=== PATIENT | male | born 1970 | race Caucasian/White ===

== ENCOUNTER 2017-01-09 15:08 | Inpatient (IN) | payer OTHER ==
[~2017-01-09] VITALS: Ht 177.8 cm; Wt 115.0 kg
[2017-01-09] VITALS (37 sets, daily range): BP systolic 117–154; BP diastolic 69–103; PULSE 83–98; TEMP 36.4–36.8; O2SAT 92–99; Ht 177.8 cm; Wt 115.0 kg
[~2017-01-09 15:08] MED LIST: BND25 PO; CEPH500C PO; EPP3/2 IM; LEVO125T4 PO; LORA-741 PO; MULT-506 PO; OXYC1TAB3 PO; PRVHFAIN INH; SULF800T23 PO; TIZA2CAP PO; ZOLP10TA PO
[2017-01-09 15:46] LABS: BASO % 0.3 %; BASO ABS # 0.04 K/uL (0-0.2); COMPLETE YES; EOS % 1.8 %; HEMATOCRIT 33.6 % (42-52); IG% 0.2 %; LYMPH % 21.8 %; LYMPH ABS # 2.79 K/uL (1.2-3.4); MEAN CELL VOLUME 88.2 fL (80-100); MEAN CORPUSCULAR HEMOGLOBIN 30.2 pg (25-34); MEAN CORPUSCULAR HGB CONC 34.2 g/dl (32-36); MEAN PLATELET VOLUME 8.5 fL (7.4-10.4); MONO % 14.7 %; NEUT % 61.2 %; PLATELET COUNT 535 K/uL (130-400); RED BLOOD COUNT 3.81 M/uL (4.7-6.1)
[2017-01-09 15:50] LABS: PARTIAL THROMBOPLASTIN RATIO 1.2; PROTHROMBIN TIME (PATIENT) 11.1 SECONDS (9.0-12.0)
[2017-01-09 15:55] LABS: BUN/CREATININE RATIO 13.7 (10-20); CALCIUM 8.6 mg/dl (8.5-10.1); CREATININE 0.92 mg/dl (0.60-1.40); POTASSIUM 3.6 mmol/L (3.5-5.1)
--- NOTE | 2017-01-09 15:57 | DIAGNOSTIC IMAGING REPORT ---
CHEST ONE VIEW PORTABLE CLINICAL HISTORY: Chest pain. COMPARISON STUDY: Chest radiograph and chest CT no 2015. FINDINGS: There is no pneumothorax or pleural effusion. Linear bilateral opacities favor atelectasis. Note is made of a 3.8 cm nodular retrocardiac opacity projecting over the left lower lung. There is no evidence of pulmonary edema. There is mild enlargement of the cardiac silhouette which appears increased since prior exam. IMPRESSION: 1. 3.8 cm nodular opacity within the left lower lung. While this may be artifactual, a small area of pneumonia could appear similar. Follow-up PA and lateral chest radiographs in one month to ensure resolution are recommended. 2. Linear bilateral opacities suggestive of atelectasis. 3. Mild enlargement of the cardiac silhouette, increased since prior exam, accentuated on this AP exam Electronically signed by: Joaquin Tena M.D. 01/09/2017 3:55 PM Dictated Date/Time: 01/09/2017 3:52 PM
[2017-01-09 15:59] LABS: POINT OF CARE PRO-BNP 1766 pg/ml (0-450)
[2017-01-09 16:00] LABS: CKMB/CK RATIO 1.2 (0-3.0)
[2017-01-09] MEDS ORDERED: LEVO150T9 PO (16:04)
[2017-01-09] MEDS ORDERED: ATV/1 PO (16:04)
[2017-01-09] MEDS ORDERED: CYCL10TA6 PO (16:04)
[2017-01-09] MEDS ORDERED: EPP3/2 IM (16:06)
[2017-01-09] MEDS ORDERED: ASPIRIN 81 MG CHEW PO STA (16:15)
[2017-01-09] MEDS ORDERED: NiCARDipine HCL INJ 2.5 MG/ML 10 ML AMP ONE (16:38)
[2017-01-09] MEDS ORDERED: HEPARIN SOD (PORCINE) 1000 UNIT/ML 10 ML VIAL ONE (16:38)
[2017-01-09] MEDS ORDERED: FENTANYL CITRATE INJ 50 MCG/1 ML 2 ML VIAL ONE (16:39)
[2017-01-09] MEDS ORDERED: NITROGLYCERIN/D5W 100MCG/ML 20ML SYR ONE (16:39)
[2017-01-09] MEDS ORDERED: MIDAZOLAM HCL 1 MG/ML 2ML VIAL ONE (16:39)
[2017-01-09] MEDS ORDERED: TRAM-10 PO (17:06)
[2017-01-09] MEDS ORDERED: OMEP20TA PO (17:06)
[2017-01-09] MEDS ORDERED: FUROSEMIDE 40 MG/4 ML VIAL ONE (17:35)
[2017-01-09] MEDS ORDERED: CLOPIDOGREL BISULFATE 300 MG TAB PO ONE (17:39)
[2017-01-09] MEDS ORDERED: NITROGLYCERIN/D5W 100 MCG/ML BTL ONE (17:39)
[2017-01-09] MEDS ORDERED: ACETAMINOPHEN 325 MG TAB PO PRN (18:00)
[2017-01-09] MEDS ORDERED: ONDANSETRON INJ 2 MG/ML 2 ML VIAL IV PRN (18:00)
--- NOTE | 2017-01-09 18:13 | Procedure Note ---
Post-Mod Sedation Assessment General Date of Moderate Sedation Jan 09, 2017. Vital Signs: Vital Signs Past 12 Hours Date Time Temp Pulse Resp B/P Pulse Ox O2 Delivery O2 Flow Rate FiO2 01/09/17 17:55 96 16 129/86 95 Room Air 01/09/17 17:42 97 16 138/86 95 Room Air 01/09/17 16:47 96 18 124/79 97 01/09/17 16:47 96 18 124/79 97 Nasal Cannula 2.0 01/09/17 16:34 96 116/80 97 Nasal Cannula 2.0 01/09/17 16:27 96 16 127/77 97 Nasal Cannula 2.0 01/09/17 16:22 99 01/09/17 15:19 95 Room Air 01/09/17 15:16 36.9 100 26 134/86 95 Room Air Review - Discharge Criteria Vital Signs Stable: Yes Alert/Oriented/Conversant: Yes Returned to Baseline Mental St: Yes Nausea Absent/Minimal: Yes Pain/Discomfort/Absent/Minimal: Yes Normal/Baseline Respirations: Yes Active Bleeding?: No Pt Received D/C Instructions: N/A Prescriptions Given: None Specific Proced. D/C Criteria Distal Pulses Present (Cardiac: Yes Groin site assessed-Card Cath: N/A Voided Prior To Discharge: N/A Discharged Patients Adult Escort/Transportation: N/A
--- NOTE | 2017-01-09 18:13 | Procedure Note ---
Pre-Mod Sedation Assessment General Date of Moderate Sedation: Jan 09, 2017. Vital Signs: Vital Signs Past 12 Hours Date Time Temp Pulse Resp B/P Pulse Ox O2 Delivery O2 Flow Rate FiO2 01/09/17 17:55 96 16 129/86 95 Room Air 01/09/17 17:42 97 16 138/86 95 Room Air 01/09/17 16:47 96 18 124/79 97 01/09/17 16:47 96 18 124/79 97 Nasal Cannula 2.0 01/09/17 16:34 96 116/80 97 Nasal Cannula 2.0 01/09/17 16:27 96 16 127/77 97 Nasal Cannula 2.0 01/09/17 16:22 99 01/09/17 15:19 95 Room Air 01/09/17 15:16 36.9 100 26 134/86 95 Room Air Review Cardiovascular: regular rate, rhythm, + pertinent finding (trace edema) Abdomen: normal bowel sounds, non tender, soft Lungs: + respiratory distress, + crackles (few crackles at bases) Airway Class: III Pre-Sedation Airway Assessment Oral Cavity: WNL Hx of Sleep Apnea: No Smoking Status: Current Every Day Smoker Mallampati Classification: Class III ASA Classification: Class III Procedure Planning Contraindications-for Mod Sed: None Yes Notes The planned sedation has been discussed with the patient and consent obtained. I have identified the patient, determined the appropriateness of sedation and have assessed the patient immediately prior to the procedure. All medicine(s) and interventions are by my order.
--- NOTE | 2017-01-09 18:38 | Cardiac Catheterization ---
Procedure Note Procedure Date Jan 09, 2017. Pre-Procedure Diagnosis STEMI AUC Score 9 Post-Procedure Diagnosis Severe CAD, Unsuccessful PCI, Elevated Intracardiac Pressures Procedure(s) Performed Coronary Angiography, Left Heart Cath Dovetailer Dr. Orourke Skid Wrapper(s) Jacoby Estimated Blood Loss 15 Medication(s) Clopidogrel, Fentanyl, Heparin, Nicardipine, Nitroglycerin, Versed, Lidocaine 1% Furosemide Summary of Findings Indication: Patient with chest pain starting 1 week ago, last pain 4 days ago. Presented to ED with worsening shortness of breath. Noted to me in acute heart failure. Presenting ECG showed precordial Q-waves with ST elevations. Heart Alert was called. Access: 6Fr Right Radial Artery Catheters: JR4 diagnostic, EBU 3.5 guide Findings: LM - Angiographically normal LAD - 100% occluded proximally Circumflex - Nondominant, large caliber vessel, luminal irregularities RCA - Dominant, large caliber vessel, mild 20-30% proximal disease, otherwise luminal irregularities distally. Faint right to left collaterals from PDA to LAD. LVEDP - 25 LV gram - LVEF ~25%, akinetic mid-distal anterior wall and apex In the setting of heart failure, questionable chest pain proximal LAD occlusion probed with BMW wire/Candy Cooker Helper 50. Lesion consistent with old organized thrombus and as wire could not be successfully passed into distal true lumen, procedure was aborted. Arterial Closure: TR Band Summary: 1. Late presenting Anterior STEMI/organized proximal LAD occlusion 2. Severe LV dysfunction with akinetic mid-distal anterior wall, apex. LVEF ~25 %. 3. Elevated intracardiac filling pressures. Recommendations: Admit to ICU Diuresis -- received lasix 40mg IV x 1 in labeling specialist Started on nitroglycerin drip for acute heart failure, mild respiratory distress Loaded with plavix 300 mg Continue ASA/Plavix for 1 year Heparin infusion overnight Echo in AM to assess LV function, evaluate for LV thrombus Start SUSY/ARB Start Beta-alex tomorrow when decompensated heart failure improved High-dose statin Smoking cessation Cardiac Rehab Hemodynamics Rest Ao: 105/77/90 Final Ao: 114/81/97 LV: 111/24 Recommendations Medical therapy and/or Counseling Specimens None Radiation Exposure (mGy) 2482 Contrast (mls) 95 Visi Fluids (cc crystalloids) 50 Drains None Anesthesia Moderate Procedural Complication(s) None Disposition ICU ACC Data Cardiac Status Clinical evaluation leading to the procedure CAD Presntation: STEMI STEMI or Non-STEMI: Symptom Onset Date/Time: 01/02/2017 Anginal Classification: CCS IV Heart Failure: NYHA Class: CCS III Cardiogenic Shock w/in 24Hrs: No Cardiac Arrest w/in 24Hrs: No Stress studies past 6 months: No Standard Exercise Stress Test: No Stress Echocardiogram: No Stress Testing w/SPECT MPI: No Cardiac CTA: No Coronary Anatomy Dominant: Right Left Main (% Stenosis): Normal LAD (% Stenosis): Proximal (100) Circumflex (% Stenosis): Normal RCA (% Stenosis): Proximal (20-30) Left Ventricular Angiography EF (%): 25 Wall Motion: Apical (Akinetic), Anterior (Akinetic) Diagnostic Physician's Name: Corby Orourke MD Closure Device Percutaneous Entry Location: Radial Closure Device: Radial Band Recommendations: Medical therapy and/or Counseling Intraprocedure Events Significant Dissection: No Perforation: No
[2017-01-09] MEDS ORDERED: MoRPHine SULFATE 2 MG/ML CARP ONE (18:53)
[2017-01-09] MEDS ORDERED: NITROGLYCERIN/D5W 100 MCG/ML 250 ML IV SCH (19:00)
[2017-01-09] MEDS ORDERED: MoRPHine SULFATE 2 MG/ML CARP IV STA (19:07)
[2017-01-09] MEDS ORDERED: MoRPHine SULFATE 2 MG/ML CARP IV PRN (19:15)
[2017-01-09] MEDS: HEPARIN 25,000 UNIT/500ML D5W 500 ML IV PRN (19:59)
[2017-01-09] MEDS: MoRPHine SULFATE 2 MG/ML CARP IV PRN ×3 (20:15→21:32)
[2017-01-09] MEDS ORDERED: NURSING VERBAL MED ORDER ONE (20:30)
--- NOTE | 2017-01-09 21:40 | EMERGENCY ROOM VISIT NOTE ---
History Report prepared by Campos: Veronica Santiago Under the Supervision of: Dr. Wilbur Licona M.D. First contact with patient: 15:24 Chief Complaint: RESPIRATORY PROBLEMS Stated Complaint: SOB Nursing Triage Summary: "I have been sick since last Tuesday, sleeping all the time, stomach pain. I don't have energy. Anything makes me struggle to breathe." per pt. Denies travel hx, no hx of blood clots, admits to being a smoker. 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 The patient states that last week he had pain under his rib cage on the right side along with mid abdominal pain and diaphoresis. The patient states that is when the shortness of breath started. He states that he has been sleeping an increased amount for the last week. The patient states that his chest pain and abdominal pain symptoms resolved but his shortness of breath has persisted throughout the week along with generalized weakness. The patient denies any current chest pain , trama, black or bloody stool, vomiting, diarrhea, swelling or pain in legs or any recent travel. The patient states that he is a daily smoker. He denies getting a flu shot this year. 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 Patient denies: swelling or pain in legs, black or bloody stool. Review of Systems See HPI for pertinent positives & negatives. A total of 10 systems reviewed and were otherwise negative. 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 Nurse's notes were reviewed and I agree with. Denies previous history of cardiac disease diabetes or pulmonary disease or blood clots Family History Patient reports no known family medical history. Social History Smoking Status: Current Every Day Smoker Alcohol Use: occasionally Drug Use: none Marital Status: in relationship Housing Status: lives with significant other Occupation Status: employed Current/Historical Medications Scheduled Levothyroxine Sodium (Levothyroxine Sodium), 150 MCG PO DAILY Multivitamin (Multivitamin), 1 TAB PO DAILY Omeprazole (Omeprazole), 20 MG PO DAILY Scheduled PRN Cyclobenzaprine Hcl (Flexeril), 10 MG PO TID PRN for Muscle Spasm Epinephrine (Epipen), 0.3 MG IM UD PRN for Severe Allergis Reaction Lorazepam (Ativan), 1 MG PO HS PRN for Anxiety Tramadol (Ultram), 50 MG PO Q6H PRN for Pain Allergies Coded Allergies: Amlodipine (Verified Allergy, Intermediate, Hives, 01/09/17) Lisinopril (Verified Allergy, Intermediate, Hives, 01/09/17) Tizanidine (Verified Allergy, Intermediate, Hives, 01/09/17) Physical Exam Vital Signs Date Time Temp Pulse Resp B/P Pulse Ox O2 Delivery O2 Flow Rate FiO2 01/09/17 18:08 36.8 96 20 130/91 94 Nasal Cannula 2.0 01/09/17 17:55 96 16 129/86 95 Room Air 01/09/17 17:42 97 16 138/86 95 Room Air 01/09/17 16:47 96 18 124/79 97 01/09/17 16:47 96 18 124/79 97 Nasal Cannula 2.0 01/09/17 16:34 96 116/80 97 Nasal Cannula 2.0 01/09/17 16:27 96 16 127/77 97 Nasal Cannula 2.0 01/09/17 16:22 99 01/09/17 15:19 95 Room Air 01/09/17 15:16 36.9 100 26 134/86 95 Room Air Physical Exam General: Moderately ill appearing young male, breathing comfortably on room air. Normal speech HEENT: Normal cephalic atraumatic. Pupils are equal round and reactive to light. Extraocular movements are intact. Oropharynx is pink with moist mucous membranes. No swelling of the mouth lips or tongue. Neck: Supple with a midline trachea. No meningeal signs or stiffness, no JVD or bruits. No Stridor. Chest: Mild tachypnea, lungs have some rhonchi in both bases. Heart: regular rate and rhythm. Abdomen: Soft nontender, nondistended without rebound guarding or rigidity. Extremities: No cyanosis clubbing or edema. No calf tenderness or assymetry Spine/Back. Non tender to palpation. No CVA tenderness Skin: Good turgor without rashes. Neurologic exam: Cranial nerves two through 12 are intact. Motor and sensation are intact and symmetrical throughout. Medical Decision & Procedures ER Provider Diagnostic Interpretation: X-ray results as stated below per interpretation by me and the radiologist: CHEST ONE VIEW PORTABLE CLINICAL HISTORY: Chest pain. COMPARISON STUDY: Chest radiograph and chest CT no 2015. FINDINGS: There is no pneumothorax or pleural effusion. Linear bilateral opacities favor atelectasis. Note is made of a 3.8 cm nodular retrocardiac opacity projecting over the left lower lung. There is no evidence of pulmonary edema. There is mild enlargement of the cardiac silhouette which appears increased since prior exam. IMPRESSION: 1. 3.8 cm nodular opacity within the left lower lung. While this may be artifactual, a small area of pneumonia could appear similar. Follow-up PA and lateral chest radiographs in one month to ensure resolution are recommended. 2. Linear bilateral opacities suggestive of atelectasis. 3. Mild enlargement of the cardiac silhouette, increased since prior exam, accentuated on this AP exam Electronically signed by: Joaquin Tena M.D. 01/09/2017 3:55 PM Dictated Date/Time: 01/09/2017 3:52 PM Laboratory Results 01/09/17 15:30 Red Blood Count 3.81, Mean Corpuscular Volume 88.2, Mean Corpuscular Hemoglobin 30.2, Mean Corpuscular Hemoglobin Concent 34.2, Mean Platelet Volume 8.5, Neutrophils (%) (Auto) 61.2, Lymphocytes (%) (Auto) 21.8, Monocytes (%) (Auto) 14.7, Eosinophils (%) (Auto) 1.8, Basophils (%) (Auto) 0.3, Neutrophils # (Auto ) 7.84, Lymphocytes # (Auto) 2.79, Monocytes # (Auto) 1.88, Eosinophils # (Auto ) 0.23, Basophils # (Auto) 0.04 01/09/17 15:30 Test 01/09/17 15:30 01/09/17 15:34 01/09/17 15:36 01/09/17 16:04 White Blood Count 12.80 K/uL (4.8-10.8) Red Blood Count 3.81 M/uL (4.7-6.1) Hemoglobin 11.5 g/dL (14.0-18.0) Hematocrit 33.6 % (42-52) Mean Corpuscular Volume 88.2 fL (80-100) Mean Corpuscular Hemoglobin 30.2 pg (25-34) Mean Corpuscular Hemoglobin Concent 34.2 g/dl (32-36) Platelet Count 535 K/uL (130-400) Mean Platelet Volume 8.5 fL (7.4-10.4) Neutrophils (%) (Auto) 61.2 % Lymphocytes (%) (Auto) 21.8 % Monocytes (%) (Auto) 14.7 % Eosinophils (%) (Auto) 1.8 % Basophils (%) (Auto) 0.3 % Neutrophils # (Auto) 7.84 K/uL (1.4-6.5) Lymphocytes # (Auto) 2.79 K/uL (1.2-3.4) Monocytes # (Auto) 1.88 K/uL (0.11-0.59) Eosinophils # (Auto) 0.23 K/uL (0-0.5) Basophils # (Auto) 0.04 K/uL (0-0.2) RDW Standard Deviation 44.6 fL (36.4-46.3) RDW Coefficient of Variation 13.7 % (11.5-14.5) Immature Granulocyte % (Auto) 0.2 % Immature Granulocyte # (Auto) 0.02 K/uL (0.00-0.02) Prothrombin Time 11.1 SECONDS (9.0-12.0) Prothromb Time International Ratio 1.0 (0.9-1.1) Activated Partial Thromboplast Time 31.4 SECONDS (21.0-31.0) Partial Thromboplastin Ratio 1.2 Anion Gap 6.0 mmol/L (3-11) Est Creatinine Clear Calc Drug Dose 128.5 ml/min Estimated GFR () 116.0 Estimated GFR (Non- 100.1 BUN/Creatinine Ratio 13.7 (10-20) Calcium Level 8.6 mg/dl (8.5-10.1) Total Bilirubin 0.3 mg/dl (0.2-1) Direct Bilirubin 0.1 mg/dl (0-0.2) Aspartate Amino Transf (AST/SGOT) 46 U/L (15-37) Alanine Aminotransferase (ALT/SGPT) 77 U/L (12-78) Alkaline Phosphatase 118 U/L (45-117) Total Creatine Kinase 120 U/L (39-308) Creatine Kinase MB 1.4 ng/ml (0.5-3.6) Total Protein 7.6 gm/dl (6.4-8.2) Albumin 2.5 gm/dl (3.4-5.0) Lipase 315 U/L (73-393) Creatine Kinase MB Ratio (0-3.0) Bedside D-Dimer > 450 ng/mlFEU (0-450) Bedside Troponin I 5.770 ng/ml (0-0.045) UU-Kfx-X-Type Natriuretic Peptide 1766 pg/ml (0-450) Influenza Type A Antigen Neg for Influ A (NEG) Influenza Type B Antigen Neg for Influ B (NEG) Laboratory studies as stated above per my review. Medications Administered Medications (Trade) Dose Ordered Sig/Theresa Route Start Time Stop Time Status Last Admin Dose Admin Aspirin (Aspirin Chew) 324 mg NOW STAT PO 01/09/17 16:15 01/09/17 16:16 DC 01/09/17 16:32 324 MG Heparin Sodium (Porcine) (Heparin Iv Bolus) 10,000 unit STK-MED ONCE .ROUTE 01/09/17 16:38 01/09/17 16:41 DC 01/09/17 16:38 8,000 UNIT Fentanyl Citrate (Fentanyl Inj) 100 mcg STK-MED ONCE .ROUTE 01/09/17 16:39 01/09/17 16:41 DC 01/09/17 16:39 50 MCG Midazolam HCl (Versed Inj) 2 mg STK-MED ONCE .ROUTE 01/09/17 16:39 01/09/17 16:41 DC 01/09/17 16:39 1 MG Furosemide (Lasix Inj) 40 mg STK-MED ONCE .ROUTE 01/09/17 17:35 01/09/17 17:38 DC 01/09/17 17:35 40 MG Clopidogrel Bisulfate (plAVix TAB) 300 mg STK-MED ONCE PO 01/09/17 17:39 01/09/17 17:41 DC 01/09/17 17:47 300 MG Nitroglycerin/ Dextrose (Nitroglycerin/ D5w 100 Mcg/Ml) 25 mg STK-MED ONCE .ROUTE 01/09/17 17:39 01/09/17 17:42 DC 01/09/17 17:46 25 MG ECG Indication: SOB/dyspnea Rate (beats per minute): 94 Rhythm: normal sinus Findings: T-wave inversion (Anterior, lateral), ST elevation (Anterior, lateral ), other Comparison ECG Date: 2015 Change: Changes consistent with Acute OH. ED Course 1526: Past medical records reviewed. The patient was evaluated in room A3, and a complete history and physical examination were performed. 1606: I reviewed the patient's EKG and called heart alert for the patient concerning his EKG. 1608: I reevaluated the patient and he was resting comfortably. 1609: I discussed the case with Dr. Orourke Cardiology. He agreed to evaluate the patient for further management and care. 1615: Ordered Aspirin 324 mg PO. Medical Decision Differentials include, but are not limited to; acute OH, pneumonia, acute coronary syndrome, CHF, electrolyte or metabolic abnormality, PE, myocarditis. This patient comes in as described above. He has had significant shortness of breath which is primarily dyspnea on exertion. He's been been sick for over a week. He's been having pain along his ribs bilaterally and chest. He said the chest pain has been resolved since Tuesday but he had a lot of chest pain earlier in the week and last week and He feels achy and tired. He's had no fever or cough. No lower extremity swelling. No history of any similar events prior. Multiple blood testing was obtained as well as chest x-ray and EKG. The nurses came and got me after do an EKG as his EKG shows findings consistent with acute OH. His have Q waves as well as troponin is markedly elevated as is his BMP and d-dimer. I went back and reassessed the patient, he was given aspirin, and a heart alert was called. Dr. Orourke promptly arrived is going to take him to the Compliance Technician. The patient has no acute electrolyte or metabolic abnormality otherwise. I think he may have some mild congestive heart failure changes as well. Talking to the patient and his significant other, I suspect that he had more of a subacute heart attack probably about a week ago and has been having some congestive heart failure changes and an angina since then. He was sent emergency to the Compliance Technician for further diagnostic evaluation and possible treatment or angioplasty. Consults Time Called: 1608 Consulting Physician: Dr. Orourke Cardiology Returned Call: [phone] I discussed the case with Dr. Orourke Cardiology. He agreed to evaluate the patient for further management and care. Impression Primary Impression: Acute OH Critical Care I have personally spent greater than 30 minutes of critical care time in the direct management of this patient. This includes bedside care, interpretation of diagnostic studies, and testing, discussion with consultants, patient, and family members, and other required patient management activities. This 30 minutes is in excess of all separately billable procedures. Scribe Attestation The scribe's documentation has been prepared under my direction and personally reviewed by me in its entirety. I confirm that the note above accurately reflects all work, treatment, procedures, and medical decision making performed by me. Departure Information Dispostion Being Evaluated By Hospitalist Referrals Feliciano Holguin III, M.D. (PCP) Patient Instructions My [facility]
--- NOTE | 2017-01-09 22:12 | History and Physical ---
History & Physical Date & Time of Service: Jan 09, 2017 at 21:32 Chief Complaint: Ami (Acute Myocardial Infarction) Primary Care Physician: Feliciano Holguin III, M.D. History of Present Illness Source: patient 46 yo M with chest pain for the past several days associated with sweating and generalized malaise. 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 He was foudn to have an STEMI in the anterolateral leads and was taken to the laborer drying department where he was found to have an occluded prox LAD that couldn't be opened and an EF of 25%. A wire could not be successfully passed and PCI was unsuccessful. Lasix 40mg IV was given in laborer drying department, he was started on a nitro drip for acute heart failure in mild respiratory distress, he was loaded with Plavix 300mg. A heparin infusion was ordered overnight. A TTE was ordered in the morning to assess LV function and look for LV thrombus. Recommendations include starting ARB (pt allergic to ACEI), start BB when decompensated heart failure improved, start high dose statin. Smoking cessation and cardiac rehab were also recommended. He was still describing chest pain in the ICU post-cath which is being controlled with PRN Morphine. 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 Pt denies Social History Smoking Status: Current Every Day Smoker (45 pack years) Smokeless Tobacco Use: No Alcohol Use: none Drug Use: none Marital Status: in relationship Housing status: lives with family Occupational Status: employed Immunizations History of Influenza Vaccine: Yes Influenza Vaccine Date: Jun 14, 2016 History of Tetanus Vaccine?: Yes Tetanus Immunization Date: Oct 21, 2016 History of Pneumococcal: No History of Hepatitis B Vaccine: No Multi-Drug Resistant Organisms History of MDRO: No Allergies Coded Allergies: Amlodipine (Verified Allergy, Intermediate, Hives, 01/09/17) Lisinopril (Verified Allergy, Intermediate, Hives, 01/09/17) Tizanidine (Verified Allergy, Intermediate, Hives, 01/09/17) Home Medications Scheduled Levothyroxine Sodium (Levothyroxine Sodium), 150 MCG PO DAILY Multivitamin (Multivitamin), 1 TAB PO DAILY Omeprazole (Omeprazole), 20 MG PO DAILY Scheduled PRN Cyclobenzaprine Hcl (Flexeril), 10 MG PO TID PRN for Muscle Spasm Epinephrine (Epipen), 0.3 MG IM UD PRN for Severe Allergis Reaction Lorazepam (Ativan), 1 MG PO HS PRN for Anxiety Tramadol (Ultram), 50 MG PO Q6H PRN for Pain Review of Systems All systems reviewed and negative except as indicated in HPI. Physical Exam Vital Signs Date Time Temp Pulse Resp B/P Pulse Ox O2 Delivery O2 Flow Rate FiO2 01/09/17 20:04 96 21 136/87 99 Nasal Cannula 2.0 01/09/17 20:00 36.8 97 26 136/87 99 Nasal Cannula 2.0 01/09/17 19:59 36.8 94 28 140/91 99 Nasal Cannula 2.0 01/09/17 19:39 97 26 154/103 99 Nasal Cannula 2.0 01/09/17 19:29 93 18 136/82 96 Nasal Cannula 2.0 01/09/17 19:14 95 19 139/90 96 Nasal Cannula 2.0 01/09/17 18:59 93 18 130/88 92 Nasal Cannula 2.0 01/09/17 18:46 Nasal Cannula 2.0 01/09/17 18:44 91 18 143/87 94 01/09/17 18:44 36.8 91 18 143/87 94 Nasal Cannula 2.0 01/09/17 18:38 96 23 94 01/09/17 18:29 94 25 132/88 94 Nasal Cannula 2.0 01/09/17 18:29 94 25 132/88 94 01/09/17 18:23 96 21 93 01/09/17 18:22 96 27 130/91 94 Nasal Cannula 2.0 01/09/17 18:22 96 27 130/91 94 01/09/17 18:08 36.8 96 20 130/91 94 Nasal Cannula 2.0 01/09/17 17:55 96 16 129/86 95 Room Air 01/09/17 17:42 97 16 138/86 95 Room Air 01/09/17 16:47 96 18 124/79 97 01/09/17 16:47 96 18 124/79 97 Nasal Cannula 2.0 01/09/17 16:34 96 116/80 97 Nasal Cannula 2.0 01/09/17 16:27 96 16 127/77 97 Nasal Cannula 2.0 01/09/17 16:22 99 01/09/17 15:19 95 Room Air 01/09/17 15:16 36.9 100 26 134/86 95 Room Air GEN: WNWD, in mild distress, alert and appropriate HEENT: NC/AT, PERRL, normal sclerae, pharynx non-acute CARDIO: reg rate, S1/2 heard without m/g/r LUNGS: CTA bilaterally, no crackles, rales or wheezes, good diaphragmatic excursion ABD: soft, non-tender, non-distended, no rebound or guarding, +BS EXTREMITY: RP and DP palpable 2+ bilat, <2sec cap refill, wrist strap in place, no LE swelling or edema, extremities are warm and well-perfused NEURO: CN 2-12 grossly intact, sensation intact throughout MUSC: moves all extremities equally, no gross focal deficits. SKIN: warm and dry Diagnostics Laboratory Results Results Past 24 Hours Test 01/09/17 15:30 01/09/17 15:34 01/09/17 15:36 01/09/17 16:04 Range/Units White Blood Count 12.80 4.8-10.8 K/uL Red Blood Count 3.81 4.7-6.1 M/uL Hemoglobin 11.5 14.0-18.0 g/dL Hematocrit 33.6 42-52 % Mean Corpuscular Volume 88.2 80-100 fL Mean Corpuscular Hemoglobin 30.2 25-34 pg Mean Corpuscular Hemoglobin Concent 34.2 32-36 g/dl Platelet Count 535 130-400 K/uL Mean Platelet Volume 8.5 7.4-10.4 fL Neutrophils (%) (Auto) 61.2 % Lymphocytes (%) (Auto) 21.8 % Monocytes (%) (Auto) 14.7 % Eosinophils (%) (Auto) 1.8 % Basophils (%) (Auto) 0.3 % Neutrophils # (Auto) 7.84 1.4-6.5 K/uL Lymphocytes # (Auto) 2.79 1.2-3.4 K/uL Monocytes # (Auto) 1.88 0.11-0.59 K/uL Eosinophils # (Auto) 0.23 0-0.5 K/uL Basophils # (Auto) 0.04 0-0.2 K/uL RDW Standard Deviation 44.6 36.4-46.3 fL RDW Coefficient of Variation 13.7 11.5-14.5 % Immature Granulocyte % (Auto) 0.2 % Immature Granulocyte # (Auto) 0.02 0.00-0.02 K/uL Prothrombin Time 11.1 9.0-12.0 SECONDS Prothromb Time International Ratio 1.0 0.9-1.1 Activated Partial Thromboplast Time 31.4 21.0-31.0 SECONDS Partial Thromboplastin Ratio 1.2 Sodium Level 134 136-145 mmol/L Potassium Level 3.6 3.5-5.1 mmol/L Chloride Level 98 98-107 mmol/L Carbon Dioxide Level 30 21-32 mmol/L Anion Gap 6.0 3-11 mmol/L Blood Urea Nitrogen 13 7-18 mg/dl Creatinine 0.92 0.60-1.40 mg/dl Est Creatinine Clear Calc Drug Dose 128.5 ml/min Estimated GFR () 116.0 Estimated GFR (Non- 100.1 BUN/Creatinine Ratio 13.7 10-20 Random Glucose 83 70-99 mg/dl Calcium Level 8.6 8.5-10.1 mg/dl Total Bilirubin 0.3 0.2-1 mg/dl Direct Bilirubin 0.1 0-0.2 mg/dl Aspartate Amino Transf (AST/SGOT) 46 15-37 U/L Alanine Aminotransferase (ALT/SGPT) 77 12-78 U/L Alkaline Phosphatase 118 45-117 U/L Total Creatine Kinase 120 39-308 U/L Creatine Kinase MB 1.4 0.5-3.6 ng/ml Creatine Kinase MB Ratio 1.2 0-3.0 Total Protein 7.6 6.4-8.2 gm/dl Albumin 2.5 3.4-5.0 gm/dl Lipase 315 73-393 U/L Bedside D-Dimer > 450 0-450 ng/mlFEU Bedside Troponin I 5.770 0-0.045 ng/ml SU-[id number]-Type Natriuretic Peptide 1766 0-450 pg/ml Influenza Type A Antigen Neg for Influ A NEG Influenza Type B Antigen Neg for Influ B NEG Test 01/09/17 21:01 Range/Units Bedside Glucose 174 70-99 mg/dl Diagnostic Radiology CXR port: IMPRESSION: 1. 3.8 cm nodular opacity within the left lower lung. While this may be artifactual, a small area of pneumonia could appear similar. Follow-up PA and lateral chest radiographs in one month to ensure resolution are recommended. 2. Linear bilateral opacities suggestive of atelectasis. 3. Mild enlargement of the cardiac silhouette, increased since prior exam, accentuated on this AP exam EKG ST elev in I,AVL and V2-V6. Impression Assessment and Plan 46 yo M presents in acute CHF with STEMI 1. STEMI-the patient was a late presentation having had symptoms now for several days. Taken to laborer drying department, however, PCI was unsuccessful. Medical therapy and monitoring in ICU. Cardiac meds per Cards team. 2. Acute HF-severe dyspnea on exertion over the past couple of days. LV dysfunction with EF 25% on cath. Medical management per cardiology team. Appreciate recommendations. 3. Smoking-counseled on the importance of smoking cessation. 4. Anxiety-Lorazepam PRN 5. Chronic pain- 2/2 arthritis, takes PRN Tramadol Flexeril and Oxycodone 6. Hypothyroidism-cont Synthroid 150mg daily 7. HTN- (allergic to ACEI), not on antihypertensives at this time, however, this will be added in light of recent events for medical management of CAD. 8. LLL opacity on CXR-order PA and Lat CXR for am to better elucidate nodular opacity in am DVT proph-on heparin drip FULL CODE Enid Key DO Hospitalist Level of Care Critical Care Advanced Directives Existing Living Will: No Existing Power of Catering Convention Services Manager: No Resuscitation Status FULL RESUSCITATION VTE Prophylaxis VTE Risk Assessment Done? Y/N: Yes Risk Level: Moderate Given or contraindicated: Other Anticoagulation
[2017-01-09] MEDS: TRAMADOL HCL 50 MG TAB PO PRN (23:41)
[2017-01-09] MEDS: LORAZEPAM 1 MG TAB PO PRN (23:41)
--- NOTE | 2017-01-09 23:52 | CRITICAL CARE CONSULTATION ---
DATE OF CONSULTATION: 01/09/2017 CHIEF COMPLAINT: Chest discomfort. HISTORY OF PRESENT ILLNESS: Mr. Gonzalez is a 46-year-old gentleman with a history of hypothyroidism and heavy tobacco use, who presented to the Emergency Department complaining of chest discomfort. His girlfriend reports that over a week ago he was out for dinner with some friends, came home and started sweating profusely and experiencing what he called "internal pain around my ribcage, like I had an exposed nerve." It was sharp in nature, but there was also pain on the left side of his chest, around his nipple moving upward toward his neck. Evidently, he slept much of the weekend and went to work on Tuesday but had shortness of breath. He continued to work all week and reports that the pain got a little bit better about 4 days ago but then came back. On night, he had what he describes as chest pain over his left nipple, but he thought it was going to get better. He has had a poor appetite and has felt weak, but has not had any nausea or vomiting. Today when his girlfriend went to see him, she noted that he appeared scott in color and his lips were white. They went out to eat for lunch and after lunch she knew he was not feeling well and he agreed to come to the hospital. This is a man who smokes 2-1/2 packs of cigarettes per day and has done so for years. His father has a history of heart disease and is still living, but he cannot be very specific about that. He denies history of hypercholesterolemia and diabetes, and he sees Dr. Holguin for his primary care. When the patient presented to the Emergency Department, an EKG was performed which showed ST-segment elevations in leads I, V2 through V6. He was immediately taken to the cardiac catheterization lab where proximal LAD occlusion was noted but it was not able to be passed with a wire. His LVgram showed an ejection fraction of 25%. He was given 300 mg of Plavix, 40 mg of Lasix, a heparin bolus with infusion, and a nitroglycerin infusion. He was then transferred to the intensive care unit where he remains. He continues to complain of 3-4/10 chest pain and has been given 2 mg of morphine. Additionally, he denies lower extremity edema. PAST MEDICAL HISTORY: Gastroesophageal reflux disease, hypothyroidism, chronic pain, anxiety. PAST SURGICAL HISTORY: He denies any surgical history. ALLERGIES: TO LISINOPRIL WHICH CAUSES FACE AND THROAT SWELLING. OUTPATIENT MEDICATIONS: Flexeril 10 mg t.i.d. p.r.n., EpiPen p.r.n., levothyroxine 150 mcg daily, Ativan 1 mg at bedtime p.r.n. anxiety, multivitamin daily, omeprazole 20 mg daily, tramadol 50 mg q. 6 hours p.r.n. pain. 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 He drinks alcohol on occasion but not daily. He has a significant other and at least 1 daughter. FAMILY HISTORY: Significant for father with COPD and heart disease and mother with diabetes mellitus. REVIEW OF SYSTEMS: He denies cough, fevers, chills, diarrhea, abdominal pain, bleeding, melena, lower extremity swelling. He has shortness of breath at rest and with exertion. Chest pain is sharp and sometimes burning in nature. Additional review of systems are negative or noncontributory in the 12-point system. PHYSICAL EXAMINATION: GENERAL: This is a middle-aged man sitting in bed in no acute distress. VITAL SIGNS: Temperature 36.8, blood pressure 154/103, pulse 90s, respiratory rate 18-26, pulse ox 96% on 2 liters nasal cannula. HEENT: Pupils are equally round and reactive to light. Oral mucosa is moist. He is edentulous. Posterior pharynx is clear. NECK: No adenopathy, no bruits. LUNGS: With some rales in bilateral bases but very faint. No rhonchi or wheezes. HEART: Regular rate and rhythm, no murmurs noted. ABDOMEN: Obese, soft, nondistended, nontender. Active bowel sounds. No hepatosplenomegaly. EXTREMITIES: Warm with very trace pretibial edema bilaterally. Left radial pulse is 2+. Right wrist has a hemostasis band on it. Capillary refill is adequate in that hand. Dorsalis pedis pulses are 1+. LABORATORY DATA: White blood cell count 12.8, hemoglobin 11.5, hematocrit 33.6, platelets 535. Sodium 134, potassium 3.6, chloride 98, CO2 of 30, BUN 13, creatinine 0.92. AST 46, alkaline phosphatase 118. Total protein 2.5. D-dimer greater than 450. PT 11.1, INR 1.0, PTT 31.4. Portable chest x-ray from this afternoon was reviewed which shows bibasilar atelectasis as well as a 3.8 cm nodular opacity within the left lower lung. Mild enlargement of the cardiac silhouette. EKG was reviewed and shows sinus tachycardia with anterior wall ST-segment elevations. PRESENT MEDICATIONS: Acetaminophen, aspirin, Lipitor, Plavix, heparin infusion, levothyroxine, Ativan, Lopressor, morphine, multivitamin, nitroglycerin, Zofran, Protonix, tramadol. IMPRESSION: 1. Status post acute ST-segment elevation myocardial infarction of the anterior wall. 2. 100% left anterior descending artery occlusion. 3. Tobacco abuse. 4. Ongoing chest pain and late presenting myocardial infarction. 5. History of hypothyroidism. 6. History of anxiety. 7. History of chronic pain. 8. 3.8 cm nodule on chest x-ray. PLAN: 1. Neurologic: I have added morphine p.r.n. for chest pain. Consider adding back his Flexeril p.r.n. as well. 2. Cardiovascular: Continue nitroglycerin infusion as well as aspirin, beta alex, statin, Plavix and heparin infusion. He cannot have SUSY INHIBITOR SECONDARY TO ALLERGY. 3. Pulmonary: I will order incentive spirometer and a followup chest x-ray for tomorrow. He may benefit from a CT scan of the chest to better evaluate the left lower lobe. 4. Renal: No acute active issues. 5. Gastroenterology: He is on AHA diet. He is on a statin. Provide GI prophylaxis with Protonix. 6. Hematology: Follow H\\T\\H and watch for any signs of bleeding. MTDD
[2017-01-10] VITALS (18 sets, daily range): BP systolic 92–140; BP diastolic 48–90; PULSE 84–100; TEMP 36.6–36.8; O2SAT 90–97
[2017-01-10 02:12] LABS: PARTIAL THROMBOPLASTIN RATIO 1.4
[2017-01-10] MEDS ORDERED: HEPARIN IV BOLUS 7,000 UNIT in SYRINGE 0 ML IV STA (03:27)
[2017-01-10] MEDS: HEPARIN 25,000 UNIT/500ML D5W 500 ML IV PRN ×4 (03:37→21:02)
[2017-01-10 05:44] LABS: BASO % 0.4 %; BASO ABS # 0.05 K/uL (0-0.2); COMPLETE YES; EOS % 3.2 %; IG% 0.4 %; LYMPH % 30.6 %; LYMPH ABS # 3.49 K/uL (1.2-3.4); MEAN CELL VOLUME 88.6 fL (80-100); MEAN CORPUSCULAR HEMOGLOBIN 29.6 pg (25-34); MEAN CORPUSCULAR HGB CONC 33.4 g/dl (32-36); MEAN PLATELET VOLUME 8.6 fL (7.4-10.4); NEUT % 52.4 %; PLATELET COUNT 566 K/uL (130-400); RED BLOOD COUNT 3.61 M/uL (4.7-6.1); WHITE BLOOD COUNT 11.42 K/uL (4.8-10.8)
--- NOTE | 2017-01-10 05:47 | CARDIOLOGY CONSULTATION ---
DATE OF CONSULTATION: 01/09/2017 CONSULTATION REQUESTED BY: Dr. Licona. REASON FOR CONSULTATION: Heart alert. HISTORY OF PRESENT ILLNESS: Mr. Gonzalez is a 46-year-old male with a history of hypothyroidism and ongoing tobacco use, who presented with worsening shortness of breath over the last 3 days. The patient had an initial EKG which showed deep Q-waves across the precordium with anterior ST elevations and heart alert was called. The patient states that, approximately one week ago, he developed severe onset crushing chest pain. This was on and off again over the next couple of days; last chest pain was approximately 4 days ago. Over the last 3 days he has noted worsening shortness of breath with exertion, states that he has been okay at rest or with any attempted exertion. He had severe limiting dyspnea. Denied any significant chest pain today, just states that his chest felt uncomfortable. Otherwise, denies any swelling in his legs. Denies any palpitations. Denies any presyncope. The patient has no prior cardiac history. PAST MEDICAL HISTORY: Hypothyroidism, questionable hypertension in the past, GERD. FAMILY HISTORY: Father had an OK, unsure what age. SOCIAL HISTORY: Ongoing smoker, previously smoked 2 packs a day, now down to 1 pack a day. Previously was a heavy drinker. Denies heavy alcohol use currently. Denies illicit drugs. 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 HOME MEDICATIONS: Include: 1. Flexeril. 2. EpiPen. 3. Levothyroxine 150 mcg daily. 4. Lorazepam. 5. Multivitamin. 6. Omeprazole. 7. Tramadol. ALLERGIES: AMLODIPINE, LISINOPRIL AND TIZANIDINE. REVIEW OF SYSTEMS: Unable to be obtained due to emergent situation. PHYSICAL EXAMINATION: VITAL SIGNS: Temperature 36.9, blood pressure was 124/79, heart rate was 96 and was satting 97% on two liters. GENERAL: The patient appeared mildly uncomfortable, tachypneic. HEENT: His sclerae are anicteric. His oropharynx is clear. NECK: Supple. JVD was not able to be assessed. LUNGS: He had a few crackles at his bases bilaterally. HEART: He had a regular rate with no appreciable murmurs, rubs or gallops. ABDOMEN: Soft, nontender, nondistended with positive bowel sounds. EXTREMITIES: Warm. He had trace distal lower extremity edema, had intact distal pulses throughout. SKIN: Showed no rashes or lesions. NEUROLOGIC: Grossly nonfocal. PSYCHIATRIC: He was alert and oriented x3. His mood and affect were appropriate. DATA: WBC 12.8, hemoglobin 11.5, platelets of 535, INR 1.0, PTT of 31.4. His D-dimer was greater than 450. Sodium of 134, potassium 3.6, BUN of 13, creatinine of 0.9, AST slightly elevated at 46, alkaline phosphatase elevated at 118, his [id number] troponin was 5.77. His NT ProBNP was 1766. Albumin was 2.5. Chest x-ray showed a 3.8 cm nodular opacity within the left lung, question of artifact. There were linear bilateral opacities suggestive of atelectasis versus possible pulmonary edema. There was mild enlargement of the cardiac silhouette. EKG showed sinus rhythm with acute lateral infarct with Q-waves in I, aVL and V3 through V5 as well as ST elevations in I, aVL and V2 through V6. Cardiac catheterization; large dominant RCA without significant disease, provided showed faint left to right collaterals to the LAD. LAD was found to be 100% occluded proximally. Circumflex without significant disease. Brief attempt made to pass the wire across the proximal LAD occlusion, but lesion was firm, organized, occlusion consistent with late presentation. IMPRESSION AND PLAN: 1. Late presenting anterolateral ST segment elevation myocardial infarction. 2. Proximal left anterior descending occlusion without significant residual coronary artery disease. 3. Acute heart failure. 4. Severe left ventricular dysfunction. 5. History of hypertension. 6. Hypothyroidism. The patient presented today with progressive shortness of breath and was found to be in heart failure on presentation, noted to have precordial Q-waves and anterolateral ST elevations consistent with his proximal LAD occlusion. Unfortunately, the patient is now 7 days out from initial presentation of symptoms and limited revascularization options at this point as new wall motion abnormalities likely represent infarct. Going forward, we will plan to treat the patient's acute heart failure. The patient received 40 of IV Lasix in the laborer golf course and goal diuresis net 1 to 1.5 liters overnight negative. The patient was loaded on Plavix in the laborer golf course and we will continue dual antiplatelet therapy for one year. I recommend starting him on heparin infusion in the setting of possible LV thrombus. We will plan to obtain a transthoracic echocardiogram tomorrow to better assess LV function and evaluate for possible thrombus. Otherwise, we will plan to start on SUSY inhibitor/ARB. We will plan to start on beta alex tomorrow when decompensated heart failure better resolved. Otherwise, patient to be started on high dose statin and we will continue to discuss smoking cessation. We will continue to follow the patient while in hospital. Thank you for this consultation. Please contact with any questions. DEAN
[2017-01-10] MEDS: LEVOTHYROXINE 150 MCG TAB PO SCH (05:58)
[2017-01-10 06:02] LABS: PARTIAL THROMBOPLASTIN RATIO 2.5
[2017-01-10 06:13] LABS: BUN/CREATININE RATIO 14.1 (10-20); CALCIUM 8.4 mg/dl (8.5-10.1); CREATININE 0.88 mg/dl (0.60-1.40); MAGNESIUM 2.2 mg/dl (1.8-2.4); POTASSIUM 3.6 mmol/L (3.5-5.1)
[2017-01-10 07:04] LABS: ESTIMATED AVERAGE GLUCOSE 114 mg/dl; HA1C FLAG Normal (Normal)
[2017-01-10] MEDS: ASPIRIN 81 MG ECTAB PO SCH (07:39)
[2017-01-10] MEDS: METOPROLOL TARTRATE 25 MG TAB PO SCH ×2 (07:40→20:56)
[2017-01-10] MEDS: ATORVASTATIN 40 MG TAB PO SCH (07:40)
[2017-01-10] MEDS: CLOPIDOGREL BISULFATE 75 MG TAB PO SCH (07:40)
[2017-01-10] MEDS: MULTIVITAMIN TAB PO SCH (07:40)
[2017-01-10] MEDS: MoRPHine SULFATE 2 MG/ML CARP IV PRN ×7 (07:41→20:57)
[2017-01-10] MEDS: PANTOprazole SOD 40 MG TAB PO SCH (07:41)
--- NOTE | 2017-01-10 09:46 | DIAGNOSTIC IMAGING REPORT ---
CHEST ONE VIEW PORTABLE CLINICAL HISTORY: f/u LLL nodule nodule COMPARISON STUDY: 01/09/2017 FINDINGS: Diminished prominence of a left basilar nodular density. Residual atelectasis left infrahilar region and to a lesser extent left base. Lungs otherwise appear clear. IMPRESSION: Mildly improved atelectatic and nodular change left base. Moderate residual. Continued close follow-up is suggested. Electronically signed by: Jt Pacheco M.D. 01/10/2017 9:45 AM Dictated Date/Time: 01/10/2017 9:43 AM
[2017-01-10 10:03] LABS: PARTIAL THROMBOPLASTIN RATIO 1.4
--- NOTE | 2017-01-10 10:49 | Critical Care Progress Note ---
Critical Care Progress Note Date of Service Jan 10, 2017. Attending Subjective Minimal chest pain. No worsening dyspnea. No GI complaints. Rx tolerated. He is already wondering when he can leave. Explained what has happened and his need to stay in the hospital for a few more days. Objective Vitals--afeb/VSS HEENT--No focal neuro changes. Cardio--regular--no murmur--perfusion is acceptable, no JVD Pulmonary--clear with good exchange GI--Functional Musculo---no edema Neuro--non-focal Psychiatric--no new target Assessment & Plan STEMI--LAD occlusion--on medical management-- 1. Cardio--current Rx appropriate and cardiology involved. No additions or changes to Rx for now--track for complications 2. Pulmonary--toilette--heavy smoker 3. GI--OBR 4. F/E/N--will maximize lytes 5. Renal--tracking given the dye load Critical Care Time 45min Consults & Procedures Consultants: Dr. Orourke--cardiology Data Medications: Current Inpatient Medications Medications (Trade) Dose Ordered Sig/Theresa Route Start Time Stop Time Status Last Admin Dose Admin Ondansetron HCl (Zofran Inj) 4 mg Q6H PRN IV 01/09/17 18:00 02/08/17 17:59 Aspirin (Ecotrin Tab) 81 mg QAM PO 01/10/17 09:00 02/09/17 08:59 01/10/17 07:39 81 MG Clopidogrel Bisulfate (plAVix TAB) 75 mg QAM PO 01/10/17 09:00 02/09/17 08:59 01/10/17 07:40 75 MG Atorvastatin Calcium (Lipitor Tab) 80 mg QAM PO 01/10/17 09:00 02/09/17 08:59 01/10/17 07:40 80 MG Metoprolol Tartrate (Lopressor Tab) 25 mg Q12 PO 01/10/17 09:00 02/09/17 08:59 01/10/17 07:40 25 MG Acetaminophen (Tylenol Tab) 650 mg Q4H PRN PO 01/09/17 18:00 02/08/17 17:59 Levothyroxine Sodium (Synthroid Tab) 150 mcg DAILYBB PO 01/10/17 06:00 02/09/17 05:59 01/10/17 05:58 150 MCG Lorazepam (Ativan Tab) 1 mg HS PRN PO 01/09/17 18:00 02/08/17 17:59 01/09/17 23:41 1 MG Multivitamins (Multivitamin Tab) 1 tab DAILY PO 01/10/17 09:00 02/09/17 08:59 01/10/17 07:40 1 TAB Tramadol HCl (Ultram Tab) 50 mg Q6H PRN PO 01/09/17 18:00 02/08/17 17:59 01/09/17 23:41 50 MG Pantoprazole Sodium 40 mg 40 mg QAM PO 01/10/17 09:00 02/09/17 08:59 01/10/17 07:41 40 MG Nitroglycerin/ Dextrose 250 ml @ 0 mls/hr Q0M IV 01/09/17 19:00 02/08/17 18:59 01/09/17 20:02 6 MLS/HR Heparin Sodium/ Dextrose (Heparin 25,000 Unit/500ml D5W) 500 ml @ 46 mls/hr [id number] PRN IV 01/09/17 19:45 02/08/17 19:44 01/10/17 10:33 46 MLS/HR Morphine Sulfate 2 mg 2 mg Q15M PRN IV 01/09/17 20:45 01/23/17 20:44 01/10/17 09:08 2 MG Heparin Sodium (Porcine)/Syringe (Heparin Iv Bolus/Syringe) 7 ml @ 10 mls/min 1100 ONCE IV 01/10/17 11:00 01/10/17 11:01 01/10/17 10:31 10 MLS/MIN I & O: 24-Hour Column 01/10/17 08:00 Intake Total 1894 ml Output Total 2825 ml Balance -931 ml Vital Signs: Date Time Temp Pulse Resp B/P Pulse Ox O2 Delivery O2 Flow Rate FiO2 01/10/17 10:00 84 20 103/70 90 Room Air 01/10/17 08:00 36.6 100 17 120/78 91 2.0 01/10/17 08:00 91 2.0 01/10/17 06:00 94 16 121/88 93 Nasal Cannula 3.0 01/10/17 04:59 95 26 108/64 93 Nasal Cannula 3.0 01/10/17 04:28 96 28 130/79 93 Nasal Cannula 3.0 01/10/17 04:00 Nasal Cannula 2.0 01/10/17 03:59 36.7 98 26 102/48 91 Nasal Cannula 3.0 01/10/17 03:29 98 26 107/76 96 Nasal Cannula 3.0 01/10/17 02:59 97 21 126/76 94 Nasal Cannula 3.0 01/10/17 02:29 95 14 137/90 97 Nasal Cannula 3.0 01/10/17 01:59 96 21 110/81 96 Nasal Cannula 3.0 01/10/17 01:29 95 18 140/86 95 Nasal Cannula 3.0 01/10/17 00:59 96 22 122/82 97 Nasal Cannula 3.0 01/10/17 00:29 94 32 116/80 90 Nasal Cannula 3.0 01/10/17 00:01 Nasal Cannula 2.0 01/09/17 23:59 36.4 93 20 137/77 99 Nasal Cannula 2.0 01/09/17 23:29 95 26 139/90 93 Nasal Cannula 2.0 01/09/17 22:59 93 20 136/90 96 Nasal Cannula 2.0 01/09/17 22:29 83 22 131/82 96 Nasal Cannula 2.0 01/09/17 21:59 94 23 142/88 99 Nasal Cannula 2.0 01/09/17 21:36 95 24 132/79 95 Nasal Cannula 2.0 01/09/17 21:35 96 24 122/69 98 01/09/17 21:29 96 24 129/82 96 01/09/17 21:24 94 29 122/81 94 01/09/17 21:19 94 19 124/76 95 01/09/17 21:14 95 21 129/90 94 Nasal Cannula 2.0 01/09/17 21:09 97 17 144/84 96 Nasal Cannula 2.0 01/09/17 21:04 95 17 126/84 97 Nasal Cannula 2.0 01/09/17 20:59 97 21 122/81 96 Nasal Cannula 2.0 01/09/17 20:54 97 19 131/89 93 Nasal Cannula 2.0 01/09/17 20:49 95 15 119/91 97 Nasal Cannula 2.0 01/09/17 20:44 96 18 118/82 96 Nasal Cannula 2.0 01/09/17 20:39 98 21 145/84 93 Nasal Cannula 2.0 01/09/17 20:34 96 21 130/81 96 Nasal Cannula 2.0 01/09/17 20:29 98 19 117/78 95 Nasal Cannula 2.0 01/09/17 20:24 93 16 120/76 97 Nasal Cannula 2.0 01/09/17 20:19 96 21 121/79 98 Nasal Cannula 2.0 01/09/17 20:14 95 16 133/89 98 Nasal Cannula 2.0 01/09/17 20:09 97 17 141/90 99 Nasal Cannula 2.0 01/09/17 20:04 96 21 136/87 99 Nasal Cannula 2.0 01/09/17 20:04 96 21 136/87 99 01/09/17 20:00 36.8 97 26 136/87 99 Nasal Cannula 2.0 01/09/17 19:59 36.8 94 28 140/91 99 Nasal Cannula 2.0 01/09/17 19:39 97 26 154/103 99 Nasal Cannula 2.0 01/09/17 19:29 93 18 136/82 96 Nasal Cannula 2.0 01/09/17 19:14 95 19 139/90 96 Nasal Cannula 2.0 01/09/17 18:59 93 18 130/88 92 Nasal Cannula 2.0 01/09/17 18:46 Nasal Cannula 2.0 01/09/17 18:44 91 18 143/87 94 01/09/17 18:44 36.8 91 18 143/87 94 Nasal Cannula 2.0 01/09/17 18:38 96 23 94 01/09/17 18:29 94 25 132/88 94 Nasal Cannula 2.0 01/09/17 18:29 94 25 132/88 94 01/09/17 18:23 96 21 93 01/09/17 18:22 96 27 130/91 94 Nasal Cannula 2.0 01/09/17 18:22 96 27 130/91 94 01/09/17 18:08 36.8 96 20 130/91 94 Nasal Cannula 2.0 01/09/17 17:55 96 16 129/86 95 Room Air 01/09/17 17:42 97 16 138/86 95 Room Air 01/09/17 16:47 96 18 124/79 97 01/09/17 16:47 96 18 124/79 97 Nasal Cannula 2.0 01/09/17 16:34 96 116/80 97 Nasal Cannula 2.0 01/09/17 16:27 96 16 127/77 97 Nasal Cannula 2.0 01/09/17 16:22 99 01/09/17 15:19 95 Room Air 01/09/17 15:16 36.9 100 26 134/86 95 Room Air Laboratory Results: Last 24 Hours Test 01/09/17 15:30 01/09/17 15:34 01/09/17 15:36 01/09/17 16:04 White Blood Count 12.80 K/uL Red Blood Count 3.81 M/uL Hemoglobin 11.5 g/dL Hematocrit 33.6 % Mean Corpuscular Volume 88.2 fL Mean Corpuscular Hemoglobin 30.2 pg Mean Corpuscular Hemoglobin Concent 34.2 g/dl Platelet Count 535 K/uL Mean Platelet Volume 8.5 fL Neutrophils (%) (Auto) 61.2 % Lymphocytes (%) (Auto) 21.8 % Monocytes (%) (Auto) 14.7 % Eosinophils (%) (Auto) 1.8 % Basophils (%) (Auto) 0.3 % Neutrophils # (Auto) 7.84 K/uL Lymphocytes # (Auto) 2.79 K/uL Monocytes # (Auto) 1.88 K/uL Eosinophils # (Auto) 0.23 K/uL Basophils # (Auto) 0.04 K/uL RDW Standard Deviation 44.6 fL RDW Coefficient of Variation 13.7 % Immature Granulocyte % (Auto) 0.2 % Immature Granulocyte # (Auto) 0.02 K/uL Prothrombin Time 11.1 SECONDS Prothromb Time International Ratio 1.0 Activated Partial Thromboplast Time 31.4 SECONDS Partial Thromboplastin Ratio 1.2 Sodium Level 134 mmol/L Potassium Level 3.6 mmol/L Chloride Level 98 mmol/L Carbon Dioxide Level 30 mmol/L Anion Gap 6.0 mmol/L Blood Urea Nitrogen 13 mg/dl Creatinine 0.92 mg/dl Est Creatinine Clear Calc Drug Dose 128.5 ml/min Estimated GFR () 116.0 Estimated GFR (Non- 100.1 BUN/Creatinine Ratio 13.7 Random Glucose 83 mg/dl Calcium Level 8.6 mg/dl Total Bilirubin 0.3 mg/dl Direct Bilirubin 0.1 mg/dl Aspartate Amino Transf (AST/SGOT) 46 U/L Alanine Aminotransferase (ALT/SGPT) 77 U/L Alkaline Phosphatase 118 U/L Total Creatine Kinase 120 U/L Creatine Kinase MB 1.4 ng/ml Creatine Kinase MB Ratio 1.2 Total Protein 7.6 gm/dl Albumin 2.5 gm/dl Lipase 315 U/L Bedside D-Dimer > 450 ng/mlFEU Bedside Troponin I 5.770 ng/ml [id number] Natriuretic Peptide 1766 pg/ml Influenza Type A Antigen Neg for Influ A Influenza Type B Antigen Neg for Influ B Test 01/09/17 21:01 01/09/17 22:07 01/10/17 01:50 01/10/17 05:26 Bedside Glucose 174 mg/dl Troponin I 4.820 ng/ml 4.750 ng/ml Activated Partial Thromboplast Time 35.7 SECONDS 64.4 SECONDS Partial Thromboplastin Ratio 1.4 2.5 White Blood Count 11.42 K/uL Red Blood Count 3.61 M/uL Hemoglobin 10.7 g/dL Hematocrit 32.0 % Mean Corpuscular Volume 88.6 fL Mean Corpuscular Hemoglobin 29.6 pg Mean Corpuscular Hemoglobin Concent 33.4 g/dl Platelet Count 566 K/uL Mean Platelet Volume 8.6 fL Neutrophils (%) (Auto) 52.4 % Lymphocytes (%) (Auto) 30.6 % Monocytes (%) (Auto) 13.0 % Eosinophils (%) (Auto) 3.2 % Basophils (%) (Auto) 0.4 % Neutrophils # (Auto) 5.99 K/uL Lymphocytes # (Auto) 3.49 K/uL Monocytes # (Auto) 1.49 K/uL Eosinophils # (Auto) 0.36 K/uL Basophils # (Auto) 0.05 K/uL RDW Standard Deviation 45.6 fL RDW Coefficient of Variation 13.9 % Immature Granulocyte % (Auto) 0.4 % Immature Granulocyte # (Auto) 0.04 K/uL Sodium Level 136 mmol/L Potassium Level 3.6 mmol/L Chloride Level 100 mmol/L Carbon Dioxide Level 28 mmol/L Anion Gap 8.0 mmol/L Blood Urea Nitrogen 12 mg/dl Creatinine 0.88 mg/dl Est Creatinine Clear Calc Drug Dose 133.7 ml/min Estimated GFR () 120.2 Estimated GFR (Non- 103.7 BUN/Creatinine Ratio 14.1 Random Glucose 106 mg/dl Estimated Average Glucose 114 mg/dl Hemoglobin A1c 5.6 % Calcium Level 8.4 mg/dl Magnesium Level 2.2 mg/dl LDL Cholesterol Direct 72 mg/dl Test 01/10/17 06:29 01/10/17 09:38 Bedside Glucose 161 mg/dl Activated Partial Thromboplast Time 36.2 SECONDS Partial Thromboplastin Ratio 1.4
[2017-01-10] MEDS ORDERED: HEPARIN IV BOLUS 7,000 UNIT in SYRINGE 0 ML IV ONE (11:00)
[2017-01-10] MEDS ORDERED: POTASSIUM CHLORIDE 20 MEQ TABCR PO STA (11:04)
--- NOTE | 2017-01-10 14:04 | DIAGNOSTIC IMAGING REPORT ---
CHEST 2 VIEWS ROUTINE CLINICAL HISTORY: Abnormal chest x-ray. Left lower lobe nodule. COMPARISON STUDY: 01/10/2017 FINDINGS: The heart remains mildly enlarged. There are linear left basilar opacities likely atelectatic. There is no lobar consolidation. There is no overt failure. There are no significant pleural effusions.[ IMPRESSION: 1. Stable cardiomegaly 2. Stable linear left basilar opacities, likely atelectatic Electronically signed by: Valente Salinas M.D. 01/10/2017 2:03 PM Dictated Date/Time: 01/10/2017 2:02 PM
[2017-01-10] MEDS ORDERED: LORAZEPAM 1 MG TAB PO PRN (16:15)
[2017-01-10] MEDS: TRAMADOL HCL 50 MG TAB PO PRN (16:19)
[2017-01-10 16:26] LABS: PARTIAL THROMBOPLASTIN RATIO 1.7
[2017-01-10] MEDS ORDERED: HEPARIN IV BOLUS 4,000 UNIT in SYRINGE 0 ML IV ONE (17:15)
--- NOTE | 2017-01-10 18:26 | ECHOCARDIOGRAM REPORT ---
*NOTICE TO RECEIVING [employer] This information is strictly Confidential and protected under [place] law. [place] law prohibits you from making any further disclosure of this information unless further disclosure is expressly permitted by the written consent of the person to whom it pertains or is authorized by law. A general authorization for the release of medical or other information is not sufficient for this purpose. Hospital accepts no responsibility if the information is made available to any other person, INCLUDING THE PATIENT. Interpretation Summary * Name: ANNABEL JACOBS Study Date: 01/10/2017 07:38 AM BP: 121/88 mmHg * Patient Location: [facility] HR: 97 * : 1970 (M/d/yyyy) Gender: Male Height: 70 in * Age: 46 yrs Ethnicity: [place] Weight: 252 lb * Ordering Physician: Corby Orourke * Referring Physician: Self, Referred * Performed By: Janel Horton RCS * * Reason For Study: AMI * BSA: 2.3 m2 * -- Conclusions -- * 1. Mildly dilated LV with normal LV wall thickness. * 2. Severe LV dysfunction. LVEF 20-25%. Akinetic mid to apical anterior, septal and lateral carvajal consistent with large LAD distribution infarct. * 3. Moderate size LV apical thrombus present. * 4. Normal RV size and function. * 5. Grade I diastolic dysfunction. * 6. No significant valvular pathology. * 7. Small pericardial effusion. No signs of tamponade. * 8. Elevated CVP (est 15 mmHg). * 9. No prior studies for comparison. Procedure Details * A complete two-dimensional transthoracic echocardiogram was performed (2D, M-mode, Doppler and color flow Doppler). Left Ventricle * The left ventricle is mildly dilated. * There is a moderate size apical thrombus. * There is normal left ventricular wall thickness. * Ejection Fraction = 20-25%. * Mid to apical anterior, septal, lateral carvajal akinetic. [place] akinetic with apical thrombus. Right Ventricle * The right ventricle is grossly normal size. * The right ventricular systolic function is normal. Atria * The left atrial size is normal. * Right atrial size is normal. * No ASD detected; PFO is not assessed. Mitral Valve * The mitral valve is grossly normal. * There is no mitral valve stenosis. * There is no mitral regurgitation noted. Tricuspid Valve * The tricuspid valve is not well visualized, but is grossly normal. * There is no tricuspid stenosis. * Significant tricuspid regurgitation is absent. Aortic Valve * The aortic valve opens well. * No hemodynamically significant valvular aortic stenosis. * There is no significant aortic regurgitation. Pulmonic Valve * The pulmonary valve is inadequately visualized, but the Doppler data is adequate for interpretation. * There is no pulmonic valvular stenosis. * There is no pulmonic valvular regurgitation. Great Vessels * The aortic root and proximal ascending aorta are normal sized. Pericardium/Pleural * Small pericardial effusion. * There is no pleural effusion. Great Vessels * Dilated inferior vena cava with reduced collapsability with sniff indicates an elevated right atrial pressure of 15 mmHg Left Ventricular Diastolic Function * Grade I diastolic dysfunction, (abnormal relaxation pattern). MMode 2D Measurements and Calculations IVSd 1.5 cm IVSs 1.8 cm LVIDd 5.0 cm LVIDs 3.7 cm LVPWd 1.4 cm LVPWs 1.7 cm IVS/LVPW 1.0 FS 26.3 % EDV(Teich) 118.6 ml ESV(Teich) 57.8 ml EF(Teich) 51.3 % EDV(cubed) 125.5 ml ESV(cubed) 50.3 ml EF(cubed) 59.9 % % IVS thick 24.3 % % LVPW thick 20.7 % LV mass(C)d 304.6 grams LV mass(C)dI 132.3 grams/m\S\2 LV mass(C)s 272.2 grams LV mass(C)sI 118.2 grams/m\S\2 SV(Teich) 60.8 ml SI(Teich) 26.4 ml/m\S\2 SV(cubed) 75.2 ml SI(cubed) 32.7 ml/m\S\2 Ao root diam 4.1 cm Ao root area 13.4 cm\S\2 ACS 2.5 cm LA dimension 3.3 cm LA/Ao 0.79 LVOT diam 2.0 cm LVOT area 3.1 cm\S\2 LVAd ap4 46.0 cm\S\2 LVLd ap4 10.0 cm EDV(MOD-sp4) 172.8 ml EDV(sp4-el) 179.1 ml LVAs ap4 39.2 cm\S\2 LVLs ap4 9.3 cm ESV(MOD-sp4) 135.7 ml ESV(sp4-el) 140.7 ml EF(MOD-sp4) 21.5 % EF(sp4-el) 21.5 % LVAd ap2 51.9 cm\S\2 LVLd ap2 10.0 cm EDV(MOD-sp2) 225.0 ml EDV(sp2-el) 229.0 ml LVAs ap2 43.5 cm\S\2 LVLs ap2 9.7 cm ESV(MOD-sp2) 160.9 ml ESV(sp2-el) 166.0 ml EF(MOD-sp2) 28.5 % EF(sp2-el) 27.5 % LVLd %diff -0.40 % EDV(MOD-bp) 196.5 ml LVLs %diff 4.3 % ESV(MOD-bp) 149.9 ml EF(MOD-bp) 23.7 % SV(MOD-sp4) 37.2 ml SI(MOD-sp4) 16.1 ml/m\S\2 SV(MOD-sp2) 64.1 ml SI(MOD-sp2) 27.8 ml/m\S\2 SV(MOD-bp) 46.7 ml SI(MOD-bp) 20.3 ml/m\S\2 SV(sp4-el) 38.5 ml SI(sp4-el) 16.7 ml/m\S\2 SV(sp2-el) 63.1 ml SI(sp2-el) 27.4 ml/m\S\2 Doppler Measurements and Calculations MV E max eddie 63.9 cm/sec MV A max eddie 79.0 cm/sec MV E/A 0.81 MV P1/2t max eddie 67.4 cm/sec MV P1/2t 51.5 msec MVA(P1/2t) 4.3 cm\S\2 MV dec slope 383.2 cm/sec\S\2 MV dec time 0.25 sec Ao V2 max 110.1 cm/sec Ao max PG 4.9 mmHg Ao max PG (full) 0.97 mmHg ZAIDA(V,A) 2.8 cm\S\2 ZAIDA(V,D) 2.8 cm\S\2 LV V1 max PG 3.9 mmHg LV V1 max 98.6 cm/sec PA V2 max 95.3 cm/sec PA max PG 3.6 mmHg
--- NOTE | 2017-01-10 19:32 | Cardiology Follow-Up ---
Subjective Subjective Date of Service: Jan 10, 2017. Pt evaluation today including: conversation w/ patient, physical exam, chart review, lab review, review of studies, review of inpatient medication list Additional Details: Endorse mild intermittent chest pain. No shortness of breath at rest. Intermittently confused per nursing. No events on telemetry Echo reviewed - severe LV dysfunction, EF 20-25%, LAD distribution akinesis, LV apical thrombus, small pericardial effusion. Problem List Medical Problems: (1) Acute PR Status: Acute (2) Allergic reaction Status: Acute Review of Systems Constitutional: No fever Eyes: No worsening of vision ENT: No hearing loss Respiratory: + dyspnea on exertion, No cough, No shortness of breath Cardiac: + chest pain, No palpitations Abdomen: No nausea, No pain Male : No dysuria Neurologic: + memory loss Heme: No abnormal bleeding/bruising Endo: + fatigue Skin: No rash Objective Vital Signs Last Vital Signs Documentation Date Time Temp Pulse Resp B/P Pulse Ox O2 Delivery O2 Flow Rate FiO2 01/10/17 16:00 92 Room Air 01/10/17 16:00 96 20 115/77 01/10/17 12:00 36.6 2.0 Physical Exam: General Appearance: WD/WN, no apparent distress Neck: supple Respiratory/Chest: normal breath sounds, + decreased breath sounds (mildly decreased at bases bilaterally) Cardiovascular: regular rate, rhythm, no edema, no murmur Abdomen: non tender, soft Extremities: normal inspection, no pedal edema, no calf tenderness Neurologic/Psychiatric: alert, + pertinent finding (difficulty grasping disease process) Skin: normal color, warm/dry Assessment and Plan 1. Late presenting Anterolateral AMI/Proximal LAD occlusion 2. Severe LV dysfunction 3. Acute heart failure 4. LV apical thrombus 5. Small pericardial effusion 6. Tobacco abuse 7. ? Alcohol abuse 8. Anemia Patient hemodynamically and electrically stable throughout day. Troponin trending down. Current chest pain, not likely secondary to ischemia and more likely a result of post procedure pericardial effusion/mild vessel trauma. Unfortunately patient's infarct occurred 5-8 days ago and now with severe LV dysfunction on echo. As anterior wall infarcted no role for further revascularization. Management goals going forward -- treating residual congestion, guideline directed medical therapy for ICM, secondary prevention meds for CAD, and anticoagulation for LV thrombus -- Nitroglycerin discontinued -- Continue heparin drip for now. Will consider switch to NOAC for anticoagulation although no data for use for LV thrombus. -- Continue ASA/Plavix for now. Continue high dose statin -- Continue BBlocker. Will add ARB. Would like to add aldosterone antag at some point but may be limited by compliance/discharge regimen complexity -- Will plan to repeat limited echo tomorrow to assess pericardial effusion. Add Definity to further assess LV thrombus -- Hold on further diuretics today in the setting of effusion/relatively low BP. Possible additional lasix tomorrow. Medications: Current Inpatient Medications Medications (Trade) Dose Ordered Sig/Theresa Route Start Time Stop Time Status Last Admin Dose Admin Ondansetron HCl (Zofran Inj) 4 mg Q6H PRN IV 01/09/17 18:00 02/08/17 17:59 Aspirin (Ecotrin Tab) 81 mg QAM PO 01/10/17 09:00 02/09/17 08:59 01/10/17 07:39 81 MG Clopidogrel Bisulfate (plAVix TAB) 75 mg QAM PO 01/10/17 09:00 02/09/17 08:59 01/10/17 07:40 75 MG Atorvastatin Calcium (Lipitor Tab) 80 mg QAM PO 01/10/17 09:00 02/09/17 08:59 01/10/17 07:40 80 MG Metoprolol Tartrate (Lopressor Tab) 25 mg Q12 PO 01/10/17 09:00 02/09/17 08:59 01/10/17 07:40 25 MG Acetaminophen (Tylenol Tab) 650 mg Q4H PRN PO 01/09/17 18:00 02/08/17 17:59 Levothyroxine Sodium (Synthroid Tab) 150 mcg DAILYBB PO 01/10/17 06:00 02/09/17 05:59 01/10/17 05:58 150 MCG Lorazepam (Ativan Tab) 1 mg HS PRN PO 01/09/17 18:00 02/08/17 17:59 01/09/17 23:41 1 MG Multivitamins (Multivitamin Tab) 1 tab DAILY PO 01/10/17 09:00 02/09/17 08:59 01/10/17 07:40 1 TAB Tramadol HCl (Ultram Tab) 50 mg Q6H PRN PO 01/09/17 18:00 02/08/17 17:59 01/10/17 16:19 50 MG Pantoprazole Sodium 40 mg 40 mg QAM PO 01/10/17 09:00 02/09/17 08:59 01/10/17 07:41 40 MG Nitroglycerin/ Dextrose 250 ml @ 0 mls/hr Q0M IV 01/09/17 19:00 02/08/17 18:59 01/09/17 20:02 6 MLS/HR Heparin Sodium/ Dextrose (Heparin 25,000 Unit/500ml D5W) 500 ml @ 50 mls/hr Q10H PRN IV 01/09/17 19:45 02/08/17 19:44 01/10/17 17:19 50 MLS/HR Morphine Sulfate (MoRPHine SULFATE INJ) 2 mg Q15M PRN IV 01/09/17 20:45 01/23/17 20:44 01/10/17 16:20 2 MG Lorazepam (Ativan Tab) 1 mg Q6 PRN PO 01/10/17 16:15 02/09/17 16:14 01/10/17 16:19 1 MG Lab Results: 01/10/17 05:26 Red Blood Count 3.61, Mean Corpuscular Volume 88.6, Mean Corpuscular Hemoglobin 29.6, Mean Corpuscular Hemoglobin Concent 33.4, Mean Platelet Volume 8.6, Neutrophils (%) (Auto) 52.4, Lymphocytes (%) (Auto) 30.6, Monocytes (%) (Auto) 13.0, Eosinophils (%) (Auto) 3.2, Basophils (%) (Auto) 0.4, Neutrophils # (Auto ) 5.99, Lymphocytes # (Auto) 3.49, Monocytes # (Auto) 1.49, Eosinophils # (Auto ) 0.36, Basophils # (Auto) 0.05 01/10/17 05:26 Test 01/10/17 05:26 01/10/17 06:29 01/10/17 14:28 01/10/17 16:05 White Blood Count 11.42 K/uL (4.8-10.8) Red Blood Count 3.61 M/uL (4.7-6.1) Hemoglobin 10.7 g/dL (14.0-18.0) Hematocrit 32.0 % (42-52) Mean Corpuscular Volume 88.6 fL (80-100) Mean Corpuscular Hemoglobin 29.6 pg (25-34) Mean Corpuscular Hemoglobin Concent 33.4 g/dl (32-36) Platelet Count 566 K/uL (130-400) Mean Platelet Volume 8.6 fL (7.4-10.4) Neutrophils (%) (Auto) 52.4 % Lymphocytes (%) (Auto) 30.6 % Monocytes (%) (Auto) 13.0 % Eosinophils (%) (Auto) 3.2 % Basophils (%) (Auto) 0.4 % Neutrophils # (Auto) 5.99 K/uL (1.4-6.5) Lymphocytes # (Auto) 3.49 K/uL (1.2-3.4) Monocytes # (Auto) 1.49 K/uL (0.11-0.59) Eosinophils # (Auto) 0.36 K/uL (0-0.5) Basophils # (Auto) 0.05 K/uL (0-0.2) RDW Standard Deviation 45.6 fL (36.4-46.3) RDW Coefficient of Variation 13.9 % (11.5-14.5) Immature Granulocyte % (Auto) 0.4 % Immature Granulocyte # (Auto) 0.04 K/uL (0.00-0.02) Anion Gap 8.0 mmol/L (3-11) Est Creatinine Clear Calc Drug Dose 133.7 ml/min Estimated GFR () 120.2 Estimated GFR (Non- 103.7 BUN/Creatinine Ratio 14.1 (10-20) Estimated Average Glucose 114 mg/dl Hemoglobin A1c 5.6 % (4.5-5.6) Calcium Level 8.4 mg/dl (8.5-10.1) Magnesium Level 2.2 mg/dl (1.8-2.4) LDL Cholesterol Direct 72 mg/dl Bedside Glucose 161 mg/dl (70-99) Troponin I 3.750 ng/ml (0-0.045) Activated Partial Thromboplast Time 44.4 SECONDS (21.0-31.0) Partial Thromboplastin Ratio 1.7
--- NOTE | 2017-01-10 21:32 | Progress Note ---
Internal Med Progress Note Date of Service: Jan 10, 2017. Provider Documentation: SUBJECTIVE: minimal chest discomfort no fever or chills OBJECTIVE: Vital Signs-as noted below Exam: General-no sign of distress Eyes-sclera non icteric ENT-NAd Neck-+ JVD Lungs-+ rales at base Heart-regular Abdomen-soft non tender Extremities-no rash or deformity Neuro-no focal deficit Lab data as noted below. ASSESSMENT & PLAN: STEMI : Anterolateral AMI/Proximal LAD occlusion leading to severe cardiomyopathy LV thrombus with anti wall MS /infraction -late presentation no role for further revascularization. appreciate Cardiology eval cont IV Heparin , medical management Continue ASA/Plavix , high dose statin, Beta alex , ARB will be added as Hypotension improves ( intolerant to ACEI ) ACUTE CHF WITH SYSTOLIC DYSFUNCTION /ISCHEMIC CARDIOMYOPATHY due to above ECHO : 1. Mildly dilated LV with normal LV wall thickness. * 2. Severe LV dysfunction. LVEF 20-25%. Akinetic mid to apical anterior, septal and lateral carvajal consistent with large LAD distribution infarct. * 3. Moderate size LV apical thrombus present. Cont IV diuresis , ACEI added LV APICAL THROMBUS : -cont IV heparin will need terminologist anticoagulation TOBACCO USE DISORDER : smoking cessation counselling FULL CODE DVT PROPHYLAXIS iv heparin DISPOSITION will need referral for Cardiac Rehab close follow up with Cardiology as out patient Medicine follow up with Dr Holguin Vital Signs: Date Time Temp Pulse Resp B/P Pulse Ox O2 Delivery O2 Flow Rate FiO2 01/10/17 22:00 100 20 92/63 92 Nasal Cannula 2.0 01/10/17 20:00 Nasal Cannula 2.0 01/10/17 20:00 36.8 100 20 133/90 95 Nasal Cannula 2.0 01/10/17 16:00 92 Room Air 01/10/17 16:00 96 20 115/77 92 Room Air 01/10/17 14:00 100 18 98/70 94 Room Air 01/10/17 12:00 36.6 91 18 112/63 91 2.0 01/10/17 12:00 90 2.0 01/10/17 10:00 84 20 103/70 90 Room Air 01/10/17 08:00 36.6 100 17 120/78 91 2.0 01/10/17 08:00 91 2.0 01/10/17 06:00 94 16 121/88 93 Nasal Cannula 3.0 01/10/17 04:59 95 26 108/64 93 Nasal Cannula 3.0 01/10/17 04:28 96 28 130/79 93 Nasal Cannula 3.0 01/10/17 04:00 Nasal Cannula 2.0 01/10/17 03:59 36.7 98 26 102/48 91 Nasal Cannula 3.0 01/10/17 03:29 98 26 107/76 96 Nasal Cannula 3.0 01/10/17 02:59 97 21 126/76 94 Nasal Cannula 3.0 01/10/17 02:29 95 14 137/90 97 Nasal Cannula 3.0 01/10/17 01:59 96 21 110/81 96 Nasal Cannula 3.0 01/10/17 01:29 95 18 140/86 95 Nasal Cannula 3.0 01/10/17 00:59 96 22 122/82 97 Nasal Cannula 3.0 01/10/17 00:29 94 32 116/80 90 Nasal Cannula 3.0 01/10/17 00:01 Nasal Cannula 2.0 01/09/17 23:59 36.4 93 20 137/77 99 Nasal Cannula 2.0 Lab Results: Results Past 24 Hours Test 01/10/17 01:50 01/10/17 05:26 01/10/17 06:29 01/10/17 09:38 Range/Units Activated Partial Thromboplast Time 35.7 64.4 36.2 21.0-31.0 SECONDS Partial Thromboplastin Ratio 1.4 2.5 1.4 White Blood Count 11.42 4.8-10.8 K/uL Red Blood Count 3.61 4.7-6.1 M/uL Hemoglobin 10.7 14.0-18.0 g/dL Hematocrit 32.0 42-52 % Mean Corpuscular Volume 88.6 80-100 fL Mean Corpuscular Hemoglobin 29.6 25-34 pg Mean Corpuscular Hemoglobin Concent 33.4 32-36 g/dl Platelet Count 566 130-400 K/uL Mean Platelet Volume 8.6 7.4-10.4 fL Neutrophils (%) (Auto) 52.4 % Lymphocytes (%) (Auto) 30.6 % Monocytes (%) (Auto) 13.0 % Eosinophils (%) (Auto) 3.2 % Basophils (%) (Auto) 0.4 % Neutrophils # (Auto) 5.99 1.4-6.5 K/uL Lymphocytes # (Auto) 3.49 1.2-3.4 K/uL Monocytes # (Auto) 1.49 0.11-0.59 K/uL Eosinophils # (Auto) 0.36 0-0.5 K/uL Basophils # (Auto) 0.05 0-0.2 K/uL RDW Standard Deviation 45.6 36.4-46.3 fL RDW Coefficient of Variation 13.9 11.5-14.5 % Immature Granulocyte % (Auto) 0.4 % Immature Granulocyte # (Auto) 0.04 0.00-0.02 K/uL Sodium Level 136 136-145 mmol/L Potassium Level 3.6 3.5-5.1 mmol/L Chloride Level 100 98-107 mmol/L Carbon Dioxide Level 28 21-32 mmol/L Anion Gap 8.0 3-11 mmol/L Blood Urea Nitrogen 12 7-18 mg/dl Creatinine 0.88 0.60-1.40 mg/dl Est Creatinine Clear Calc Drug Dose 133.7 ml/min Estimated GFR () 120.2 Estimated GFR (Non- 103.7 BUN/Creatinine Ratio 14.1 10-20 Random Glucose 106 70-99 mg/dl Estimated Average Glucose 114 mg/dl Hemoglobin A1c 5.6 4.5-5.6 % Calcium Level 8.4 8.5-10.1 mg/dl Magnesium Level 2.2 1.8-2.4 mg/dl Troponin I 4.750 0-0.045 ng/ml LDL Cholesterol Direct 72 mg/dl Bedside Glucose 161 70-99 mg/dl Test 01/10/17 14:28 01/10/17 16:05 01/10/17 22:25 Range/Units Troponin I 3.750 0-0.045 ng/ml Activated Partial Thromboplast Time 44.4 48.5 21.0-31.0 SECONDS Partial Thromboplastin Ratio 1.7 1.9
[2017-01-10 22:54] LABS: PARTIAL THROMBOPLASTIN RATIO 1.9
[2017-01-10] MEDS: LORAZEPAM 1 MG TAB PO PRN (23:26)
[2017-01-11 00:01] VITALS: BP 109/66; PULSE 98; TEMP 36.8; O2SAT 95
[2017-01-11 02:00] VITALS: BP 136/83; PULSE 105; O2SAT 95
[2017-01-11] MEDS ORDERED: NICOTINE 21 MG/24 HR TDSY TD PRN (02:30)
[2017-01-11 03:59] VITALS: BP 109/65; PULSE 103; TEMP 37.3; O2SAT 93
[2017-01-11] MEDS: LEVOTHYROXINE 150 MCG TAB PO SCH (05:41)
[2017-01-11] MEDS: MoRPHine SULFATE 2 MG/ML CARP IV PRN ×2 (05:42→10:20)
[2017-01-11 05:56] LABS: BASO % 0.3 %; BASO ABS # 0.04 K/uL (0-0.2); COMPLETE YES; HEMATOCRIT 30.5 % (42-52); IG% 0.5 %; LYMPH % 29.2 %; LYMPH ABS # 3.77 K/uL (1.2-3.4); MEAN CELL VOLUME 90.5 fL (80-100); MEAN CORPUSCULAR HEMOGLOBIN 29.7 pg (25-34); MEAN CORPUSCULAR HGB CONC 32.8 g/dl (32-36); MEAN PLATELET VOLUME 8.7 fL (7.4-10.4); MONO % 12.2 %; NEUT % 55.8 %; PLATELET COUNT 594 K/uL (130-400); RED BLOOD COUNT 3.37 M/uL (4.7-6.1); WHITE BLOOD COUNT 12.91 K/uL (4.8-10.8)
[2017-01-11 06:00] VITALS: BP 128/77; PULSE 96; O2SAT 93
[2017-01-11 06:08] LABS: PARTIAL THROMBOPLASTIN RATIO 1.5
[2017-01-11 06:23] LABS: BUN/CREATININE RATIO 12.9 (10-20); CALCIUM 8.1 mg/dl (8.5-10.1); CREATININE 0.84 mg/dl (0.60-1.40); POTASSIUM 3.9 mmol/L (3.5-5.1)
[2017-01-11 08:00] VITALS: BP 108/70; PULSE 104; TEMP 36.8; O2SAT 93; O2SAT 94
[2017-01-11] MEDS: LORAZEPAM 1 MG TAB PO PRN (08:15)
[2017-01-11] MEDS: ATORVASTATIN 40 MG TAB PO SCH (08:15)
[2017-01-11] MEDS: ASPIRIN 81 MG ECTAB PO SCH (08:15)
[2017-01-11] MEDS: CLOPIDOGREL BISULFATE 75 MG TAB PO SCH (08:15)
[2017-01-11] MEDS: PANTOprazole SOD 40 MG TAB PO SCH (08:15)
[2017-01-11] MEDS: METOPROLOL TARTRATE 25 MG TAB PO SCH (08:15)
[2017-01-11] MEDS: MULTIVITAMIN TAB PO SCH (08:16)
--- NOTE | 2017-01-11 08:32 | Progress Note ---
Internal Med Progress Note Date of Service: Jan 11, 2017. Provider Documentation: SUBJECTIVE: Patient is seen and examined at bedside. States having 3/10 retrosternal chest pain and couldn't sleep secondary to chest pain. Denies SOB, dizziness, nausea, vomiting, abd pain. Eager to get discharged. "I am ready to get discharged as I have to take care of my family" OBJECTIVE: Vital Signs-as noted below Physical Exam: General Appearance:Moderately built and nourished, no apparent distress Head: normocephalic, Atraumatic Eyes: normal inspection, EOMI, PERRLA Neck: supple, no JVD, Trachea midline Respiratory/Chest: decreased breath sounds, CTA Cardiovascular: S1, S2, Tachycardic, No murmur Abdomen/GI:Soft, Non tender, Bowel sounds present Extremities/Musculoskelatal:normal inspection, no edema Neurologic/Psych:AAOX3, grossly no focal neurological deficits Skin: normal color, warm Lab data as noted below. ASSESSMENT & PLAN: STEMI : Late presenting Anterolateral AMI/Proximal LAD occlusion leading to severe cardiomyopathy; LV thrombus Since late presentation no role for further revascularization. Appreciate Cardiology help continue IV Heparin, Needs switch to NOAC for anticoagulation Continue ASA, Plavix, statin, Beta alex Planned for repeat echo today to assess pericardial effusion, LV thrombus Nitroglycerin discontinued ACUTE CHF WITH SYSTOLIC DYSFUNCTION /ISCHEMIC CARDIOMYOPATHY Secondary to above Diuretics/ACI or ARBs needs to be added when BP better EF: 20-25% LV APICAL THROMBUS : continue IV heparin Will need intermediate anticoagulation Repeat ECHO planned today to reassess HYPOTHYROIDISM: Continue Levothyroxine TOBACCO USE DISORDER : smoking cessation counselling DVT PX: On IV heparin CODE STATUS: FULL CODE DISPOSITION Needs referral for Cardiac Rehab Needs Cardiology follow up as out patient PCP follow up with Dr Holguin ECHO: 1. Mildly dilated LV with normal LV wall thickness. * 2. Severe LV dysfunction. LVEF 20-25%. Akinetic mid to apical anterior, septal and lateral carvajal consistent with large LAD distribution infarct. * 3. Moderate size LV apical thrombus present. * 4. Normal RV size and function. * 5. Grade I diastolic dysfunction. * 6. No significant valvular pathology. * 7. Small pericardial effusion. No signs of tamponade. * 8. Elevated CVP (est 15 mmHg). * 9. No prior studies for comparison. Cardiac Catheterization: Summary: 1. Late presenting Anterior STEMI/organized proximal LAD occlusion 2. Severe LV dysfunction with akinetic mid-distal anterior wall, apex. LVEF ~25 %. 3. Elevated intracardiac filling pressures. 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 Started on nitroglycerin drip for acute heart failure, mild respiratory distress Loaded with plavix 300 mg Continue ASA/Plavix for 1 year Heparin infusion overnight Echo in AM to assess LV function, evaluate for LV thrombus Start SUSY/ARB Start Beta-alex tomorrow when decompensated heart failure improved High-dose statin Smoking cessation Cardiac Rehab Vital Signs: Date Time Temp Pulse Resp B/P Pulse Ox O2 Delivery O2 Flow Rate FiO2 01/11/17 08:00 36.8 104 22 108/70 93 Nasal Cannula 2.0 01/11/17 08:00 94 Nasal Cannula 2.0 01/11/17 06:00 96 20 128/77 93 Room Air 01/11/17 04:00 Room Air 01/11/17 03:59 37.3 103 24 109/65 93 Room Air 01/11/17 02:00 105 24 136/83 95 Room Air 01/11/17 00:01 36.8 98 22 109/66 95 Nasal Cannula 2.0 01/10/17 23:59 Nasal Cannula 2.0 01/10/17 22:00 100 20 92/63 92 Nasal Cannula 2.0 01/10/17 20:00 Nasal Cannula 2.0 01/10/17 20:00 36.8 100 20 133/90 95 Nasal Cannula 2.0 01/10/17 16:00 92 Room Air 01/10/17 16:00 96 20 115/77 92 Room Air 01/10/17 14:00 100 18 98/70 94 Room Air 01/10/17 12:00 36.6 91 18 112/63 91 2.0 01/10/17 12:00 90 2.0 01/10/17 10:00 84 20 103/70 90 Room Air Lab Results: Results Past 24 Hours Test 01/10/17 09:38 01/10/17 14:28 01/10/17 16:05 01/10/17 22:25 Range/Units Activated Partial Thromboplast Time 36.2 44.4 48.5 21.0-31.0 SECONDS Partial Thromboplastin Ratio 1.4 1.7 1.9 Troponin I 3.750 0-0.045 ng/ml Test 01/11/17 05:30 Range/Units White Blood Count 12.91 4.8-10.8 K/uL Red Blood Count 3.37 4.7-6.1 M/uL Hemoglobin 10.0 14.0-18.0 g/dL Hematocrit 30.5 42-52 % Mean Corpuscular Volume 90.5 80-100 fL Mean Corpuscular Hemoglobin 29.7 25-34 pg Mean Corpuscular Hemoglobin Concent 32.8 32-36 g/dl Platelet Count 594 130-400 K/uL Mean Platelet Volume 8.7 7.4-10.4 fL Neutrophils (%) (Auto) 55.8 % Lymphocytes (%) (Auto) 29.2 % Monocytes (%) (Auto) 12.2 % Eosinophils (%) (Auto) 2.0 % Basophils (%) (Auto) 0.3 % Neutrophils # (Auto) 7.21 1.4-6.5 K/uL Lymphocytes # (Auto) 3.77 1.2-3.4 K/uL Monocytes # (Auto) 1.57 0.11-0.59 K/uL Eosinophils # (Auto) 0.26 0-0.5 K/uL Basophils # (Auto) 0.04 0-0.2 K/uL RDW Standard Deviation 46.1 36.4-46.3 fL RDW Coefficient of Variation 13.9 11.5-14.5 % Immature Granulocyte % (Auto) 0.5 % Immature Granulocyte # (Auto) 0.06 0.00-0.02 K/uL Activated Partial Thromboplast Time 39.1 21.0-31.0 SECONDS Partial Thromboplastin Ratio 1.5 Sodium Level 135 136-145 mmol/L Potassium Level 3.9 3.5-5.1 mmol/L Chloride Level 99 98-107 mmol/L Carbon Dioxide Level 26 21-32 mmol/L Anion Gap 10.0 3-11 mmol/L Blood Urea Nitrogen 11 7-18 mg/dl Creatinine 0.84 0.60-1.40 mg/dl Est Creatinine Clear Calc Drug Dose 140.1 ml/min Estimated GFR () 122.6 Estimated GFR (Non- 105.7 BUN/Creatinine Ratio 12.9 10-20 Random Glucose 113 70-99 mg/dl Calcium Level 8.1 8.5-10.1 mg/dl
[2017-01-11 10:00] VITALS: BP 120/75; PULSE 93; O2SAT 93
--- NOTE | 2017-01-11 10:16 | Discharge Summary ---
Discharge Summary Date of Service Jan 11, 2017. Discharge Summary Admission Date: Jan 09, 2017 at 18:11 Discharge Date: Jan 11, 2017 Discharge Disposition: Acute care facility Principal Diagnosis: STEMI, Ischemic Cardiomyopathy, LV Apical thrombus Secondary Diagnoses/Problems: Hypothyroidism, Tobacco use disorder Procedures: Coronary Angiography, Left Heart Cath Consultations: Cardiology, Supervisor Of Officials Medication Reconciliation New Medications: Aspirin (Aspirin EC Low Dose) 81 Mg Ectab 81 MG PO QAM for 30 Days, #30 Atorvastatin (Atorvastatin Calcium) 40 Mg Tab 80 MG PO QAM for 30 Days, #60 TAB Clopidogrel Bisulfate (Clopidogrel) 75 Mg Tab 75 MG PO QAM for 30 Days, #30 TAB Metoprolol Tartrate (Lopressor) 25 Mg Tab 25 MG PO Q12 for 30 Days, #60 TAB Nicotine (Nicotine) 1 Patch Tdsy 1 PATCH TD QAM PRN for Nicotine Craving for 30 Days, #30 Continued Medications: Cyclobenzaprine Hcl (Flexeril) 10 Mg Tab 10 MG PO TID PRN for Muscle Spasm, TAB Epinephrine (Epipen) 0.3 Mg/0.3 Ml Inj 0.3 MG IM UD PRN for Severe Allergis Reaction, BOX Levothyroxine Sodium (Levothyroxine Sodium) 150 Mcg Tab 150 MCG PO DAILY, TAB Lorazepam (Ativan) 1 Mg Tab 1 MG PO HS PRN for Anxiety, TAB Multivitamin (Multivitamin) Tab 1 TAB PO DAILY, TAB Omeprazole (Omeprazole) 20 Mg Tab 20 MG PO DAILY, TAB TAKE THIS MEDICATION ONCE DAILY ONE HOUR BEFORE FIRST MEAL OF THE DAY Tramadol (Ultram) 50 Mg Tab 50 MG PO Q6H PRN for Pain, TAB Admission Information HPI (per Admitting provider): 46 yo M with chest pain for the past several days associated with sweating and generalized malaise. 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 He was foudn to have an STEMI in the anterolateral leads and was taken to the biological lab technician where he was found to have an occluded prox LAD that couldn't be opened and an EF of 25%. A wire could not be successfully passed and PCI was unsuccessful. Lasix 40mg IV was given in biological lab technician, he was started on a nitro drip for acute heart failure in mild respiratory distress, he was loaded with Plavix 300mg. A heparin infusion was ordered overnight. A TTE was ordered in the morning to assess LV function and look for LV thrombus. Recommendations include starting ARB (pt allergic to ACEI), start BB when decompensated heart failure improved, start high dose statin. Smoking cessation and cardiac rehab were also recommended. He was still describing chest pain in the ICU post-cath which is being controlled with PRN Morphine. Physical Exam (per Admitting): GEN: WNWD, in mild distress, alert and appropriate HEENT: NC/AT, PERRL, normal sclerae, pharynx non-acute CARDIO: reg rate, S1/2 heard without m/g/r LUNGS: CTA bilaterally, no crackles, rales or wheezes, good diaphragmatic excursion ABD: soft, non-tender, non-distended, no rebound or guarding, +BS EXTREMITY: RP and DP palpable 2+ bilat, <2sec cap refill, wrist strap in place, no LE swelling or edema, extremities are warm and well-perfused NEURO: CN 2-12 grossly intact, sensation intact throughout MUSC: moves all extremities equally, no gross focal deficits. SKIN: warm and dry Hospital Course STEMI : Late presenting Anterolateral AMI/Proximal LAD occlusion leading to severe cardiomyopathy; LV thrombus Since late presentation no role for further revascularization. Appreciate Cardiology help continue IV Heparin, Needs switch to NOAC for anticoagulation Continue ASA, Plavix, statin, Beta alex Planned for repeat echo today to assess pericardial effusion, LV thrombus Nitroglycerin discontinued Patient high risk for developing cardiogenic shock: Discussed with Supervisor Of Officials. Patient planned to be discharged to [facility] for possible LVAD. ACUTE CHF WITH SYSTOLIC DYSFUNCTION /ISCHEMIC CARDIOMYOPATHY Secondary to above Diuretics/ACI or ARBs needs to be added when BP better EF: 20-25% May need LVAD LV APICAL THROMBUS : continue IV heparin Will need salvage determiner anticoagulation Repeat ECHO planned today to reassess HYPOTHYROIDISM: Continue Levothyroxine TOBACCO USE DISORDER : smoking cessation counselling DVT PX: On IV heparin CODE STATUS: FULL CODE DISPOSITION Needs referral for Cardiac Rehab Needs Cardiology follow up as out patient PCP follow up with Dr Holguin ECHO: 1. Mildly dilated LV with normal LV wall thickness. * 2. Severe LV dysfunction. LVEF 20-25%. Akinetic mid to apical anterior, septal and lateral carvajal consistent with large LAD distribution infarct. * 3. Moderate size LV apical thrombus present. * 4. Normal RV size and function. * 5. Grade I diastolic dysfunction. * 6. No significant valvular pathology. * 7. Small pericardial effusion. No signs of tamponade. * 8. Elevated CVP (est 15 mmHg). * 9. No prior studies for comparison. Cardiac Catheterization: Summary: 1. Late presenting Anterior STEMI/organized proximal LAD occlusion 2. Severe LV dysfunction with akinetic mid-distal anterior wall, apex. LVEF ~25 %. 3. Elevated intracardiac filling pressures. Recommendations: Admit to ICU Diuresis -- received lasix 40mg IV x 1 in biological lab technician Started on nitroglycerin drip for acute heart failure, mild respiratory distress Loaded with plavix 300 mg Continue ASA/Plavix for 1 year Heparin infusion overnight Echo in AM to assess LV function, evaluate for LV thrombus Start SUSY/ARB Start Beta-alex tomorrow when decompensated heart failure improved High-dose statin Smoking cessation Cardiac Rehab Total time spent on discharge = 45 minutes This includes examination of the patient, discharge planning, medication reconciliation, and communication with other providers. Discharge Instructions Discharge Instructions Admission Reason for Admission: Ami (Acute Myocardial Infarction) Discharge Discharge Diagnosis / Problem: STEMI, LV Apical Thrombus, Ischemic Cardiomyopathy Discharge Goals Goal(s): Decrease discomfort, Improve function Activity Recommendations Activity Limitations: per Instructions/Follow-up section . Instructions / Follow-Up Instructions / Follow-Up Follow up with Dr[facility]Hao Chan at [facility] today Current Hospital Diet Patient's current hospital diet: AHA Diet (Heart Healthy) Discharge Diet Recommended Diet: AHA Diet (Heart Healthy) Pending Studies Studies pending at discharge: no Laboratory Results Hemoglobin A1c Test 01/10/17 05:26 Range/Units Estimated Average Glucose 114 mg/dl Hemoglobin A1c 5.6 4.5-5.6 % Medical Emergencies . Who to Call and When: Medical Emergencies: If at any time you feel your situation is an emergency, please call 911 immediately. Call 911 immediately or go to your nearest Emergency Room if you experience any of the following: Warning Signs and Symptoms of a Heart Attack * Chest pain that is not relieved by medication * Shortness of breath . Non-Emergent Contact Non-Emergency issues call your: Primary Care Provider, Welder Boilermaker Call Non-Emergent contact if: you have a fever, your pain is not controlled, your pain is worsening, your pain is unusual for you, your pain is concerning you, you have any medication questions . . "Provider Documentation" section prepared by Harshil Arreguin. AMI Core Measures Reason no ASA as I/P: Treatment provided - N/A Reason no ASA at D/C: Treatment provided - N/A Reason no statin as I/P: Treatment provided - N/A Reason no statin at D/C: Treatment provided - N/A VTE Core Measure Inpt VTE Proph given/why not?: Unfractionated heparin SQ, Other Anticoagulation
[2017-01-11] MEDS ORDERED: LPR25 PO (10:19)
[2017-01-11] MEDS ORDERED: ASPEC81 PO (10:19)
[2017-01-11] MEDS ORDERED: NCDT21 TD (10:19)
[2017-01-11] MEDS ORDERED: PLV75 PO (10:19)
[2017-01-11] MEDS ORDERED: LPT40 PO (10:19)
--- NOTE | 2017-01-11 10:21 | Discharge Instructions ---
Discharge Instructions Admission Reason for Admission: Ami (Acute Myocardial Infarction) Discharge Discharge Diagnosis / Problem: STEMI, LV Apical Thrombus, Ischemic Cardiomyopathy Discharge Goals Goal(s): Decrease discomfort, Improve function Activity Recommendations Activity Limitations: per Instructions/Follow-up section . Instructions / Follow-Up Instructions / Follow-Up Follow up with Dr[facility]Hao Chan at [facility] today Current Hospital Diet Patient's current hospital diet: AHA Diet (Heart Healthy) Discharge Diet Recommended Diet: AHA Diet (Heart Healthy) Pending Studies Studies pending at discharge: no Laboratory Results Hemoglobin A1c Test 01/10/17 05:26 Range/Units Estimated Average Glucose 114 mg/dl Hemoglobin A1c 5.6 4.5-5.6 % Medical Emergencies . Who to Call and When: Medical Emergencies: If at any time you feel your situation is an emergency, please call 911 immediately. Call 911 immediately or go to your nearest Emergency Room if you experience any of the following: Warning Signs and Symptoms of a Heart Attack * Chest pain that is not relieved by medication * Shortness of breath . Non-Emergent Contact Non-Emergency issues call your: Primary Care Provider, Product Owner Call Non-Emergent contact if: you have a fever, your pain is not controlled, your pain is worsening, your pain is unusual for you, your pain is concerning you, you have any medication questions . . "Provider Documentation" section prepared by Harshil Arreguin. AMI Core Measures Reason no ASA as I/P: Treatment provided - N/A Reason no ASA at D/C: Treatment provided - N/A Reason no statin as I/P: Treatment provided - N/A Reason no statin at D/C: Treatment provided - N/A VTE Core Measure Inpt VTE Proph given/why not?: Unfractionated heparin SQ, Other Anticoagulation
--- NOTE | 2017-01-11 10:23 | Critical Care Progress Note ---
Critical Care Progress Note Date of Service Jan 11, 2017. Attending Subjective Still having some pain. Performance is poor. Dyspnea with any activity. Heart rate is higher now in the 100+ range and B/P 100-108. Nitro was reduced secondary to hypotension. I am concerned about worsening CHF/cardiogenic shock. I spoke with team and patient. A higher level of care believe needed for this 46 year old man. I spoke with Dr. Krishna in [place] about the case and she accepted him in transfer. She will be talking with the ECMO team and TCV surgery will be available. Objective Vitals--afeb/as noted Heart rate now in the 100's and B/P 90-100 General--he appears less perfused to me. HEENT--No focal neuro changes. Cardio--tach with gallop. No worsening murmur Pulmonary--I hear more congestion in the base GI--Functional Musculo---no edema, less perfusion Neuro--non-focal Psychiatric--no new target Assessment & Plan Large Anterior IA with worsening CHF. I am concerned about the impending complications and required interventions that might be needed. My evaluation suggests he is worsening and before his situation deteriorate more will get him to tertiary center where all available modalities are available. Critical Care Time 90 minutes Consults & Procedures Consultants: Dr. Orourke--cardiology Data Medications: Current Inpatient Medications Medications (Trade) Dose Ordered Sig/Theresa Route Start Time Stop Time Status Last Admin Dose Admin Ondansetron HCl (Zofran Inj) 4 mg Q6H PRN IV 01/09/17 18:00 02/08/17 17:59 Aspirin (Ecotrin Tab) 81 mg QAM PO 01/10/17 09:00 02/09/17 08:59 01/11/17 08:15 81 MG Clopidogrel Bisulfate (plAVix TAB) 75 mg QAM PO 01/10/17 09:00 02/09/17 08:59 01/11/17 08:15 75 MG Atorvastatin Calcium (Lipitor Tab) 80 mg QAM PO 01/10/17 09:00 02/09/17 08:59 01/11/17 08:15 80 MG Metoprolol Tartrate (Lopressor Tab) 25 mg Q12 PO 01/10/17 09:00 02/09/17 08:59 01/11/17 08:15 25 MG Acetaminophen (Tylenol Tab) 650 mg Q4H PRN PO 01/09/17 18:00 02/08/17 17:59 Levothyroxine Sodium (Synthroid Tab) 150 mcg DAILYBB PO 01/10/17 06:00 02/09/17 05:59 01/11/17 05:41 150 MCG Lorazepam (Ativan Tab) 1 mg HS PRN PO 01/09/17 18:00 02/08/17 17:59 01/11/17 08:15 1 MG Multivitamins (Multivitamin Tab) 1 tab DAILY PO 01/10/17 09:00 02/09/17 08:59 01/11/17 08:16 1 TAB Tramadol HCl (Ultram Tab) 50 mg Q6H PRN PO 01/09/17 18:00 02/08/17 17:59 01/10/17 16:19 50 MG Pantoprazole Sodium 40 mg 40 mg QAM PO 01/10/17 09:00 02/09/17 08:59 01/11/17 08:15 40 MG Nitroglycerin/ Dextrose 250 ml @ 0 mls/hr Q0M IV 01/09/17 19:00 02/08/17 18:59 01/09/17 20:02 6 MLS/HR Heparin Sodium/ Dextrose (Heparin 25,000 Unit/500ml D5W) 500 ml @ 55 mls/hr Q9H6M PRN IV 01/09/17 19:45 02/08/17 19:44 01/10/17 21:02 50 MLS/HR Morphine Sulfate (MoRPHine SULFATE INJ) 2 mg Q15M PRN IV 01/09/17 20:45 01/23/17 20:44 01/11/17 05:42 2 MG Lorazepam (Ativan Tab) 1 mg Q6 PRN PO 01/10/17 16:15 02/09/17 16:14 01/10/17 16:19 1 MG Nicotine (Nicoderm Cq 21MG Patch) 1 patch QAM PRN TD 01/11/17 02:30 02/10/17 02:29 01/11/17 03:12 1 PATCH I & O: 24-Hour Column 01/11/17 07:59 Intake Total 3589 ml Output Total 2050 ml Balance 1539 ml Vital Signs: Date Time Temp Pulse Resp B/P Pulse Ox O2 Delivery O2 Flow Rate FiO2 01/11/17 10:00 93 22 120/75 93 Nasal Cannula 2.0 01/11/17 08:00 36.8 104 22 108/70 93 Nasal Cannula 2.0 01/11/17 08:00 94 Nasal Cannula 2.0 01/11/17 06:00 96 20 128/77 93 Room Air 01/11/17 04:00 Room Air 01/11/17 03:59 37.3 103 24 109/65 93 Room Air 01/11/17 02:00 105 24 136/83 95 Room Air 01/11/17 00:01 36.8 98 22 109/66 95 Nasal Cannula 2.0 01/10/17 23:59 Nasal Cannula 2.0 01/10/17 22:00 100 20 92/63 92 Nasal Cannula 2.0 01/10/17 20:00 Nasal Cannula 2.0 01/10/17 20:00 36.8 100 20 133/90 95 Nasal Cannula 2.0 01/10/17 16:00 92 Room Air 01/10/17 16:00 96 20 115/77 92 Room Air 01/10/17 14:00 100 18 98/70 94 Room Air 01/10/17 12:00 36.6 91 18 112/63 91 2.0 01/10/17 12:00 90 2.0 Laboratory Results: Last 24 Hours Test 01/10/17 14:28 01/10/17 16:05 01/10/17 22:25 01/11/17 05:30 Troponin I 3.750 ng/ml Activated Partial Thromboplast Time 44.4 SECONDS 48.5 SECONDS 39.1 SECONDS Partial Thromboplastin Ratio 1.7 1.9 1.5 White Blood Count 12.91 K/uL Red Blood Count 3.37 M/uL Hemoglobin 10.0 g/dL Hematocrit 30.5 % Mean Corpuscular Volume 90.5 fL Mean Corpuscular Hemoglobin 29.7 pg Mean Corpuscular Hemoglobin Concent 32.8 g/dl Platelet Count 594 K/uL Mean Platelet Volume 8.7 fL Neutrophils (%) (Auto) 55.8 % Lymphocytes (%) (Auto) 29.2 % Monocytes (%) (Auto) 12.2 % Eosinophils (%) (Auto) 2.0 % Basophils (%) (Auto) 0.3 % Neutrophils # (Auto) 7.21 K/uL Lymphocytes # (Auto) 3.77 K/uL Monocytes # (Auto) 1.57 K/uL Eosinophils # (Auto) 0.26 K/uL Basophils # (Auto) 0.04 K/uL RDW Standard Deviation 46.1 fL RDW Coefficient of Variation 13.9 % Immature Granulocyte % (Auto) 0.5 % Immature Granulocyte # (Auto) 0.06 K/uL Sodium Level 135 mmol/L Potassium Level 3.9 mmol/L Chloride Level 99 mmol/L Carbon Dioxide Level 26 mmol/L Anion Gap 10.0 mmol/L Blood Urea Nitrogen 11 mg/dl Creatinine 0.84 mg/dl Est Creatinine Clear Calc Drug Dose 140.1 ml/min Estimated GFR () 122.6 Estimated GFR (Non- 105.7 BUN/Creatinine Ratio 12.9 Random Glucose 113 mg/dl Calcium Level 8.1 mg/dl
--- NOTE | 2017-01-11 13:50 | ECHOCARDIOGRAM REPORT ---
*NOTICE TO RECEIVING LIBERTARIAN AGENCY This information is strictly Confidential and protected under [place] law. [place] law prohibits you from making any further disclosure of this information unless further disclosure is expressly permitted by the written consent of the person to whom it pertains or is authorized by law. A general authorization for the release of medical or other information is not sufficient for this purpose. Hospital accepts no responsibility if the information is made available to any other person, INCLUDING THE PATIENT. Interpretation Summary * Name: ANNABEL JACOBS Study Date: 01/11/2017 10:32 AM BP: 108/70 mmHg * Patient Location: .MSICU\S\E111\S\1 HR: 105 * : 1970 (M/d/yyyy) Gender: Male Height: 70 in * Age: 46 yrs Ethnicity: CA Weight: 253 lb * Ordering Physician: Corby Orourke * Referring Physician: Self, Referred * Performed By: Janel Horton RCS * * Reason For Study: HEART ALERT / MD * BSA: 2.3 m2 * Severe left ventricular systolic dysfunction. * Apical mural thrombus of the left ventricle. * Extensive anterior myocardial infarction. * Pericardial effusion . When compared to studu of 01/10/17, the size of the effusion has increased. * -- Conclusions -- * There is no diastolic compression of the right ventricle to suggest cardiac tamponade. Procedure Details * Limited views were obtained. Left Ventricle * The left ventricle is normal in size. * There is a moderate size apical thrombus. * Spontaneous contrast is noted consistent with low flow state. * There is no ventricular septal defect visualized. * There is mild concentric left ventricular hypertrophy. * Left ventricular systolic function is severely reduced. * Inferior and anterior apical akinesis, anterior akinesis, anterolateral akinesis. Right Ventricle * The right ventricle is normal in size and function. Mitral Valve * The mitral valve is normal. Tricuspid Valve * The tricuspid valve is not well visualized, but is grossly normal. Aortic Valve * The aortic valve is trileaflet. * The aortic valve opens well. Great Vessels * Borderline aortic root dilatation. Pericardium/Pleural * Small pericardial effusion. * There is no diastolic compression of the right ventricle to suggest cardiac tamponade. Great Vessels * The inferior vena cava is moderately dilated. MMode 2D Measurements and Calculations IVSd 1.2 cm IVSs 1.9 cm LVIDd 4.5 cm LVIDs 3.9 cm LVPWd 1.2 cm LVPWs 1.7 cm IVS/LVPW 1.0 FS 12.2 % EDV(Teich) 90.4 ml ESV(Teich) 66.5 ml EF(Teich) 26.4 % EDV(cubed) 88.6 ml ESV(cubed) 60.0 ml EF(cubed) 32.2 % % IVS thick 53.0 % % LVPW thick 44.2 % LV mass(C)d 196.7 grams LV mass(C)dI 85.3 grams/m\S\2 LV mass(C)s 302.0 grams LV mass(C)sI 130.9 grams/m\S\2 SV(Teich) 23.9 ml SI(Teich) 10.4 ml/m\S\2 SV(cubed) 28.6 ml SI(cubed) 12.4 ml/m\S\2 Ao root diam 3.9 cm Ao root area 12.0 cm\S\2 LVOT diam 2.0 cm LVOT area 3.3 cm\S\2
[2017-04-20] MEDS ORDERED: MCRK20 PO (20:10)
[2017-04-20] MEDS ORDERED: WARF2TAB PO (20:10)
[2017-04-20] MEDS ORDERED: ULT50 PO (20:10)
[2017-04-20] MEDS ORDERED: EPLE25TA3 PO (20:10)
[2017-04-20] MEDS ORDERED: FRS/40 PO (20:10)
[2017-04-20] MEDS ORDERED: CARV12.52 PO (20:10)
[2017-04-20] MEDS ORDERED: FLVHFA110 INH (20:10)
== END 2017-01-11 11:15 | disposition short-term general hospital (02) | DRG 280 ==
LOC: C.EDB 15:10 → C.MSICU 18:11
PROVIDERS: ADMIT Family Medicine; ATTEND Internal Medicine
PROC: B2111ZZ Fluoroscopy of Multiple Coronary Arteries using Low Osmolar Contrast (ICD-10-PCS; 2017-01-09)
PROC: 4A023N7 Measurement of Cardiac Sampling and Pressure, Left Heart, Percutaneous Approach (ICD-10-PCS; principal; 2017-01-09 16:59)
DX: I21.09 ST elevation (STEMI) myocardial infarction involving other coronary artery of anterior wall (principal); I50.21 Acute systolic (congestive) heart failure; I23.6 Thrombosis of atrium, auricular appendage, and ventricle as current complications following acute myocardial infarction; I31.3 Pericardial effusion (noninflammatory); I25.5 Ischemic cardiomyopathy; I11.0 Hypertensive heart disease with heart failure; F17.200 Nicotine dependence, unspecified, uncomplicated; F41.9 Anxiety disorder, unspecified; M19.90 Unspecified osteoarthritis, unspecified site; E03.9 Hypothyroidism, unspecified; K21.9 Gastro-esophageal reflux disease without esophagitis; D64.9 Anemia, unspecified; F10.10 Alcohol abuse, uncomplicated; Z82.49 Family history of ischemic heart disease and other diseases of the circulatory system

== ENCOUNTER 2017-04-20 18:28 | Inpatient (IN) | payer OTHER ==
[~2017-04-20] VITALS: Ht 177.8 cm; Wt 98.6 kg
[~2017-04-20 18:28] MED LIST changes: +ASPEC81 PO; -BND25 PO; -CEPH500C PO; +CYCL10TA6 PO; -LEVO125T4 PO; -LORA-741 PO; +LPR25 PO; +LPT40 PO; +NCDT21 TD; +OMEP20TA PO; -OXYC1TAB3 PO; +PLV75 PO; -PRVHFAIN INH; -SULF800T23 PO; -TIZA2CAP PO; +TRAM-10 PO; -ZOLP10TA PO
[2017-04-20] MEDS ORDERED: SODIUM CHLORIDE 0.9% 1000ML 500 ML IV STA (19:31)
[2017-04-20] MEDS ORDERED: SODIUM CHLORIDE 0.9% 1000ML 1,000 ML IV STA (19:31)
[2017-04-20 20:08] LABS: HEMATOCRIT 36.8 % (42-52); MEAN CELL VOLUME 88.7 fL (80-100); MEAN CORPUSCULAR HEMOGLOBIN 28.4 pg (25-34); MEAN CORPUSCULAR HGB CONC 32.1 g/dl (32-36); MEAN PLATELET VOLUME 8.6 fL (7.4-10.4); PLATELET COUNT 412 K/uL (130-400); RED BLOOD COUNT 4.15 M/uL (4.7-6.1); WHITE BLOOD COUNT 10.05 K/uL (4.8-10.8)
[2017-04-20 20:10] LABS: ARTERIAL BLD GAS O2 SATURATION 90.8 % (90-95); ARTERIAL BLOOD GAS BASE EXCESS 1.4 mEq/L (-9-1.8); ARTERIAL BLOOD GAS HCO3 26 mmol/L (19-24); ARTERIAL BLOOD GAS PO2 64 mm/Hg (80-95); ARTERIAL BLOOD GAS pH 7.44 (7.35-7.45)
[2017-04-20] MEDS ORDERED: WARF5TAB90 PO (20:10)
[2017-04-20] MEDS ORDERED: ACET500T26 PO (20:10)
[2017-04-20] MEDS ORDERED: TRAZ50TA35 PO (20:10)
[2017-04-20] MEDS ORDERED: LEVE500T PO (20:10)
[2017-04-20] MEDS ORDERED: ESCI1TAB6 PO (20:10)
[2017-04-20] MEDS ORDERED: ALBU18002 INH (20:10)
[2017-04-20 20:11] LABS: ALLEN TEST POS (POS); O2 ADMINISTRATION RA
[2017-04-20] MEDS ORDERED: NICOTINE 21 MG/24 HR TDSY EXT STA (20:11)
--- NOTE | 2017-04-20 20:19 | DIAGNOSTIC IMAGING REPORT ---
CHEST ONE VIEW PORTABLE CLINICAL HISTORY: Overdose COMPARISON STUDY: Chest radiograph every 2016. FINDINGS: There are median sternotomy wires. Mild cardiomegaly is unchanged. No pneumothorax or pleural effusion is present. Mild interstitial thickening is noted. There are linear opacities suggestive of atelectasis. There is no lobar consolidation. IMPRESSION: 1. Mild nonspecific interstitial thickening. 2. Stable mild cardiomegaly. 3. Linear bilateral opacities suggestive of atelectasis. Electronically signed by: Joaquin Tena M.D. 04/20/2017 8:18 PM Dictated Date/Time: 04/20/2017 8:17 PM
[2017-04-20 20:21] LABS: INR 1.7 (0.9-1.1); PARTIAL THROMBOPLASTIN RATIO 1.4; PROTHROMBIN TIME (PATIENT) 18.9 SECONDS (9.0-12.0)
[2017-04-20 20:29] LABS: ACETAMINOPHEN < 2 ug/ml (10-30); BUN/CREATININE RATIO 22.4 (10-20); CALCIUM 8.9 mg/dl (8.5-10.1); CREATININE 1.7 mg/dl (0.60-1.40); MAGNESIUM 2.6 mg/dl (1.8-2.4); POTASSIUM 3.6 mmol/L (3.5-5.1)
[2017-04-20 20:39] LABS: URINE APPEARANCE CLEAR (CLEAR); URINE BILIRUBIN NEG (NEG); URINE COLOR YELLOW; URINE NITRITE NEG (NEG); URINE SPECIFIC GRAVITY 1.013 (1.000-1.030); UROBILINOGEN NEG (NEG); ZZUR CULT IF INDIC CLEAN CATCH NO
[2017-04-20 20:43] LABS: ALB/GLOB RATIO 0.8 (0.9-2); THYROID STIMULATING HORMONE 1.81 uIu/ml (0.300-4.500)
[2017-04-20 20:45] LABS: MANUAL MICROSCOPIC REQUIRED? NO; REVIEW REQ? NO
--- NOTE | 2017-04-20 20:58 | EMERGENCY ROOM VISIT NOTE ---
History Report prepared by Campos: Yara Rangel Under the Supervision of: Dr. Shiv Mas M.D. First contact with patient: 19:24 Chief Complaint: OVERDOSE (INTENTIONAL) Stated Complaint: CONFUSION,STAGGERING,FALLING,SLURRED SPEACH,?OD History of Present Illness The patient is a 46 year old male who presents to the Emergency Room with complaints of constant confusion beginning last night. Per his girlfriend, the patient has had slurred speech since last night. Today she reports that he was in their yard wearing only his underwear and 1 shoe, and that he fell. She says that he is not making any sense, and that on the way here he stated that he's a [place]. She states that his eyes were rolled back in his head in the car ride prior to arrival. The patient smokes at least 1 pack of cigarettes a day. He had a grand mal seizure in December and open heart surgery in January. He has no history of a stroke or diabetes, and is not on Oxygen at home. History is limited secondary to the mental status change. Source of History: spouse/significant other (girlfriend) Onset: last night Position: other (global ) Quality: other (confusion ) Timing: constant Note: additional symptoms: slurred speech Review of Systems ROS was unobtainable given the mental status change. 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 No pertinent family history stated. Social History Smoking Status: Current Every Day Smoker Alcohol Use: occasionally Drug Use: none Marital Status: in relationship Housing Status: lives with significant other Occupation Status: employed Current/Historical Medications Scheduled Acetaminophen (Pain & Fever Extra Streng), 1 TAB PO Q4H Aspirin (Aspirin EC Low Dose), 81 MG PO QAM Atorvastatin (Atorvastatin Calcium), 80 MG PO QAM Carvedilol (Coreg), 1 TAB PO BID Eplerenone (Eplerenone), 1 TAB PO DAILY Escitalopram Oxalate (Lexapro), 2 TAB PO DAILY Fluticasone Propionate (Flovent Hfa), 2 PUFFS INH BID Furosemide (Lasix), 40 MG PO DAILY Levetiractam (Levetiracetam), 1 TAB PO BID Levothyroxine Sodium (Levothyroxine Sodium), 150 MCG PO DAILY Metoprolol Tartrate (Lopressor), 25 MG PO Q12 Potassium Chloride (Klor-Con M20), 1 TAB PO DAILY Tramadol HCl (Tramadol HCl), 1 TAB PO Q6H Trazodone Hcl (Trazodone), 50 MG PO HS Warfarin Sodium (Coumadin), 2 TAB PO DAILY Warfarin Sodium (Coumadin), 5 MG PO DAILY Scheduled PRN Albuterol Sulfate (Proair Respiclick), 2 PUFF INH Q4H PRN for Wheezing Epinephrine (Epipen), 0.3 MG IM UD PRN for Severe Allergis Reaction Lorazepam (Ativan), 1 MG PO HS PRN for Anxiety Allergies Coded Allergies: Amlodipine (Verified Allergy, Intermediate, Hives, 04/20/17) Lisinopril (Verified Allergy, Intermediate, Hives, 04/20/17) Tizanidine (Verified Allergy, Intermediate, Hives, 04/20/17) Physical Exam Vital Signs Date Time Temp Pulse Resp B/P (MAP) Pulse Ox O2 Delivery O2 Flow Rate FiO2 04/20/17 20:23 77 17 115/73 95 Room Air 04/20/17 19:39 94 Room Air 04/20/17 19:03 74 04/20/17 18:35 36.7 77 20 102/73 92 Room Air Physical Exam GENERAL: Patient is in no acute distress. HEENT: No acute trauma, normocephalic atraumatic, mucous membranes moist, no nasal congestion, no scleral icterus. Pupils slightly large but equal and reactive. NECK: No stridor, no adenopathy, no meningismus, trachea is midline. LUNGS: Clear to auscultation bilaterally, no wheeze, no rhonchi, breath sounds equal. HEART: Without murmurs gallops or rubs, regular rate and rhythm. ABDOMEN: Soft, nontender, bowel sounds positive, no hernias, no peritonitis. EXTREMITIES: No cyanosis or edema, full range of motion of all the joints without pain or difficulty, no signs for acute trauma. NEUROLOGIC: Quite somnolent, slurred speech, no focal or motor deficit. Awakes to voice or tactile stimulation. SKIN: No rash, no jaundice, no diaphoresis. Medical Decision & Procedures ER Provider Diagnostic Interpretation: CT results as stated below per my review and radiologist interpretation: CT OF THE HEAD WITHOUT CONTRAST CLINICAL HISTORY: OVERDOSE COMPARISON STUDY: Head CT November 24, 2013 and MRI of the brain December 14, 2013. CT DOSE: 810.83 mGy.cm TECHNIQUE: Helical axial images of the head were obtained without IV contrast. Automated exposure control was utilized for the study. FINDINGS: No acute intracranial hemorrhage, midline shift or mass effect is present. Ventricular system is stable. Basilar cisterns are patent. There are no extra axial collections. There are no findings to suggest acute dural sinus thrombosis or acute territorial infarct. No calvarial fracture is present. Visualized portions of the mastoid air cells and sinuses are clear. A few locules of venous gas are incidentally noted. IMPRESSION: No acute intracranial findings. Electronically signed by: Joaquin Tena M.D. 04/20/2017 8:54 PM Dictated Date/Time: 04/20/2017 8:52 PM X-ray results as stated below per interpretation by me and the radiologist: CHEST ONE VIEW PORTABLE CLINICAL HISTORY: Overdose COMPARISON STUDY: Chest radiograph every 2016. FINDINGS: There are median sternotomy wires. Mild cardiomegaly is unchanged. No pneumothorax or pleural effusion is present. Mild interstitial thickening is noted. There are linear opacities suggestive of atelectasis. There is no lobar consolidation. IMPRESSION: 1. Mild nonspecific interstitial thickening. 2. Stable mild cardiomegaly. 3. Linear bilateral opacities suggestive of atelectasis. Electronically signed by: Joaquin Tena M.D. 04/20/2017 8:18 PM Dictated Date/Time: 04/20/2017 8:17 PM Laboratory Results 04/20/17 19:47 04/20/17 19:47 Test 04/20/17 19:47 04/20/17 20:00 04/20/17 20:20 04/20/17 20:40 Red Blood Count 4.15 M/uL (4.7-6.1) Mean Corpuscular Volume 88.7 fL (80-100) Mean Corpuscular Hemoglobin 28.4 pg (25-34) Mean Corpuscular Hemoglobin Concent 32.1 g/dl (32-36) RDW Standard Deviation 50.1 fL (36.4-46.3) RDW Coefficient of Variation 15.4 % (11.5-14.5) Mean Platelet Volume 8.6 fL (7.4-10.4) Prothrombin Time 18.9 SECONDS (9.0-12.0) Prothromb Time International Ratio 1.7 (0.9-1.1) Activated Partial Thromboplast Time 36.1 SECONDS (21.0-31.0) Partial Thromboplastin Ratio 1.4 Anion Gap 9.0 mmol/L (3-11) Est Creatinine Clear Calc Drug Dose 65.0 ml/min Estimated GFR () 55.2 Estimated GFR (Non- 47.6 BUN/Creatinine Ratio 22.4 (10-20) Calcium Level 8.9 mg/dl (8.5-10.1) Magnesium Level 2.6 mg/dl (1.8-2.4) Total Bilirubin 0.3 mg/dl (0.2-1) Aspartate Amino Transf (AST/SGOT) 78 U/L (15-37) Alanine Aminotransferase (ALT/SGPT) 29 U/L (12-78) Alkaline Phosphatase 138 U/L (45-117) Total Creatine Kinase 2521 U/L (39-308) Troponin I 0.030 ng/ml (0-0.045) Total Protein 8.2 gm/dl (6.4-8.2) Albumin 3.7 gm/dl (3.4-5.0) Globulin 4.5 gm/dl (2.5-4.0) Albumin/Globulin Ratio 0.8 (0.9-2) Thyroid Stimulating Hormone (TSH) 1.810 uIu/ml (0.300-4.500) Free Thyroxine 1.54 ng/dl (0.80-1.60) Salicylates Level 7.1 mg/dl (2.8-20) Acetaminophen Level < 2 ug/ml (10-30) Ethyl Alcohol mg/dL < 3.0 mg/dl (0-3) Arterial Blood pH 7.44 (7.35-7.45) Arterial Blood Partial Pressure CO2 38 mmHg (35-46) Arterial Blood Partial Pressure O2 64 mm/Hg (80-95) Arterial Blood HCO3 26 mmol/L (19-24) Arterial Blood Oxygen Saturation 90.8 % (90-95) Arterial Blood Base Excess 1.4 mEq/L (-9-1.8) Arterial Blood Gas Delivery RA Thomas Test POS (POS) Urine Color YELLOW Urine Appearance CLEAR (CLEAR) Urine pH 5.0 (4.5-7.5) Urine Specific [place] 1.013 (1.000-1.030) Urine Protein NEG (NEG) Urine Glucose (UA) NEG (NEG) Urine Ketones NEG (NEG) Urine Occult Blood NEG (NEG) Urine Nitrite NEG (NEG) Urine Bilirubin NEG (NEG) Urine Urobilinogen NEG (NEG) Urine Leukocyte Esterase NEG (NEG) Urine Opiates Screen NEG (NEG) Urine Methadone, Qualitative NEG (NEG) Urine Barbiturates NEG (NEG) Urine Phencyclidine (PCP) Level NEG (NEG) Ur Amphetamine/Methamphetamine NEG (NEG) MDMA (Ecstasy) Screen NEG (NEG) Urine Benzodiazepines Screen NEG (NEG) Urine Cocaine Metabolite NEG (NEG) Urine Marijuana (THC) NEG (NEG) Ammonia 21.0 umol/L (11-32) Laboratory results reviewed by me. Medications Administered Medications (Trade) Dose Ordered Sig/Theresa Route Start Time Stop Time Status Last Admin Dose Admin Sodium Chloride 500 ml @ 999 mls/hr Q31M STAT IV 04/20/17 19:31 04/20/17 20:01 DC 04/20/17 19:31 999 MLS/HR Sodium Chloride 1,000 ml @ 125 mls/hr Q8H STAT IV 04/20/17 19:31 04/20/17 22:47 DC 04/20/17 19:31 125 MLS/HR Nicotine (Nicoderm Cq 21MG Patch) 1 patch NOW STAT EXT 04/20/17 20:11 04/20/17 20:12 DC 04/20/17 20:20 1 PATCH ECG Indication: other (confusion ) Rate (beats per minute): 75 Rhythm: normal sinus Findings: no acute ischemic change, no ectopy, other (possible old septal infarct) ED Course 1926: The patient was evaluated in room A9. A complete history and physical exam was performed. 1930: Ordered Sodium Chloride 1,000 ml @ 125 mls/hr IV, Sodium Chloride 500 ml @ 999 mls/hr IV. 2010: Ordered Nicotine 1 patch EXT. 2118: I updated the patient and his girlfriend on his treatment plan. 0: Upon reexamination the patient is resting comfortably. I discussed results and treatment plan with the patient. He verbalizes agreement and understanding. The patient will be evaluated for further management. Medical Decision The patient is a 46 year old male who presents to the ED with complaints of confusion. Differential diagnoses considered include medication overdose, alcohol abuse, liver or renal failure, intracranial bleeding, CVA, dehydration, infection, and suicidal ideation. There is no leukocytosis or concerning anemia. Renal panel testing shows some acute renal failure/dehydration. There were a few mild liver enzyme elevations. Ammonia level was not elevated. The patient appeared to be in a euthyroid state. Urinalysis did not show infection. Brain CT shows no acute bleed or mass effect. Chest film showed no obvious pneumonia or CHF. EKG showed a normal sinus rhythm, no acute ischemic change. Cardiac enzyme testing 1 is not consistent with acute cardiac injury. ABG does not show acidosis or significant CO2 retention. INR is elevated consistent with his Coumadin use. Total CK is elevated indicating some mild rhabdomyolysis. Alcohol and Tylenol levels are undetectable. Aspirin level slightly elevated but therapeutic. Urine tox is negative. The patient received IV saline, he was given a Nicotine patch. The patient presents with a change in mental status. The mental status change is very likely secondary to medications. Apparently, as per his girlfriend, he is a known addict. Given the mental status issues, admission/observation is warranted. Nothing worrisome found by workup. The girlfriend was reassured. I did speak to the patient and case management. The on-call hospitalist was consulted. Medication Reconciliation: I attest that I have personally reviewed the patient' s current medication list. Blood Pressure Screening: Patient was found to have normal blood pressure on screening and does not require follow-up. Consults Time Called: [phone] Consulting Physician: Dr. Byrd- [facility] Returned Call: [phone] Discussed the patient's case. The patient will be evaluated for further management. Impression Primary Impression: Change in mental status Additional Impressions: Rhabdomyolysis Acute renal failure Dehydration Scribe Attestation The scribe's documentation has been prepared under my direction and personally reviewed by me in its entirety. I confirm that the note above accurately reflects all work, treatment, procedures, and medical decision making performed by me. Departure Information Dispostion Being Evaluated By Hospitalist Referrals Feliciano Holguin III, M.D. (PCP) Patient Instructions My [facility] Problem Qualifiers
[2017-04-20 21:02] LABS: BENZODIAZEPINE, URINE NEG (NEG); COCAINE,URINE NEG (NEG); PHENCYCLIDINE, URINE NEG (NEG)
[2017-04-20] MEDS ORDERED: ALBUTEROL HFA 8 GM INHALER INH PRN (21:45)
[2017-04-20] MEDS ORDERED: MAGNESIUM HYDROXIDE SUSP 30 ML UDC PO PRN (21:45)
[2017-04-20] MEDS ORDERED: ONDANSETRON INJ 2 MG/ML 2 ML VIAL IV PRN (21:45)
[2017-04-20] MEDS ORDERED: POLYETHYLENE (MIRALAX) 17 GM PACK PO PRN (21:45)
[2017-04-20] MEDS ORDERED: ZOLPIDEM TARTRATE 5 MG TAB PO PRN (21:45)
[2017-04-20] MEDS ORDERED: ACETAMINOPHEN 325 MG TAB PO PRN (21:45)
[2017-04-20] MEDS ORDERED: ALUMINUM/MAGNESIUM/SIMETH (MAALOX MAX) 30 ML UDC PO PRN (21:45)
[2017-04-20 22:20] VITALS: O2SAT 93
[2017-04-20 22:40] VITALS: Ht 177.8 cm; Wt 98.6 kg
[2017-04-20 22:44] VITALS: BP 103/69; PULSE 76; TEMP 36.7; O2SAT 91
[2017-04-20] MEDS ORDERED: SODIUM CHLORIDE 0.9% 1000ML 1,000 ML IV SCH (22:45)
[2017-04-20] MEDS ORDERED: WARFARIN SOD 4 MG TAB PO SCH (23:00)
[2017-04-20 23:20] VITALS: BP 91/56; PULSE 78; TEMP 36.4; O2SAT 93
[2017-04-20] MEDS: EPLERENONE~ORDER AWAITING ACTION SCH (23:48)
[2017-04-21] MEDS: HEPARIN SOD 5000 UNIT/0.5 ML CARP SQ SCH ×2 (01:07→06:30)
[2017-04-21 03:15] VITALS: BP 92/58; PULSE 85; TEMP 36.8; O2SAT 98
--- NOTE | 2017-04-21 05:00 | History and Physical ---
History & Physical Date & Time of Service: Apr 21, 2017 at 04:41 Chief Complaint: Change In Mental Status, Overdose Primary Care Physician: Feliciano Holguin III, M.D. History of Present Illness Source: patient, partner, clinic records This is a 47 year old male with a PMH of CAD, hx. of [place], LV wall rupture s/p repair, atrial fibrillation, tobacco use disorder, multiple drug overdoses presents with altered mental status secondary to an overdose of trazodone and tramadol. He is accompanied by his girlfriend who states that he was not in his usual mental state the past few days, he had been sending incomprehensible text messages and has been confused, lethargic. When she went to go see him prior to arrival, she noted bottles of trazodone and tramadol empty - he states he took 5 -6 pills of each of these medications. He is more alert during my exam, but still somnolent and confused. He is in no distress; denies chest pain/shortness of breath, difficult to obtain a complete ROS due to his mental state. 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 Social History Smoking Status: Current Every Day Smoker Drug Use: none Marital Status: in relationship Housing status: lives with family Occupational Status: employed Immunizations History of Influenza Vaccine: Yes Influenza Vaccine Date: Jun 14, 2016 History of Tetanus Vaccine?: Yes Tetanus Immunization Date: Oct 21, 2016 History of Pneumococcal: No History of Hepatitis B Vaccine: No Multi-Drug Resistant Organisms History of MDRO: No Allergies Coded Allergies: Amlodipine (Verified Allergy, Intermediate, Hives, 04/20/17) Lisinopril (Verified Allergy, Intermediate, Hives, 04/20/17) Tizanidine (Verified Allergy, Intermediate, Hives, 04/20/17) Home Medications Scheduled Acetaminophen (Pain & Fever Extra Streng), 1 TAB PO Q4H Aspirin (Aspirin EC Low Dose), 81 MG PO QAM Atorvastatin (Atorvastatin Calcium), 80 MG PO QAM Carvedilol (Coreg), 1 TAB PO BID Eplerenone (Eplerenone), 1 TAB PO DAILY Escitalopram Oxalate (Lexapro), 2 TAB PO DAILY Fluticasone Propionate (Flovent Hfa), 2 PUFFS INH BID Furosemide (Lasix), 40 MG PO DAILY Levetiractam (Levetiracetam), 1 TAB PO BID Levothyroxine Sodium (Levothyroxine Sodium), 150 MCG PO DAILY Metoprolol Tartrate (Lopressor), 25 MG PO Q12 Potassium Chloride (Klor-Con M20), 1 TAB PO DAILY Tramadol HCl (Tramadol HCl), 1 TAB PO Q6H Trazodone Hcl (Trazodone), 50 MG PO HS Warfarin Sodium (Coumadin), 2 TAB PO DAILY Warfarin Sodium (Coumadin), 5 MG PO DAILY Scheduled PRN Albuterol Sulfate (Proair Respiclick), 2 PUFF INH Q4H PRN for Wheezing Epinephrine (Epipen), 0.3 MG IM UD PRN for Severe Allergis Reaction Lorazepam (Ativan), 1 MG PO HS PRN for Anxiety Review of Systems Difficult to obtain complete ROS due to mental status Respiratory: No shortness of breath Cardiovascular: No chest pain, No edema, No palpitations Abdomen: No nausea, No vomiting, No diarrhea Physical Exam Vital Signs Date Time Temp Pulse Resp B/P (MAP) Pulse Ox O2 Delivery O2 Flow Rate FiO2 04/21/17 04:00 Room Air 04/21/17 03:15 36.8 85 20 92/58 (69) 98 Room Air 04/20/17 23:59 Room Air 04/20/17 23:20 36.4 78 18 91/56 (68) 93 Room Air 04/20/17 22:44 36.7 76 16 103/69 (80) 91 Room Air 04/20/17 22:40 Room Air 04/20/17 22:20 76 16 100/67 93 Room Air 04/20/17 20:23 77 17 115/73 95 Room Air 04/20/17 19:39 94 Room Air 04/20/17 19:03 74 04/20/17 18:35 36.7 77 20 102/73 92 Room Air General Appearance: no apparent distress, + pertinent finding (+lethargic, somnolent, arousable; confused) Head: normocephalic, atraumatic Eyes: normal inspection ENT: hearing grossly normal Respiratory/Chest: lungs clear, normal breath sounds, no respiratory distress, no accessory muscle use Cardiovascular: regular rate, rhythm, no edema, no murmur, + pertinent finding (midline chest scar noted) Abdomen/GI: normal bowel sounds, non tender, soft Extremities/Musculoskelatal: normal inspection, no calf tenderness, normal capillary refill, no pedal edema, normal range of motion Neurologic/Psych: + disoriented (confused, lethargic), + pertinent finding Skin: normal color Lymphatic: no adenopathy Diagnostics Laboratory Results Results Past 24 Hours Test 04/20/17 19:47 04/20/17 20:00 04/20/17 20:20 04/20/17 20:40 Range/Units White Blood Count 10.05 4.8-10.8 K/uL Red Blood Count 4.15 4.7-6.1 M/uL Hemoglobin 11.8 14.0-18.0 g/dL Hematocrit 36.8 42-52 % Mean Corpuscular Volume 88.7 80-100 fL Mean Corpuscular Hemoglobin 28.4 25-34 pg Mean Corpuscular Hemoglobin Concent 32.1 32-36 g/dl RDW Standard Deviation 50.1 36.4-46.3 fL RDW Coefficient of Variation 15.4 11.5-14.5 % Platelet Count 412 130-400 K/uL Mean Platelet Volume 8.6 7.4-10.4 fL Prothrombin Time 18.9 9.0-12.0 SECONDS Prothromb Time International Ratio 1.7 0.9-1.1 Activated Partial Thromboplast Time 36.1 21.0-31.0 SECONDS Partial Thromboplastin Ratio 1.4 Sodium Level 138 136-145 mmol/L Potassium Level 3.6 3.5-5.1 mmol/L Chloride Level 101 98-107 mmol/L Carbon Dioxide Level 28 21-32 mmol/L Anion Gap 9.0 3-11 mmol/L Blood Urea Nitrogen 38 7-18 mg/dl Creatinine 1.70 0.60-1.40 mg/dl Est Creatinine Clear Calc Drug Dose 65.0 ml/min Estimated GFR () 55.2 Estimated GFR (Non- 47.6 BUN/Creatinine Ratio 22.4 10-20 Random Glucose 91 70-99 mg/dl Calcium Level 8.9 8.5-10.1 mg/dl Magnesium Level 2.6 1.8-2.4 mg/dl Total Bilirubin 0.3 0.2-1 mg/dl Aspartate Amino Transf (AST/SGOT) 78 15-37 U/L Alanine Aminotransferase (ALT/SGPT) 29 12-78 U/L Alkaline Phosphatase 138 45-117 U/L Total Creatine Kinase 2521 39-308 U/L Troponin I 0.030 0-0.045 ng/ml Total Protein 8.2 6.4-8.2 gm/dl Albumin 3.7 3.4-5.0 gm/dl Globulin 4.5 2.5-4.0 gm/dl Albumin/Globulin Ratio 0.8 0.9-2 Thyroid Stimulating Hormone (TSH) 1.810 0.300-4.500 uIu/ml Free Thyroxine 1.54 0.80-1.60 ng/dl Salicylates Level 7.1 2.8-20 mg/dl Acetaminophen Level < 2 10-30 ug/ml Ethyl Alcohol mg/dL < 3.0 0-3 mg/dl Arterial Blood pH 7.44 7.35-7.45 Arterial Blood Partial Pressure CO2 38 35-46 mmHg Arterial Blood Partial Pressure O2 64 80-95 mm/Hg Arterial Blood HCO3 26 19-24 mmol/L Arterial Blood Oxygen Saturation 90.8 90-95 % Arterial Blood Base Excess 1.4 -9-1.8 mEq/L Arterial Blood Gas Delivery RA Thomas Test POS POS Urine Color YELLOW Urine Appearance CLEAR CLEAR Urine pH 5.0 4.5-7.5 Urine Specific Rickreall 1.013 1.000-1.030 Urine Protein NEG NEG Urine Glucose (UA) NEG NEG Urine Ketones NEG NEG Urine Occult Blood NEG NEG Urine Nitrite NEG NEG Urine Bilirubin NEG NEG Urine Urobilinogen NEG NEG Urine Leukocyte Esterase NEG NEG Urine Opiates Screen NEG NEG Urine Methadone, Qualitative NEG NEG Urine Barbiturates NEG NEG Urine Phencyclidine (PCP) Level NEG NEG Ur Amphetamine/Methamphetamine NEG NEG MDMA (Ecstasy) Screen NEG NEG Urine Benzodiazepines Screen NEG NEG Urine Cocaine Metabolite NEG NEG Urine Marijuana (THC) NEG NEG Ammonia 21.0 11-32 umol/L Diagnostic Radiology CT OF THE HEAD WITHOUT CONTRAST CLINICAL HISTORY: OVERDOSE COMPARISON STUDY: Head CT November 24, 2013 and MRI of the brain December 14, 2013. CT DOSE: 810.83 mGy.cm TECHNIQUE: Helical axial images of the head were obtained without IV contrast. Automated exposure control was utilized for the study. FINDINGS: No acute intracranial hemorrhage, midline shift or mass effect is present. Ventricular system is stable. Basilar cisterns are patent. There are no extra axial collections. There are no findings to suggest acute dural sinus thrombosis or acute territorial infarct. No calvarial fracture is present. Visualized portions of the mastoid air cells and sinuses are clear. A few locules of venous gas are incidentally noted. IMPRESSION: No acute intracranial findings. CHEST ONE VIEW PORTABLE CLINICAL HISTORY: Overdose COMPARISON STUDY: Chest radiograph every 2016. FINDINGS: There are median sternotomy wires. Mild cardiomegaly is unchanged. No pneumothorax or pleural effusion is present. Mild interstitial thickening is noted. There are linear opacities suggestive of atelectasis. There is no lobar consolidation. IMPRESSION: 1. Mild nonspecific interstitial thickening. 2. Stable mild cardiomegaly. 3. Linear bilateral opacities suggestive of atelectasis. EKG Normal sinus rhythm Rightward axis Impression Assessment and Plan This is a 47 year old male with a PMH of CAD, hx. of [place], LV wall rupture s/p repair, atrial fibrillation, tobacco use disorder, multiple drug overdoses presents with altered mental status secondary to an overdose of trazodone and tramadol. Drug Overdose patient states he was not suicidal, but took trazodone and tramadol because he was "tired" as per significant other, he has done this multiple times in the past, but refuses help +lethargic, somnolent on admission will monitor in tele with significant cardiac history and now overdose check EKG in AM discharge planning eval for possible rehab discharge Rhabdomyolysis CPK elevated on admission, > 2000 likely due to somnolence after overdose give IVFs, recheck CPK Acute Kidney Injury secondary to dehydration and rhabdo give IVFs recheck PRP in AM avoid nephrotoxic agents when able Hx. of [place], hx. of LV wall rupture continue cardiac medications aspirin, statin, b-alex Atrial Fibrillation paroxysmally, patient with NSR currently continue b-alex continue Coumadin, recheck INR in AM Tobacco use Disorder nicotine patch DVT ppx subq heparin Coumadin FULL CODE Advanced Directives Existing Living Will: No Existing Power of Cap [employer] Cutter: No VTE Prophylaxis VTE Risk Assessment Done? Y/N: Yes Risk Level: High
[2017-04-21 06:00] LABS: HEMATOCRIT 36.1 % (42-52); MEAN CELL VOLUME 87.8 fL (80-100); MEAN CORPUSCULAR HEMOGLOBIN 28.7 pg (25-34); MEAN CORPUSCULAR HGB CONC 32.7 g/dl (32-36); MEAN PLATELET VOLUME 8.6 fL (7.4-10.4); PLATELET COUNT 365 K/uL (130-400); RED BLOOD COUNT 4.11 M/uL (4.7-6.1); WHITE BLOOD COUNT 8.43 K/uL (4.8-10.8)
[2017-04-21] MEDS ORDERED: LEVOTHYROXINE 150 MCG TAB PO SCH (06:00)
[2017-04-21 06:13] LABS: INR 1.5 (0.9-1.1); PROTHROMBIN TIME (PATIENT) 16.3 SECONDS (9.0-12.0)
[2017-04-21 06:43] LABS: CALCIUM 8.5 mg/dl (8.5-10.1); CREATININE 1.4 mg/dl (0.60-1.40); POTASSIUM 3.5 mmol/L (3.5-5.1)
[2017-04-21] MEDS: EPLERENONE~ORDER AWAITING ACTION SCH ×2 (07:11)
[2017-04-21 07:20] VITALS: BP 122/81; PULSE 78; TEMP 36.6; O2SAT 94
[2017-04-21] MEDS ORDERED: CARVEDILOL 12.5 MG TAB PO SCH (09:00)
[2017-04-21] MEDS ORDERED: ATORVASTATIN 40 MG TAB PO SCH (09:00)
[2017-04-21] MEDS ORDERED: FLUTICASONE HFA 110MCG INHALER INH SCH (09:00)
[2017-04-21] MEDS ORDERED: ASPIRIN 81 MG ECTAB PO SCH (09:00)
[2017-04-21] MEDS ORDERED: POTASSIUM CHLORIDE 20 MEQ TABCR PO SCH (09:00)
[2017-04-21] MEDS ORDERED: ESCITALOPRAM OXALATE 10 MG TAB PO SCH (09:00)
[2017-04-21] MEDS ORDERED: NICOTINE 21 MG/24 HR TDSY TD SCH (09:00)
[2017-04-21] MEDS ORDERED: LEVETIRACETAM 500 MG TAB PO SCH (09:00)
--- NOTE | 2017-04-21 11:03 | Progress Note ---
Medicine Progress Note Date & Time of Visit: Apr 21, 2017 at 10:50. Subjective Pt was seen and examined Lying in bed with no acute distress with 1 to 1 sitter Pt denies any suicidal thought or any thought to harm himself or others Pt denies any chest pain, palpitation, dizziness and SOB Objective Last 8 Hrs Date Time Temp Pulse Resp B/P (MAP) Pulse Ox O2 Delivery O2 Flow Rate FiO2 04/21/17 08:00 Room Air 04/21/17 07:20 36.6 78 22 122/81 (95) 94 Room Air 78 04/21/17 04:00 Room Air 04/21/17 03:15 36.8 85 20 92/58 (69) 98 Room Air Physical Exam: General- No acute distress Head- atraumatic Eyes- PERRL, EOMI ENT- oropharynx clear Neck- supple, no JVD Lungs- clear to auscultation Heart- regular rhythm; no murmur Abdomen- normal bowel sounds, soft Extremities- no calf tenderness Neuro- alert, awake, oriented x 3; PERRL, EOMI Skin- warm & dry Laboratory Results: Last 24 Hours Test 04/20/17 19:47 04/20/17 20:00 04/20/17 20:20 04/20/17 20:40 White Blood Count 10.05 K/uL Red Blood Count 4.15 M/uL Hemoglobin 11.8 g/dL Hematocrit 36.8 % Mean Corpuscular Volume 88.7 fL Mean Corpuscular Hemoglobin 28.4 pg Mean Corpuscular Hemoglobin Concent 32.1 g/dl RDW Standard Deviation 50.1 fL RDW Coefficient of Variation 15.4 % Platelet Count 412 K/uL Mean Platelet Volume 8.6 fL Prothrombin Time 18.9 SECONDS Prothromb Time International Ratio 1.7 Activated Partial Thromboplast Time 36.1 SECONDS Partial Thromboplastin Ratio 1.4 Sodium Level 138 mmol/L Potassium Level 3.6 mmol/L Chloride Level 101 mmol/L Carbon Dioxide Level 28 mmol/L Anion Gap 9.0 mmol/L Blood Urea Nitrogen 38 mg/dl Creatinine 1.70 mg/dl Est Creatinine Clear Calc Drug Dose 65.0 ml/min Estimated GFR () 55.2 Estimated GFR (Non- 47.6 BUN/Creatinine Ratio 22.4 Random Glucose 91 mg/dl Calcium Level 8.9 mg/dl Magnesium Level 2.6 mg/dl Total Bilirubin 0.3 mg/dl Aspartate Amino Transf (AST/SGOT) 78 U/L Alanine Aminotransferase (ALT/SGPT) 29 U/L Alkaline Phosphatase 138 U/L Total Creatine Kinase 2521 U/L Troponin I 0.030 ng/ml Total Protein 8.2 gm/dl Albumin 3.7 gm/dl Globulin 4.5 gm/dl Albumin/Globulin Ratio 0.8 Thyroid Stimulating Hormone (TSH) 1.810 uIu/ml Free Thyroxine 1.54 ng/dl Salicylates Level 7.1 mg/dl Acetaminophen Level < 2 ug/ml Ethyl Alcohol mg/dL < 3.0 mg/dl Arterial Blood pH 7.44 Arterial Blood Partial Pressure CO2 38 mmHg Arterial Blood Partial Pressure O2 64 mm/Hg Arterial Blood HCO3 26 mmol/L Arterial Blood Oxygen Saturation 90.8 % Arterial Blood Base Excess 1.4 mEq/L Arterial Blood Gas Delivery RA Thomas Test POS Urine Color YELLOW Urine Appearance CLEAR Urine pH 5.0 Urine Specific Helper 1.013 Urine Protein NEG Urine Glucose (UA) NEG Urine Ketones NEG Urine Occult Blood NEG Urine Nitrite NEG Urine Bilirubin NEG Urine Urobilinogen NEG Urine Leukocyte Esterase NEG Urine Opiates Screen NEG Urine Methadone, Qualitative NEG Urine Barbiturates NEG Urine Phencyclidine (PCP) Level NEG Ur Amphetamine/Methamphetamine NEG MDMA (Ecstasy) Screen NEG Urine Benzodiazepines Screen NEG Urine Cocaine Metabolite NEG Urine Marijuana (THC) NEG Ammonia 21.0 umol/L Test 04/21/17 05:40 White Blood Count 8.43 K/uL Red Blood Count 4.11 M/uL Hemoglobin 11.8 g/dL Hematocrit 36.1 % Mean Corpuscular Volume 87.8 fL Mean Corpuscular Hemoglobin 28.7 pg Mean Corpuscular Hemoglobin Concent 32.7 g/dl RDW Standard Deviation 49.3 fL RDW Coefficient of Variation 15.3 % Platelet Count 365 K/uL Mean Platelet Volume 8.6 fL Prothrombin Time 16.3 SECONDS Prothromb Time International Ratio 1.5 Sodium Level 139 mmol/L Potassium Level 3.5 mmol/L Chloride Level 104 mmol/L Carbon Dioxide Level 26 mmol/L Anion Gap 9.0 mmol/L Blood Urea Nitrogen 32 mg/dl Creatinine 1.40 mg/dl Est Creatinine Clear Calc Drug Dose 77.6 ml/min Estimated GFR () 69.3 Estimated GFR (Non- 59.8 BUN/Creatinine Ratio 23.0 Random Glucose 89 mg/dl Calcium Level 8.5 mg/dl Total Creatine Kinase 1665 U/L Assessment & Plan Drug Overdose Denies any suicidal thought He said that he took trazodone and tramadol because he was "tired" Previous history drug overdose He said that his PCP prescribed his the trazodone and tramadol Continue 1 to 1 observation Refused drug rehab for help Continue gentle IVF Consider psych consult Rhabdomyolysis CPK elevated on admission, > 2000 CPK 1665 today Continue IVF Continue monitor CPK Acute Kidney Injury Creatine on admission 1.7 secondary to dehydration and rhabdo Creatine today 1.4 Continue gentle IVF avoid nephrotoxic agents when able Hx. of [place], hx. of LV wall rupture Asymptomatic aspirin, statin, b-alex Paroxysmal Atrial Fibrillation Rate control, on NSR continue b-alex INR 1.5 continue coumadin Monitor INR Tobacco use Disorder Counseling on smoking cessation nicotine patch DVT ppx Subq heparin Coumadin CODE STATUS FULL CODE Current Inpatient Medications: Current Inpatient Medications Medications (Trade) Dose Ordered Sig/Theresa Route Start Time Stop Time Status Last Admin Dose Admin Heparin Sodium (Porcine) (Heparin Sq 5000 Unit/0.5ml) 5,000 unit Q8 SQ 04/20/17 23:15 05/20/17 23:14 04/21/17 06:30 5,000 UNIT Sodium Chloride 1,000 ml @ 80 mls/hr [id number] IV 04/20/17 22:45 05/20/17 22:44 04/20/17 23:48 80 MLS/HR Acetaminophen (Tylenol Tab) 650 mg Q4H PRN PO 04/20/17 21:45 05/20/17 21:44 Al Hydrox/Mg Hydrox/Simethicone (Maalox Max Susp) 15 ml Q4H PRN PO 04/20/17 21:45 05/20/17 21:44 Magnesium Hydroxide (Milk Of Magnesia Susp) 30 ml Q12H PRN PO 04/20/17 21:45 05/20/17 21:44 Zolpidem Tartrate (Ambien Tab) 5 mg HSZ PRN PO 04/20/17 21:45 05/20/17 21:44 Ondansetron HCl (Zofran Inj) 4 mg Q6H PRN IV 04/20/17 21:45 05/20/17 21:44 Aspirin (Ecotrin Tab) 81 mg QAM PO 04/21/17 09:00 05/21/17 08:59 04/21/17 07:48 81 MG Polyethylene (Miralax Powder Packet) 17 gm DAILY PRN PO 04/20/17 21:45 05/20/17 21:44 Atorvastatin Calcium (Lipitor Tab) 80 mg QAM PO 04/21/17 09:00 05/21/17 08:59 04/21/17 07:48 80 MG Carvedilol (Coreg Tab) 12.5 mg BID PO 04/21/17 09:00 05/21/17 08:59 04/21/17 07:47 12.5 MG Escitalopram Oxalate (Lexapro Tab) 10 mg DAILY PO 04/21/17 09:00 05/21/17 08:59 04/21/17 07:47 10 MG Fluticasone Propionate (Flovent Hfa 110MCG Inhaler) 2 puffs BID INH 04/21/17 09:00 05/21/17 08:59 04/21/17 07:49 2 PUFFS Levetiracetam (Keppra Tab) 500 mg BID PO 04/21/17 09:00 05/21/17 08:59 04/21/17 07:47 500 MG Levothyroxine Sodium (Synthroid Tab) 150 mcg DAILYBB PO 04/21/17 06:00 05/21/17 05:59 04/21/17 06:30 150 MCG Potassium Chloride (Klor-Con Tab) 20 meq DAILY PO 04/21/17 09:00 05/21/17 08:59 04/21/17 07:48 20 MEQ Warfarin Sodium (Coumadin Tab) 4 mg MoWeFr@1600 PO 04/20/17 23:00 05/20/17 22:59 04/20/17 23:49 4 MG Warfarin Sodium (Coumadin Tab) 5 mg SuTuThSa@1600 PO 04/21/17 16:00 05/21/17 15:59 Albuterol (Ventolin Hfa Inhaler) 2 puffs Q4H PRN INH 04/20/17 21:45 05/20/17 21:44 Miscellaneous Information (Order Awaiting Action) 1 ea QS N/A 04/20/17 23:00 05/20/17 22:59 Nicotine (Nicoderm Cq 21MG Patch) 1 patch QAM TD 04/21/17 09:00 05/21/17 08:59 04/21/17 07:47 1 PATCH Miscellaneous (Remove Nicoderm Patch) 1 ea HS N/A 04/21/17 21:00 05/21/17 20:59
--- NOTE | 2017-04-21 11:20 | Progress Note ---
Progress Note Date of Service Apr 21, 2017. Progress Note Nurse called because pt wants to leave AMA. I came to talk to pt. He refused to stay in the hospital. He said that he does not have his wallet and his cellphone. I recommended him to call his girlfriend to bring his cell and wallet for him. Pt said that his girlfriend is the problem. I reinforced him to stay in the hospital to get help, but patient still refused. I explained to him the risks and complications for leaving AMA such as kidney failure due to high CPK and he needs IVF; Also recurrent symptoms of altered mental status, lethargy and unresponsive that can cause aspiration and respiratory failure. Also OR due to his significant heart history and even .Pt understands the risks and complications by leaving AMA.
[2017-04-21] MEDS ORDERED: WARFARIN SOD 5 MG TAB PO SCH (16:00)
--- NOTE | 2017-04-25 18:05 | Discharge Summary ---
Discharge Summary Date of Service Apr 25, 2017. Discharge Summary Admission Date: Apr 20, 2017 at 21:48 Discharge Disposition: Home Principal Diagnosis: Drug Overdose Secondary Diagnoses/Problems: Rhabdomyolysis Acute Kidney Injury Hx. of [place], hx. of LV wall rupture Paroxysmal Atrial Fibrillation Tobacco abuse Admission Information HPI (per Admitting provider): This is a 47 year old male with a PMH of CAD, hx. of [place], LV wall rupture s/p repair, atrial fibrillation, tobacco use disorder, multiple drug overdoses presents with altered mental status secondary to an overdose of trazodone and tramadol. He is accompanied by his girlfriend who states that he was not in his usual mental state the past few days, he had been sending incomprehensible text messages and has been confused, lethargic. When she went to go see him prior to arrival, she noted bottles of trazodone and tramadol empty - he states he took 5 -6 pills of each of these medications. He is more alert during my exam, but still somnolent and confused. He is in no distress; denies chest pain/shortness of breath, difficult to obtain a complete ROS due to his mental state. Physical Exam (per Admitting): General Appearance: no apparent distress, + pertinent finding (+lethargic, somnolent, arousable; confused) Head: normocephalic, atraumatic Eyes: normal inspection ENT: hearing grossly normal Respiratory/Chest: lungs clear, normal breath sounds, no respiratory distress, no accessory muscle use Cardiovascular: regular rate, rhythm, no edema, no murmur, + pertinent finding (midline chest scar noted) Abdomen/GI: normal bowel sounds, non tender, soft Extremities/Musculoskelatal: normal inspection, no calf tenderness, normal capillary refill, no pedal edema, normal range of motion Neurologic/Psych: + disoriented (confused, lethargic), + pertinent finding Skin: normal color Lymphatic: no adenopathy Hospital Course Drug Overdose Denies any suicidal thought He said that he took trazodone and tramadol because he was "tired" Previous history drug overdose He said that his PCP prescribed his the trazodone and tramadol Continue 1 to 1 observation Refused drug rehab for help Continue gentle IVF Consider psych consult Rhabdomyolysis CPK elevated on admission, > 2000 CPK 1665 today Continue IVF Continue monitor CPK Acute Kidney Injury Creatine on admission 1.7 secondary to dehydration and rhabdo Creatine today 1.4 Continue gentle IVF avoid nephrotoxic agents when able Hx. of [place], hx. of LV wall rupture Asymptomatic aspirin, statin, b-alex Paroxysmal Atrial Fibrillation Rate control, on NSR continue b-alex INR 1.5 continue coumadin Monitor INR Tobacco use Disorder Counseling on smoking cessation nicotine patch DVT ppx Subq heparin Coumadin CODE STATUS FULL CODE Total time spent on discharge = 15 minutes This includes examination of the patient, discharge planning, medication reconciliation, and communication with other providers. Discharge Instructions Patient left against medical advice Additional Copies To Feliciano Holguin III, M.D.
[2017-10-21] MEDS ORDERED: ATV/1 PO (16:04)
[2017-10-21] MEDS ORDERED: LEVO150T9 PO (16:04)
[2017-10-21] MEDS ORDERED: FLVHFA110 INH ×2 (20:10→22:27)
[2017-10-21] MEDS ORDERED: [UNRECOGNIZED DRUG - CODE] IV (22:27)
[2017-10-21] MEDS ORDERED: ZFRI4 IV (22:27)
== END 2017-04-21 10:58 | disposition left against medical advice (07) | DRG 683 ==
LOC: C.EDB 18:32 → C.2T 21:48 → EEVIPCON 21:48 → ENRESERV 22:13
PROVIDERS: ADMIT Family Medicine; ATTEND Internal Medicine
DX: N17.9 Acute kidney failure, unspecified (principal); M62.82 Rhabdomyolysis; T43.211A Poisoning by selective serotonin and norepinephrine reuptake inhibitors, accidental (unintentional), initial encounter; T40.4X1A Poisoning by other synthetic narcotics, accidental (unintentional), initial encounter; E86.0 Dehydration; I25.10 Atherosclerotic heart disease of native coronary artery without angina pectoris; I25.2 Old myocardial infarction; I48.91 Unspecified atrial fibrillation; F17.210 Nicotine dependence, cigarettes, uncomplicated; M19.90 Unspecified osteoarthritis, unspecified site; F41.9 Anxiety disorder, unspecified; E03.9 Hypothyroidism, unspecified; R51 Headache; M62.838 Other muscle spasm; Z91.5 Personal history of self-harm; Z79.82 Long term (current) use of aspirin; Z79.899 Other long term (current) drug therapy; Z79.891 Long term (current) use of opiate analgesic; Z79.01 Long term (current) use of anticoagulants; Z53.21 Procedure and treatment not carried out due to patient leaving prior to being seen by health care provider

== ENCOUNTER 2017-05-05 08:52 | Emergency (ER) | payer OTHER ==
[~2017-05-05] VITALS: Ht 177.8 cm; Wt 100.0 kg
[~2017-05-05 08:52] MED LIST changes: +ACET500T26 PO; +ALBU18002 INH; -CYCL10TA6 PO; +ESCI1TAB6 PO; +LEVE500T PO; -MULT-506 PO; -NCDT21 TD; -OMEP20TA PO; -PLV75 PO; -TRAM-10 PO; +TRAZ50TA35 PO; +WARF5TAB90 PO
[2017-05-05 09:03] VITALS: TEMP 36.4; Ht 177.8 cm; Wt 100.0 kg
--- NOTE | 2017-05-05 09:47 | EMERGENCY ROOM VISIT NOTE ---
History First contact with patient: 09:04 Chief Complaint: KNEEPAIN Stated Complaint: TWISTED R KNEE History of Present Illness The patient is a 47 year old male who presents to the Emergency Room with complaints of right knee pain after a fall yesterday. On further questioning of the patient, he states he had a syncopal episode that occurred while he was at work, states he had been squatting down and when he stood up he became dizzy and passed out. He did hit the left side of his head when he fell, although he states numerous times "I only brushed it, I didn't hit it hard." Patient's past medical history significant for a recent STEMI in December requiring transfer for open heart surgery, and he has also been placed on Coumadin. Patient denies any preceding symptoms of chest pain, shortness of breath, palpitations prior to the syncope. He currently denies any headache, vision changes, nausea or vomiting, chest pain, shortness of breath, abdominal pain, back pain, bowel or bladder dysfunction, numbness or tingling in the extremities. He states "I am just here to get my knee checked out because I'm leaving today for vacation and I want some pain medicine before I go." Review of Systems A complete 10 point review of systems was reviewed with the patient with pertinent positives and negatives as per history of present illness. All else were negative. 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 Social History Smoking Status: Current Every Day Smoker Alcohol Use: occasionally Drug Use: none Marital Status: in relationship Housing Status: lives with significant other Occupation Status: employed Current/Historical Medications Scheduled Acetaminophen (Pain & Fever Extra Streng), 1 TAB PO Q4H Aspirin (Aspirin EC Low Dose), 81 MG PO QAM Atorvastatin (Atorvastatin Calcium), 80 MG PO QAM Carvedilol (Coreg), 6.25 MG PO BID Eplerenone (Eplerenone), 1 TAB PO DAILY Escitalopram Oxalate (Lexapro), 5 MG PO BID Fluticasone Propionate (Flovent Hfa), 2 PUFFS INH BID Furosemide (Lasix), 40 MG PO DAILY Levetiractam (Levetiracetam), 1 TAB PO BID Levothyroxine Sodium (Levothyroxine Sodium), 150 MCG PO DAILY Metoprolol Tartrate (Lopressor), 25 MG PO Q12 Potassium Chloride (Klor-Con M20), 1 TAB PO DAILY Tramadol HCl (Tramadol HCl), 1 TAB PO Q6H Trazodone Hcl (Trazodone), 50 MG PO HS Warfarin Sodium (Coumadin), 4 MG PO DAILY Warfarin Sodium (Coumadin), 5 MG PO DAILY Scheduled PRN Albuterol Sulfate (Proair Respiclick), 2 PUFF INH Q4H PRN for Wheezing Epinephrine (Epipen), 0.3 MG IM UD PRN for Severe Allergis Reaction Hydrocodone/Acetaminophen 5MG/325MG (Kelly 5MG/325MG), 1-2 TABLET PO Q6H PRN for Pain Lorazepam (Ativan), 1 MG PO HS PRN for Anxiety Allergies Coded Allergies: Amlodipine (Verified Allergy, Intermediate, Hives, 04/20/17) Lisinopril (Verified Allergy, Intermediate, Hives, 04/20/17) Tizanidine (Verified Allergy, Intermediate, Hives, 04/20/17) Physical Exam Vital Signs Date Time Temp Pulse Resp B/P (MAP) Pulse Ox O2 Delivery O2 Flow Rate FiO2 05/05/17 13:05 65 18 99/66 98 05/05/17 12:50 61 05/05/17 12:12 65 16 83/52 95 Room Air 05/05/17 10:30 67 16 91/57 98 Room Air 05/05/17 10:10 67 16 91/57 98 Room Air 72 81/55 73 85/51 05/05/17 10:01 97 Room Air 05/05/17 10:00 71 05/05/17 09:03 36.4 72 17 97/64 94 Room Air Physical Exam CONSTITUTIONAL: No acute distress. Nontoxic appearing. Well appearing and well nourished. Alert and oriented X 4 with normal affect. HEENT: Normocephalic, atraumatic. Pupils equal, round and reactive to light, EOMI. TMs normal. Pharynx normal. Moist mucous membranes. NECK: Supple, full active range of motion without discomfort. RESPIRATORY: Clear to auscultation bilaterally with no wheezing, crackles, rhonchi or stridor. Equal expansion bilaterally. CARDIOVASCULAR: Regular rate and rhythm with no loud murmurs, rubs or gallops. Normal peripheral perfusion. No edema. Well healing midsternal scar noted to the chest wall. GASTROINTESTINAL: Soft, nontender, nondistended. Bowel sounds present in all quadrants. MUSCULOSKELETAL: Right knee is tender to palpation along the medial aspect of the knee, mild swelling but no ecchymosis or erythema, no notable joint effusion. Increased pain with attempts to flex and extend the knee. Other Full range of motion of all joints without discomfort. INTEGUMENTARY: No rash or other significant dermatologic conditions noted. NEUROLOGIC: Cranial nerves II-XII grossly intact. No focal neurologic deficits noted. Medical Decision & Procedures ER Provider Diagnostic Interpretation: CHEST 2 VIEWS ROUTINE HISTORY: EVALUATE ALTERED MENTAL STATUS/WEAKNESS COMPARISON: Chest 04/20/2017. FINDINGS: No pneumothorax. No pleural effusions. Mild bibasilar interstitial thickening, unchanged. The heart remains mildly enlarged. There are poststernotomy changes. Upper lung zones are clear. No new focal lung consolidations. No evidence for pulmonary edema. Bibasilar linear densities also remain unchanged and likely represent subsegmental atelectasis or scarring. IMPRESSION: No significant change compared to the prior study. No acute process. ----- HEAD CT NONCONTRAST CT DOSE: 651.12 mGy.cm HISTORY: EVALUATE ALTERED MENTAL STATUS/WEAKNESS TECHNIQUE: Multiaxial CT images of the head were performed without the use of intravenous contrast. Automated exposure control was utilized for this study. Comparison: Head CT 04/20/2017. Findings: The paranasal sinuses and mastoid air cells are clear. The calvarium and skull base are intact. The ventricles and sulci are within normal limits. There is no mass, hematoma, midline shift, or acute infarct. Impression: No acute intracranial abnormality. ----- RIGHT KNEE 2 VIEWS HISTORY: knee pain after fall Right COMPARISON: None. FINDINGS: There is no fracture or dislocation. Mild anterior medial soft tissue swelling. No radiopaque foreign bodies. No knee effusion. IMPRESSION: No fractures. Laboratory Results 05/05/17 09:50 Red Blood Count 4.13, Mean Corpuscular Volume 90.1, Mean Corpuscular Hemoglobin 28.6, Mean Corpuscular Hemoglobin Concent 31.7, Mean Platelet Volume 8.7, Neutrophils (%) (Auto) 60.0, Lymphocytes (%) (Auto) 25.9, Monocytes (%) (Auto) 10.5, Eosinophils (%) (Auto) 2.9, Basophils (%) (Auto) 0.5, Neutrophils # (Auto ) 5.97, Lymphocytes # (Auto) 2.58, Monocytes # (Auto) 1.04, Eosinophils # (Auto ) 0.29, Basophils # (Auto) 0.05 05/05/17 09:50 Test 05/05/17 09:50 White Blood Count 9.95 K/uL (4.8-10.8) Red Blood Count 4.13 M/uL (4.7-6.1) Hemoglobin 11.8 g/dL (14.0-18.0) Hematocrit 37.2 % (42-52) Mean Corpuscular Volume 90.1 fL (80-100) Mean Corpuscular Hemoglobin 28.6 pg (25-34) Mean Corpuscular Hemoglobin Concent 31.7 g/dl (32-36) Platelet Count 359 K/uL (130-400) Mean Platelet Volume 8.7 fL (7.4-10.4) Neutrophils (%) (Auto) 60.0 % Lymphocytes (%) (Auto) 25.9 % Monocytes (%) (Auto) 10.5 % Eosinophils (%) (Auto) 2.9 % Basophils (%) (Auto) 0.5 % Neutrophils # (Auto) 5.97 K/uL (1.4-6.5) Lymphocytes # (Auto) 2.58 K/uL (1.2-3.4) Monocytes # (Auto) 1.04 K/uL (0.11-0.59) Eosinophils # (Auto) 0.29 K/uL (0-0.5) Basophils # (Auto) 0.05 K/uL (0-0.2) RDW Standard Deviation 52.8 fL (36.4-46.3) RDW Coefficient of Variation 15.9 % (11.5-14.5) Immature Granulocyte % (Auto) 0.2 % Immature Granulocyte # (Auto) 0.02 K/uL (0.00-0.02) Prothrombin Time 24.0 SECONDS (9.0-12.0) Prothromb Time International Ratio 2.2 (0.9-1.1) Activated Partial Thromboplast Time 37.0 SECONDS (21.0-31.0) Partial Thromboplastin Ratio 1.4 Anion Gap 8.0 mmol/L (3-11) Est Creatinine Clear Calc Drug Dose 64.4 ml/min Estimated GFR () 54.8 Estimated GFR (Non- 47.3 BUN/Creatinine Ratio 14.0 (10-20) Calcium Level 8.7 mg/dl (8.5-10.1) Magnesium Level 2.4 mg/dl (1.8-2.4) Total Bilirubin 0.3 mg/dl (0.2-1) Direct Bilirubin 0.1 mg/dl (0-0.2) Aspartate Amino Transf (AST/SGOT) 10 U/L (15-37) Alanine Aminotransferase (ALT/SGPT) 22 U/L (12-78) Alkaline Phosphatase 137 U/L (45-117) Troponin I 0.017 ng/ml (0-0.045) Total Protein 7.7 gm/dl (6.4-8.2) Albumin 3.6 gm/dl (3.4-5.0) ECG Indication: syncope Rate (beats per minute): 67 Rhythm: normal sinus, other (previous septal infarct) Findings: no acute ischemic change, no ectopy Change: no significant change (04/21/2017) Medical Decision CC: Patient presenting with complaint of right knee pain after a syncopal episode yesterday Interpretation of Labs: No leukocytosis, mild anemia which appears at baseline. No significant electrolyte abnormalities, decreased renal function which appears within baseline, normal liver function. Negative troponin. Differential Diagnosis: Includes, but not limited to syncope, ACS, dysrhythmia, electrolyte abnormality, dehydration, vasovagal, orthostatic hypotension, acute anemia, intracranial hemorrhage, knee contusion, sprain/strain, ligamentous injury, fracture, dislocation, among others Medication Reconciliation: I attest that I have personally reviewed the patient' s current medication list. Vital signs review: I reviewed the patient's vital signs and interpret them as follows: T: Afebrile; BP: Hypotensive; HR: Within normal limits; RR: Within normal limits; Pulse Ox: Within normal limits on room air. Blood pressure screening: The patient was found to have an low blood pressure and was referred to their primary doctor for recheck and further treatment. Summary: Patient was evaluated at bedside, history of physical exam performed. He is alert and oriented, no acute distress. Resting quietly in the stretcher. His only complaint currently is right knee pain and swelling. Upon further discussion with the patient, history concerning for a syncopal episode in setting of recent open heart surgery a few months ago, as well as hitting his head on Coumadin. Patient reiterates numerous times that his only concern is his right knee, he is reluctant to perform a full workup, but does agree to imaging and blood work. EKG reviewed at bedside, when compared to previous EKGs, no acute ischemic changes. Orders were placed at bedside for labs, urinalysis, chest x-ray, EKG, CT of the head to evaluate for intracranial hemorrhage. Patient discussed with Dr. Elizondo, who agrees with my assessment and plan. Labs reviewed, grossly unremarkable. Chest x-ray reviewed, no acute abnormalities. CT of the head reviewed, no intracranial hemorrhage or other acute findings. X-ray of the right knee shows no acute injury. Contusion versus possible ligamentous injury, patient placed in a knee immobilizer splint for increased comfort and stabilization of the knee joint. Patient was not provided with crutches due to his recent open heart surgery. Patient reassessed multiple times throughout ED stay, he remained stable and reports improved pain in his knee. Patient noted to have persistent hypotension during his ED stay, he states this is not unusual for him and he is not symptomatic with this. I discussed the concerns regarding syncope and his recent heart surgery, as well as his lower blood pressures. Patient is adamant that he does not wish to stay any longer for further evaluation. Patient does have a follow-up appointment with his typing bookkeeper in a few days. I encouraged him to keep this appointment and to discuss his syncope and hypotension with his typing bookkeeper. Patient verbalized understanding and agreement. Patient was discharged home in stable condition and ambulatory. Impression Primary Impression: Right knee injury Additional Impression: Syncope Departure Information Dispostion Home / Self-Care Condition GOOD Prescriptions Hydrocodone/Acetaminophen 5MG/325MG (Kelly 5MG/325MG) Tab 1-2 TABLET PO Q6H Y for Pain for 3 Days, #24 TAB For Initial Treatment Prov: Nereyda Bates CRNP 05/05/17 Referrals Feliciano Holguin III, M.D. (PCP) Patient Instructions My [facility] Additional Instructions Continue to follow your restrictions regarding your recent heart surgery. Wear the knee immobilizer when you are up and about to help stabilize the joint and improved pain. You may removed the splint for bathing and sleep. Keep the knee elevated as much as possible and apply ice off and on for the next 2 days to help reduce swelling and pain. Kelly as needed for severe pain, 1-2 tablets every 6 hours. This is a narcotic , do not drive, drink alcohol, or operate machinery while you're taking this medication, as it may make you drowsy. Keep your scheduled appointment on Tuesday with your typing bookkeeper and be sure to mention your episode of passing out. Please return to the ER for any worsening symptoms, including any chest pain, shortness of breath, palpitations, severe dizziness or passing out again, persistent vomiting especially vomiting up blood, fever/chills or cold sweats, or any other concerns. Problem Qualifiers Primary Impression: Right knee injury Encounter type: initial encounter Qualified Codes: S89.91XA - Unspecified injury of right lower leg, initial encounter Additional Impression: Syncope Syncope type: unspecified Qualified Codes: R55 - Syncope and collapse
[2017-05-05 10:01] VITALS: O2SAT 97
[2017-05-05 10:05] LABS: BASO % 0.5 %; BASO ABS # 0.05 K/uL (0-0.2); COMPLETE YES; EOS % 2.9 %; HEMATOCRIT 37.2 % (42-52); IG% 0.2 %; LYMPH % 25.9 %; LYMPH ABS # 2.58 K/uL (1.2-3.4); MEAN CELL VOLUME 90.1 fL (80-100); MEAN CORPUSCULAR HEMOGLOBIN 28.6 pg (25-34); MEAN CORPUSCULAR HGB CONC 31.7 g/dl (32-36); MEAN PLATELET VOLUME 8.7 fL (7.4-10.4); MONO % 10.5 %; PLATELET COUNT 359 K/uL (130-400); RED BLOOD COUNT 4.13 M/uL (4.7-6.1); WHITE BLOOD COUNT 9.95 K/uL (4.8-10.8)
[2017-05-05 10:23] LABS: INR 2.2 (0.9-1.1); PARTIAL THROMBOPLASTIN RATIO 1.4
[2017-05-05 10:26] LABS: CALCIUM 8.7 mg/dl (8.5-10.1); CREATININE 1.7 mg/dl (0.60-1.40); MAGNESIUM 2.4 mg/dl (1.8-2.4)
--- NOTE | 2017-05-05 10:32 | DIAGNOSTIC IMAGING REPORT ---
HEAD CT NONCONTRAST CT DOSE: 651.12 mGy.cm HISTORY: EVALUATE ALTERED MENTAL STATUS/WEAKNESS TECHNIQUE: Multiaxial CT images of the head were performed without the use of intravenous contrast. Automated exposure control was utilized for this study. Comparison: Head CT 04/20/2017. Findings: The paranasal sinuses and mastoid air cells are clear. The calvarium and skull base are intact. The ventricles and sulci are within normal limits. There is no mass, hematoma, midline shift, or acute infarct. Impression: No acute intracranial abnormality. Electronically signed by: Aldo Dixon M.D. 05/05/2017 10:31 AM Dictated Date/Time: 05/05/2017 10:27 AM
--- NOTE | 2017-05-05 10:53 | DIAGNOSTIC IMAGING REPORT ---
RIGHT KNEE 2 VIEWS HISTORY: knee pain after fall Right COMPARISON: None. FINDINGS: There is no fracture or dislocation. Mild anterior medial soft tissue swelling. No radiopaque foreign bodies. No knee effusion. IMPRESSION: No fractures. Electronically signed by: Aldo Dixon M.D. 05/05/2017 10:51 AM Dictated Date/Time: 05/05/2017 10:50 AM
--- NOTE | 2017-05-05 10:54 | DIAGNOSTIC IMAGING REPORT ---
CHEST 2 VIEWS ROUTINE HISTORY: EVALUATE ALTERED MENTAL STATUS/WEAKNESS COMPARISON: Chest 04/20/2017. FINDINGS: No pneumothorax. No pleural effusions. Mild bibasilar interstitial thickening, unchanged. The heart remains mildly enlarged. There are poststernotomy changes. Upper lung zones are clear. No new focal lung consolidations. No evidence for pulmonary edema. Bibasilar linear densities also remain unchanged and likely represent subsegmental atelectasis or scarring. IMPRESSION: No significant change compared to the prior study. No acute process. Electronically signed by: Aldo Dixon M.D. 05/05/2017 10:53 AM Dictated Date/Time: 05/05/2017 10:52 AM
[2017-05-05] MEDS ORDERED: HYDR-5688 PO (12:49)
[2017-05-05 13:05] VITALS: BP 99/66; PULSE 65; O2SAT 98
[2017-10-21] MEDS ORDERED: ATV/1 PO (16:04)
[2017-10-21] MEDS ORDERED: LEVO150T9 PO (16:04)
[2017-10-21] MEDS ORDERED: FLVHFA110 INH ×2 (20:10→22:27)
[2017-10-21] MEDS ORDERED: ZFRI4 IV (22:27)
[2017-10-21] MEDS ORDERED: [UNRECOGNIZED DRUG - CODE] IV (22:27)
== END 2017-05-05 13:06 | disposition home or self-care (01) ==
LOC: C.EDB 08:53
DX: S89.91XA Unspecified injury of right lower leg, initial encounter (principal); Y99.0 Civilian activity done for income or pay; R55 Syncope and collapse; W22.09XA Striking against other stationary object, initial encounter; W19.XXXA Unspecified fall, initial encounter; Y92.89 Other specified places as the place of occurrence of the external cause; F41.9 Anxiety disorder, unspecified; I25.2 Old myocardial infarction; E03.9 Hypothyroidism, unspecified; M19.90 Unspecified osteoarthritis, unspecified site; F17.210 Nicotine dependence, cigarettes, uncomplicated; Z79.82 Long term (current) use of aspirin; Z79.899 Other long term (current) drug therapy; Z79.01 Long term (current) use of anticoagulants

== ENCOUNTER 2017-05-15 06:14 | Emergency (ER) | payer OTHER ==
[~2017-05-15] VITALS: Ht 182.9 cm; Wt 117.9 kg
[~2017-05-15 06:14] MED LIST changes: +ATV/1 PO; +CARV12.52 PO; +EPLE25TA3 PO; +FLVHFA110 INH; +FRS/40 PO; +LEVO150T9 PO; +MCRK20 PO; +ULT50 PO; +WARF2TAB PO
[2017-05-15 06:18] VITALS: TEMP 36.3; Ht 182.9 cm; Wt 117.9 kg
[2017-05-15] MEDS ORDERED: SODIUM CHLORIDE 0.9% 1000ML 250 ML IV STA (06:36)
[2017-05-15] MEDS ORDERED: SODIUM CHLORIDE 0.9% 1000ML 1,000 ML IV STA (06:36)
[2017-05-15 06:51] LABS: BASO % 0.2 %; BASO ABS # 0.02 K/uL (0-0.2); COMPLETE YES; EOS % 2.7 %; HEMATOCRIT 33.6 % (42-52); IG% 0.3 %; LYMPH ABS # 2.09 K/uL (1.2-3.4); MEAN CELL VOLUME 89.1 fL (80-100); MEAN CORPUSCULAR HEMOGLOBIN 27.9 pg (25-34); MEAN CORPUSCULAR HGB CONC 31.3 g/dl (32-36); MEAN PLATELET VOLUME 8.7 fL (7.4-10.4); MONO % 10.9 %; NEUT % 63.9 %; PLATELET COUNT 321 K/uL (130-400); RED BLOOD COUNT 3.77 M/uL (4.7-6.1); WHITE BLOOD COUNT 9.51 K/uL (4.8-10.8)
--- NOTE | 2017-05-15 06:53 | EMERGENCY ROOM VISIT NOTE ---
History Report prepared by Campos: Yoshi Monroy Under the Supervision of: Dr. Wilbur Licona M.D. First contact with patient: 06:28 Chief Complaint: ALTERED MENTAL STATUS Stated Complaint: ALTERED MENTAL STATUS Nursing Triage Summary: per EMS, pt lives with mother, when mother found him at 0130 patient was incoherent. Pt was doing laundry and was sitting on steps with laundry detergant. Pt had then left house and come home approx. one hour ago. Pt mother stated patient was rambling, incoherent and restless. Pt unable to answer questions, rambles and answers questions inappropriately. History of Present Illness The patient is a 47 year old male who presents to the Emergency Room for an Altered Mental Status that was first noticed this morning at 0130, 5 hours prior to arrival. According to nursing staff the patient was found sitting on his steps by his mother this morning. His mother found him incoherent and rambling. The patient does have a history of overdose, but denies taking extra medication or using street drugs. He notes that he has been taking all of his medication as prescribed. He also denies any chest pain or falls since his last visit to the hospital. The patient is on Coumadin and has a history of myocardial infarction. He denies any suicidal or homicidal ideations. Denies any trauma. Denies taking any extra medications. 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 A total of 10 systems reviewed and were otherwise negative. 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 Nurse's notes were reviewed and I agree with. Family History Patient reports no known family medical history. Social History Smoking Status: Current Every Day Smoker Alcohol Use: occasionally Drug Use: none Marital Status: in relationship Housing Status: lives with significant other Occupation Status: employed Current/Historical Medications Scheduled Aspirin (Aspirin EC Low Dose), 81 MG PO QAM Atorvastatin (Atorvastatin Calcium), 80 MG PO QAM Carvedilol (Coreg), 12.5 MG PO BID Eplerenone (Eplerenone), 1 TAB PO DAILY Escitalopram Oxalate (Lexapro), 5 MG PO BID Fluticasone Propionate (Flovent Hfa), 2 PUFFS INH BID Furosemide (Lasix), 40 MG PO DAILY Levetiractam (Levetiracetam), 1 TAB PO BID Levothyroxine Sodium (Levothyroxine Sodium), 150 MCG PO DAILY Metoprolol Tartrate (Lopressor), 25 MG PO Q12 Potassium Chloride (Klor-Con M20), 1 TAB PO DAILY Tramadol HCl (Tramadol HCl), 1 TAB PO Q6H Trazodone Hcl (Trazodone), 50 MG PO HS Warfarin Sodium (Coumadin), 4 MG PO DAILY Warfarin Sodium (Coumadin), 5 MG PO DAILY Scheduled PRN Epinephrine (Epipen), 0.3 MG IM UD PRN for Severe Allergis Reaction Lorazepam (Ativan), 1 MG PO HS PRN for Anxiety Allergies Coded Allergies: Amlodipine (Verified Allergy, Intermediate, Hives, 04/20/17) Lisinopril (Verified Allergy, Intermediate, Hives, 04/20/17) Tizanidine (Verified Allergy, Intermediate, Hives, 04/20/17) Physical Exam Vital Signs Date Time Temp Pulse Resp B/P (MAP) Pulse Ox O2 Delivery O2 Flow Rate FiO2 05/15/17 10:44 76 18 127/76 97 05/15/17 10:33 121/82 05/15/17 10:32 62/35 05/15/17 10:06 77 19 94 05/15/17 10:00 118/82 05/15/17 09:36 77 19 95 05/15/17 09:35 74 05/15/17 09:31 109/75 05/15/17 09:14 71 14 92 05/15/17 09:01 109/75 05/15/17 08:44 73 19 91 05/15/17 08:39 74 14 92 05/15/17 08:34 73 18 93 05/15/17 08:31 118/93 05/15/17 08:29 72 14 92 05/15/17 08:24 72 15 93 05/15/17 08:19 73 15 93 05/15/17 08:14 72 14 91 05/15/17 08:09 72 8 87 05/15/17 08:04 72 13 89 05/15/17 08:01 90/60 05/15/17 07:59 73 13 89 05/15/17 07:54 74 14 89 05/15/17 07:49 73 12 90 05/15/17 07:44 75 14 91 05/15/17 07:39 76 18 92 05/15/17 07:34 76 18 91 05/15/17 07:32 137/76 05/15/17 07:19 76 26 95 05/15/17 07:14 76 15 97 05/15/17 07:09 77 16 88 05/15/17 07:04 77 16 88 05/15/17 06:59 78 17 89 05/15/17 06:54 78 17 90 05/15/17 06:49 79 17 94 05/15/17 06:44 81 21 93 05/15/17 06:43 101/71 05/15/17 06:39 81 17 94 05/15/17 06:34 81 18 91 05/15/17 06:33 82 05/15/17 06:22 114/68 05/15/17 06:18 36.3 82 18 114/68 96 Room Air Physical Exam General: Middle aged male. Alert to person, date, and place. Answers questions vaguely at times, sleepy but arousable, somewhat slurred speech. Well developed well nourished in no acute distress, breathing comfortably on room air. Normal speech HEENT: Normal cephalic atraumatic. Pupils are equal round and reactive to light. Extraocular movements are intact. No nystagmus. Oropharynx is pink with Dry mucous membranes. No swelling of the mouth lips or tongue. Neck: Supple with a midline trachea. No meningeal signs or stiffness, no JVD or bruits. No Stridor. Chest: Clear to auscultation bilaterally. No wheezes or rhonchi. No increased work of breathing. Heart: regular rate and rhythm. Abdomen: Soft nontender, nondistended without rebound guarding or rigidity. Extremities: No cyanosis clubbing or edema. No calf tenderness or assymetry Spine/Back. Non tender to palpation. No CVA tenderness Skin: Good turgor without rashes. Neurologic exam: Middle aged male. Alert to person, date, and place. Answers questions vaguely at times, sleepy but arousable, somewhat slurred speech. Cranial nerves two through 12 are intact. Motor and sensation are intact and symmetrical throughout. Medical Decision & Procedures ER Provider Diagnostic Interpretation: Radiology results as stated below per my review and radiologist interpretation. SINGLE VIEW CHEST Chest X-ray: Cardiomegaly, atelectasis at the bases. CLINICAL HISTORY: Atypical chest pain. FINDINGS: An AP, portable, upright chest radiograph is compared to study dated 05/05/2017 and correlated with chest CT dated 09/18/2016. The examination is degraded by portable technique and patient rotation. The patient is status post midline sternotomy. The heart is enlarged and there is mild atherosclerotic calcification of the thoracic aorta. The pulmonary vasculature is noncongested. Emphysema and chronic interstitial thickening are similar to previous. There are linear airspace opacities in the left lower lung. No large pleural effusion or pneumothorax is seen. The bony thorax is grossly intact. IMPRESSION: 1. Cardiomegaly and emphysema. There is no radiographic evidence of congestive failure. 2. There are linear-appearing airspace opacities in the left lower lung, new from 05/05/2017. This likely represents atelectasis. Correlate clinically for evidence of superimposed pneumonia. Radiographic follow-up to resolution is recommended. Electronically signed by: Shiv Cabral M.D. 05/15/2017 8:33 AM Dictated Date/Time: 05/15/2017 8:[address] SCAN OF THE BRAIN WITHOUT IV CONTRAST CLINICAL HISTORY: Change in mental status. COMPARISON STUDY: CT of the brain dated 05/05/2017. TECHNIQUE: Unenhanced axial CT scan of the brain is performed from the vertex to the skull base. Automated dose control exposure was utilized. CT DOSE: 2740.66 mGy.cm FINDINGS: Brain parenchyma: The brain parenchyma is normal in appearance. There is no hemorrhage, mass effect, or evidence of acute territorial ischemia by CT criteria. Naidu-white matter is preserved. No extra-axial fluid collection is seen. Ventricles, sulci, cisterns: Normal in configuration. Intracranial vasculature: There is mild atherosclerotic calcification of the cavernous carotid arteries. Calvarium: Unremarkable. Sinuses and mastoids: The visualized paranasal sinuses are clear. The mastoid air cells are well pneumatized. Orbits: The bony orbits are grossly intact. IMPRESSION: No acute intracranial abnormality and no significant change from 05/05/2017. Electronically signed by: Shiv Cabral M.D. 05/15/2017 7:39 AM Dictated Date/Time: 05/15/2017 7:37 AM Laboratory Results 05/15/17 06:30 Red Blood Count 3.77, Mean Corpuscular Volume 89.1, Mean Corpuscular Hemoglobin 27.9, Mean Corpuscular Hemoglobin Concent 31.3, Mean Platelet Volume 8.7, Neutrophils (%) (Auto) 63.9, Lymphocytes (%) (Auto) 22.0, Monocytes (%) (Auto) 10.9, Eosinophils (%) (Auto) 2.7, Basophils (%) (Auto) 0.2, Neutrophils # (Auto ) 6.07, Lymphocytes # (Auto) 2.09, Monocytes # (Auto) 1.04, Eosinophils # (Auto ) 0.26, Basophils # (Auto) 0.02 05/15/17 06:30 Test 05/15/17 06:30 05/15/17 06:47 05/15/17 06:49 White Blood Count 9.51 K/uL (4.8-10.8) Red Blood Count 3.77 M/uL (4.7-6.1) Hemoglobin 10.5 g/dL (14.0-18.0) Hematocrit 33.6 % (42-52) Mean Corpuscular Volume 89.1 fL (80-100) Mean Corpuscular Hemoglobin 27.9 pg (25-34) Mean Corpuscular Hemoglobin Concent 31.3 g/dl (32-36) Platelet Count 321 K/uL (130-400) Mean Platelet Volume 8.7 fL (7.4-10.4) Neutrophils (%) (Auto) 63.9 % Lymphocytes (%) (Auto) 22.0 % Monocytes (%) (Auto) 10.9 % Eosinophils (%) (Auto) 2.7 % Basophils (%) (Auto) 0.2 % Neutrophils # (Auto) 6.07 K/uL (1.4-6.5) Lymphocytes # (Auto) 2.09 K/uL (1.2-3.4) Monocytes # (Auto) 1.04 K/uL (0.11-0.59) Eosinophils # (Auto) 0.26 K/uL (0-0.5) Basophils # (Auto) 0.02 K/uL (0-0.2) RDW Standard Deviation 53.9 fL (36.4-46.3) RDW Coefficient of Variation 16.4 % (11.5-14.5) Immature Granulocyte % (Auto) 0.3 % Immature Granulocyte # (Auto) 0.03 K/uL (0.00-0.02) Prothrombin Time 23.4 SECONDS (9.0-12.0) Prothromb Time International Ratio 2.1 (0.9-1.1) Activated Partial Thromboplast Time 38.3 SECONDS (21.0-31.0) Partial Thromboplastin Ratio 1.5 Anion Gap 6.0 mmol/L (3-11) Est Creatinine Clear Calc Drug Dose 81.6 ml/min Estimated GFR () 63.8 Estimated GFR (Non- 55.0 BUN/Creatinine Ratio 20.4 (10-20) Calcium Level 8.6 mg/dl (8.5-10.1) Total Bilirubin 0.4 mg/dl (0.2-1) Direct Bilirubin 0.1 mg/dl (0-0.2) Aspartate Amino Transf (AST/SGOT) 18 U/L (15-37) Alanine Aminotransferase (ALT/SGPT) 24 U/L (12-78) Alkaline Phosphatase 174 U/L (45-117) Total Creatine Kinase 333 U/L (39-308) Creatine Kinase MB 0.8 ng/ml (0.5-3.6) Creatine Kinase MB Ratio 0.2 (0-3.0) Total Protein 7.2 gm/dl (6.4-8.2) Albumin 3.3 gm/dl (3.4-5.0) Lipase 143 U/L (73-393) Thyroid Stimulating Hormone (TSH) 0.787 uIu/ml (0.300-4.500) Salicylates Level 4.8 mg/dl (2.8-20) Acetaminophen Level < 2 ug/ml (10-30) Ethyl Alcohol mg/dL < 3.0 mg/dl (0-3) Bedside Troponin I < 0.030 ng/ml (0-0.045) Bedside Glucose 106 mg/dl (70-99) Laboratory studies as stated above per my review. Medications Administered Medications (Trade) Dose Ordered Sig/Theresa Route Start Time Stop Time Status Last Admin Dose Admin Sodium Chloride 250 ml @ 999 mls/hr Q16M STAT IV 05/15/17 06:36 05/15/17 06:51 DC 05/15/17 06:59 999 MLS/HR Sodium Chloride 1,000 ml @ 100 mls/hr Q10H STAT IV 05/15/17 06:36 05/15/17 12:13 DC 05/15/17 06:59 100 MLS/HR ECG Indication: altered mental status Rate (beats per minute): 89 Rhythm: normal sinus Findings: no acute ischemic change, no ectopy, other (Poor R-wave Progression) Comparison ECG Date: 05/05/2017 Change: no significant change ED Course 0631: Past medical records reviewed. The patient was evaluated in room A10, and a complete history and physical examination were performed. 0636: Ordered Sodium Chloride 1000 mL @ 100 mL/hr Iv, Sodium Chloride 250 mL @ 999 mL/hr IV. 0715: I checked on the patient at this time. His oxygen saturation is dipping into the high 80's. He is sleepy, but still arousable. 0813: I checked on the patient at this time, he was more awake. 0837: I reevaluated the patient at this time. He is much more awake at this time. He is refusing to stay. I will discuss this further with the family when they get here. 0925: I discussed the case with the patient's mother and girlfriend at this time. They expressed that they would like the patient to stay. He agrees to an inpatient stay at this time. The patient also admits to taking Unisom last night to help him sleep. His girlfriend states that his PCP will no write for Tramadol and Trazodone since his intentional overdose. Now she believes he is trying to get similar medications off of the street. 0933: I discussed the case with Dr. Melissa Shields Hospitalist at this time. He will evaluate the patient for further treatment. 1005: After another discussion at length with the patient and his family the patient is declining inpatient stay. He will leave the hospital against medical advice. Medical Decision Blood pressure Screening: Patient was found to have normal blood pressure on screening and does not require follow-up. Medication Reconciliation: I attest that I have personally reviewed the patient' s current medication list. Differential Diagnosis includes: Medication side effect, overdose, cardiac disease, electrolyte abnormality, central neurologic process. This patient comes in after having altered mental status. After reviewing his chart, he was seen here recently with a drug overdose. He also has multiple other medical problems including anticoagulation use and cardiac disease. On my exam, he answers some questions appropriately and others very vaguely. He is alert to person place and date. His speech seems thick and slurred although his mouth is very dry is otherwise nonfocal neurologically. He is sleepy but arousable. He denies that he took any extra meds or denies suicidal ideations present. IV access established extensive workup was obtained including blood sugar, EKG, multiple blood testing and CAT scan of his head given his anticoagulation use. I also ordered a chest x-ray. He was reassessed frequently. He was observed for multiple hours in the ER and was doing much better. He denies any complaints. His EKG does not suggest acute coronary syndrome or arrhythmia. His troponin is not elevated. Chest x-ray not show any significant acute findings. He has no acute electrolyte or metabolic abnormalities. He does have some mild renal insufficiency. His alcohol was not elevated and his acetaminophen level was negative. His girlfriend did show up. She tells me that since his last visit, his doctor stopped prescribing him the Ultram and his other medication for anxiety. His girlfriend says that he is getting pills from other sources she suspects that some of her medication has been taken. He has not been drinking. I Told the patient that I strongly believe he needs to be admitted for observation further treatment and evaluation and medication adjustment and he tells me that he did take some sleeping pills to help him sleep but denies that he took an overdose or denies any intention to hurt himself. He adamantly wants to go home at this point there is no 302 criteria to hold involuntarily. He did sign out AGAINST MEDICAL ADVICE. I encouraged him to return if he mary worsening of symptoms, any new problems or concerns and do not take any pills that do not belong to him her extra medications. He agree with the plan and was discharged to home. Consults Time Called: [phone] Consulting Physician: Dr. Melissa Shields Hospitalist Returned Call: [phone] I discussed the case with Dr. Melissa Lianger Hospitalist at this time. He will evaluate the patient for further treatment. Impression Primary Impression: Altered mental status Additional Impression: Drug overdose Scribe Attestation The scribe's documentation has been prepared under my direction and personally reviewed by me in its entirety. I confirm that the note above accurately reflects all work, treatment, procedures, and medical decision making performed by me. Departure Information Dispostion Against Medical Advice Referrals Feliciano Holguin III, M.D. (PCP) Patient Instructions My [facility] Problem Qualifiers
[2017-05-15 07:04] LABS: INR 2.1 (0.9-1.1); PARTIAL THROMBOPLASTIN RATIO 1.5; PROTHROMBIN TIME (PATIENT) 23.4 SECONDS (9.0-12.0)
[2017-05-15 07:13] LABS: BUN/CREATININE RATIO 20.4 (10-20); CALCIUM 8.6 mg/dl (8.5-10.1); CREATININE 1.5 mg/dl (0.60-1.40); POTASSIUM 4.9 mmol/L (3.5-5.1)
[2017-05-15 07:24] LABS: CKMB/CK RATIO 0.2 (0-3.0); THYROID STIMULATING HORMONE 0.787 uIu/ml (0.300-4.500)
--- NOTE | 2017-05-15 07:41 | DIAGNOSTIC IMAGING REPORT ---
CT SCAN OF THE BRAIN WITHOUT IV CONTRAST CLINICAL HISTORY: Change in mental status. COMPARISON STUDY: CT of the brain dated 05/05/2017. TECHNIQUE: Unenhanced axial CT scan of the brain is performed from the vertex to the skull base. Automated dose control exposure was utilized. CT DOSE: 2740.66 mGy.cm FINDINGS: Brain parenchyma: The brain parenchyma is normal in appearance. There is no hemorrhage, mass effect, or evidence of acute territorial ischemia by CT criteria. Naidu-white matter is preserved. No extra-axial fluid collection is seen. Ventricles, sulci, cisterns: Normal in configuration. Intracranial vasculature: There is mild atherosclerotic calcification of the cavernous carotid arteries. Calvarium: Unremarkable. Sinuses and mastoids: The visualized paranasal sinuses are clear. The mastoid air cells are well pneumatized. Orbits: The bony orbits are grossly intact. IMPRESSION: No acute intracranial abnormality and no significant change from 05/05/2017. Electronically signed by: Shiv Cabral M.D. 05/15/2017 7:39 AM Dictated Date/Time: 05/15/2017 7:37 AM
[2017-05-15 07:42] LABS: ACETAMINOPHEN < 2 ug/ml (10-30)
--- NOTE | 2017-05-15 08:34 | DIAGNOSTIC IMAGING REPORT ---
SINGLE VIEW CHEST CLINICAL HISTORY: Atypical chest pain. FINDINGS: An AP, portable, upright chest radiograph is compared to study dated 05/05/2017 and correlated with chest CT dated 09/18/2016. The examination is degraded by portable technique and patient rotation. The patient is status post midline sternotomy. The heart is enlarged and there is mild atherosclerotic calcification of the thoracic aorta. The pulmonary vasculature is noncongested. Emphysema and chronic interstitial thickening are similar to previous. There are linear airspace opacities in the left lower lung. No large pleural effusion or pneumothorax is seen. The bony thorax is grossly intact. IMPRESSION: 1. Cardiomegaly and emphysema. There is no radiographic evidence of congestive failure. 2. There are linear-appearing airspace opacities in the left lower lung, new from 05/05/2017. This likely represents atelectasis. Correlate clinically for evidence of superimposed pneumonia. Radiographic follow-up to resolution is recommended. Electronically signed by: Shiv Cabral M.D. 05/15/2017 8:33 AM Dictated Date/Time: 05/15/2017 8:31 AM
[2017-05-15 10:44] VITALS: BP 127/76; PULSE 76; O2SAT 97
== END 2017-05-15 10:30 | disposition left against medical advice (07) ==
LOC: EDBD 06:14 → C.EDA 06:15
DX: R41.82 Altered mental status, unspecified (principal); T50.901A Poisoning by unspecified drugs, medicaments and biological substances, accidental (unintentional), initial encounter; E03.9 Hypothyroidism, unspecified; F41.9 Anxiety disorder, unspecified; M19.90 Unspecified osteoarthritis, unspecified site; I25.2 Old myocardial infarction; Z79.01 Long term (current) use of anticoagulants; Z79.82 Long term (current) use of aspirin; Z79.899 Other long term (current) drug therapy; Z86.59 Personal history of other mental and behavioral disorders; F17.200 Nicotine dependence, unspecified, uncomplicated

== ENCOUNTER 2017-10-21 16:17 | Inpatient (IN) | payer OTHER ==
[2017-10-21] VITALS (7 sets, daily range): BP systolic 72–108; BP diastolic 49–60; PULSE 64–88; TEMP 36.3–36.9; O2SAT 94–96; Ht 177.8 cm; Wt 108.6 kg
[~2017-10-21] VITALS: Ht 177.8 cm; Wt 108.6 kg
[~2017-10-21 16:17] MED LIST changes: -ACET500T26 PO; -ALBU18002 INH; -CARV12.52 PO; -EPLE25TA3 PO; -FLVHFA110 INH; -FRS/40 PO; -MCRK20 PO; -ULT50 PO; -WARF2TAB PO
[2017-10-21] MEDS ORDERED: SODIUM CHLORIDE 0.9% 1000ML 1,000 ML IV STA ×3 (16:29→17:40)
--- NOTE | 2017-10-21 16:34 | EMERGENCY ROOM VISIT NOTE ---
History Report prepared by Campos: Pavithra Rucker Under the Supervision of: Dr. Stephen Stephen D.O. First contact with patient: 16:26 Chief Complaint: OVERDOSE (INTENTIONAL) Stated Complaint: OVERDOSED History of Present Illness The patient is a 47 year old male who presents to the Emergency Room with complaints of an intentional overdose. He is accompanied by 2 probation officers. They state they were notified the patient was abusing prescription Tramadol and Lorazepam, so they brought him in for a drug test around 1400 today , which he failed. The urine test was positive for THC, Buprenorphine, Benzo's and possibly Methamphetamine. They brought him to a local [place] [facility], and he produced abnormal vital signs, and was referred to the ED. Probation denies any knowledge of recent trauma or falls. The patient has not voiced any suicidal or homicidal ideations. Probation states the patient has not spoken much to them today and has seemed drowsy and "out of it". His girlfriend told his probation officers he filled a 120 pill Ultram prescription 3 days ago, but today there are 15 pills left. The patient admits he last took assorted medications this morning. He also complains of epigastric abdominal pain in triage. Source of History: patient, other (probation officers) History Limited By: intoxication Onset: 1400 today Position: other (global) Timing: constant Associated Symptoms: + abdominal pain Review of Systems See HPI for pertinent positives & negatives. A total of 10 systems reviewed and were otherwise negative. 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 Social History Smoking Status: Current Every Day Smoker Alcohol Use: occasionally Drug Use: none Marital Status: in relationship Housing Status: lives with significant other Occupation Status: employed Current/Historical Medications Scheduled Aspirin (Aspirin EC Low Dose), 81 MG PO QAM Atorvastatin (Atorvastatin Calcium), 80 MG PO QAM Carvedilol (Coreg), 12.5 MG PO BID Eplerenone (Eplerenone), 25 MG PO DAILY Escitalopram (Lexapro), 10 MG PO DAILY Fluticasone Propionate (Flovent Hfa), 2 PUFFS INH BID Furosemide (Lasix), 40 MG PO DAILY Levetiracetam (Keppra Xr), 500 MG PO BID Levothyroxine Sodium (Levothyroxine Sodium), 150 MCG PO DAILY Potassium Chloride (Klor-Con M20), 20 MEQ PO DAILY Sacubitril-Valsartan (Entresto 24-26 mg), 1 TAB PO BID Trazodone Hcl (Trazodone), 50 MG PO HS Warfarin Sodium (Coumadin), 1 DOSE PO UD Scheduled PRN Albuterol Sulfate (Proair Respiclick), 2 PUFFS INH Q4H PRN for Wheezing Epinephrine (Epipen), 0.3 MG IM UD PRN for Severe Allergis Reaction Lorazepam (Ativan), 1 MG PO HS PRN for Sleep Tramadol HCl (Tramadol HCl), 50 MG PO Q6H PRN for Pain Allergies Coded Allergies: Amlodipine (Verified Allergy, Intermediate, Hives, 04/20/17) Lisinopril (Verified Allergy, Intermediate, Hives, 04/20/17) Tizanidine (Verified Allergy, Intermediate, Hives, 04/20/17) Physical Exam Vital Signs Date Time Temp Pulse Resp B/P (MAP) Pulse Ox O2 Delivery O2 Flow Rate FiO2 10/21/17 18:09 36.6 67 22 71/40 95 Nasal Cannula 4.0 10/21/17 17:49 68 19 79/47 95 Nasal Cannula 4.0 10/21/17 17:17 65 16 83/43 100 Non-Rebreather 15.0 10/21/17 17:13 68 16 72/59 100 Non-Rebreather 15.0 10/21/17 16:55 64 10/21/17 16:44 65 16 74/38 99 Non-Rebreather 15.0 10/21/17 16:35 98 Non-Rebreather 15.0 10/21/17 16:33 66 12 83/49 98 Non-Rebreather 15.0 10/21/17 16:29 83 Room Air 10/21/17 16:20 36.6 72 16 64/46 92 Room Air Physical Exam GENERAL: Patient is listless, somnolent, answers to loud verbal stimuli but not appropriately. EYES: The conjunctivae are clear. The pupils are constricted and minimally reactive to light. EARS, NOSE, MOUTH AND THROAT: The nose is without any evidence of any deformity. Mucous membranes are dry, tongue is midline NECK: The neck is nontender and supple. RESPIRATORY: Shallow respirations noted, no definite rails, rhonchi or wheezing appreciated. CARDIOVASCULAR: Regular rate and rhythm noted there no murmurs rubs or gallops normal S1 normal S2 GASTROINTESTINAL: The abdomen is soft. Bowel sounds are present in all quadrants. Abdomen is nontender PELVIS: The Pelvis is stable. No tenderness to palpation is noted. BACK: No midline tenderness or or step-off noted range of motion in flexion extension as well as rotation no signs of muscle spasm noted MUSCULOSKELETAL/EXTREMITIES: There is no evidence of gross deformity full range of motion is noted in the hips and shoulders SKIN: There is no obvious evidence of any rash. There are no petechiae, pallor or cyanosis noted. NEUROLOGIC: Patient answers questions to loud verbal stimuli, appears to be oriented to person and place but not situation. Patellar reflexes 2/4 bilaterally. PSYCHIATRIC: Currently denying SI or HI, however answers are questionable. Medical Decision & Procedures ER Provider Diagnostic Interpretation: Radiology results as stated below per my review and radiologist interpretation: CHEST ONE VIEW PORTABLE CLINICAL HISTORY: Overdose. COMPARISON STUDY: Chest radiograph May 15, 2017. FINDINGS: Lung volumes are normal. There is no pneumothorax or pleural effusion. Cardiomegaly is unchanged. There is no evidence of pulmonary edema. There are median sternotomy wires. Indeterminate left chest wall device with associated wire which extends over the mid chest is noted. IMPRESSION: 1. No acute cardiopulmonary findings. 2. Indeterminate left chest device with associated wire which could be correlated clinically. Electronically signed by: Joaquin Tena M.D. 10/21/2017 5:[address] OF THE ABDOMEN AND PELVIS WITHOUT CONTRAST CLINICAL HISTORY: Altered mental status. COMPARISON STUDY: No previous studies for comparison. TECHNIQUE: Axial images of the abdomen and pelvis were obtained without IV contrast. Images were reviewed in the axial, sagittal, and coronal planes. A dose lowering technique was utilized adhering to the principles of ALARA. FINDINGS: The heart is moderately enlarged. Note is made of surgical metallic material along the pericardium. There is a small complex appearing pericardial effusion which is largest overlying the left ventricle. This contains several calcifications and is probably chronic but is new since CT of September 18, 2016. Evaluation of the abdomen and pelvis is suboptimal as unenhanced exam there is moderate pericholecystic infiltration with layering hyperdense material within the gallbladder. There is no biliary or pancreatic ductal dilatation. A few mildly enlarged upper abdominal lymph nodes are similar to CT of September 18, 2016. The spleen, adrenal glands and pancreas are normal. There is no bowel obstruction. The appendix is normal. There is no abdominal or pelvic lymphadenopathy. A Mac balloon is present within the bladder which is collapsed. There is no pneumatosis, free air or portal venous gas. IMPRESSION: 1. Findings consistent with acute cholecystitis. Mild gallbladder distention with moderate pericholecystic infiltration. Layering hyperdense material within the gallbladder likely reflects small stones. 2. Small complex appearing pericardial effusion with pericardial thickening which is age indeterminate although the appearance favors a chronic pericardial effusion. Postoperative findings along the pericardium, as described above. This could be correlated with previous surgical history and a follow-up echo could be obtained to reevaluate the pericardial effusion. 3. Cardiomegaly. Electronically signed by: Joaquin Tena M.D. 10/21/2017 5:51 PM HEAD WITHOUT CONTRAST (CT) CLINICAL HISTORY: 47 years-old Male with OVERDOSE. Acute drug overdose TECHNIQUE: Multiple axial CT images of the head were obtained without contrast. A dose lowering technique was utilized adhering to the principles of ALARA. COMPARISON: CT head 05/15/2017. FINDINGS: No acute intracranial hemorrhage, midline shift, intracranial mass, hydrocephalus, territorial ischemia or abnormal extra-axial collection. Mild bifrontal cerebral atrophy. The calvarium is intact. The paranasal sinuses, mastoid air cells, and middle ear cavities are clear. Mild leftward bowing and spurring of the nasal septum. Incidental note is made of mild bilateral exophthalmos. IMPRESSION: No acute intracranial abnormality. The above report was generated using voice recognition software. It may contain grammatical, syntax or spelling errors. Electronically signed by: Zhang Parikh M.D. 10/21/2017 5:39 PM Laboratory Results 10/21/17 16:40 Red Blood Count 3.79, Mean Corpuscular Volume 91.3, Mean Corpuscular Hemoglobin 30.6, Mean Corpuscular Hemoglobin Concent 33.5, Mean Platelet Volume 9.4, Neutrophils (%) (Auto) 80.4, Lymphocytes (%) (Auto) 8.7, Monocytes (%) (Auto) 9.9, Eosinophils (%) (Auto) 0.3, Basophils (%) (Auto) 0.2, Neutrophils # (Auto) 15.44, Lymphocytes # (Auto) 1.66, Monocytes # (Auto) 1.90, Eosinophils # (Auto) 0.05, Basophils # (Auto) 0.04 Test 10/21/17 16:40 10/21/17 17:08 White Blood Count 19.18 K/uL (4.8-10.8) Red Blood Count 3.79 M/uL (4.7-6.1) Hemoglobin 11.6 g/dL (14.0-18.0) Hematocrit 34.6 % (42-52) Mean Corpuscular Volume 91.3 fL (80-100) Mean Corpuscular Hemoglobin 30.6 pg (25-34) Mean Corpuscular Hemoglobin Concent 33.5 g/dl (32-36) Platelet Count 250 K/uL (130-400) Mean Platelet Volume 9.4 fL (7.4-10.4) Neutrophils (%) (Auto) 80.4 % Lymphocytes (%) (Auto) 8.7 % Monocytes (%) (Auto) 9.9 % Eosinophils (%) (Auto) 0.3 % Basophils (%) (Auto) 0.2 % Neutrophils # (Auto) 15.44 K/uL (1.4-6.5) Lymphocytes # (Auto) 1.66 K/uL (1.2-3.4) Monocytes # (Auto) 1.90 K/uL (0.11-0.59) Eosinophils # (Auto) 0.05 K/uL (0-0.5) Basophils # (Auto) 0.04 K/uL (0-0.2) RDW Standard Deviation 45.3 fL (36.4-46.3) RDW Coefficient of Variation 13.7 % (11.5-14.5) Immature Granulocyte % (Auto) 0.5 % Immature Granulocyte # (Auto) 0.09 K/uL (0.00-0.02) Prothrombin Time 91.7 SECONDS (9.0-12.0) Prothromb Time International Ratio 9.1 (0.9-1.1) Activated Partial Thromboplast Time 62.3 SECONDS (21.0-31.0) Partial Thromboplastin Ratio 2.4 Osmolality 292 mOsm/kg (280-300) Total Bilirubin 0.3 mg/dl (0.2-1) Direct Bilirubin 0.2 mg/dl (0-0.2) Aspartate Amino Transf (AST/SGOT) 28 U/L (15-37) Alanine Aminotransferase (ALT/SGPT) 21 U/L (12-78) Alkaline Phosphatase 112 U/L (45-117) Total Creatine Kinase 844 U/L (39-308) Creatine Kinase MB 9.6 ng/ml (0.5-3.6) Creatine Kinase MB Ratio 1.1 (0-3.0) Troponin I 0.065 ng/ml (0-0.045) Total Protein 7.7 gm/dl (6.4-8.2) Albumin 3.5 gm/dl (3.4-5.0) Lipase 58 U/L (73-393) Salicylates Level 6.6 mg/dl (2.8-20) Acetaminophen Level < 2 ug/ml (10-30) Urine Color DK YELLOW Urine Appearance CLOUDY (CLEAR) Urine pH 5.0 (4.5-7.5) Urine Specific Boyle 1.023 (1.000-1.030) Urine Protein TRACE (NEG) Urine Glucose (UA) NEG (NEG) Urine Ketones TRACE (NEG) Urine Occult Blood NEG (NEG) Urine Nitrite NEG (NEG) Urine Bilirubin NEG (NEG) Urine Urobilinogen NEG (NEG) Urine Leukocyte Esterase NEG (NEG) Urine WBC (Auto) 1-5 /hpf (0-5) Urine RBC (Auto) 0-4 /hpf (0-4) Urine Hyaline Casts (Auto) >30 /lpf (0-5) Urine Epithelial Cells (Auto) 10-20 /lpf (0-5) Urine Bacteria (Auto) 1+ (NEG) Urine Pathogenic Casts /lpf (0) Urine Mucus PRESENT (NONE PRSENT) Urine Yeast (Auto) (NONE PRSENT) Venous Blood pH 7.23 (7.36-7.41) Venous Blood Partial Pressure CO2 54 mmHg (38.0-50.0) Venous Blood Partial Pressure O2 39 mmHg Venous Blood HCO3 22 mmol/L Venous Blood Oxygen Saturation 62.3 % Venous Blood Base Excess -5.8 mEq/L Urine Opiates Screen NEG (NEG) Urine Methadone, Qualitative NEG (NEG) Urine Barbiturates NEG (NEG) Urine Phencyclidine (PCP) Level NEG (NEG) Ur Amphetamine/Methamphetamine NEG (NEG) MDMA (Ecstasy) Screen NEG (NEG) Urine Benzodiazepines Screen NEG (NEG) Urine Cocaine Metabolite NEG (NEG) Urine Marijuana (THC) POS (NEG) Ethyl Alcohol mg/dL < 3.0 mg/dl (0-3) Laboratory results per my review. Medications Administered Medications (Trade) Dose Ordered Sig/Theresa Route Start Time Stop Time Status Last Admin Dose Admin Sodium Chloride 1,000 ml @ 999 mls/hr Q1H1M STAT IV 10/21/17 16:29 10/21/17 17:29 DC 10/21/17 16:32 999 MLS/HR Sodium Chloride 1,000 ml @ 999 mls/hr Q1H1M STAT IV 10/21/17 16:58 10/21/17 17:58 DC 10/21/17 16:44 999 MLS/HR Sodium Chloride 1,000 ml @ 999 mls/hr Q1H1M STAT IV 10/21/17 17:40 10/21/17 18:40 DC 10/21/17 17:49 999 MLS/HR Piperacillin Sod/ Tazobactam Sod (Zosyn Iv) 4.5 gm NOW STAT IV 10/21/17 17:41 10/21/17 17:42 DC 10/21/17 17:59 4.5 GM Phytonadione 10 mg/Sodium Chloride 51 ml @ 102 mls/hr ONE ONCE IV 10/21/17 18:00 10/21/17 18:29 DC 10/21/17 18:17 102 MLS/HR Vancomycin HCl 2150 mg/Sodium Chloride 543 ml @ 200 mls/hr ONE STAT IV 10/21/17 18:11 10/21/17 20:53 DC 10/21/17 18:35 200 MLS/HR ECG Indication: toxicologic Rate (beats per minute): 67 Rhythm: normal sinus Findings: no ectopy, other (Poor R-wave progression, no acute ST segments) Change: no significant change (No change from 05/15/17) ED Course 1626: The patient was evaluated in room B1. A complete history and physical examination were performed. 1629: NSS 1000 ml @ 999 mls/hr IV. 1658: NSS 1000 ml @ 999 mls/hr IV. 1750: I discussed the patients case with Dr. Singleton, [facility] Critical Care. The patient will be further evaluated. 1800: I discussed the patients case with Dr. Robb, [facility] General Surgery. The patient will be further evaluated. 181: I [facility] the [facility] The patient will be further evaluated. Medical Decision Prior records/ancillary studies reviewed. Triage Nursing notes reviewed. The patient's history was concerning for altered mental status and probable overdose. Differential diagnosis: Etiologies such as toxicologic, infection, hypoglycemia, electrolyte abnormalities, cardiac sources, intracerebral event, neurologic, as well as others were entertained. The patient is a 47-year-old male who presented to the emergency department with altered mental status and possible overdose. The patient was brought to the emergency department by his customs officer. The patient's significant other according to the customs officer notified the customs officer to let them know that she felt the patient was using drugs which is a violation of his parole. When the patient had a drug screen obtained he did have narcotics in his system. He does have prescriptions for some medications including Ativan and Ultram. The patient admitted to taking these medications throughout the day. The patient had a significant number of Ultram missing from his prescription which was recently filled. The patient was hypotensive and his mental status was decreased while he was in the emergency department. His physical exam appear to be consistent with significant dehydration as well as. The patient was treated with a large volume of IV fluids. I discussed the patient's laboratory and radiographic studies with him. He did not have any acute abnormality noted on CT the head. His INR was very elevated so he was treated with vitamin K and fresh frozen plasma. The patient was found have signs of possible cholecystitis on CT the abdomen and pelvis but on subsequent reevaluation he did not have significant right upper quadrant tenderness however he did have a large amount of pain medication in his system from the suspected overdose. I discussed the patient's laboratory and radiographic studies with the on-call [facility] hospitalist as well as the on-call strickler attendant. They have agreed to evaluate the patient in the emergency department. I also discussed his case with the on-call general surgeon. Likely the patient work require further resuscitation and then further workup to determine if the findings on CT are clinically relevant. Medication Reconcilliation Current Medication List: was personally reviewed by me Blood Pressure Screening Patient's blood pressure: Low blood pressure Consults Time Called: 1745 Consulting Physician: Dr. Singleton, [facility] Critical Care Returned Call: 1750 I discussed the patients case with Dr. Singleton [facility] Critical Care. The patient will be further evaluated. Additional Consults: Time Called: 1800 Consulted Physician: Dr. Robb, [facility] General Surgery Returned Call: 1800 Additional Comments: I discussed the patients case with Dr. Robb [facility] General Surgery. The patient will be further evaluated. Time Called: 1810 Consulted Physician: [facility] Hospitalist Returned Call: 181 Additional Comments: I discussed the patients case with Alyson Alexis. The patient will be further evaluated. Impression Primary Impression: Altered mental status Additional Impressions: Overdose Cholecystitis Renal failure Supratherapeutic INR Critical Care I have personally spent greater than 45 minutes of critical care time in the direct management of this patient. This includes bedside care, interpretation of diagnostic studies, and testing, discussion with consultants, patient, and family members, and other required patient management activities. This 45 minutes is in excess of all separately billable procedures. Scribe Attestation The scribe's documentation has been prepared under my direction and personally reviewed by me in its entirety. I confirm that the note above accurately reflects all work, treatment, procedures, and medical decision making performed by me. Departure Information Dispostion Being Evaluated By Hospitalist Referrals Feliciano Holguin III, M.D. (PCP) Patient Instructions My [facility] Problem Qualifiers Primary Impression: Altered mental status Altered mental status type: unspecified Qualified Codes: R41.82 - Altered mental status, unspecified Additional Impressions: Overdose Encounter type: initial encounter Injury intent: undetermined intent Qualified Codes: T50.904A - Poisoning by unspecified drugs, medicaments and biological substances, undetermined, initial encounter Renal failure Renal failure chronicity: unspecified chronicity Qualified Codes: N19 - Unspecified kidney failure
[2017-10-21 16:57] LABS: BASO % 0.2 %; BASO ABS # 0.04 K/uL (0-0.2); COMPLETE YES; EOS % 0.3 %; HEMATOCRIT 34.6 % (42-52); IG% 0.5 %; LYMPH % 8.7 %; LYMPH ABS # 1.66 K/uL (1.2-3.4); MEAN CELL VOLUME 91.3 fL (80-100); MEAN CORPUSCULAR HEMOGLOBIN 30.6 pg (25-34); MEAN CORPUSCULAR HGB CONC 33.5 g/dl (32-36); MEAN PLATELET VOLUME 9.4 fL (7.4-10.4); MONO % 9.9 %; NEUT % 80.4 %; PLATELET COUNT 250 K/uL (130-400); RED BLOOD COUNT 3.79 M/uL (4.7-6.1); WHITE BLOOD COUNT 19.18 K/uL (4.8-10.8)
--- NOTE | 2017-10-21 17:02 | DIAGNOSTIC IMAGING REPORT ---
CHEST ONE VIEW PORTABLE CLINICAL HISTORY: Overdose. COMPARISON STUDY: Chest radiograph May 15, 2017. FINDINGS: Lung volumes are normal. There is no pneumothorax or pleural effusion. Cardiomegaly is unchanged. There is no evidence of pulmonary edema. There are median sternotomy wires. Indeterminate left chest wall device with associated wire which extends over the mid chest is noted. IMPRESSION: 1. No acute cardiopulmonary findings. 2. Indeterminate left chest device with associated wire which could be correlated clinically. Electronically signed by: Joaquin Tena M.D. 10/21/2017 5:01 PM Dictated Date/Time: 10/21/2017 4:58 PM
--- NOTE | 2017-10-21 17:14 | Pharmacy Progress Note ---
ED Pharmacist Progress Note Date of Service: Oct 21, 2017. Called Poison Control [phone]. Contact is Sheila. Recommended " adrenergic vasopressors" for hypotension unresponsive to fluid boluses. Offered consult of brim stitcher if desired by attending physician. Dr. Zafar ku.
[2017-10-21 17:19] LABS: PARTIAL THROMBOPLASTIN RATIO 2.4; PROTHROMBIN TIME (PATIENT) 91.7 SECONDS (9.0-12.0)
[2017-10-21 17:22] LABS: ACETAMINOPHEN < 2 ug/ml (10-30)
[2017-10-21 17:32] LABS: VEN BLD GAS O2 SATURATION 62.3 %; VEN BLOOD GAS BASE EXCESS -5.8 mEq/L
[2017-10-21 17:37] LABS: BUN/CREATININE RATIO 8.2 (10-20); CALCIUM 8.3 mg/dl (8.5-10.1); CKMB/CK RATIO 1.1 (0-3.0); CREATININE 6.64 mg/dl (0.60-1.40)
--- NOTE | 2017-10-21 17:40 | DIAGNOSTIC IMAGING REPORT ---
HEAD WITHOUT CONTRAST (CT) CLINICAL HISTORY: 47 years-old Male with OVERDOSE. Acute drug overdose TECHNIQUE: Multiple axial CT images of the head were obtained without contrast. A dose lowering technique was utilized adhering to the principles of ALARA. COMPARISON: CT head 05/15/2017. FINDINGS: No acute intracranial hemorrhage, midline shift, intracranial mass, hydrocephalus, territorial ischemia or abnormal extra-axial collection. Mild bifrontal cerebral atrophy. The calvarium is intact. The paranasal sinuses, mastoid air cells, and middle ear cavities are clear. Mild leftward bowing and spurring of the nasal septum. Incidental note is made of mild bilateral exophthalmos. IMPRESSION: No acute intracranial abnormality. The above report was generated using voice recognition software. It may contain grammatical, syntax or spelling errors. Electronically signed by: Zhang Parikh M.D. 10/21/2017 5:39 PM Dictated Date/Time: 10/21/2017 5:35 PM
[2017-10-21] MEDS ORDERED: PIPERACILLIN/TAZOBACTAM 4.5 GM/100ML D5W IV STA (17:41)
[2017-10-21 17:45] LABS: BENZODIAZEPINE, URINE NEG (NEG); COCAINE,URINE NEG (NEG); PHENCYCLIDINE, URINE NEG (NEG)
--- NOTE | 2017-10-21 17:52 | DIAGNOSTIC IMAGING REPORT ---
CT OF THE ABDOMEN AND PELVIS WITHOUT CONTRAST CLINICAL HISTORY: Altered mental status. COMPARISON STUDY: No previous studies for comparison. TECHNIQUE: Axial images of the abdomen and pelvis were obtained without IV contrast. Images were reviewed in the axial, sagittal, and coronal planes. A dose lowering technique was utilized adhering to the principles of ALARA. FINDINGS: The heart is moderately enlarged. Note is made of surgical metallic material along the pericardium. There is a small complex appearing pericardial effusion which is largest overlying the left ventricle. This contains several calcifications and is probably chronic but is new since CT of September 18, 2016. Evaluation of the abdomen and pelvis is suboptimal as unenhanced exam there is moderate pericholecystic infiltration with layering hyperdense material within the gallbladder. There is no biliary or pancreatic ductal dilatation. A few mildly enlarged upper abdominal lymph nodes are similar to CT of September 18, 2016. The spleen, adrenal glands and pancreas are normal. There is no bowel obstruction. The appendix is normal. There is no abdominal or pelvic lymphadenopathy. A Mac balloon is present within the bladder which is collapsed. There is no pneumatosis, free air or portal venous gas. IMPRESSION: 1. Findings consistent with acute cholecystitis. Mild gallbladder distention with moderate pericholecystic infiltration. Layering hyperdense material within the gallbladder likely reflects small stones. 2. Small complex appearing pericardial effusion with pericardial thickening which is age indeterminate although the appearance favors a chronic pericardial effusion. Postoperative findings along the pericardium, as described above. This could be correlated with previous surgical history and a follow-up echo could be obtained to reevaluate the pericardial effusion. 3. Cardiomegaly. Electronically signed by: Joaquin Tena M.D. 10/21/2017 5:51 PM Dictated Date/Time: 10/21/2017 5:37 PM
[2017-10-21 17:54] LABS: INR 9.1 (0.9-1.1)
[2017-10-21] MEDS ORDERED: PHYTONADIONE INJ 10 MG in SODIUM CHLORIDE 0.9% 50ML 50 ML IV ONE (18:00)
[2017-10-21] MEDS ORDERED: ONDANSETRON INJ 2 MG/ML 2 ML VIAL IV PRN ×2 (18:00→18:30)
[2017-10-21] MEDS ORDERED: AZITHROMYCIN 250 MG TAB PO ONE (18:00)
[2017-10-21] MEDS ORDERED: VANCOMYCIN INJ 2,150 MG in SODIUM CHLORIDE 0.9% 500ML 500 ML IV STA (18:11)
[2017-10-21] MEDS ORDERED: EPINEPHRINE ADULT AUTO-INJECT 0.3 MG SYR IM PRN (18:30)
--- NOTE | 2017-10-21 18:37 | Medical Consult ---
Consultation Date of Consultation: Oct 21, 2017. Attending Physician: Reason for Consultation: acute cholecystitis History of Present Illness to ER hypotensive from suspected drug overdose concern for bleeding- CT abd- no blood- thickened gb w/ probable sludge pt has no significant pain, LFTs ok and lipase on Coumadin for ?h/o heart disease, INR> 9, creat > 6 Past Medical/Surgical History Medical Problems: (1) Acute TN Status: Acute (2) Acute renal failure Status: Acute (3) Allergic reaction Status: Acute (4) Altered mental status Status: Acute (5) Altered mental status Status: Acute (6) Change in mental status Status: Acute (7) Cholecystitis Status: Acute (8) Dehydration Status: Acute (9) Drug overdose Status: Acute (10) Renal failure Status: Acute (11) Rhabdomyolysis Status: Acute (12) Right knee injury Status: Acute (13) Supratherapeutic INR Status: Acute (14) Syncope Status: Acute Family History Patient reports no known family medical history. Social History Smoking Status: Current Every Day Smoker Drug Use: none Marital Status: in relationship Housing Status: lives with significant other Occupation Status: employed Allergies Coded Allergies: Amlodipine (Verified Allergy, Intermediate, Hives, 04/20/17) Lisinopril (Verified Allergy, Intermediate, Hives, 04/20/17) Tizanidine (Verified Allergy, Intermediate, Hives, 04/20/17) Current Inpatient Medications Current Inpatient Medications Medications (Trade) Dose Ordered Sig/Theresa Route Start Time Stop Time Status Last Admin Dose Admin Sodium Chloride 1,000 ml @ 999 mls/hr Q1H1M STAT IV 10/21/17 17:40 10/21/17 18:40 10/21/17 17:49 999 MLS/HR Phytonadione 10 mg/Sodium Chloride 51 ml @ 102 mls/hr ONE ONCE IV 10/21/17 18:00 10/21/17 18:29 10/21/17 18:17 102 MLS/HR Vancomycin HCl 2150 mg/Sodium Chloride 543 ml @ 200 mls/hr ONE STAT IV 10/21/17 18:11 10/21/17 20:53 Ondansetron HCl (Zofran Inj) 4 mg Q6H PRN IV 10/21/17 18:00 11/20/17 17:59 UNV Parenteral Electrolyte Solution 1,000 ml @ 150 mls/hr Q6H40M IV 10/21/17 18:00 11/20/17 17:59 UNV Vancomycin HCl 1000 mg/Sodium Chloride 270 ml @ 125 mls/hr Q12 IV 10/21/17 21:00 10/23/17 20:59 UNV Piperacillin Sod/ Tazobactam Sod 3.375 gm/Dextrose 115 ml @ 28.75 mls/ hr Q8 IV 10/21/17 18:00 10/23/17 17:59 UNV Azithromycin (Zithromax Tab) 500 mg NOW ONCE PO 10/21/17 18:00 10/21/17 18:01 UNV Azithromycin (Zithromax Tab) 250 mg QAM PO 10/22/17 09:00 10/24/17 08:59 UNV Epinephrine (Epipen) 0.3 mg UD PRN IM 10/21/17 18:30 11/20/17 18:29 UNV Fluticasone Propionate (Flovent Hfa 110MCG Inhaler) 2 puffs BID INH 10/21/17 21:00 11/20/17 20:59 UNV Levothyroxine Sodium (Synthroid Tab) 150 mcg DAILY PO 10/22/17 09:00 11/21/17 08:59 UNV Trazodone HCl (Desyrel Tab) 50 mg HS PO 10/21/17 21:00 11/20/17 20:59 UNV Levetiracetam 500 mg/Dextrose 105 ml @ 420 mls/hr Q12 IV 10/21/17 21:00 11/20/17 20:59 UNV Miscellaneous Information (Pharmacy Consult) 1 ea ONE STAT N/A 10/21/17 18:19 10/21/17 18:20 UNV Sodium Chloride 500 ml @ 999 mls/hr Q31M ONCE IV 10/21/17 18:19 10/21/17 18:49 UNV Piperacillin Sod/ Tazobactam Sod 4.5 gm/Dextrose 120 ml @ 200 mls/hr Q6 IV 10/22/17 00:00 11/01/17 00:00 UNV Review of Systems Constitutional: No fever, No chills Respiratory: No cough, No shortness of breath Cardiovascular: No chest pain Abdomen: No pain, No nausea, No vomiting Neurologic: + weakness Psychiatric: + anxiety Endocrine: + fatigue Hematologic / Lymphatic: + clotting problems Integumentary: No rash Physical Exam Date Time Temp Pulse Resp B/P (MAP) Pulse Ox O2 Delivery O2 Flow Rate FiO2 10/21/17 18:18 64 85/65 95 Nasal Cannula 4.0 10/21/17 18:09 36.6 67 22 71/40 95 Nasal Cannula 4.0 10/21/17 17:49 68 19 79/47 95 Nasal Cannula 4.0 10/21/17 17:17 65 16 83/43 100 Non-Rebreather 15.0 10/21/17 17:13 68 16 72/59 100 Non-Rebreather 15.0 10/21/17 16:55 64 10/21/17 16:44 65 16 74/38 99 Non-Rebreather 15.0 10/21/17 16:35 98 Non-Rebreather 15.0 10/21/17 16:33 66 12 83/49 98 Non-Rebreather 15.0 10/21/17 16:29 83 Room Air 10/21/17 16:20 36.6 72 16 64/46 92 Room Air some lethargy but responsive BP 80's syst General Appearance: no apparent distress Head: atraumatic Eyes: sclerae normal ENT: + pertinent finding (dry mucous mbs) Respiratory/Chest: no respiratory distress Cardiovascular: regular rate, rhythm, + pertinent finding Abdomen/GI: non tender, soft Laboratory Results Last 24 Hours Test 10/21/17 16:40 10/21/17 17:08 10/21/17 17:19 10/21/17 17:58 White Blood Count 19.18 K/uL Red Blood Count 3.79 M/uL Hemoglobin 11.6 g/dL Hematocrit 34.6 % Mean Corpuscular Volume 91.3 fL Mean Corpuscular Hemoglobin 30.6 pg Mean Corpuscular Hemoglobin Concent 33.5 g/dl Platelet Count 250 K/uL Mean Platelet Volume 9.4 fL Neutrophils (%) (Auto) 80.4 % Lymphocytes (%) (Auto) 8.7 % Monocytes (%) (Auto) 9.9 % Eosinophils (%) (Auto) 0.3 % Basophils (%) (Auto) 0.2 % Neutrophils # (Auto) 15.44 K/uL Lymphocytes # (Auto) 1.66 K/uL Monocytes # (Auto) 1.90 K/uL Eosinophils # (Auto) 0.05 K/uL Basophils # (Auto) 0.04 K/uL RDW Standard Deviation 45.3 fL RDW Coefficient of Variation 13.7 % Immature Granulocyte % (Auto) 0.5 % Immature Granulocyte # (Auto) 0.09 K/uL Prothrombin Time 91.7 SECONDS Prothromb Time International Ratio 9.1 Activated Partial Thromboplast Time 62.3 SECONDS Partial Thromboplastin Ratio 2.4 Sodium Level 133 mmol/L Potassium Level 4.0 mmol/L Chloride Level 100 mmol/L Carbon Dioxide Level 22 mmol/L Anion Gap 11.0 mmol/L Blood Urea Nitrogen 54 mg/dl Creatinine 6.64 mg/dl Est Creatinine Clear Calc Drug Dose 17.0 ml/min Estimated GFR () 10.6 Estimated GFR (Non- 9.1 BUN/Creatinine Ratio 8.2 Random Glucose 85 mg/dl Osmolality 292 mOsm/kg Calcium Level 8.3 mg/dl Total Bilirubin 0.3 mg/dl Direct Bilirubin 0.2 mg/dl Aspartate Amino Transf (AST/SGOT) 28 U/L Alanine Aminotransferase (ALT/SGPT) 21 U/L Alkaline Phosphatase 112 U/L Total Creatine Kinase 844 U/L Creatine Kinase MB 9.6 ng/ml Creatine Kinase MB Ratio 1.1 Troponin I 0.065 ng/ml Total Protein 7.7 gm/dl Albumin 3.5 gm/dl Lipase 58 U/L Salicylates Level 6.6 mg/dl Acetaminophen Level < 2 ug/ml Venous Blood pH 7.23 Venous Blood Partial Pressure CO2 54 mmHg Venous Blood Partial Pressure O2 39 mmHg Venous Blood HCO3 22 mmol/L Venous Blood Oxygen Saturation 62.3 % Venous Blood Base Excess -5.8 mEq/L Urine Opiates Screen NEG Urine Methadone, Qualitative NEG Urine Barbiturates NEG Urine Phencyclidine (PCP) Level NEG Ur Amphetamine/Methamphetamine NEG MDMA (Ecstasy) Screen NEG Urine Benzodiazepines Screen NEG Urine Cocaine Metabolite NEG Urine Marijuana (THC) POS Ethyl Alcohol mg/dL < 3.0 mg/dl Assessment & Plan 10/21/17- adm for hypotension, renal insufficiency, elevated INR thickened gb on CT c/w cholecystitis. Would stabilize cardiac and renal problems- doubt he has necrotizing gb disease. will cont to assess over 24-48 hrs- possible Hida scan depending on progress. Check blood cultures. Would cont IV atbx
[2017-10-21] MEDS ORDERED: NORMOSOL R 1,000 ML IV SCH (19:00)
--- NOTE | 2017-10-21 19:07 | Critical Care Consultation ---
Critical Care Consultation Date of Consultation: Oct 21, 2017. Attending Physician: Reason for Consultation: Drug Overdose History of Present Illness The patient is a 47-year-old male with a past medical history of hypertension, hyperlipidemia, hypothyroidism, depression, drug abuse, acute RI, osteoarthritis , acute kidney injury, and anxiety presenting to the hospital for an intentional overdose. The Control Operator team was consulted after the patient presented with altered mental status after taking an unknown quantity of different home medications and failing his probation drug screen. Due to the patient being drowsy and being unable to obtain an accurate history, the remaining information was obtained from the Dr. Stephen. The patient initially had a drug screen by his probation officers due to concern about abuse of tramadol and lorazepam, and subsequently had a positive urine test for THC, buprenorphine, benzodiazepines, and methamphetamine. The patient was subsequently brought to group home but due to concerns over his vital signs he was taken to [facility]. According to intake there is no history of head trauma or falls. The patient has not voiced any suicidal or homicidal ideations. According to his probation officers he has seems drowsy today. The patient's girlfriend told his probation officers he filled a 120 pill Ultram prescription 3 days ago, but today there are 15 pills left. The patient admits he last took assorted medications this morning. He also complains of epigastric abdominal pain in triage. Past Medical/Surgical History Hypertension, hyperlipidemia, hypothyroidism, depression, drug abuse, acute RI, osteoarthritis, acute kidney injury, anxiety Family History Patient reports no known family medical history. Social History Smoking Status: Current Every Day Smoker Drug Use: none Marital Status: in relationship Housing Status: lives with significant other Occupation Status: employed Allergies Coded Allergies: Amlodipine (Verified Allergy, Intermediate, Hives, 04/20/17) Lisinopril (Verified Allergy, Intermediate, Hives, 04/20/17) Tizanidine (Verified Allergy, Intermediate, Hives, 04/20/17) Home Medications Scheduled Aspirin (Aspirin EC Low Dose), 81 MG PO QAM Atorvastatin (Atorvastatin Calcium), 80 MG PO QAM Carvedilol (Coreg), 12.5 MG PO BID Eplerenone (Eplerenone), 25 MG PO DAILY Escitalopram (Lexapro), 10 MG PO DAILY Fluticasone Propionate (Flovent Hfa), 2 PUFFS INH BID Furosemide (Lasix), 40 MG PO DAILY Levetiracetam (Keppra Xr), 500 MG PO BID Levothyroxine Sodium (Levothyroxine Sodium), 150 MCG PO DAILY Potassium Chloride (Klor-Con M20), 20 MEQ PO DAILY Sacubitril-Valsartan (Entresto 24-26 mg), 1 TAB PO BID Trazodone Hcl (Trazodone), 50 MG PO HS Warfarin Sodium (Coumadin), 1 DOSE PO UD Scheduled PRN Albuterol Sulfate (Proair Respiclick), 2 PUFFS INH Q4H PRN for Wheezing Epinephrine (Epipen), 0.3 MG IM UD PRN for Severe Allergis Reaction Lorazepam (Ativan), 1 MG PO HS PRN for Sleep Tramadol HCl (Tramadol HCl), 50 MG PO Q6H PRN for Pain Current Inpatient Medications Current Inpatient Medications Medications (Trade) Dose Ordered Sig/Theresa Route Start Time Stop Time Status Last Admin Dose Admin Sodium Chloride 1,000 ml @ 999 mls/hr Q1H1M STAT IV 10/21/17 17:40 10/21/17 18:40 10/21/17 17:49 999 MLS/HR Vancomycin HCl 2150 mg/Sodium Chloride 543 ml @ 200 mls/hr ONE STAT IV 10/21/17 18:11 10/21/17 20:53 10/21/17 18:35 200 MLS/HR Ondansetron HCl (Zofran Inj) 4 mg Q6H PRN IV 10/21/17 18:00 11/20/17 17:59 UNV Parenteral Electrolyte Solution 1,000 ml @ 150 mls/hr Q6H40M IV 10/21/17 18:00 11/20/17 17:59 UNV Vancomycin HCl 1000 mg/Sodium Chloride 270 ml @ 125 mls/hr Q12 IV 10/21/17 21:00 10/23/17 20:59 UNV Piperacillin Sod/ Tazobactam Sod 3.375 gm/Dextrose 115 ml @ 28.75 mls/ hr Q8 IV 10/21/17 18:00 10/23/17 17:59 UNV Azithromycin (Zithromax Tab) 500 mg NOW ONCE PO 10/21/17 18:00 10/21/17 18:01 UNV Azithromycin (Zithromax Tab) 250 mg QAM PO 10/22/17 09:00 10/24/17 08:59 UNV Epinephrine (Epipen) 0.3 mg UD PRN IM 10/21/17 18:30 11/20/17 18:29 UNV Fluticasone Propionate (Flovent Hfa 110MCG Inhaler) 2 puffs BID INH 10/21/17 21:00 11/20/17 20:59 UNV Levothyroxine Sodium (Synthroid Tab) 150 mcg DAILY PO 10/22/17 09:00 11/21/17 08:59 UNV Trazodone HCl (Desyrel Tab) 50 mg HS PO 10/21/17 21:00 11/20/17 20:59 UNV Levetiracetam 500 mg/Dextrose 105 ml @ 420 mls/hr Q12 IV 10/21/17 21:00 11/20/17 20:59 UNV Miscellaneous Information (Pharmacy Consult) 1 ea ONE STAT N/A 10/21/17 18:19 10/21/17 18:20 UNV Sodium Chloride 500 ml @ 999 mls/hr Q31M ONCE IV 10/21/17 18:19 10/21/17 18:49 UNV Piperacillin Sod/ Tazobactam Sod 4.5 gm/Dextrose 120 ml @ 200 mls/hr Q6 IV 10/22/17 00:00 11/01/17 00:00 UNV Ondansetron HCl (Zofran Inj) 4 mg Q6H PRN IV 10/21/17 18:30 11/20/17 18:29 UNV Pantoprazole Sodium 40 mg/ Syringe 10 ml @ 5 mls/min DAILY IV 10/22/17 09:00 11/21/17 08:59 UNV Review of Systems Unable to obtain full ROS at this time due to altered mental status of the patient. States having abdominal pain at this time but no other information illicited Physical Exam Date Time Temp Pulse Resp B/P (MAP) Pulse Ox O2 Delivery O2 Flow Rate FiO2 10/21/17 18:18 64 85/65 95 Nasal Cannula 4.0 10/21/17 18:09 36.6 67 22 71/40 95 Nasal Cannula 4.0 10/21/17 17:49 68 19 79/47 95 Nasal Cannula 4.0 10/21/17 17:17 65 16 83/43 100 Non-Rebreather 15.0 10/21/17 17:13 68 16 72/59 100 Non-Rebreather 15.0 10/21/17 16:55 64 10/21/17 16:44 65 16 74/38 99 Non-Rebreather 15.0 10/21/17 16:35 98 Non-Rebreather 15.0 10/21/17 16:33 66 12 83/49 98 Non-Rebreather 15.0 10/21/17 16:29 83 Room Air 10/21/17 16:20 36.6 72 16 64/46 92 Room Air General Appearance: no apparent distress, other (Patient dowsy and unable to focus attention) Head: normocephalic, atraumatic Eyes: EOMI, other (pupillary constriction) Respiratory: breath sounds normal, clear to auscultation Cardiovasular: regular rate/rhythm, normal S1S2, no M/G/R Abdomen: non tender, normal bowel sounds, no rebound Lower Extremities: other (Bruise over the left vaughn) Neuro: alert, other (Oriented to person and place and states [place] is upcoming but not able to state specific date) Laboratory Results Last 24 Hours Test 10/21/17 16:40 10/21/17 17:08 10/21/17 17:19 10/21/17 17:58 White Blood Count 19.18 K/uL Red Blood Count 3.79 M/uL Hemoglobin 11.6 g/dL Hematocrit 34.6 % Mean Corpuscular Volume 91.3 fL Mean Corpuscular Hemoglobin 30.6 pg Mean Corpuscular Hemoglobin Concent 33.5 g/dl Platelet Count 250 K/uL Mean Platelet Volume 9.4 fL Neutrophils (%) (Auto) 80.4 % Lymphocytes (%) (Auto) 8.7 % Monocytes (%) (Auto) 9.9 % Eosinophils (%) (Auto) 0.3 % Basophils (%) (Auto) 0.2 % Neutrophils # (Auto) 15.44 K/uL Lymphocytes # (Auto) 1.66 K/uL Monocytes # (Auto) 1.90 K/uL Eosinophils # (Auto) 0.05 K/uL Basophils # (Auto) 0.04 K/uL RDW Standard Deviation 45.3 fL RDW Coefficient of Variation 13.7 % Immature Granulocyte % (Auto) 0.5 % Immature Granulocyte # (Auto) 0.09 K/uL Prothrombin Time 91.7 SECONDS Prothromb Time International Ratio 9.1 Activated Partial Thromboplast Time 62.3 SECONDS Partial Thromboplastin Ratio 2.4 Sodium Level 133 mmol/L Potassium Level 4.0 mmol/L Chloride Level 100 mmol/L Carbon Dioxide Level 22 mmol/L Anion Gap 11.0 mmol/L Blood Urea Nitrogen 54 mg/dl Creatinine 6.64 mg/dl Est Creatinine Clear Calc Drug Dose 17.0 ml/min Estimated GFR () 10.6 Estimated GFR (Non- 9.1 BUN/Creatinine Ratio 8.2 Random Glucose 85 mg/dl Osmolality 292 mOsm/kg Calcium Level 8.3 mg/dl Total Bilirubin 0.3 mg/dl Direct Bilirubin 0.2 mg/dl Aspartate Amino Transf (AST/SGOT) 28 U/L Alanine Aminotransferase (ALT/SGPT) 21 U/L Alkaline Phosphatase 112 U/L Total Creatine Kinase 844 U/L Creatine Kinase MB 9.6 ng/ml Creatine Kinase MB Ratio 1.1 Troponin I 0.065 ng/ml Total Protein 7.7 gm/dl Albumin 3.5 gm/dl Lipase 58 U/L Salicylates Level 6.6 mg/dl Acetaminophen Level < 2 ug/ml Venous Blood pH 7.23 Venous Blood Partial Pressure CO2 54 mmHg Venous Blood Partial Pressure O2 39 mmHg Venous Blood HCO3 22 mmol/L Venous Blood Oxygen Saturation 62.3 % Venous Blood Base Excess -5.8 mEq/L Urine Opiates Screen NEG Urine Methadone, Qualitative NEG Urine Barbiturates NEG Urine Phencyclidine (PCP) Level NEG Ur Amphetamine/Methamphetamine NEG MDMA (Ecstasy) Screen NEG Urine Benzodiazepines Screen NEG Urine Cocaine Metabolite NEG Urine Marijuana (THC) POS Ethyl Alcohol mg/dL < 3.0 mg/dl Assessment & Plan Patient is a 47-year-old male that presents with intentional overdose of unknown quantities of medications with acute kidney injury, acute cholecystitis , altered mental status, abdominal pain, and leukocytosis with hypotension. Neuro - CAM ICU positive - altered and unable to appropriately respond to questions or provide consent - Continue home Keppra 500 mg IV twice a day - Holding home Ativan due to questionable overdose CV - History of Ischemic Cardiomyopathy in December with code heart alert --> EF of 20-25% - STEMI in V4-V6 with complete occlusion of LAD and free wall rupture requiring transfer for LVAD - Received 3L IV NS in the ED, Continuing Normosol 150cc/hr - Initial Troponin of 0.065 --> Trend troponin q8h and monitor fluid status - ECHO ordered for tomorrow - Bedside ECHO to assess heart function - Remains hypotensive despite significant IV fluid therapy --> IV Dobutamine - Consult Cardiology Respiratory: - CXR 10/21: 1. No acute cardiopulmonary findings. 2. Indeterminate left chest device with associated wire which could be correlated clinically. - Procalcitonin ordered - Oxygen therapy by nasal cannula as needed to maintain O2 saturation GI: - CT Abdomen/ Pelvis 10/21: 1. Findings consistent with acute cholecystitis. Mild gallbladder distention with moderate pericholecystic infiltration. Layering hyperdense material within the gallbladder likely reflects small stones. 2. Small complex appearing pericardial effusion with pericardial thickening which is age indeterminate although the appearance favors a chronic pericardial effusion. Postoperative findings along the pericardium, as described above. This could be correlated with previous surgical history and a follow-up echo could be obtained to reevaluate the pericardial effusion. 3. Cardiomegaly. - NPO Excepts sips and chips - General Surgery Consult - LFTs wnl - IV Protonix for prophylaxis Renal: - MEREDITH - Secondary to sepsis, cardiomyopathy, toxic injury secondary to overdose - 3L IV NS Bolus - Normosol at 150cc/hr - Hold all nephrotoxic medication - Nephrology consult ID - Concern for sepsis due to hypotension and leukocytosis - Broad spectrum coverage with Vancomycin, Zosyn, and Levaquin Heme - INR initially 9.1 --> On Coumadin at home for LV Thrombus - Given Vitamin K 10 in the ED - 6 units of FFP - H/H 11.6/34.6 Endocrine - Synthroid IV 75mcg PPI Prophylaxis - Protonix IV DVT Prophylaxis - INR 9.1 2/2 Warfarin (holding) Code Status - Full Resuscitation Addendum: Patient hypotensive despite excessive IV fluids so decided to place central line to give blood products and dobutamine. To place femoral line patient first sedated with ketamine. Lidocaine placed over right femoral region to anesthetize area, then using ultrasound guidance needle placed in right femoral vein. Resident Physician Supervision Note: Dr. Campos was resident physician during care of patient. I separately evaluated patient and did history and exam. I discussed the case with the resident and generally agree with the findings and plan. Patient walked capacity to consent, he is unable to repeat procedures, indications for the procedures back to me. Limited bedside echo revealed a poor EF with akinetic segments. I discussed the case with Dr. Chay Quinteros of cardiology who recommended transfer to tertiary [facility] given the patient's complex medical history and likely need for mechanical circulatory support. I reviewed the CT scan, the patient was also seen by general surgery. During my initial physical exam the patient was not having tenderness in the right upper quadrant. He is received appropriate antibiotic coverage, however, I do not feel the patient has acute cholecystitis at this time. Patient has a severely elevated creatinine, his potassium is within the acceptable range, I suspect he will likely require CVVH (which is unavailable at this institution) given his cardiogenic shock. I discussed the patient's case with [facility] Dr. Weems, and after robust discussion agreed to accept the patient in transfer. I have personally spent 140 minutes of critical care time in the direct management of this patient. This is a life/limb threatening event. This includes time spent evaluating patient, direct bedside care, chart review, placing orders, interpretation of diagnostic studies, discussion with consultants, patient, and family members, as well as other required patient management activities. This time is exclusive of all separately billable procedures, and teaching time and separate from and in addition to any other critical care service time. Documented By: Wilbur Singleton DO Resident Tracking Resident Involvement: Resident Care Provided Care Provided: Adult Hospital Medicine
[2017-10-21] MEDS ORDERED: ALBU18002 INH (19:12)
[2017-10-21] MEDS ORDERED: SACU1TAB PO (19:12)
[2017-10-21] MEDS ORDERED: LEVE500T14 PO (19:12)
[2017-10-21] MEDS ORDERED: ESCI10TA17 PO (19:12)
[2017-10-21] MEDS ORDERED: VANCOMYCIN CONSULT ACTIVE SCH (19:13)
[2017-10-21] MEDS ORDERED: PIPERACILL/TAZOBAC CONSULT ACTIVE PRN (19:15)
--- NOTE | 2017-10-21 19:26 | History and Physical ---
History & Physical Date & Time of Service: Oct 21, 2017 at 19:26 Chief Complaint: Overdosed Primary Care Physician: No Doctor, Assigned History of Present Illness Source: clinic records, hospital records, EMS this is a 47 yo M with hx of polysubstance abuse , severe ischemic cardiomyopathy HX of STEMI -late presentation , with complete LAD occlusion / 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 [employer] , EF of 20-15 % with LV thrombus on Coumadin brought to ER by his [place] office as pt violated his probation by taking illegal drugs History is limited as pt presented with confusion /lethargy Last admission at [facility] was Drug overdose /altered mental status , pt left AMA after 1 day on presentation to ER , pt was found Hypotensive in ER SBP in 70's not responding to fluid bolus , White count elevated 19K Urine tx + for Marijuana Cr bumped > 6 ( last cr on 04/30 was 1.5 ) , INR > 9 CT abdomen /pelvis shows possible Cholecystitis pt was admitted to ICU , given IV fluid ~3 L bolus with minimum urine out put broad spectrum ABx with Zosyn /Vancomycin surgery evaluated the pt -needs to be stabilized hemodynamically ,Abx recommended , HIDA scan when stable In ICU , pt continued to be hypotensive -was intubated , started on Dobutamine gtt Dr Singleton spoke with [employer] m[facility] -pt is in Cardiogenic shock will need transfer to Tertiary Care for mechanical circulatory support /LVAD given pt's prior admission and all cardiac procedure was done at [facility] it will be appropriate to have life flighted pt to [facility] and Cardio Vascular specialist contacted pt is accepted by Dr Marquez Past Medical/Surgical History Medical Problems: (1) Anxiety Status: Chronic (2) 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 Social History Smoking Status: Current Every Day Smoker Drug Use: none Marital Status: in relationship Housing status: lives with family Occupational Status: employed Immunizations History of Influenza Vaccine: Yes Influenza Vaccine Date: Jun 14, 2016 History of Tetanus Vaccine?: Yes Tetanus Immunization Date: Oct 21, 2016 History of Pneumococcal: No History of Hepatitis B Vaccine: No Multi-Drug Resistant Organisms History of MDRO: No Allergies Coded Allergies: Amlodipine (Verified Allergy, Intermediate, Hives, 04/20/17) Lisinopril (Verified Allergy, Intermediate, Hives, 04/20/17) Tizanidine (Verified Allergy, Intermediate, Hives, 04/20/17) Home Medications Scheduled Aspirin (Aspirin EC Low Dose), 81 MG PO QAM Atorvastatin (Atorvastatin Calcium), 80 MG PO QAM Carvedilol (Coreg), 12.5 MG PO BID Eplerenone (Eplerenone), 25 MG PO DAILY Escitalopram (Lexapro), 10 MG PO DAILY Fluticasone Propionate (Flovent Hfa), 2 PUFFS INH BID Furosemide (Lasix), 40 MG PO DAILY Levetiracetam (Keppra Xr), 500 MG PO BID Levothyroxine Sodium (Levothyroxine Sodium), 150 MCG PO DAILY Potassium Chloride (Klor-Con M20), 20 MEQ PO DAILY Sacubitril-Valsartan (Entresto 24-26 mg), 1 TAB PO BID Trazodone Hcl (Trazodone), 50 MG PO HS Warfarin Sodium (Coumadin), 1 DOSE PO UD Scheduled PRN Albuterol Sulfate (Proair Respiclick), 2 PUFFS INH Q4H PRN for Wheezing Epinephrine (Epipen), 0.3 MG IM UD PRN for Severe Allergis Reaction Lorazepam (Ativan), 1 MG PO HS PRN for Sleep Tramadol HCl (Tramadol HCl), 50 MG PO Q6H PRN for Pain Review of Systems unable to obtain as pt remains obtunded Physical Exam Vital Signs Date Time Temp Pulse Resp B/P (MAP) Pulse Ox O2 Delivery O2 Flow Rate FiO2 10/21/17 19:15 67 18 82/59 95 10/21/17 19:02 67 18 82/59 95 Nasal Cannula 4.0 10/21/17 18:45 67 16 85/47 95 Nasal Cannula 4.0 10/21/17 18:18 64 85/65 95 Nasal Cannula 4.0 10/21/17 18:09 36.6 67 22 71/40 95 Nasal Cannula 4.0 10/21/17 17:49 68 19 79/47 95 Nasal Cannula 4.0 10/21/17 17:17 65 16 83/43 100 Non-Rebreather 15.0 10/21/17 17:13 68 16 72/59 100 Non-Rebreather 15.0 10/21/17 16:55 64 10/21/17 16:44 65 16 74/38 99 Non-Rebreather 15.0 10/21/17 16:35 98 Non-Rebreather 15.0 10/21/17 16:33 66 12 83/49 98 Non-Rebreather 15.0 10/21/17 16:29 83 Room Air 10/21/17 16:20 36.6 72 16 64/46 92 Room Air General Appearance: + pertinent finding (confused -later intubated on sedation ) Head: normocephalic ENT: + pertinent finding (ET tube in place ) Respiratory/Chest: normal breath sounds, + pertinent finding (on mechanical ventilation ) Cardiovascular: regular rate, rhythm Abdomen/GI: soft Extremities/Musculoskelatal: no pedal edema Neurologic/Psych: + pertinent finding (obtuned /on mechanical ventilation / sedated ) Diagnostics Laboratory Results Results Past 24 Hours Test 10/21/17 16:40 10/21/17 17:08 10/21/17 17:19 10/21/17 18:55 Range/Units White Blood Count 19.18 4.8-10.8 K/uL Red Blood Count 3.79 4.7-6.1 M/uL Hemoglobin 11.6 14.0-18.0 g/dL Hematocrit 34.6 42-52 % Mean Corpuscular Volume 91.3 80-100 fL Mean Corpuscular Hemoglobin 30.6 25-34 pg Mean Corpuscular Hemoglobin Concent 33.5 32-36 g/dl Platelet Count 250 130-400 K/uL Mean Platelet Volume 9.4 7.4-10.4 fL Neutrophils (%) (Auto) 80.4 % Lymphocytes (%) (Auto) 8.7 % Monocytes (%) (Auto) 9.9 % Eosinophils (%) (Auto) 0.3 % Basophils (%) (Auto) 0.2 % Neutrophils # (Auto) 15.44 1.4-6.5 K/uL Lymphocytes # (Auto) 1.66 1.2-3.4 K/uL Monocytes # (Auto) 1.90 0.11-0.59 K/uL Eosinophils # (Auto) 0.05 0-0.5 K/uL Basophils # (Auto) 0.04 0-0.2 K/uL RDW Standard Deviation 45.3 36.4-46.3 fL RDW Coefficient of Variation 13.7 11.5-14.5 % Immature Granulocyte % (Auto) 0.5 % Immature Granulocyte # (Auto) 0.09 0.00-0.02 K/uL Prothrombin Time 91.7 9.0-12.0 SECONDS Prothromb Time International Ratio 9.1 0.9-1.1 Activated Partial Thromboplast Time 62.3 21.0-31.0 SECONDS Partial Thromboplastin Ratio 2.4 Sodium Level 133 136-145 mmol/L Potassium Level 4.0 3.5-5.1 mmol/L Chloride Level 100 98-107 mmol/L Carbon Dioxide Level 22 21-32 mmol/L Anion Gap 11.0 3-11 mmol/L Blood Urea Nitrogen 54 7-18 mg/dl Creatinine 6.64 0.60-1.40 mg/dl Est Creatinine Clear Calc Drug Dose 17.0 ml/min Estimated GFR () 10.6 Estimated GFR (Non- 9.1 BUN/Creatinine Ratio 8.2 10-20 Random Glucose 85 70-99 mg/dl Osmolality 292 280-300 mOsm/kg Calcium Level 8.3 8.5-10.1 mg/dl Total Bilirubin 0.3 0.2-1 mg/dl Direct Bilirubin 0.2 0-0.2 mg/dl Aspartate Amino Transf (AST/SGOT) 28 15-37 U/L Alanine Aminotransferase (ALT/SGPT) 21 12-78 U/L Alkaline Phosphatase 112 45-117 U/L Total Creatine Kinase 844 39-308 U/L Creatine Kinase MB 9.6 0.5-3.6 ng/ml Creatine Kinase MB Ratio 1.1 0-3.0 Troponin I 0.065 0-0.045 ng/ml Total Protein 7.7 6.4-8.2 gm/dl Albumin 3.5 3.4-5.0 gm/dl Lipase 58 73-393 U/L Salicylates Level 6.6 2.8-20 mg/dl Acetaminophen Level < 2 10-30 ug/ml Venous Blood pH 7.23 7.36-7.41 Venous Blood Partial Pressure CO2 54 38.0-50.0 mmHg Venous Blood Partial Pressure O2 39 mmHg Venous Blood HCO3 22 mmol/L Venous Blood Oxygen Saturation 62.3 % Venous Blood Base Excess -5.8 mEq/L Urine Opiates Screen NEG NEG Urine Methadone, Qualitative NEG NEG Urine Barbiturates NEG NEG Urine Phencyclidine (PCP) Level NEG NEG Ur Amphetamine/Methamphetamine NEG NEG MDMA (Ecstasy) Screen NEG NEG Urine Benzodiazepines Screen NEG NEG Urine Cocaine Metabolite NEG NEG Urine Marijuana (THC) POS NEG Ethyl Alcohol mg/dL < 3.0 0-3 mg/dl Test 10/21/17 18:58 Range/Units Microbiology Results 10/21/17 Blood Culture, Received Pending 10/21/17 Blood Culture, Received Pending 10/21/17 Urine Culture, Received Pending Impression Assessment and Plan CARDIOGENIC SHOCK severe ischemic cardiomyopathy with EF 20% , LV thrombus Cardiac cath on 12/2016 showed severe CAD with 100 % occlusion of LAD , severe LV dysfunction with akinetic mid distal anterior wall , [place] hx of polysubstance abuse ,medication non compliance presented with hypotension , multi organ failure , not responding to initial fluid bolus intubated started on Dobutamine gtt pt will need Mechanical Circulatory support /ECMO -needs tertiary care support transfer to [facility] for higher level care ANEURIC ACUTE RENAL FAILURE WITH ATN possible due to above Cr > 6 /BUN > 40 ( baseline Cr 1.5 ) AG 13 urine out pt remains minimum after 3 L NSS bolus not a candidate for HD due to cardiogenic shock and hypotension will need CRRT -not available at [facility] will need Tertiary level care v very poor prognosis COAGULOPATHY was on Coumadin for LV thrombus presents with INR > 9 concern for taking extra dose , possible hepatic congestion form Cardiogenic shock given IV Vit K , FFP ACUTE CHOLECYSTITIS evident in CT abdomen /pelvis Lactic acid wnl , procalcitonin 5.31 empiric abx with Zosyn blood culture ordered Surgery evaluated pt in ER pt needs to be hemodynamically stable to have HIDA scan for further eval POLYSUBSTANCE ABUSE : presents with confusion , altered mental status Urine tox positive for THC no with multiorgan failure very poor prognosis FULL CODE DVT PROPHYLAXIS ; INR ELEVATED DISPOSITION : Pt is life flighted to [facility] Level of Care Critical Care Resuscitation Status FULL RESUSCITATION VTE Prophylaxis VTE Risk Assessment Done? Y/N: Yes Risk Level: Moderate
[2017-10-21 19:44] LABS: BUN/CREATININE RATIO 8.9 (10-20); CALCIUM 7.5 mg/dl (8.5-10.1); CREATININE 5.79 mg/dl (0.60-1.40); MAGNESIUM 2.1 mg/dl (1.8-2.4); POTASSIUM 4.1 mmol/L (3.5-5.1)
[2017-10-21] MEDS ORDERED: DOBUTamine / D5W 500 MG IV SCH (19:45)
[2017-10-21] MEDS ORDERED: RAPID SEQUENCE INDUCTION BAG ONE (19:59)
[2017-10-21] MEDS ORDERED: AZITHROMYCIN IV 500 MG in DEXTROSE 5% 250ML 250 ML IV SCH (20:00)
[2017-10-21] MEDS ORDERED: SODIUM CHLORIDE 0.9% 1000ML 500 ML IV ONE (20:00)
[2017-10-21] MEDS ORDERED: MIDAZOLAM 125MG/250ML D5W IV ONE (20:06)
[2017-10-21] MEDS ORDERED: WARF2TAB PO (20:10)
[2017-10-21] MEDS ORDERED: MCRK20 PO (20:10)
[2017-10-21] MEDS ORDERED: FENTANYL CITRATE 1250MCG/250ML NSS ONE (20:10)
[2017-10-21] MEDS ORDERED: EPLE25TA3 PO (20:10)
[2017-10-21] MEDS ORDERED: CARV12.52 PO (20:10)
[2017-10-21] MEDS ORDERED: ULT50 PO (20:10)
[2017-10-21] MEDS ORDERED: FLVHFA110 INH ×2 (20:10→22:27)
[2017-10-21] MEDS ORDERED: FRS/40 PO (20:10)
[2017-10-21 20:34] LABS: URINE APPEARANCE CLOUDY (CLEAR); URINE COLOR DK YELLOW; URINE NITRITE NEG (NEG); URINE SPECIFIC GRAVITY 1.023 (1.000-1.030); UROBILINOGEN NEG (NEG)
[2017-10-21 20:44] LABS: MANUAL MICROSCOPIC REQUIRED? NO; REVIEW REQ? YES; URINE BILIRUBIN NEG (NEG)
[2017-10-21] MEDS ORDERED: NURSING VERBAL MED ORDER ONE ×2 (20:45→21:00)
[2017-10-21 20:49] LABS: URINE MUCUS PRESENT (NONE PRSENT)
[2017-10-21] MEDS ORDERED: FENTANYL 1250MCG/250ML NSS IV PRN (21:00)
[2017-10-21] MEDS ORDERED: VANCOMYCIN INJ 1,000 MG in SODIUM CHLORIDE 0.9% 250ML 250 ML IV SCH (21:00)
[2017-10-21] MEDS ORDERED: MIDAZOLAM 125MG/250ML D5W 250 ML IV PRN (21:00)
[2017-10-21] MEDS ORDERED: FLUTICASONE HFA 110MCG INHALER INH SCH (21:00)
[2017-10-21] MEDS ORDERED: LEVETIRACETAM IV 500 MG in DEXTROSE 5% 100ML 100 ML IV SCH (21:00)
[2017-10-21] MEDS ORDERED: TRAZODONE HCL 50 MG TAB PO SCH (21:00)
--- NOTE | 2017-10-21 22:10 | DIAGNOSTIC IMAGING REPORT ---
CHEST ONE VIEW PORTABLE HISTORY: 47 years-old Male POST INTUBATION acute respiratory failure COMPARISON: Chest radiograph 10/21/2017 at 4:44 PM TECHNIQUE: Portable AP view of the chest FINDINGS: Status post placement of an endotracheal tube which overlies the midline terminating 4.4 cm superior to the michael. Prior median sternotomy. Battery pack device over the lateral left chest is again noted with leads projecting superiorly over the midline. Cardiac silhouette is again mildly enlarged. Lungs are hypoinflated with bronchovascular crowding. Linear subsegmental bibasilar opacities compatible with atelectasis. Bones appear grossly intact. IMPRESSION: 1. Status post placement of an endotracheal tube overlying the midline, 4.4 cm superior to the michael. 2. Hypoinflation with bibasilar atelectasis. The above report was generated using voice recognition software. It may contain grammatical, syntax or spelling errors. Electronically signed by: Zhang Parikh M.D. 10/21/2017 10:08 PM Dictated Date/Time: 10/21/2017 10:04 PM
--- NOTE | 2017-10-21 22:14 | Procedure Note ---
Procedure Note Date of Service Oct 21, 2017. Procedure Note Procedure Date: 10/21/2017 Procedure: Endotracheal intubation Pre-procedure Diagnosis: Cardiogenic shock Post-procedure Diagnosis: same as above Prior to Procedure: Informed Consent: emergent, telephone consent had been obtained from the patient 's contact listed in our medical record Attending Staff: Pam Singleton DO Indications: Patient is a 47 -year-old male who is in uncompensated cardiogenic shock with acute kidney injury, coagulopathy. The identity of the patient was confirmed and a bedside time out was performed. Description of Procedure: Patient was evaluated and required intubation for impending respiratory failure. The patient was prepared in the usual fashion. A glidescope laryngoscope was used. 50 mg of ketamine and 100 mg of fentanyl was used for induction agent. A 8-0 Fr endotrachial tube was placed endotracheally to 21 cm at the teeth. A grade 1 view was obtained. The endotracheal tube was noted to pass through the vocal cords. Chest rise was bilateral. Bilateral breath sounds were heard without air sounds in the abdomen. Mist was noted in the endotracheal tube. End-tidal CO2 measurement was positive. Chest x-ray shows proper endotracheal tube placement. Complications: None Findings: not applicable Specimens: not applicable Estimated blood loss: Zero
--- NOTE | 2017-10-21 22:15 | Procedure Note ---
Procedure Note Procedure Date Oct 21, 2017. Central Line Procedure time out: side/site verified, patient ID confirmed, sterile procedure used Consent obtained: verbal (telephone consent was obtained from the patient's contact listed in the medical record) Performed by: attending Indications: central drug admin. Contraindications: coagulopathy (INR 9) Prep: chlorhexadine prep, sterile drape, sterile procedures used Anesthesia: lidocaine 1% without epi Volume anesthetic (ml's): 2 Central line lumen: triple Central line location: femoral (R) Additional details: ultrasound guidance (dynamic guidance employed), Selinger technique used, line sutured, good blood return CXR: other (not applicable) Complications: none Patient tolerated procedure: well Post-procedure vital signs: reviewed and stable
[2017-10-21] MEDS ORDERED: ZFRI4 IV (22:27)
[2017-10-21] MEDS ORDERED: [UNRECOGNIZED DRUG - CODE] IV (22:27)
--- NOTE | 2017-10-21 22:30 | Pharmacy Progress Note ---
Pharmacy Antibiotic Consult Date of Service: Oct 21, 2017. Pharmacy Dosing Scope Pharmacy is consulted to initiate Vancomycin/Zosyn IV dosing therapy, order appropriate labs and adjust drug dose/frequency. Subjective The patient is a 47 year old male admitted on Oct 21, 2017 at 18:16. Objective Height (Feet): 5 Height (Inches): 10.00 Weight (Kilograms): 108.600 Lab Results (24hrs): Test 10/21/17 16:40 10/21/17 17:08 10/21/17 18:55 10/21/17 18:58 White Blood Count 19.18 K/uL (4.8-10.8) Red Blood Count 3.79 M/uL (4.7-6.1) Hemoglobin 11.6 g/dL (14.0-18.0) Hematocrit 34.6 % (42-52) Mean Corpuscular Volume 91.3 fL (80-100) Mean Corpuscular Hemoglobin 30.6 pg (25-34) Mean Corpuscular Hemoglobin Concent 33.5 g/dl (32-36) Platelet Count 250 K/uL (130-400) Mean Platelet Volume 9.4 fL (7.4-10.4) Neutrophils (%) (Auto) 80.4 % Lymphocytes (%) (Auto) 8.7 % Monocytes (%) (Auto) 9.9 % Eosinophils (%) (Auto) 0.3 % Basophils (%) (Auto) 0.2 % Neutrophils # (Auto) 15.44 K/uL (1.4-6.5) Lymphocytes # (Auto) 1.66 K/uL (1.2-3.4) Monocytes # (Auto) 1.90 K/uL (0.11-0.59) Eosinophils # (Auto) 0.05 K/uL (0-0.5) Basophils # (Auto) 0.04 K/uL (0-0.2) RDW Standard Deviation 45.3 fL (36.4-46.3) RDW Coefficient of Variation 13.7 % (11.5-14.5) Immature Granulocyte % (Auto) 0.5 % Immature Granulocyte # (Auto) 0.09 K/uL (0.00-0.02) Prothrombin Time 91.7 SECONDS (9.0-12.0) Prothromb Time International Ratio 9.1 (0.9-1.1) Activated Partial Thromboplast Time 62.3 SECONDS (21.0-31.0) Partial Thromboplastin Ratio 2.4 Sodium Level 133 mmol/L (136-145) 134 mmol/L (136-145) Potassium Level 4.0 mmol/L (3.5-5.1) 4.1 mmol/L (3.5-5.1) Chloride Level 100 mmol/L (98-107) 105 mmol/L (98-107) Carbon Dioxide Level 22 mmol/L (21-32) 17 mmol/L (21-32) Anion Gap 11.0 mmol/L (3-11) 13.0 mmol/L (3-11) Blood Urea Nitrogen 54 mg/dl (7-18) 51 mg/dl (7-18) Creatinine 6.64 mg/dl (0.60-1.40) 5.79 mg/dl (0.60-1.40) Est Creatinine Clear Calc Drug Dose 17.0 ml/min 19.5 ml/min Estimated GFR () 10.6 12.5 Estimated GFR (Non- 9.1 10.8 BUN/Creatinine Ratio 8.2 (10-20) 8.9 (10-20) Random Glucose 85 mg/dl (70-99) 84 mg/dl (70-99) Osmolality 292 mOsm/kg (280-300) Calcium Level 8.3 mg/dl (8.5-10.1) 7.5 mg/dl (8.5-10.1) Total Bilirubin 0.3 mg/dl (0.2-1) Direct Bilirubin 0.2 mg/dl (0-0.2) Aspartate Amino Transf (AST/SGOT) 28 U/L (15-37) Alanine Aminotransferase (ALT/SGPT) 21 U/L (12-78) Alkaline Phosphatase 112 U/L (45-117) Total Creatine Kinase 844 U/L (39-308) Creatine Kinase MB 9.6 ng/ml (0.5-3.6) Creatine Kinase MB Ratio 1.1 (0-3.0) Troponin I 0.065 ng/ml (0-0.045) Total Protein 7.7 gm/dl (6.4-8.2) Albumin 3.5 gm/dl (3.4-5.0) Lipase 58 U/L (73-393) Salicylates Level 6.6 mg/dl (2.8-20) Acetaminophen Level < 2 ug/ml (10-30) Urine Color DK YELLOW Urine Appearance CLOUDY (CLEAR) Urine pH 5.0 (4.5-7.5) Urine Specific [place] 1.023 (1.000-1.030) Urine Protein TRACE (NEG) Urine Glucose (UA) NEG (NEG) Urine Ketones TRACE (NEG) Urine Occult Blood NEG (NEG) Urine Nitrite NEG (NEG) Urine Bilirubin NEG (NEG) Urine Urobilinogen NEG (NEG) Urine Leukocyte Esterase NEG (NEG) Urine WBC (Auto) 1-5 /hpf (0-5) Urine RBC (Auto) 0-4 /hpf (0-4) Urine Hyaline Casts (Auto) >30 /lpf (0-5) Urine Epithelial Cells (Auto) 10-20 /lpf (0-5) Urine Bacteria (Auto) 1+ (NEG) Urine Pathogenic Casts /lpf (0) Urine Mucus PRESENT (NONE PRSENT) Urine Yeast (Auto) (NONE PRSENT) Venous Blood pH 7.23 (7.36-7.41) Venous Blood Partial Pressure CO2 54 mmHg (38.0-50.0) Venous Blood Partial Pressure O2 39 mmHg Venous Blood HCO3 22 mmol/L Venous Blood Oxygen Saturation 62.3 % Venous Blood Base Excess -5.8 mEq/L Urine Opiates Screen NEG (NEG) Urine Methadone, Qualitative NEG (NEG) Urine Barbiturates NEG (NEG) Urine Phencyclidine (PCP) Level NEG (NEG) Ur Amphetamine/Methamphetamine NEG (NEG) MDMA (Ecstasy) Screen NEG (NEG) Urine Benzodiazepines Screen NEG (NEG) Urine Cocaine Metabolite NEG (NEG) Urine Marijuana (THC) POS (NEG) Ethyl Alcohol mg/dL < 3.0 mg/dl (0-3) Lactic Acid Level 1.3 mmol/L (0.4-2.0) Procalcitonin 5.31 ng/ml (0-0.5) Magnesium Level 2.1 mg/dl (1.8-2.4) Test 10/21/17 21:05 10/21/17 22:00 Lactic Acid Level 1.0 mmol/L (0.4-2.0) Assessment & Plan Pt is a 47yo m p/w MEREDITH, AMS s/p intentional drug overdose. At this juncture qSOFA score of 2. SBP</= 100mmHg w/ concurrent AMS. RR WNL. Further, he is experiencing leukocytosis w/ a left shift. He is afebrile. MRSA nares, BC, and UC are all pending. Procalcitonin=5.31, strongly indicative of bacterial infxn. Pt does not follow population p'kinetics with his poor renal fxn. Vanco: * Vanco 2150mg (~20mg/kg) x1 given in ED. To achieve a peak of roughly 30mcg/mL * No subsequent Vanco maintenance doses ordered at this time due to his MEREDITH. UO minimal at this time. * Goal random lvl for infxn of unknown source: 15-20mcg/mL * Random lvl ordered for 10/22/17 @0444 Zosyn: * Received Zosyn 4.5g 30 min infsn * Then EI Zosyn 4.5g q12, appropriate for eCrCl<20cc/min and poor clinical status(receiving (+)inotropic support) Pharmacy will continue to follow and will adjust dose/frequency as necessary. Thank you
--- NOTE | 2017-10-21 22:31 | Discharge Summary ---
Discharge Summary Date of Service Oct 21, 2017. Discharge Summary Admission Date: Oct 21, 2017 at 18:16 Discharge Date: Oct 21, 2017 Discharge Disposition: Acute care facility ([facility] ) Principal Diagnosis: CARDIOGENIC SHOCK /ARIS Procedures: MECHANICAL INTUBATION CENTRAL LINE PLACEMENT Consultations: SURGICAL SCRUB TECHNOLOGIST SURGERY ID TOOL REPAIRER DIRECTOR INFORMATION SECURITY Medication Reconciliation New Medications: Fluticasone Propionate (Flovent Hfa) 120 Puffs/60624 Mcg Aero 2 PUFFS INH BID, #60 Levothyroxine Sodium (Levothyroxine Sodium) 20 Mcg/1 Ml Inj 75 MCG IV QAM, #30 Ondansetron (Ondansetron Hcl) 2 Mg/Ml Inj 4 MG IV Q6H PRN for Nausea, #30 Discontinued Medications: Albuterol Sulfate (Proair Respiclick) 108 Mcg/Act Aer 2 PUFFS INH Q4H PRN for Wheezing Aspirin (Aspirin EC Low Dose) 81 Mg Ectab 81 MG PO QAM for 30 Days, #30 Atorvastatin (Atorvastatin Calcium) 40 Mg Tab 80 MG PO QAM for 30 Days, #60 TAB Carvedilol (Coreg) 12.5 Mg Tab 12.5 MG PO BID, TAB Epinephrine (Epipen) 0.3 Mg/0.3 Ml Inj 0.3 MG IM UD PRN for Severe Allergis Reaction, BOX Eplerenone (Eplerenone) 25 Mg Tab 25 MG PO DAILY Escitalopram (Lexapro) 10 Mg Tab 10 MG PO DAILY, TAB Fluticasone Propionate (Flovent Hfa) 120 Puffs/12333 Mcg Aero 2 PUFFS INH BID, INHALER Furosemide (Lasix) 40 Mg Tab 40 MG PO DAILY, TAB Levetiracetam (Keppra Xr) 500 Mg Tab 500 MG PO BID, TAB Levothyroxine Sodium (Levothyroxine Sodium) 150 Mcg Tab 150 MCG PO DAILY, TAB TAKE THIS MEDICATION 30 MINUTES BEFORE BREAKFAST OR ANY OTHER MEDICATIONS Lorazepam (Ativan) 1 Mg Tab 1 MG PO HS PRN for Sleep, TAB Potassium Chloride (Klor-Con M20) 20 Meq Tabcr 20 MEQ PO DAILY Sacubitril-Valsartan (Entresto 24-26 mg) 1 Tab Tab 1 TAB PO BID Tramadol HCl (Tramadol HCl) 50 Mg Tab 50 MG PO Q6H PRN for Pain Trazodone Hcl (Trazodone) 50 Mg Tab 50 MG PO HS, TAB Warfarin Sodium (Coumadin) 2 Mg Tab 1 DOSE PO UD, TAB TAKE DAILY DIRECTED BY ANTICOAGULATION CLINIC/MD Admission Information HPI (per Admitting provider): this is a 47 yo M with hx of polysubstance abuse , severe ischemic cardiomyopathy HX of STEMI -late presentation , with complete LAD occlusion / 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 BELT FIXER , EF of 20-15 % with LV thrombus on Coumadin brought to ER by his [place] office as pt violated his probation by taking illegal drugs History is limited as pt presented with confusion /lethargy Last admission at [facility] was Drug overdose /altered mental status , pt left AMA after 1 day on presentation to ER , pt was found Hypotensive in ER SBP in 70's not responding to fluid bolus , White count elevated 19K Urine tx + for Marijuana Cr bumped > 6 ( last cr on 04/30 was 1.5 ) , INR > 9 CT abdomen /pelvis shows possible Cholecystitis pt was admitted to ICU , given IV fluid ~3 L bolus with minimum urine out put broad spectrum ABx with Zosyn /Vancomycin surgery evaluated the pt -needs to be stabilized hemodynamically ,Abx recommended , HIDA scan when stable In ICU , pt continued to be hypotensive -was intubated , started on Dobutamine gtt Dr Singleton spoke with Medical Staff Services Manager machinist/machine builder -pt is in Cardiogenic shock will need transfer to Tertiary Care for mechanical circulatory support /LVAD given pt's prior admission and all cardiac procedure was done at [facility] it will be appropriate to have life flighted pt to [facility] Rn Emergency and Cardio Vascular specialist contacted pt is accepted by Dr Marquez Physical Exam (per Admitting): General Appearance: + pertinent finding (confused -later intubated on sedation ) Head: normocephalic ENT: + pertinent finding (ET tube in place ) Respiratory/Chest: normal breath sounds, + pertinent finding (on mechanical ventilation ) Cardiovascular: regular rate, rhythm Abdomen/GI: soft Extremities/Musculoskelatal: no pedal edema Neurologic/Psych: + pertinent finding (obtuned /on mechanical ventilation / sedated ) Hospital Course CARDIOGENIC SHOCK severe ischemic cardiomyopathy with EF 20% , LV thrombus Cardiac cath on 12/2016 showed severe CAD with 100 % occlusion of LAD , severe LV dysfunction with akinetic mid distal anterior wall , [place] hx of polysubstance abuse ,medication non compliance presented with hypotension , multi organ failure , not responding to initial fluid bolus intubated started on Dobutamine gtt pt will need Mechanical Circulatory support /ECMO -needs tertiary care support transfer to [facility] for higher level care ANEURIC ACUTE RENAL FAILURE WITH ATN possible due to above Cr > 6 /BUN > 40 ( baseline Cr 1.5 ) AG 13 urine out pt remains minimum after 3 L NSS bolus not a candidate for HD due to cardiogenic shock and hypotension will need CRRT -not available at [facility] will need Tertiary level care v very poor prognosis COAGULOPATHY was on Coumadin for LV thrombus presents with INR > 9 concern for taking extra dose , possible hepatic congestion form Cardiogenic shock given IV Vit K , FFP ACUTE CHOLECYSTITIS evident in CT abdomen /pelvis Lactic acid wnl , procalcitonin 5.31 empiric abx with Zosyn blood culture ordered Surgery evaluated pt in ER pt needs to be hemodynamically stable to have HIDA scan for further eval POLYSUBSTANCE ABUSE : presents with confusion , altered mental status Urine tox positive for THC no with multiorgan failure very poor prognosis FULL CODE DVT PROPHYLAXIS ; INR ELEVATED DISPOSITION : Pt is life flighted to [facility] Level of Care Critical Care Resuscitation Status FULL RESUSCITATION VTE Prophylaxis VTE Risk Assessment Done? Y/N: Yes Risk Level: Moderate Total time spent on discharge = 40 MINS This includes examination of the patient, discharge planning, medication reconciliation, and communication with other providers. Discharge Instructions Discharge Instructions Date of Service Oct 21, 2017. Admission Reason for Admission: Aris (Acute Kidney Injury), Drug Overdose, Discharge Discharge Diagnosis / Problem: CARDIOGENIC SHOCK /ARIS Discharge Goals Goal(s): Diagnostic testing, Therapeutic intervention Activity Recommendations Activity Limitations: per Instructions/Follow-up section COMPLETE BED REST /MECHANICAL VENTILATION /IV PRESSORS . Instructions / Follow-Up Instructions / Follow-Up PATIENT IS TRANSFERRED TO [facility] Current Hospital Diet Patient's current hospital diet: Discharge Diet Recommended Diet: N/A Pending Studies Studies pending at discharge: no Medical Emergencies . Who to Call and When: Medical Emergencies: If at any time you feel your situation is an emergency, please call 911 immediately. . Non-Emergent Contact Non-Emergency issues call your: Primary Care Provider . . "Provider Documentation" section prepared by Sharon Albert. . VTE Core Measure Inpt VTE Proph given/why not?: Treatment not indicated
[2017-10-22] MEDS ORDERED: PIPERACILL/TAZOBAC IV 4.5 GM in DEXTROSE 5% 100ML 100 ML IV SCH ×2
[2017-10-22] MEDS ORDERED: PIPERACILL/TAZOBAC IV 3.375 GM in DEXTROSE 5% 100ML 100 ML IV SCH (02:00)
[2017-10-22] MEDS ORDERED: PIPERACILL/TAZOBAC IV 4.5 GM in DEXTROSE 5% 100ML IV SCH (02:00)
[2017-10-22] MEDS ORDERED: LEVOTHYROXINE 150 MCG TAB PO SCH (09:00)
[2017-10-22] MEDS ORDERED: LEVOTHYROXINE SODIUM 20 MCG/1 ML IV SCH (09:00)
[2017-10-22] MEDS ORDERED: PANTOprazole INJ 40 MG in SYRINGE 0 ML IV SCH (09:00)
[2017-10-22] MEDS ORDERED: AZITHROMYCIN 250 MG TAB PO SCH (09:00)
--- NOTE | 2017-10-24 11:38 | Medical Consult ---
Consultation Note Date of Service Oct 24, 2017. Consultation Note Infectious disease consultation was requested, but patient was intubated and life flighted to [facility] prior to ability to perform consultation. Therefore no Infectious Disease consultation was performed.
== END 2017-10-21 22:40 | disposition short-term general hospital (02) | DRG 871 ==
LOC: C.EDB 16:18 → C.MSICU 18:16 → ENRESERV 18:33
PROVIDERS: ADMIT Hospitalist; ATTEND Hospitalist
PROC: 0BH13EZ Insertion of Endotracheal Airway into Trachea, Percutaneous Approach (ICD-10-PCS; principal; 2017-10-21)
PROC: 06HM33Z Insertion of Infusion Device into Right Femoral Vein, Percutaneous Approach (ICD-10-PCS; principal; 2017-10-21)
PROC: 0T9B70Z Drainage of Bladder with Drainage Device, Via Natural or Artificial Opening (ICD-10-PCS; 2017-10-21)
DX: A41.9 Sepsis, unspecified organism (principal); R57.0 Cardiogenic shock; N17.0 Acute kidney failure with tubular necrosis; D68.32 Hemorrhagic disorder due to extrinsic circulating anticoagulants; K81.0 Acute cholecystitis; T40.0X2A Poisoning by opium, intentional self-harm, initial encounter; T40.4X2A Poisoning by other synthetic narcotics, intentional self-harm, initial encounter; T42.4X2A Poisoning by benzodiazepines, intentional self-harm, initial encounter; T43.622A Poisoning by amphetamines, intentional self-harm, initial encounter; T40.7X1A Poisoning by cannabis (derivatives), accidental (unintentional), initial encounter; I25.5 Ischemic cardiomyopathy; I51.3 Intracardiac thrombosis, not elsewhere classified; I25.10 Atherosclerotic heart disease of native coronary artery without angina pectoris; F17.200 Nicotine dependence, unspecified, uncomplicated; I10 Essential (primary) hypertension; E78.5 Hyperlipidemia, unspecified; E03.9 Hypothyroidism, unspecified; F32.9 Major depressive disorder, single episode, unspecified; F41.9 Anxiety disorder, unspecified; M19.90 Unspecified osteoarthritis, unspecified site; I25.2 Old myocardial infarction; Z79.01 Long term (current) use of anticoagulants; Z79.82 Long term (current) use of aspirin; Z79.899 Other long term (current) drug therapy

== ENCOUNTER 2017-10-30 01:53 | Inpatient (IN) | payer OTHER ==
[2017-10-30] VITALS (7 sets, daily range): BP systolic 98–132; BP diastolic 61–92; PULSE 70–84; TEMP 36.7–37; O2SAT 92–100; Ht 177.8 cm; Wt 102.9 kg
[~2017-10-30] VITALS: Ht 177.8 cm; Wt 102.9 kg
[~2017-10-30 01:53] MED LIST changes: +ALBU18002 INH; +CARV12.52 PO; +EPLE25TA3 PO; +ESCI10TA17 PO; -ESCI1TAB6 PO; +FLVHFA110 INH; +FRS/40 PO; -LEVE500T PO; +LEVE500T14 PO; -LPR25 PO; +MCRK20 PO; +SACU1TAB PO; +ULT50 PO; +WARF2TAB PO; -WARF5TAB90 PO; +ZFRI4 IV; +[UNRECOGNIZED DRUG - CODE] IV
--- NOTE | 2017-10-30 02:16 | EMERGENCY ROOM VISIT NOTE ---
History Report prepared by Campos: Yara Rangel Under the Supervision of: Last BiggsO. First contact with patient: 02:04 Chief Complaint: ALTERED MENTAL STATUS Stated Complaint: FALL/ALTERED MENTAL STATUS History of Present Illness The patient is a 47 year old male who presents to the Emergency Room with complaints of a fall occurring shortly prior to arrival. Per chief business development officer, the patient suddenly passed out and fell backwards. Limited HPI secondary to altered mental status. Guards with the patient state he appeared to be passing out and no one was able to catch him before he fell backwards and hit his head. They state he just returned to [facility] after being discharged from [facility]. Pt states his head hurts, doesn't recall feeling syncopal. Guards deny pt had a seizure. Review of EMR shows pt admitted 1-2 weeks ago and ultimately transferred to [facility] due to cardiogenic shock and acute renal failure. Pt with hx of substance abuse, seizures, ischemic CM and defibrillator. Source of History: patient, other (chief business development officer) History Limited By: AMS Onset: shortly prior to arrival Position: other (global) Quality: other (fall) Review of Systems Limited ROS secondary to altered mental status. Past Medical & Surgical Medical Problems: (1) MEREDITH (acute kidney injury) (2) AMI (acute myocardial infarction) (3) Anxiety (4) Drug overdose, multiple drugs (5) Encephalopathy (6) Headaches due to old head trauma (7) Hypothyroidism (8) Muscle spasms of neck (9) Osteoarthritis (arthritis due to wear and tear of joints) (10) Overdose Family History Patient reports no known family medical history. Social History Smoking Status: Former Smoker Alcohol Use: occasionally Drug Use: none Marital Status: single Current/Historical Medications Scheduled Acetaminophen (Tylenol), 1,000 MG PO Q8 Aspirin (Aspirin Ec), 81 MG PO QAM Atorvastatin (Lipitor), 80 MG PO HS Carvedilol (Coreg), 1 TAB PO BID Divalproex Sodium (Divalproex Sodium Dr), 250 MG PO BID Escitalopram (Lexapro), 10 MG PO DAILY Fluticasone Propionate (Flovent Hfa), 2 PUFFS INH BID Furosemide (Lasix), 40 MG PO DAILY Levetiracetam (Keppra Xr), 500 MG PO BID Levothyroxine Sodium (Levothyroxine Sodium), 150 MCG PO DAILY Lorazepam (Ativan), 1 MG PO HS Metoprolol Succ (Toprol Xl) (Toprol-Xl), 50 MG PO DAILY Polyethylene Glycol 3350 (Miralax), 17 GM PO DAILY Sacubitril-Valsartan (Entresto 24-26 mg), 1 TAB PO BID Warfarin Sod (Jantoven), 5 MG PO DAILY Scheduled PRN Albuterol Sulf (Albuterol Sulfate), 3 ML INH TID PRN for SOB/Wheezing Tramadol (Ultram), 1 TAB PO Q6 PRN for Pain Allergies Coded Allergies: Amlodipine (Verified Allergy, Intermediate, Hives, 04/20/17) Lisinopril (Verified Allergy, Intermediate, Hives, 04/20/17) Tizanidine (Verified Allergy, Intermediate, Hives, 04/20/17) Physical Exam Vital Signs Date Time Temp Pulse Resp B/P (MAP) Pulse Ox O2 Delivery O2 Flow Rate FiO2 10/30/17 04:20 80 18 150/96 98 Room Air 10/30/17 03:09 81 18 118/87 96 Room Air 10/30/17 02:00 91 10/30/17 01:58 36.6 87 20 132/96 97 Room Air Physical Exam GENERAL: alert, well appearing, well nourished, no distress, non-toxic HEAD: Large occipital scalp hematoma and abrasion. EYE EXAM: normal conjunctiva, PERRL and EOM's grossly intact OROPHARYNX: no exudate, no erythema, lips, buccal mucosa, and tongue normal and mucous membranes are moist NECK: supple, no nuchal rigidity, no adenopathy, non-tender LUNGS: Lung sounds decreased bilaterally. No wheezes, rhonchi, or rales. HEART: no murmurs, S1 normal and S2 normal CHEST: Well-healed vertical midline sternotomy scar. ABDOMEN: abdomen soft, non-tender, normo-active bowel sounds, no masses, no rebound or guarding. BACK: Back is symmetrical on inspection and there is no deformity, no midline tenderness, no CVA tenderness. SKIN: no rashes and no bruising UPPER EXTREMITIES: upper extremities are grossly normal. LOWER EXTREMITIES: No pitting edema. NEURO EXAM: The patient is mildly confused. Odd behavior during questioning. Medical Decision & Procedures ER Provider Diagnostic Interpretation: Radiology results have been interpreted by [facility]. CT HEAD: Comparison is made to prior CT head on 10/21/2017. No acute intracranial abnormality identified. Large right parietal scalp hematoma. No acute fractures. Right greater than left maxillary sinus mucosal thickening. Mucosal thickening in the sphenoid sinuses and posterior ethmoid air cells. Probbably cerumen in the external auditory canals, left greater than right. CT C SPINE: Comparison is made to prior CT C-Spine on 11/24/2013. No acute traumatic abnormality identified. Stable small benign lucencies in the posterior C5 vertebral body and C3 vertebral body. Mild degenerative changes of the spine. Small amount of fluid in the left mastoid air cells. Emphysematous changes in the lung apices. Scattered lymph nodes are nonspecific but may be reactive. Radiology results have been interpreted by and reviewed by me. Chest X-Ray: Pacemaker noted. Midline sternotomy wires noted. No cardiomegaly. No effusion. No wide mediastinum. No pneumothorax. Slightly increased marking noted on left, however similar compared to prior. Pelvis X-Ray: No acute fracture or dislocation. Laboratory Results Test 10/30/17 00:00 10/30/17 02:00 10/30/17 02:32 Urine Color DK YELLOW Urine Appearance CLEAR (CLEAR) Urine pH 5.5 (4.5-7.5) Urine Specific [place] 1.027 (1.000-1.030) Urine Protein 2+ (NEG) Urine Glucose (UA) NEG (NEG) Urine Ketones TRACE (NEG) Urine Occult Blood NEG (NEG) Urine Nitrite NEG (NEG) Urine Bilirubin NEG (NEG) Urine Urobilinogen NEG (NEG) Urine Leukocyte Esterase NEG (NEG) Urine WBC (Auto) 1-5 /hpf (0-5) Urine RBC (Auto) 0-4 /hpf (0-4) Urine Hyaline Casts (Auto) >30 /lpf (0-5) Urine Epithelial Cells (Auto) 10-20 /lpf (0-5) Urine Bacteria (Auto) 1+ (NEG) Urine Renal Epithelial Cells /lpf (0-5) Urine Pathogenic Casts /lpf (0) Urine Mucus PRESENT (NONE PRSENT) Urine Sperm (Auto) PRESENT (NOT PRESENT) Urine Opiates Screen NEG (NEG) Urine Methadone, Qualitative NEG (NEG) Urine Barbiturates NEG (NEG) Urine Phencyclidine (PCP) Level NEG (NEG) Ur Amphetamine/Methamphetamine NEG (NEG) MDMA (Ecstasy) Screen NEG (NEG) Urine Benzodiazepines Screen POS (NEG) Urine Cocaine Metabolite NEG (NEG) Urine Marijuana (THC) POS (NEG) Magnesium Level 2.2 mg/dl (1.8-2.4) Troponin I < 0.015 ng/ml (0-0.045) Ammonia 19.0 umol/L (11-32) Ethyl Alcohol mg/dL < 3.0 mg/dl (0-3) Date/Time Source Procedure Growth Status 10/30/17 00:00 Urine , Clean Catch Urine Culture - Final NO GROWTH - LESS THAN 1,000 COLONIES/ML Complete Laboratory results per my review. Medications Administered Medications (Trade) Dose Ordered Sig/Theresa Route Start Time Stop Time Status Last Admin Dose Admin Sodium Chloride 1,000 ml @ 250 mls/hr Q4H STAT IV 10/30/17 04:01 10/30/17 05:34 DC 10/30/17 04:01 250 MLS/HR Diphtheria/ Pertussis/Tetanus Vacc (Adacel Inj) 0.5 ml ONCE ONCE IM. 10/30/17 04:15 10/30/17 04:16 DC 10/30/17 04:15 0.5 ML ECG Indication: syncope Rate (beats per minute): 83 Rhythm: sinus rhythm Findings: Q waves (V2, V3, V4), other (normal axis, normal intervals, baseline artifact noted) ED Course 0209: The patient was evaluated in room B11B. A complete history and physical exam was performed. 0401: Ordered Sodium Chloride 1,000 ml @ 250 mls/hr IV. 0405: I checked on the patient. 0415: Ordered Adacel Inj 0.5 ml IM. 0426: Upon reevaluation, the patient is resting. I discussed the findings and the treatment plan with the patient. He expresses agreement and understanding. [facility] He will be evaluated for further management. Medical Decision Differential diagnosis: Etiologies such as metabolic, infection, hypoglycemia, electrolyte abnormalities , cardiac sources, intracerebral event, toxicologic, neurologic, fracture, dislocation, intra-abdominal, pneumothorax, intrathoracic , intracranial, neurologic, as well as other traumatic pathologies were entertained. Pt here with large posterior scalp hematoma consistent with description of fall , no other evidence of trauma on physical exam. Pt intermittently gives appropriate answers to questions and then at other times will given odd answers such as "170". No obvious lab abnormalities such as on previous admission - renal function normal, no obvious infections etiology. Imaging reassuring. VS stable. No etoh/drugs noted. No seizures reported by [facility] staff. Pt admitted for additional evaluation given AMS and comorbidities. Unclear etiology of syncopy leading to fall, pt with cardiac hx. Unclear with AMS related to substance abuse, concussion, seizures, etc. Medication Reconcilliation Current Medication List: was personally reviewed by me Blood Pressure Screening Patient's blood pressure: Elevated blood pressure Blood pressure disposition: Elevated BP felt to be situational Consults Time Called: [phone] Consulting Physician: Dr. Frances Shields Returned Call: [phone] I reviewed the patient's case with Dr. Pennington. He will evaluate the patient for further management. Impression Primary Impression: Altered mental status Additional Impressions: Closed head injury Abrasion Scalp hematoma Syncope Scribe Attestation The scribe's documentation has been prepared under my direction and personally reviewed by me in its entirety. I confirm that the note above accurately reflects all work, treatment, procedures, and medical decision making performed by me. Departure Information Dispostion Being Evaluated By Hospitalist Referrals No Doctor, Assigned (PCP) Patient Instructions My [facility] Problem Qualifiers Primary Impression: Altered mental status Altered mental status type: unspecified Qualified Codes: R41.82 - Altered mental status, unspecified Additional Impressions: Closed head injury Encounter type: initial encounter Qualified Codes: S09.90XA - Unspecified injury of head, initial encounter Scalp hematoma Encounter type: initial encounter Qualified Codes: S00.03XA - Contusion of scalp, initial encounter Syncope Syncope type: unspecified Qualified Codes: R55 - Syncope and collapse
[2017-10-30 02:27] LABS: HEMATOCRIT 34.5 % (42-52); MEAN CORPUSCULAR HEMOGLOBIN 31.2 pg (25-34); MEAN CORPUSCULAR HGB CONC 33.9 g/dl (32-36); PLATELET COUNT 317 K/uL (130-400); RED BLOOD COUNT 3.75 M/uL (4.7-6.1); WHITE BLOOD COUNT 13.76 K/uL (4.8-10.8)
[2017-10-30 02:35] LABS: ALT/SGPT 27 U/L (12-78); AST/SGOT 29 U/L (15-37); BLOOD UREA NITROGEN 12 mg/dl (7-18); CALCIUM 9.1 mg/dl (8.5-10.1); CARBON DIOXIDE 27 mmol/L (21-32); CHLORIDE 105 mmol/L (98-107); CREATININE 1.53 mg/dl (0.60-1.40); GLUCOSE 99 mg/dl (70-99); MAGNESIUM 2.2 mg/dl (1.8-2.4); POTASSIUM 3.7 mmol/L (3.5-5.1); SODIUM 139 mmol/L (136-145)
[2017-10-30] MEDS ORDERED: ATOR-26 PO (02:38)
[2017-10-30 02:40] LABS: ALB/GLOB RATIO 0.6 (0.9-2); ALKALINE PHOSPHATASE 96 U/L (45-117)
[2017-10-30] MEDS ORDERED: ASPI81TA28 PO (02:40)
[2017-10-30 02:42] LABS: INR 1.9 (0.9-1.1); PROTHROMBIN TIME (PATIENT) 19.3 SECONDS (9.0-12.0)
[2017-10-30] MEDS ORDERED: LEVO150T9 PO (02:43)
[2017-10-30] MEDS ORDERED: METO50TA7 PO (02:48)
[2017-10-30] MEDS ORDERED: POLY335019 PO (02:49)
[2017-10-30 02:52] LABS: BASO % 0.7 %; BASO ABS # 0.09 K/uL (0-0.2); COMPLETE YES; EOS % 3.1 %; IG% 0.7 %; LYMPH % 18.9 %; MONO % 9.2 %; NEUT % 67.4 %
[2017-10-30] MEDS ORDERED: DPKEC250 PO (02:53)
[2017-10-30] MEDS ORDERED: ACET-1256 PO (02:58)
[2017-10-30] MEDS ORDERED: ALBINS INH (03:10)
[2017-10-30] MEDS ORDERED: SODIUM CHLORIDE 0.9% 1000ML 1,000 ML IV STA (04:01)
[2017-10-30] MEDS ORDERED: DIPHTHERIA/TETANUS/PERTUSSIS 0.5 ML SYR/VIAL IM. ONE (04:15)
[2017-10-30] MEDS ORDERED: PHYTONADIONE 5 MG TAB PO STA (05:20)
[2017-10-30] MEDS ORDERED: ACETAMINOPHEN 325 MG TAB PO PRN (05:30)
[2017-10-30] MEDS ORDERED: NITROGLYCERIN 0.4 MG SL PER TAB CHARGE SL PRN (05:30)
[2017-10-30] MEDS ORDERED: LORAZEPAM INJ 1 MG in SYRINGE 0.5 ML IV PRN (06:00)
[2017-10-30] MEDS: LORAZEPAM 2 MG/ML 1 ML VIAL IV PRN (06:17)
[2017-10-30] MEDS ORDERED: LEVALBUTEROL/IPRATROPIUM NEB INH STA (06:30)
[2017-10-30] MEDS ORDERED: LEVALBUTEROL/IPRATROPIUM NEB INH PRN (06:30)
[2017-10-30] MEDS ORDERED: LEVALBUTEROL 1.25MG/0.5ML NEB INH STA (06:34)
[2017-10-30] MEDS ORDERED: IPRATROPIUM BROMIDE NEB SOLN 0.02% 2.5 ML VIAL INH STA (06:34)
[2017-10-30] MEDS ORDERED: AMPICILLIN/SULBACTAM SOD INJ 3,000 MG in SODIUM CHLORIDE 0.9% 100ML 100 ML IV STA (06:40)
[2017-10-30] MEDS ORDERED: AMPICILLIN/SULBACTAM CONSULT ACTIVE PRN ×2 (06:43)
[2017-10-30] MEDS ORDERED: PROCHLORPERAZINE INJ 5 MG in SYRINGE 4 ML IV PRN (06:45)
[2017-10-30] MEDS ORDERED: LEVALBUTEROL 1.25MG/0.5ML NEB INH PRN (06:45)
[2017-10-30] MEDS ORDERED: IPRATROPIUM BROMIDE NEB SOLN 0.02% 2.5 ML VIAL INH PRN (06:45)
--- NOTE | 2017-10-30 06:51 | DIAGNOSTIC IMAGING REPORT ---
CERVICAL SPINE W/O CLINICAL HISTORY: 47 years-old Male presenting with trauma, ams, fall. TECHNIQUE: Multidetector CT of the cervical spine was performed without the use of intravenous contrast. IV contrast: None. A dose lowering technique was used consistent with the principles of ALARA (as low as reasonably achievable). COMPARISON: None. CT DOSE (mGy.cm): The estimated cumulative dose is 1097.[address] head. FINDINGS: Branch Specialist topogram: Median sternotomy wires noted. Additional linear radio density may also represent poststernotomy changes. Straightening of normal cervical lordosis likely positional. Well-defined lucent lesion in optimal vertebral bodies with a nonaggressive appearance. These do not appear degenerative in etiology and are not associated with the endplates. Vertebral bodies overall maintain normal height and alignment. Intervertebral disc spaces preserved. No significant degenerative change. No acute fracture or subluxation. Skull base intact. Cerumen noted in the external auditory canals. Trace fluid in the bilateral mastoid air cells. Trace apical emphysema. Slightly prominent cervical lymph nodes, left greater than right, possibly reactive. IMPRESSION: No acute osseous injury of the cervical spine. Indeterminate nonaggressive appearing lucent lesions in the vertebral bodies. Electronically signed by: Kev Vázquez M.D. 10/30/2017 6:50 AM Dictated Date/Time: 10/30/2017 6:46 AM
--- NOTE | 2017-10-30 06:55 | DIAGNOSTIC IMAGING REPORT ---
HEAD WITHOUT CONTRAST (CT) CLINICAL HISTORY: 47 years-old Male presenting with trauma, ams. TECHNIQUE: Multidetector CT imaging of the head was performed without the use of intravenous contrast. IV contrast: None. A dose lowering technique was used consistent with the principles of ALARA (as low as reasonably achievable). COMPARISON: 10/21/2017. CT DOSE (mGy.cm): The estimated cumulative dose is 1097.34 mGy.cm. FINDINGS: Oil Derrick Operator topogram: Unremarkable. Ventricles and sulci normal in size. Brain parenchyma normal in appearance with preserved scott-white differentiation. No mass effect or midline shift. No hemorrhage or acute territorial infarct. No extra-axial fluid collection. Mucosal thickening in the bilateral maxillary sinuses, right greater than left. Subgaleal hematoma with overlying soft tissue contusion and laceration at the right parietal vertex. No subjacent osseous injury. IMPRESSION: 1. No acute intracranial abnormality. 2. Subgaleal hematoma with contusion and laceration of the superficial soft tissues at the right parietal vertex. No subjacent osseous injury. Electronically signed by: Kev Vázquez M.D. 10/30/2017 6:53 AM Dictated Date/Time: 10/30/2017 6:50 AM
--- NOTE | 2017-10-30 07:06 | HISTORY & PHYSICAL EXAMINATION ---
DATE OF ADMISSION: 10/30/2017 PRIMARY CARE DOCTOR: Feliciano Holguin MD CHIEF COMPLAINT: Hit my head, seizures. HISTORY OF PRESENT ILLNESS: Patient is currently a [facility] usp inmate. History obtained from patient, usp nurse, records. Patient is an unreliable historian. Medical history significant for seizure disorder, polysubstance abuse, chronic systolic heart disease (EF 15-20% as per records) sp ICD, ischemic cardiomyopathy, CAD, history PAF/LV thrombus on anticoagulation, chronic anemia (baseline hemoglobin 11), chronic renal insufficiency (baseline creatinine 1.5 to 1.7), hypothyroidism, hx past tobacco/ETOH abuse as per records. Recent confinement on last October 21, 2017 [facility] for cardiogenic shock, renal failure (serum creatinine 6). Patient brought in for confusion and lethargy, noted to be hypotensive, Subsequently intubated and transferred to [facility]. Patient discharged from [facility] to [facility] yesterday. Patient had broken his parole for illicit drug use as per records prior to recent confinement. As per outpatient Cardiology records, patient has a history of cardiogenic shock status post ECMO at [facility]. Had postextubation seizures and maintained Keppra XR at home. Keppra XR replaced with Depakote following discharge from [facility] yesterday. As per corrections nurse, two witnessed seizures/convulsions in usp yesterday. Not classic grand mal as per RN, some confusion noted after. Odd behavior and inappropriate responses to queries regarding his medical history. RN not sure about patient baseline mentation. Patient was walking back to his cell last night accompanied by driver guard when he made strange noises, subsequently fell down and hit his head. No obvious seizures, no loss of consciousness. Painful swelling noted on the right head post fall. No change in mentation after head trauma. Patient denies chest pain or shortness of breath or syncope. Complaining of headache. Patient brought to the Emergency Room. MEDICAL HISTORY: As above. SURGERIES: ICD CURRENT MEDICATIONS: aspirin, Tylenol, albuterol, Lipitor, Lexapro, valproic acid, Lasix, levothyroxine, MiraLax, Toprol-XL, Entresto. ALLERGIES: LISINOPRIL, AMLODIPINE, AND TIZANIDINE. FAMILY HISTORY: Could not be obtained. PERSONAL AND SOCIAL HISTORY: Past tobacco abuse/ETOH abuse as per records. Currently incarcerated. REVIEW OF SYSTEMS: Could not be reliably obtained. PHYSICAL EXAMINATION: VITAL SIGNS: Blood pressure was noted to be 113/77, SD 90 RR 18 T 37, O2 sats 96% on room air. GENERAL: Noted to be comfortable, coherent but disoriented. Inappropriate response to some questions. SKIN: Pallor , warm . HEENT: Tender swelling right posterior scalp. Pale palpebral conjunctivae, no ptosis, dry buccal mucosa. CHEST: Decreased effort. No tenderness. HEART: Diminished S1 and S2. Regular rate and rhythm. ABDOMEN: Soft and nontender. EXTREMITIES: No edema, no LE tenderness. No gross deformities. NEUROLOGIC: Coherent but disoriented. Gait and stance not assessed. LABORATORY DATA: Hemoglobin was noted to be 11.7, and platelets 317. Sodium was noted to be 137 potassium 3.7, chloride 105, CO2 of 27, BUN 12, creatinine 1.5, and glucose 99. TSH was noted to be 18. trop 0 INR 1.9 Chest x-ray as per my interpretation atelectasis, ICD CT of the head initial read large right parietal scalp hematoma. CT spine initial read, degenerative changes. EKG as per my interpretation rate 85, normal sinus rhythm, T-wave flattening in lateral leads ASSESSMENT: 1. Recurrent seizures history of seizure disorder Currently on Valproic acid post recent [facility] confinement for cardiogenic shock. Unclear why home Keppra XR was discontinued upon discharge from [facility]. 2. Encephalopathy Inappropriate responses to some queries likely chronic possibly resulting from years of polysubstance abuse/probable anoxic/ cerebrovascular insult given recent history of cardiogenic shock requiring intubation/hx TBI as per records 3. Scalp hematoma secondary to witnessed mechanical fall Hemoglobin at baseline 4. Chronic systolic heart failure secondary to ischemic cardiomyopathy sp ICD, patient euvolemic 5. hx CAD PER RECORDS 6. PAF/hx LV thrombus on Coumadin, patient NSR, INR slightly subtherapeutic 7. HTN, stable 8. CRI. Creatinine possibly at baseline. 9. Past tobacco/ETOH abuse as per records PLAN: PCU. Seizure precautions. Follow valproic acid level. EEG. Neurology consult RE recurrent seizures. Obtain records of recent confinement from [facility]. PO Vitamin K 1 dose for scalp hematoma in the setting of mild coagulopathy secondary to Coumadin intake. Follow H&H. Hold ASA, Coumadin until hemoglobin stable DVT prophylaxis, SCDs while INR less than 2 wh Coumadin on hold Full code. Case discussed with Ms. Alpa Sebastian, [facility] office administrator. Patient family may not be contacted for additional information or consent for procedures (blood transfusion, etc.) Blood transfusion would have to be deemed emergent by attending physician if necessary as patient unable to consent with sound mentation. ADDENDUM : Seizure-like activity lasting a few minutes with this by staff upon patient arrival at the telemetry room. Arm flailing, convulsive motions, upward rolling of eyeballs followed by some episode of confusion- not classic grand mal as per RN account. Cough symptoms noted - aspiration suspected as per RN account. Depakote level within normal limits. Unasyn for possible aspiration pneumonitis. Case discussed with Dr. Delvalle (neurologist on-call). She recommends Keppra 1 g twice a day loading followed by oral Keppra 500 mg twice a day starting tomorrow. MTDD
--- NOTE | 2017-10-30 07:07 | DIAGNOSTIC IMAGING REPORT ---
PELVIS 1 OR 2 VIEW ROUTINE CLINICAL HISTORY: 47 years-old Male presenting with trauma. TECHNIQUE: Single frontal view of the pelvis was obtained. COMPARISON: Plain radiographs of the hips from [address] from 10/21/2017. FINDINGS: Pubic symphysis and sacral iliac joints intact. Hip joints intact. 2 surgical clips project over the left femoral neck. No advanced degenerative change. Bony pelvis intact. Arcuate lines grossly intact. Nonobstructive bowel gas pattern. Bladder distention suggested. IMPRESSION: No acute osseous injury of the pelvis. Electronically signed by: Kev Vázquez M.D. 10/30/2017 7:05 AM Dictated Date/Time: 10/30/2017 7:03 AM
--- NOTE | 2017-10-30 07:10 | DIAGNOSTIC IMAGING REPORT ---
CHEST 1 VW FRONT-NOT PORTABLE CLINICAL HISTORY: 47 years-old Male presenting with trauma. TECHNIQUE: Portable upright AP view of the chest was obtained. COMPARISON: 10/21/2017. FINDINGS: The endotracheal tube has been removed. Median sternotomy wires and additional linear radiodensity likely associated with the sternotomy is unchanged. An implanted device projects over the left inferior lateral chest wall. Few overlying external leads degrade image quality. Cardiac silhouette within normal limits. Prominence of pulmonary vasculature. Patchy opacities in the perihilar and basilar lungs, left greater than right. However, improved aeration of the left lung base. No large pleural effusion or pneumothorax. Osseous structures normal. IMPRESSION: 1. Basilar opacities predominantly on the left new from prior. Given the clinical history, this could represent pulmonary contusion, aspiration, edema, or less likely infection. 2. Despite this, improved aeration of the left lung base comparison to prior status post extubation area. 3. Pulmonary vascular prominence and vague central opacities could suggest early pulmonary edema. Electronically signed by: Kev Vázquez M.D. 10/30/2017 7:09 AM Dictated Date/Time: 10/30/2017 7:06 AM
--- NOTE | 2017-10-30 07:13 | DIAGNOSTIC IMAGING REPORT ---
CHEST ONE VIEW PORTABLE CLINICAL HISTORY: 47 years-old Male presenting with cough, recent trauma. TECHNIQUE: Portable upright AP view of the chest was obtained. COMPARISON: 10/30/2017 at 2:56 AM. FINDINGS: Median sternotomy wires intact. Implanted device over the left inferior lateral chest wall with a lead projecting to the linear midline radiodensity. Cardiac silhouette top normal in size. Pulmonary vascular prominence. Bronchial wall thickening. Left greater than right basilar predominant opacities. No large pleural effusion or pneumothorax. Osseous structures normal. Upper abdomen normal. IMPRESSION: 1. Basilar consolidation most prominent on the left. An infectious etiology cannot be excluded, however, given the presence of pulmonary vascular prominence and bronchial wall cuffing, pulmonary edema should also be considered. Aspiration and contusion may also appear similarly. Electronically signed by: Kev Vázquez M.D. 10/30/2017 7:12 AM Dictated Date/Time: 10/30/2017 7:09 AM
[2017-10-30] MEDS ORDERED: LEVETIRACETAM IV 1,000 MG in DEXTROSE 5% 100ML 100 ML IV ONE ×2 (07:15→21:00)
[2017-10-30] MEDS: DIVALPROEX SODIUM 250 MG DELAY REL TAB PO SCH ×2 (07:58→21:27)
[2017-10-30] MEDS: ESCITALOPRAM OXALATE 10 MG TAB PO SCH (07:59)
[2017-10-30] MEDS: SACUBITRIL-VALSARTAN 24-26 MG TAB PO SCH ×2 (07:59→21:00)
[2017-10-30] MEDS: METOPROLOL SUCC 50MG EXT REL TAB PO SCH (08:01)
[2017-10-30] MEDS ORDERED: INFLUENZA ADMINISTRATION CHARGE ONE (08:30)
[2017-10-30] MEDS ORDERED: INFLUENZA VIRUS QUAD VACCINE 0.5 ML SYR IM. ONE (08:30)
[2017-10-30] MEDS ORDERED: PNEUMOCOCCAL POLYSACCHARIDES 25 MCG/0.5 ML VIAL/SYR IM. ONE (08:30)
[2017-10-30] MEDS ORDERED: PNEUMOCOCCAL ADMINISTRATION CHARGE ONE (08:30)
[2017-10-30 08:58] LABS: URINE APPEARANCE CLEAR (CLEAR); URINE BILIRUBIN NEG (NEG); URINE COLOR DK YELLOW; URINE NITRITE NEG (NEG); URINE PH 5.5 (4.5-7.5); URINE SPECIFIC GRAVITY 1.027 (1.000-1.030); UROBILINOGEN NEG (NEG)
[2017-10-30 08:59] LABS: MANUAL MICROSCOPIC REQUIRED? NO; REVIEW REQ? YES
[2017-10-30 09:09] LABS: URINE MUCUS PRESENT (NONE PRSENT)
[2017-10-30 09:11] LABS: ZZUR CULT IF INDIC CLEAN CATCH YES
[2017-10-30 09:32] LABS: BENZODIAZEPINE, URINE POS (NEG); COCAINE,URINE NEG (NEG); PHENCYCLIDINE, URINE NEG (NEG)
[2017-10-30 11:49] LABS: HEMATOCRIT 32.9 % (42-52)
--- NOTE | 2017-10-30 12:03 | DIAGNOSTIC IMAGING REPORT ---
HEAD WITHOUT CONTRAST (CT) CLINICAL HISTORY: 47 years-old Male presenting with fu r subgaleal hemorrhage, pt with sz on coumadin, r/o delayed s. TECHNIQUE: Multidetector CT imaging of the head was performed without the use of intravenous contrast. IV contrast: None. A dose lowering technique was used consistent with the principles of ALARA (as low as reasonably achievable). COMPARISON: 10/30/2017 at 2:[address] DOSE (mGy.cm): The estimated cumulative dose is 614.27 mGy.cm. FINDINGS: Non Destructive Testing Technician topogram: Unremarkable. Ventricles and sulci normal in size. Brain parenchyma normal in appearance with preserved scott-white differentiation. No mass effect or midline shift. No hemorrhage or acute territorial infarct. No extra-axial fluid collection. Mucosal thickening in the right maxillary sinus. Calvarium intact. Right parietal subgaleal hematoma near the vertex with a focal 2.1 cm subcutaneous hematoma component adjacent to the overlying laceration. This is not significantly changed in size since the prior exam. IMPRESSION: 1. No significant change compared to the prior study. No acute intracranial abnormality. 2. Persistent right parietal subgaleal hematoma with focal subcutaneous hematoma not significant changed from prior exam. Electronically signed by: Kev Vázquez M.D. 10/30/2017 12:02 PM Dictated Date/Time: 10/30/2017 11:59 AM
[2017-10-30 12:21] LABS: ALB/GLOB RATIO 0.6 (0.9-2); BUN/CREATININE RATIO 9.9 (10-20); CALCIUM 8.9 mg/dl (8.5-10.1); CREATININE 1.28 mg/dl (0.60-1.40); POTASSIUM 3.6 mmol/L (3.5-5.1)
[2017-10-30] MEDS: AMPICILLIN/SULBACTAM SOD INJ 3,000 MG in SODIUM CHLORIDE 0.9% 100ML 100 ML IV SCH ×3 (12:24→23:38)
--- NOTE | 2017-10-30 14:53 | NEUROLOGY CONSULTATION ---
DATE OF CONSULTATION: 10/30/2017 REASON FOR CONSULTATION: Seizure. The chart and the patient served as the chief historian. HISTORY OF PRESENT ILLNESS: The patient is a 47-year-old presumably right-handed male with significant coronary artery disease. He was admitted to our facility approximately 8 days ago in cardiogenic shock. He has an extensive cardiac history, it was thought that this may have been a drug overdose. His tox screen was positive at that time for marijuana. The patient was transferred on that admission and he was acidotic, had increased pCO2. On that admission appears that he was taking Keppra XR 500, I believe twice a day. It is unclear to this examiner when he was discharged from [facility], but he is now an inmate at [facility] and my understanding is that is because of a pleural violation because he need drugs. Of note, the patient is currently on Depakote 250 b.i.d. On this background, the patient had multiple seizures yesterday, after which he went to baseline, he was walking back to his cell, he made strange noise, just fell and hit his head, by report no loss of consciousness. He was brought in to our facility, by report had a witnessed generalized seizure. Dr. Leonard contacted me at that point and I recommend giving the patient Keppra 1000, starting Keppra 500 b.i.d. and continuing Depakote. The patient's history is vague and he states that he had seizure since he had an MRI about a year or so ago. He notes nothing about the seizures whether generalized partial complex. He indicates that his last seizure was about a year ago. Whey trying to explore why [facility] or the intermediate may have changed his anticonvulsants, he does report some mood-related changes and I do not know whether that preceipitated changes in his anticonvulsant That having been said, Keppra which he was on prior to that admission that has been stopped abruptly. The patient denies any headache, new weakness or new numbness. He indicates he has some chronic numbness in the top of his left foot. He has had no change in vision or speech. He denies that he is confused. He is tangential, not necessarily accurate with his history. He indicates that he is in shelter for a DUI indicates he had a significant head injury several years ago. No prior history of stroke. He has lost about 40 pounds volitionally over the last 1 year. He has not had any fever, chills or sweats. His white count on admission was 13.76, H&H 11.7 and 34.5, platelet count 317. INR was 1.9. Chemistry notable for creatinine of 1.53; do not have sodium, random glucose, calcium, magnesium. TSH is 18. Ammonia 19. Tox screen positive for marijuana and benzodiazepines. Depakote level 56. Urinalysis notable for trace ketones, greater than 30 hyaline casts, 10-20 epithelial, 1+ bacteria ____ and mucus are present. CT of the head on admission showed a large subgaleal soft tissue collection of blood and laceration of right parietal vertex that was performed at 2:15. I requested by CT today and it was performed at 11:35 and it is not significantly changed, there is a persistent right parietal subgaleal hematoma with focal subcutaneous hematoma, not significantly changed. PAST MEDICAL HISTORY: Notable for cardiogenic shock, presumed coronary artery disease, and atrial fibrillation. PAST SURGICAL HISTORY: Presumed bypass, defibrillator. SOCIAL HISTORY: The patient denies drinking alcohol recently. He does not smoke for 3 weeks. CURRENT MEDICATIONS: In intermediate were aspirin, Tylenol, albuterol, Lipitor, Lexapro. Depakote, Lasix, levothyroxine, MiraLax and losartan as well as warfarin. The patient indicates that any benzodiazepine use was greater than 8 days ago. ALLERGIES: LISINOPRIL, AMLODIPINE, TIZANIDINE. FAMILY HISTORY: No seizure. PHYSICAL EXAMINATION: VITAL SIGNS: 36.7, 84, 18, 109/72, 96%. GENERAL: The patient is awake, alert, tangential, oriented to person, place. He struggles to find the name of the hospital. He knows the month, year, who the president is. There is no right/left confusion. No aphasia. Memory is 1/3 at 3 minutes. There is a moderate sized right subgaleal hematoma. The patient has some ecchymosis on the left vaughn and right arm. There is no ecchymosis noted on his back. NECK: Supple. NEUROLOGIC: Pupils are equal and reactive. Optic nerves unremarkable. Normal humphrey, motility, facial sensation and symmetry. Speech and language are normal. Motor 5/5. No drift. Normal rapid alternating movements. This is within the limits of testing given that he is wearing cuffs. Sensation is diminished to light touch and temperature on the top of the left foot, they are symmetric otherwise temperature in the upper legs and arms. Vibrations and [id number] are normal. Toe tapping is symmetric. IMPRESSION: Breakthrough seizures, possibly related to abrupt discontinuation of Keppra. PLAN: We have restarted Keppra and will resume prior dosing, try to obtain prior records to see what the concerns were. Certainly, it is possible that there may have been some mood-related concerns regarding keppra .and will try to sort that out. I do not see any clinical evidence of subclinical status. He seems to be clearing up mentally. Repeat CT does not show delayed subdural. I am presuming the patient cannot have an MRI due to defibrillator We will check a Depakote level tomorrow. If there is any question about mentation not being back to baseline, will do an EEG. I do think he is mildly encephalopathic at this point, but it is improving, the etiology of which is unclear to me, i.e. post-ictal or did the patient have a significant hypoxic ischemic event he was in cardiogenic shock. I fortunately see no lateralizing signs. We will follow with you. DEAN
--- NOTE | 2017-10-30 16:53 | Progress Note ---
Progress Note Date of Service Oct 30, 2017. Progress Note pt admitted earlier today please refer to H&P for detail 47 yo M hx of STEMI /severe ischemic Cardiomyopathy EF 20 % S/P AICD , hx of polysubstance abuse recently admitted to [facility] with cardiogenic shock life flighted to [facility] pt was discharged form [facility] yesterday was taken to retirement for probation violation for drug abuse developed Sz episode in care home sustained a fall has occipital hematoma pt started on Keppra loading dose Neurology consulted -appreciate input pt evaluated at bed side -very poor historian with confusion -unable to focus on specific subject talking tangentially possible encephalopathy for multiple co morbidities doubt post ictal -no Sz episode in past 10 hrs cont to monitor in tele SZ precaution
[2017-10-30] MEDS ORDERED: LEVETIRACETAM IV 1,000 MG in DEXTROSE 5% 100ML 100 ML IV SCH (21:00)
[2017-10-30] MEDS: ATORVASTATIN 40 MG TAB PO SCH (21:27)
[2017-10-31] VITALS (10 sets, daily range): BP systolic 97–126; BP diastolic 60–85; PULSE 68–93; TEMP 36.7–37.6; O2SAT 94–99
[2017-10-31] MEDS: AMPICILLIN/SULBACTAM SOD INJ 3,000 MG in SODIUM CHLORIDE 0.9% 100ML 100 ML IV SCH ×4 (05:07→23:33)
[2017-10-31 06:09] LABS: BASO % 0.6 %; BASO ABS # 0.09 K/uL (0-0.2); COMPLETE YES; EOS % 3.1 %; HEMATOCRIT 33.8 % (42-52); IG% 0.3 %; LYMPH % 16.4 %; LYMPH ABS # 2.39 K/uL (1.2-3.4); MEAN CELL VOLUME 92.3 fL (80-100); MEAN CORPUSCULAR HEMOGLOBIN 30.1 pg (25-34); MEAN CORPUSCULAR HGB CONC 32.5 g/dl (32-36); MEAN PLATELET VOLUME 9.8 fL (7.4-10.4); MONO % 7.5 %; NEUT % 72.1 %; PLATELET COUNT 302 K/uL (130-400); RED BLOOD COUNT 3.66 M/uL (4.7-6.1); WHITE BLOOD COUNT 14.59 K/uL (4.8-10.8)
[2017-10-31 06:47] LABS: BUN/CREATININE RATIO 9.1 (10-20); CALCIUM 8.9 mg/dl (8.5-10.1); CREATININE 1.17 mg/dl (0.60-1.40); POTASSIUM 3.8 mmol/L (3.5-5.1); PROTHROMBIN TIME (PATIENT) 10.7 SECONDS (9.0-12.0)
[2017-10-31 06:50] LABS: THYROID STIMULATING HORMONE 14.9 uIu/ml (0.300-4.500)
[2017-10-31] MEDS: LORAZEPAM 2 MG/ML 1 ML VIAL IV PRN ×2 (07:47→18:33)
[2017-10-31] MEDS: SACUBITRIL-VALSARTAN 24-26 MG TAB PO SCH ×2 (09:16→21:26)
[2017-10-31] MEDS: METOPROLOL SUCC 50MG EXT REL TAB PO SCH (09:16)
[2017-10-31] MEDS: LEVETIRACETAM 500 MG TAB PO SCH ×2 (09:16→21:26)
[2017-10-31] MEDS: DIVALPROEX SODIUM 250 MG DELAY REL TAB PO SCH ×2 (09:17→21:26)
[2017-10-31] MEDS: ESCITALOPRAM OXALATE 10 MG TAB PO SCH (09:17)
[2017-10-31] MEDS ORDERED: DIVALPROEX SODIUM 250 MG DELAY REL TAB PO ONE (18:15)
--- NOTE | 2017-10-31 18:35 | PROGRESS NOTE ---
DATE: 10/31/2017 SUBJECTIVE: I am seeing Mr. Gonzalez in follow up of breakthrough seizures. It appeared that when the patient was at [facility], there was some concern that some of the patient's behavioral issues could be related to Keppra and they made a switch to Depakote and stopped the Keppra. He had 3 at least breakthrough seizures, 1 resulting in a fall with a fairly large subgaleal hematoma. The patient is on Coumadin. The CT of the head yesterday showed no intracranial hemorrhage. His behaviors varied earlier in the day. He had an EEG during which time my partner describes him as being agitated, but the EEG did not show any evidence of seizure activity or focus. The official result is not yet in the chart. Apparently, the patient settled down rather nicely after receiving Ativan. Discussing his history it is unclear whether he took Ativan prior to the admission to our hospital for cardiogenic shock. I believe it is possible. There is also some discussion that he was on Seroquel. On his admission to our hospital, his benzodiazepine screen was negative and marijuana positive and on this admission, marijuana positive other benzodiazepines negative. He has not had any know seizures since admission. OBJECTIVE: On examination he is oriented to person only, he says he is at my house. He denies any headache. No field cut. No facial asymmetry. He moves all 4 symmetrically. His reflexes are symmetric and his toes are downgoing. ASSESSMENT: This patient appears to have a low level of delirium and the etiology of that is somewhat unclear. The differential includes postictal, query hypoxic ischemic related to his cardiogenic shock, delayed withdrawal from medications including benzodiazepines by report, although I cannot confirm this patient was on Seroquel prior. PLAN: 1. I discussed the patient's management with Dr. Albert. I will increase his Depakote to 250 t.i.d. and do a Depakote level tomorrow. No changing in Keppra. 2. We will repeat CT of the head. We need to have low index of suspicion of an intracranial process, given his anticoagulation status. 3. I would recommend a psychiatry consult regarding medication management, whether or not they think he should be on a short term benzodiazepine taper and/or whether he needs other medications for mood. We will continue to follow with you, I believe the patient continues to need to be hospitalized. [facility]
[2017-10-31] MEDS: ATORVASTATIN 40 MG TAB PO SCH (21:26)
--- NOTE | 2017-10-31 21:29 | Progress Note ---
Internal Med Progress Note Date of Service: Oct 31, 2017. Provider Documentation: SUBJECTIVE: very confused, agitated today trying to get out of bed laughing in appropriately , can not keep a conversation talking about random things , does not know where he is at both hands on restrain -as pt constantly trying to climb out of bed , pulling at lines and monitor leads OBJECTIVE: Vital Signs-as noted below Exam: General-incoherent , confused Eyes-sclera non icteric Lungs-diminished , rales at base Heart-regular Abdomen-soft, non tender Extremities-no lower ext edema noted Neuro-confused, disoriented Lab data as noted below. ASSESSMENT & PLAN: SEIZURE : brought form custodial -with Seizure leading to fall /hematoma on scalp was on Depakote , level subtherapeutic neurology eval appreciated pt is given Loading dose of Keppra Depakote dose will be adjusted by Neurology cont Sz precaution no further sz episode since admission CAD WITH SEVERE ISCHEMIC CARDIOMYOPATHY : Hx STEMI /Cardiogenic shock with severe cardiomyopathy EF 15 : recent tx [place] [facility] [place] due to Cardiogenic shock /[facility]EDITH /respiratory failure cont out pt cardiac meds ASPIRATION PNEUMONIA : On Unasyn POLYSUBSTANCE ABUSE : on [place] violation urine tox screen + for Marijuana /BDZ pt will be discharged back to custodial to compete sentence CONFUSION /PSYCHOSIS : not sure about the etiology CT head with out contrast shows no acute intracranial pathology possible encephalopathy vs Psychosis pt was on antipsychotic drug -Seroquel in past -admitted with Over dose no active Sz noted in EEG Psych consult requested FULL CODE DVT PROPHYLAXIS scd and gaby DISPOSITION pt is currently incarcerated for violation of parole return back to Residential when medically stable Vital Signs: Date Time Temp Pulse Resp B/P (MAP) Pulse Ox O2 Delivery O2 Flow Rate FiO2 10/31/17 20:19 36.7 87 18 116/79 (91) 94 Room Air 10/31/17 20:00 Room Air 10/31/17 16:00 94 Room Air 2.0 10/31/17 15:45 37.1 80 18 108/72 (84) 94 Room Air 10/31/17 12:00 95 Room Air 10/31/17 11:36 36.7 68 18 124/60 (81) 99 10/31/17 08:00 96 Room Air 10/31/17 07:18 36.8 75 18 119/63 (81) 96 10/31/17 04:41 37.6 79 20 101/64 (76) 98 Room Air 10/31/17 04:00 Room Air 10/31/17 00:00 Room Air 10/31/17 00:00 36.9 77 20 97/62 (74) 97 Room Air Lab Results: Results Past 24 Hours Test 10/31/17 05:54 Range/Units White Blood Count 14.59 4.8-10.8 K/uL Red Blood Count 3.66 4.7-6.1 M/uL Hemoglobin 11.0 14.0-18.0 g/dL Hematocrit 33.8 42-52 % Mean Corpuscular Volume 92.3 80-100 fL Mean Corpuscular Hemoglobin 30.1 25-34 pg Mean Corpuscular Hemoglobin Concent 32.5 32-36 g/dl Platelet Count 302 130-400 K/uL Mean Platelet Volume 9.8 7.4-10.4 fL Neutrophils (%) (Auto) 72.1 % Lymphocytes (%) (Auto) 16.4 % Monocytes (%) (Auto) 7.5 % Eosinophils (%) (Auto) 3.1 % Basophils (%) (Auto) 0.6 % Neutrophils # (Auto) 10.52 1.4-6.5 K/uL Lymphocytes # (Auto) 2.39 1.2-3.4 K/uL Monocytes # (Auto) 1.09 0.11-0.59 K/uL Eosinophils # (Auto) 0.45 0-0.5 K/uL Basophils # (Auto) 0.09 0-0.2 K/uL RDW Standard Deviation 47.1 36.4-46.3 fL RDW Coefficient of Variation 14.1 11.5-14.5 % Immature Granulocyte % (Auto) 0.3 % Immature Granulocyte # (Auto) 0.05 0.00-0.02 K/uL Prothrombin Time 10.7 9.0-12.0 SECONDS Prothromb Time International Ratio 1.0 0.9-1.1 Sodium Level 136 136-145 mmol/L Potassium Level 3.8 3.5-5.1 mmol/L Chloride Level 106 98-107 mmol/L Carbon Dioxide Level 22 21-32 mmol/L Anion Gap 8.0 3-11 mmol/L Blood Urea Nitrogen 11 7-18 mg/dl Creatinine 1.17 0.60-1.40 mg/dl Est Creatinine Clear Calc Drug Dose 95.5 ml/min Estimated GFR () 86.1 Estimated GFR (Non- 74.3 BUN/Creatinine Ratio 9.1 10-20 Random Glucose 81 70-99 mg/dl Calcium Level 8.9 8.5-10.1 mg/dl Thyroid Stimulating Hormone (TSH) 14.900 0.300-4.500 uIu/ml Valproic Acid (Depakene) Level 43 50-100 mcg/ml
[2017-11-01] VITALS (8 sets, daily range): BP systolic 91–157; BP diastolic 56–89; PULSE 70–85; TEMP 36.4–37; O2SAT 95–100
[2017-11-01] MEDS: AMPICILLIN/SULBACTAM SOD INJ 3,000 MG in SODIUM CHLORIDE 0.9% 100ML 100 ML IV SCH ×3 (05:32→18:37)
[2017-11-01 06:15] LABS: HEMATOCRIT 32.6 % (42-52); MEAN CELL VOLUME 91.8 fL (80-100); MEAN CORPUSCULAR HEMOGLOBIN 30.1 pg (25-34); MEAN CORPUSCULAR HGB CONC 32.8 g/dl (32-36); PLATELET COUNT 335 K/uL (130-400); RED BLOOD COUNT 3.55 M/uL (4.7-6.1); WHITE BLOOD COUNT 11.93 K/uL (4.8-10.8)
[2017-11-01 06:30] LABS: PROTHROMBIN TIME (PATIENT) 10.6 SECONDS (9.0-12.0)
[2017-11-01 06:35] LABS: BASO % 0.7 %; BASO ABS # 0.08 K/uL (0-0.2); COMPLETE YES; ECHINOCYTES 1+; EOS % 2.9 %; IG% 0.4 %; LYMPH % 20.9 %; LYMPH ABS # 2.49 K/uL (1.2-3.4); MONO % 8.1 %; POLYCHROMASIA 1+
[2017-11-01 06:47] LABS: BUN/CREATININE RATIO 9.9 (10-20); CALCIUM 8.7 mg/dl (8.5-10.1); CREATININE 0.93 mg/dl (0.60-1.40); POTASSIUM 3.8 mmol/L (3.5-5.1)
--- NOTE | 2017-11-01 07:02 | ELECTROENCEPHALOGRAPH REPORT ---
FOR: Lj Leonard MD CLINICAL DIAGNOSIS: Confusion and agitation, question ongoing seizure activity. EEG DIAGNOSIS: Essentially normal during clinical wakefulness. DESCRIPTION OF TRACING: This EEG was done in the unit on a patient who was described as combative and confused, indeed the video monitoring of his upper body clearly confirmed this description. There was a lot of head movement and vocalizations, and overall poor degree of cooperation. Despite this, the tracing is relatively free of significant muscle movement artifacts and during wakefulness, there appears to be evidence for a background rhythm in the alpha range of about 9-10 Hz and of up to 20 microvolts of maximum amplitude. Polymorphic mid frequency theta activity is seen over all head regions without clear focal or regional predominance other than the fact there is little more prominence centrally and in a symmetrical fashion. Beta activity is a little difficult to ascertain because of the prominent muscle movement artifacts, but there does appear to be low voltage fast component in a symmetrical distribution bifrontally. No activation procedures were utilized. Drowsiness and light sleep were not obtained. At no time during the tracing is there evidence for potentially epileptogenic activity in the form of polyspike or spike wave bursts, focal sharp waves or focal spikes. INTERPRETATION: This EEG is essentially normal during wakefulness without evidence for focal or generalized encephalopathy and without evidence for potentially epileptogenic activity. MTDD
[2017-11-01] MEDS: LORAZEPAM 2 MG/ML 1 ML VIAL IV PRN (08:47)
[2017-11-01] MEDS: LEVETIRACETAM 500 MG TAB PO SCH ×2 (08:48→19:41)
[2017-11-01] MEDS: METOPROLOL SUCC 50MG EXT REL TAB PO SCH (08:48)
[2017-11-01] MEDS: DIVALPROEX SODIUM 250 MG DELAY REL TAB PO SCH ×3 (08:48→19:40)
[2017-11-01] MEDS: ESCITALOPRAM OXALATE 10 MG TAB PO SCH (08:48)
[2017-11-01] MEDS: SACUBITRIL-VALSARTAN 24-26 MG TAB PO SCH ×2 (08:49→19:14)
[2017-11-01] MEDS ORDERED: HALOPERIDOL LACTATE 5 MG/ML 1 ML VIAL IV ONE (09:50)
[2017-11-01] MEDS ORDERED: WARF5TAB7 PO (10:02)
[2017-11-01] MEDS ORDERED: FLVHFA110 INH (10:04)
[2017-11-01] MEDS ORDERED: ATV/1 PO (10:04)
[2017-11-01] MEDS ORDERED: TRAM-10 PO (10:05)
[2017-11-01] MEDS ORDERED: LEVE500T14 PO (10:06)
[2017-11-01] MEDS ORDERED: CARV12.52 PO (10:07)
--- NOTE | 2017-11-01 11:43 | Psychiatric Consultation ---
Psychiatric Consultation Date of Service: Nov 01, 2017. IDENTIFYING DATA: The patient is a 47-year-old gentleman who is admitted to intensive care with altered mental status. We are consulted to assist in the assessment of possible benzodiazepine withdrawal, psychosis and substance abuse. Information is gathered from multiple sources however the patient is obtunded and unable to be interviewed. HISTORY of present illness: The patient is a 47-year-old gentleman known to this hospital from previous admissions for polysubstance abuse and overdoses. He had been admitted for a 1 day stay in April of this year after tramadol and trazodone overdose but signed out AMA after one day not wanting treatment for substance use. He denied it was a suicide attempt at that time. He presented to our facility on October 21 of this year with his chief digital officer because he was in violation of his probation by using drugs. The patient presented as confused and lethargic. He had a deteriorating course, was in cardiogenic shock and life flighted to [facility] for further care. He was discharged from [facility] within the last several days and immediately taken to correction. According to staff at the [facility], they were in the process of the bending him when he demonstrated altered mental status, fell, hit his head. He apparently has a history of seizures and had been on Keppra XR 500 mg twice a day but while at [facility] this was changed to Depakote, reportedly because of psychiatric changes. Depakote level has been therapeutic here. During his brief stay he has been witnessed to have seizure like activity, and so Keppra was resumed in addition to Depakote. He has continued to be altered, at times attempting to get out of bed despite 3 limb restraints, and behaving inappropriately with nursing staff. Due to those behaviors, this morning he was given Haldol 2 mg IV and is presently sedated. On admission, drug screen positive for benzodiazepines and cannabis. Our liaison nurse has spoken with Adelina Barlow, who had previously seen him once in the outpatient arena for follow-up after cardiac hospitalization. He asked her for a renewal of Ativan and tramadol which he said he was on, which she gave him on 10/18/2017. She then discovered that he was on house arrest for drug related offenses, and she canceled all refills for these but he did manage to get 1 month worth of both Ativan and tramadol. According to his girlfriend, within 3 days, only 9 pills of the tramadol were left. She did not know about the Ativan. He then was brought to our facility on October 21. Current Inpatient Medications Medications (Trade) Dose Ordered Sig/Theresa Route Start Time Stop Time Status Last Admin Dose Admin Acetaminophen (Tylenol Tab) 650 mg Q4H PRN PO 10/30/17 05:30 11/29/17 05:29 Nitroglycerin (Nitrostat Tab) 0.4 mg UD PRN SL 10/30/17 05:30 11/29/17 05:29 Atorvastatin Calcium (Lipitor Tab) 80 mg HS PO 10/30/17 21:00 11/29/17 20:59 10/31/17 21:26 80 MG Escitalopram Oxalate (Lexapro Tab) 10 mg DAILY PO 10/30/17 09:00 11/29/17 08:59 11/01/17 08:48 10 MG Metoprolol Succinate (Toprol Xl Tab) 50 mg DAILY PO 10/30/17 09:00 11/29/17 08:59 11/01/17 08:48 50 MG Sacubitril/ Valsartan (Entresto 24-26 Mg) 1 tab BID PO 10/30/17 09:00 11/29/17 08:59 11/01/17 08:49 1 TAB Lorazepam 1 mg/ Syringe 1 ml @ 0.5 mls/min UD PRN IV 10/30/17 06:00 11/29/17 05:59 Lorazepam (Ativan Inj) 1 mg Q5M PRN IV 10/30/17 06:00 11/29/17 05:59 11/01/17 08:47 1 MG Prochlorperazine Edisylate 5 mg/ Syringe 5 ml @ 5 mls/min Q6H PRN IV 10/30/17 06:45 11/29/17 06:44 Ipratropium [place] (Atrovent 0.02% 0.5MG/2.5ML Neb) 0.5 mg Q4H PRN INH 10/30/17 06:45 11/29/17 06:44 Levalbuterol (Xopenex 1.25MG/ 0.5ML Neb) 1.25 mg Q4H PRN INH 10/30/17 06:45 11/29/17 06:44 Ampicillin Sodium/ Sulbactam Sodium (Consult) 1 ea DAILY PRN N/A 10/30/17 06:43 11/29/17 06:42 Levetiracetam (Keppra Tab) 500 mg BID PO 10/31/17 09:00 11/30/17 08:59 11/01/17 08:48 500 MG Ampicillin Sodium/ Sulbactam Sodium 3000 mg/Sodium Chloride 108 ml @ 216 mls/hr Q6H IV 10/30/17 12:00 11/06/17 11:59 11/01/17 05:32 216 MLS/HR Lorazepam (Ativan Inj) 1 mg Q4H PRN IV 10/31/17 07:45 11/30/17 07:44 10/31/17 18:33 1 MG Divalproex Sodium (Depakote Delay Rel Tab) 250 mg TID PO 10/31/17 21:00 11/29/17 08:59 11/01/17 08:48 250 MG Last Vital Signs Documentation Date Time Temp Pulse Resp B/P (MAP) Pulse Ox O2 Delivery O2 Flow Rate FiO2 11/01/17 11:14 36.4 70 18 118/78 (91) 95 Room Air 10/31/17 16:00 2.0 11/01/17 05:42 Red Blood Count 3.55, Mean Corpuscular Volume 91.8, Mean Corpuscular Hemoglobin 30.1, Mean Corpuscular Hemoglobin Concent 32.8, Mean Platelet Volume 10.0, Neutrophils (%) (Auto) 67.0, Lymphocytes (%) (Auto) 20.9, Monocytes (%) (Auto) 8.1, Eosinophils (%) (Auto) 2.9, Basophils (%) (Auto) 0.7, Neutrophils # (Auto) 7.99, Lymphocytes # (Auto) 2.49, Monocytes # (Auto) 0.97, Eosinophils # (Auto) 0.35, Basophils # (Auto) 0.08 11/01/17 05:42 Test 10/30/17 00:00 10/30/17 02:00 10/30/17 02:32 10/30/17 05:53 Urine Color DK YELLOW Urine Appearance CLEAR (CLEAR) Urine pH 5.5 (4.5-7.5) Urine Specific [place] 1.027 (1.000-1.030) Urine Protein 2+ (NEG) Urine Glucose (UA) NEG (NEG) Urine Ketones TRACE (NEG) Urine Occult Blood NEG (NEG) Urine Nitrite NEG (NEG) Urine Bilirubin NEG (NEG) Urine Urobilinogen NEG (NEG) Urine Leukocyte Esterase NEG (NEG) Urine WBC (Auto) 1-5 /hpf (0-5) Urine RBC (Auto) 0-4 /hpf (0-4) Urine Hyaline Casts (Auto) >30 /lpf (0-5) Urine Epithelial Cells (Auto) 10-20 /lpf (0-5) Urine Bacteria (Auto) 1+ (NEG) Urine Renal Epithelial Cells /lpf (0-5) Urine Pathogenic Casts /lpf (0) Urine Mucus PRESENT (NONE PRSENT) Urine Sperm (Auto) PRESENT (NOT PRESENT) Urine Opiates Screen NEG (NEG) Urine Methadone, Qualitative NEG (NEG) Urine Barbiturates NEG (NEG) Urine Phencyclidine (PCP) Level NEG (NEG) Ur Amphetamine/Methamphetamine NEG (NEG) MDMA (Ecstasy) Screen NEG (NEG) Urine Benzodiazepines Screen POS (NEG) Urine Cocaine Metabolite NEG (NEG) Urine Marijuana (THC) POS (NEG) Magnesium Level 2.2 mg/dl (1.8-2.4) Troponin I < 0.015 ng/ml (0-0.045) Ammonia 19.0 umol/L (11-32) Ethyl Alcohol mg/dL < 3.0 mg/dl (0-3) Total Creatine Kinase 160 U/L (39-308) Free Thyroxine 1.14 ng/dl (0.80-1.60) Total Triiodothyronine 0.81 ng/ml (0.60-1.81) Test 10/30/17 11:34 10/31/17 05:54 11/01/17 05:42 Total Bilirubin 0.4 mg/dl (0.2-1) Aspartate Amino Transf (AST/SGOT) 28 U/L (15-37) Alanine Aminotransferase (ALT/SGPT) 26 U/L (12-78) Alkaline Phosphatase 85 U/L (45-117) Total Protein 7.4 gm/dl (6.4-8.2) Albumin 2.8 gm/dl (3.4-5.0) Globulin 4.6 gm/dl (2.5-4.0) Albumin/Globulin Ratio 0.6 (0.9-2) Thyroid Stimulating Hormone (TSH) 14.900 uIu/ml (0.300-4.500) White Blood Count 11.93 K/uL (4.8-10.8) Red Blood Count 3.55 M/uL (4.7-6.1) Hemoglobin 10.7 g/dL (14.0-18.0) Hematocrit 32.6 % (42-52) Mean Corpuscular Volume 91.8 fL (80-100) Mean Corpuscular Hemoglobin 30.1 pg (25-34) Mean Corpuscular Hemoglobin Concent 32.8 g/dl (32-36) Platelet Count 335 K/uL (130-400) Mean Platelet Volume 10.0 fL (7.4-10.4) Neutrophils (%) (Auto) 67.0 % Lymphocytes (%) (Auto) 20.9 % Monocytes (%) (Auto) 8.1 % Eosinophils (%) (Auto) 2.9 % Basophils (%) (Auto) 0.7 % Neutrophils # (Auto) 7.99 K/uL (1.4-6.5) Lymphocytes # (Auto) 2.49 K/uL (1.2-3.4) Monocytes # (Auto) 0.97 K/uL (0.11-0.59) Eosinophils # (Auto) 0.35 K/uL (0-0.5) Basophils # (Auto) 0.08 K/uL (0-0.2) RDW Standard Deviation 46.6 fL (36.4-46.3) RDW Coefficient of Variation 14.2 % (11.5-14.5) Immature Granulocyte % (Auto) 0.4 % Immature Granulocyte # (Auto) 0.05 K/uL (0.00-0.02) Polychromasia 1+ Echinocytes 1+ Prothrombin Time 10.6 SECONDS (9.0-12.0) Prothromb Time International Ratio 1.0 (0.9-1.1) Anion Gap 10.0 mmol/L (3-11) Est Creatinine Clear Calc Drug Dose 118.1 ml/min Estimated GFR () 113.7 Estimated GFR (Non- 98.1 BUN/Creatinine Ratio 9.9 (10-20) Calcium Level 8.7 mg/dl (8.5-10.1) Valproic Acid (Depakene) Level 57 mcg/ml (50-100) Date/Time Source Procedure Growth Status 10/30/17 00:00 Urine , Clean Catch Urine Culture - Final NO GROWTH - LESS THAN 1,000 COLONIES/ML Complete INITIAL IMPRESSION: 47-year-old gentleman with known substance dependence, brought in by his chief digital officer for violation by using substances. He has been aggressive, altered, and having seizure-like activity. Drug screen positive for benzodiazepines and cannabis. The patient was only released from [facility] the day before and directly admitted to correction. It seems that there is a high likelihood that the patient had the remainder of his benzodiazepines with him and had been taking them during his [facility] hospitalization or took them in transit. I'm not aware of whether or not they secure the patient's belongings at [facility]. He certainly could be going through benzodiazepine withdrawal, however he is on two antiseizure medications at this time that should cover him for withdrawal seizures. I do not suggest putting him on a benzodiazepine taper at this point. I do suggest that all belongings be searched thoroughly both at the correction and here. We so far have no indication that he has been on psychoactive medications such as Seroquel as was suspected by Dr. Phillips. I agree that IV Haldol, while in telemetry could be used to control any behavioral dysregulation associated with encephalopathy. We will be unable at this time to assess any primary psychiatric condition due to chronic substance abuse and altered mental status. He should be followed by the psychiatrist at the [facility] if possible. The above recommendations are made based on review of available information. Dr. Rehana Burch is personally been involved in the above recommendations.
--- NOTE | 2017-11-01 17:23 | DIAGNOSTIC IMAGING REPORT ---
CT OF THE HEAD WITHOUT CONTRAST CLINICAL HISTORY: agitation /fall /on anticoagulation. COMPARISON STUDY: Head CT October 30, 2017. CT DOSE: 724.83 mGy.cm TECHNIQUE: Helical axial images of the head were obtained without IV contrast. Automated exposure control was utilized for the study. A dose lowering technique was utilized adhering to the principles of ALARA. FINDINGS: No acute intracranial hemorrhage, midline shift or mass effect is present. Ventricular system is stable. Basilar cisterns are patent. There are no extra-axial collections. Naidu-white differentiation is maintained. Note is again made of a posterior scalp contusion. The right parietal portion of the contusion has slightly diminished since prior exam while the left parietal portion has increased. There is no calvarial fracture. Minimal hyperdense material within the posterior aspect of the right maxillary sinus is unchanged. IMPRESSION: 1. No acute intracranial findings. 2. Posterior scalp contusion. No calvarial fracture. Electronically signed by: Joaquin Tena M.D. 11/01/2017 5:22 PM Dictated Date/Time: 11/01/2017 5:17 PM
--- NOTE | 2017-11-01 17:34 | PROGRESS NOTE ---
DATE: 11/01/2017 SUBJECTIVE: Mr. Gonzalez was admitted with approximately 3 seizures, one resulting in a fall and a subgaleal hematoma. He had had just been discharged from [facility] after a cardiogenic shock and they had made a change in his anticonvulsants. He has not had any seizure since here. He EEG did not show any seizure activity when performed yesterday, he remains intermittently agitated and mildly confused. By the psychiatry report, Ivett Hurtado spoke to the patient's significant other and it appears that the patient had been prescribed Ativan and tramadol on October 18. The patient received 1 month of both and apparently only neither tramadol was left. He was brought to [facility] on October 21. They have recommended since he is adequately covered with anticonvulsants not to reinstitute benzodiazepines and they have recommended using Haldol as needed. He has been afebrile. Overnight, a CT was not completed because the patient was not cooperative. His Depakote level today is 57, which is therapeutic. His chemistry from October 30 and November 01 reviewed. On October 30, his transaminases and ammonia were normal. His TSH remains elevated at 14.9. PHYSICAL EXAMINATION: GENERAL: He is awake, doing a little. He is slightly restless. He is oriented to person. Initially, he thinks he is in [facility], but then self corrects to [facility] and thinks that it is 2018. He follows some simple commands. He denies any complaints such as headache. He has normal visual humphrey. No facial asymmetry. Symmetric strength. Downgoing toes. A subgaleal collection of blood was noted in the right eye, posterior vertex. It appears smaller than it had been on admission. IMPRESSION: This patient has a history of seizures which preceeded a hospitalization for cardiogenic shock. At [facility], my understanding is they switched him presumably overnight to Depakote, thinking that some behaviors that I assume they witnessed could have been related to Keppra use, albeit that he had been on it for a year prior. We have elected due to breakthrough seizures on a low therapeutic level on Depakote to restart Keppra, and I have increased the Depakote. There is no evidence of liver dysfunction or hyperammonemia. His electroencephalogram was normal without any significant evidence of encephalopathy or ongoing sz. That having been said, I think the patient appears very mildly delirious and this may be polyfactorial, it may be from a postictal state, medication withdrawal. PLAN: As the patient seemed relatively cooperative in my presence, nursing will try to bring him down for a CAT scan and the patient is willing to try that. We will continue to monitor. Will follow with you. BERNARDINOD
--- NOTE | 2017-11-01 18:47 | Progress Note ---
Subjective Date of Service: Nov 01, 2017. Subjective Pt evaluation today including: conversation w/ patient, physical exam, lab review, review of studies, review of inpatient medication list Saw/examined the patient in room 215 He is sleepy, arousable; denies chest pain/shortness of breath No edema, denies headache Problem List Medical Problems: (1) Abrasion Status: Acute (2) Acute AR Status: Acute (3) Acute renal failure Status: Acute (4) Allergic reaction Status: Acute (5) Altered mental status Status: Acute (6) Altered mental status Status: Acute (7) Altered mental status Status: Acute (8) Change in mental status Status: Acute (9) Cholecystitis Status: Acute (10) Closed head injury Status: Acute (11) Dehydration Status: Acute (12) Drug overdose Status: Acute (13) Renal failure Status: Acute (14) Rhabdomyolysis Status: Acute (15) Right knee injury Status: Acute (16) Scalp hematoma Status: Acute (17) Supratherapeutic INR Status: Acute (18) Syncope Status: Acute (19) Syncope Status: Acute Review of Systems ENT: + problem reported (denies headache) Respiratory: No shortness of breath Cardiac: No chest pain, No edema difficult to get a complete ROS due to patient's lethargy/mental status Medications Current Inpatient Medications Medications (Trade) Dose Ordered Sig/Theresa Route Start Time Stop Time Status Last Admin Dose Admin Acetaminophen (Tylenol Tab) 650 mg Q4H PRN PO 10/30/17 05:30 11/29/17 05:29 Nitroglycerin (Nitrostat Tab) 0.4 mg UD PRN SL 10/30/17 05:30 11/29/17 05:29 Atorvastatin Calcium (Lipitor Tab) 80 mg HS PO 10/30/17 21:00 11/29/17 20:59 10/31/17 21:26 80 MG Escitalopram Oxalate (Lexapro Tab) 10 mg DAILY PO 10/30/17 09:00 11/29/17 08:59 11/01/17 08:48 10 MG Metoprolol Succinate (Toprol Xl Tab) 50 mg DAILY PO 10/30/17 09:00 11/29/17 08:59 11/01/17 08:48 50 MG Sacubitril/ Valsartan (Entresto 24-26 Mg) 1 tab BID PO 10/30/17 09:00 11/29/17 08:59 11/01/17 08:49 1 TAB Lorazepam 1 mg/ Syringe 1 ml @ 0.5 mls/min UD PRN IV 10/30/17 06:00 11/29/17 05:59 Lorazepam (Ativan Inj) 1 mg Q5M PRN IV 10/30/17 06:00 11/29/17 05:59 11/01/17 08:47 1 MG Prochlorperazine Edisylate 5 mg/ Syringe 5 ml @ 5 mls/min Q6H PRN IV 10/30/17 06:45 11/29/17 06:44 Ipratropium [place] (Atrovent 0.02% 0.5MG/2.5ML Neb) 0.5 mg Q4H PRN INH 10/30/17 06:45 11/29/17 06:44 Levalbuterol (Xopenex 1.25MG/ 0.5ML Neb) 1.25 mg Q4H PRN INH 10/30/17 06:45 11/29/17 06:44 Ampicillin Sodium/ Sulbactam Sodium (Consult) 1 ea DAILY PRN N/A 10/30/17 06:43 11/29/17 06:42 Levetiracetam (Keppra Tab) 500 mg BID PO 10/31/17 09:00 11/30/17 08:59 11/01/17 08:48 500 MG Ampicillin Sodium/ Sulbactam Sodium 3000 mg/Sodium Chloride 108 ml @ 216 mls/hr Q6H IV 10/30/17 12:00 11/06/17 11:59 11/01/17 11:49 216 MLS/HR Lorazepam (Ativan Inj) 1 mg Q4H PRN IV 10/31/17 07:45 11/30/17 07:44 10/31/17 18:33 1 MG Divalproex Sodium (Depakote Delay Rel Tab) 250 mg TID PO 10/31/17 21:00 11/29/17 08:59 11/01/17 11:48 250 MG Objective Vital Signs Date Time Temp Pulse Resp B/P (MAP) Pulse Ox O2 Delivery O2 Flow Rate FiO2 11/01/17 16:00 36.5 85 20 129/80 (96) 96 Room Air 11/01/17 16:00 Room Air 11/01/17 12:00 36.6 82 20 124/82 (96) 100 Room Air 11/01/17 12:00 Room Air 11/01/17 11:14 36.4 70 18 118/78 (91) 95 Room Air 11/01/17 08:00 100 Room Air 11/01/17 06:47 37.0 78 18 114/87 (96) 100 Room Air 11/01/17 04:00 Room Air 11/01/17 03:48 36.8 83 17 127/82 (97) 97 Room Air 11/01/17 00:00 Room Air 10/31/17 23:49 37.0 93 18 126/85 (99) 97 Room Air 10/31/17 20:19 36.7 87 18 116/79 (91) 94 Room Air 10/31/17 20:00 Room Air Physical Exam General Appearance: no apparent distress ENT: + pertinent finding (hematoma noted on the scalp) Respiratory/Chest: lungs clear, normal breath sounds, no respiratory distress, no accessory muscle use, + pertinent finding (incisional scar) Cardiovascular: regular rate, rhythm, no edema, no murmur Extremities: non-tender, normal inspection, no pedal edema Laboratory Results Last 24 Hours Test 11/01/17 05:42 White Blood Count 11.93 K/uL Red Blood Count 3.55 M/uL Hemoglobin 10.7 g/dL Hematocrit 32.6 % Mean Corpuscular Volume 91.8 fL Mean Corpuscular Hemoglobin 30.1 pg Mean Corpuscular Hemoglobin Concent 32.8 g/dl Platelet Count 335 K/uL Mean Platelet Volume 10.0 fL Neutrophils (%) (Auto) 67.0 % Lymphocytes (%) (Auto) 20.9 % Monocytes (%) (Auto) 8.1 % Eosinophils (%) (Auto) 2.9 % Basophils (%) (Auto) 0.7 % Neutrophils # (Auto) 7.99 K/uL Lymphocytes # (Auto) 2.49 K/uL Monocytes # (Auto) 0.97 K/uL Eosinophils # (Auto) 0.35 K/uL Basophils # (Auto) 0.08 K/uL RDW Standard Deviation 46.6 fL RDW Coefficient of Variation 14.2 % Immature Granulocyte % (Auto) 0.4 % Immature Granulocyte # (Auto) 0.05 K/uL Polychromasia 1+ Echinocytes 1+ Prothrombin Time 10.6 SECONDS Prothromb Time International Ratio 1.0 Sodium Level 140 mmol/L Potassium Level 3.8 mmol/L Chloride Level 107 mmol/L Carbon Dioxide Level 23 mmol/L Anion Gap 10.0 mmol/L Blood Urea Nitrogen 9 mg/dl Creatinine 0.93 mg/dl Est Creatinine Clear Calc Drug Dose 118.1 ml/min Estimated GFR () 113.7 Estimated GFR (Non- 98.1 BUN/Creatinine Ratio 9.9 Random Glucose 79 mg/dl Calcium Level 8.7 mg/dl Valproic Acid (Depakene) Level 57 mcg/ml Assessment and Plan Seizure possible Seizure activity at [facility] patient was there for about 6 hours has a fall, and a hematoma/laceration noted on his scalp was changed from Keppra to Depakote at [facility] now on both as per neurology here repeat Head CT with no acute findings CAD WITH SEVERE ISCHEMIC CARDIOMYOPATHY : Hx STEMI /Cardiogenic shock with severe cardiomyopathy EF 15 [place] [facility] [place] to Cardiogenic shock /MEREDITH /respiratory failure cont out pt cardiac meds ASPIRATION PNEUMONIA : On Unasyn POLYSUBSTANCE ABUSE : on [place] violation urine tox screen + for Marijuana /BDZ pt will be discharged back to [facility] to compete sentence CONFUSION /PSYCHOSIS : not sure about the etiology CT head with out contrast shows no acute intracranial pathology possible encephalopathy vs Psychosis pt was on antipsychotic drug -Seroquel in past -admitted with Over dose no active Sz noted in EEG Psych consult requested FULL CODE DVT PROPHYLAXIS scd and gaby DISPOSITION pt is currently incarcerated for violation of parole return back to [facility] when medically stable
[2017-11-01] MEDS: ATORVASTATIN 40 MG TAB PO SCH (19:39)
[2017-11-02] VITALS (7 sets, daily range): BP systolic 98–153; BP diastolic 58–88; PULSE 77–84; TEMP 36.4–37.1; O2SAT 94–98
[2017-11-02] MEDS: AMPICILLIN/SULBACTAM SOD INJ 3,000 MG in SODIUM CHLORIDE 0.9% 100ML 100 ML IV SCH ×5 (00:03→23:24)
[2017-11-02 08:10] LABS: PROTHROMBIN TIME (PATIENT) 10.7 SECONDS (9.0-12.0)
[2017-11-02 08:21] LABS: BASO % 0.5 %; BASO ABS # 0.06 K/uL (0-0.2); COMPLETE YES; HEMATOCRIT 30.9 % (42-52); IG% 0.5 %; LYMPH % 20.9 %; LYMPH ABS # 2.56 K/uL (1.2-3.4); MEAN CELL VOLUME 91.7 fL (80-100); MEAN CORPUSCULAR HEMOGLOBIN 30.6 pg (25-34); MEAN CORPUSCULAR HGB CONC 33.3 g/dl (32-36); MEAN PLATELET VOLUME 10.2 fL (7.4-10.4); MONO % 8.7 %; NEUT % 66.4 %; PLATELET COUNT 355 K/uL (130-400); RED BLOOD COUNT 3.37 M/uL (4.7-6.1); WHITE BLOOD COUNT 12.23 K/uL (4.8-10.8)
[2017-11-02 08:39] LABS: BUN/CREATININE RATIO 8.5 (10-20); CALCIUM 8.5 mg/dl (8.5-10.1); CREATININE 1.03 mg/dl (0.60-1.40)
[2017-11-02] MEDS: METOPROLOL SUCC 50MG EXT REL TAB PO SCH (09:00)
[2017-11-02] MEDS: LEVETIRACETAM 500 MG TAB PO SCH ×2 (09:35→21:36)
[2017-11-02] MEDS: ESCITALOPRAM OXALATE 10 MG TAB PO SCH (09:35)
[2017-11-02] MEDS: DIVALPROEX SODIUM 250 MG DELAY REL TAB PO SCH ×3 (09:36→21:37)
[2017-11-02] MEDS: SACUBITRIL-VALSARTAN 24-26 MG TAB PO SCH ×2 (09:36→21:00)
--- NOTE | 2017-11-02 17:08 | PROGRESS NOTE ---
DATE: 11/02/2017 SUBJECTIVE: I am seeing Mr. Gonzalez in followup of a breakthrough seizure. He is currently on Depakote 250 t.i.d. and Keppra [address] of the head last evening was unremarkable. It did show some resolution of the subgaleal blood collection. He has not had any further seizures. His Depakote level yesterday was 57. PHYSICAL EXAMINATION: GENERAL: He is awake and alert, oriented x3. His history giving is excellent. We spoke about the use of anticonvulsants for the last 1 year. He has been on Keppra without any breakthrough seizures and he denies any mood-related issues. I believe that Haritha changed his anticonvulsant from Keppra to Depakote because of concerns regarding mood or behavior, I do not know if that was because the patient was post-hypoxic event and had behavioral changes. The patient indicates there is no ongoing headache. VITAL SIGNS: 36.8, 77, 20, 107/70. NEUROLOGICAL: Awake, alert, normal speech and language. Normal visual humphrey, facial symmetry. Symmetric strength. IMPRESSION: Recent breakthrough seizure when Keppra was abruptly discontinued overnight presumably after Depakote was started. At present, I will elect to keep him on Depakote 250 t.i.d. and Keppra 500 b.i.d. I would recommend he see me as an outpatient where we can explore some mood-related issues and some more detail. It may be reasonable to keep him on Depakote, which would act as a mood stabilizer and then gradually taper Keppra. I will determine that in the office. The patient has questions regarding his thyroid supplementation as well as reinstitution of anticoagulants, which I have asked him to direct at the hospitalist. Please make sure the patient have a followup appointment with me in my office within 3 weeks or so. DEAN
--- NOTE | 2017-11-02 18:38 | Progress Note ---
Subjective Date of Service: Nov 02, 2017. Subjective Pt evaluation today including: conversation w/ patient, physical exam, lab review, review of studies, review of inpatient medication list Saw/examined the patient in room 215 Doing better, he is more alert/awake, oriented x3 No other issues to note Problem List Medical Problems: (1) Abrasion Status: Acute (2) Acute [place] Status: Acute (3) Acute renal failure Status: Acute (4) Allergic reaction Status: Acute (5) Altered mental status Status: Acute (6) Altered mental status Status: Acute (7) Altered mental status Status: Acute (8) Change in mental status Status: Acute (9) Cholecystitis Status: Acute (10) Closed head injury Status: Acute (11) Dehydration Status: Acute (12) Drug overdose Status: Acute (13) Renal failure Status: Acute (14) Rhabdomyolysis Status: Acute (15) Right knee injury Status: Acute (16) Scalp hematoma Status: Acute (17) Supratherapeutic INR Status: Acute (18) Syncope Status: Acute (19) Syncope Status: Acute Review of Systems Constitutional: No fever, No chills, No weakness Respiratory: No cough, No sputum, No shortness of breath Cardiac: No chest pain, No edema, No palpitations Abdomen: No pain, No nausea, No vomiting, No diarrhea Medications Current Inpatient Medications Medications (Trade) Dose Ordered Sig/Theresa Route Start Time Stop Time Status Last Admin Dose Admin Acetaminophen (Tylenol Tab) 650 mg Q4H PRN PO 10/30/17 05:30 11/29/17 05:29 Nitroglycerin (Nitrostat Tab) 0.4 mg UD PRN SL 10/30/17 05:30 11/29/17 05:29 Atorvastatin Calcium (Lipitor Tab) 80 mg HS PO 10/30/17 21:00 11/29/17 20:59 11/01/17 19:39 80 MG Escitalopram Oxalate (Lexapro Tab) 10 mg DAILY PO 10/30/17 09:00 11/29/17 08:59 11/02/17 09:35 10 MG Metoprolol Succinate (Toprol Xl Tab) 50 mg DAILY PO 10/30/17 09:00 11/29/17 08:59 11/01/17 08:48 50 MG Sacubitril/ Valsartan (Entresto 24-26 Mg) 1 tab BID PO 10/30/17 09:00 11/29/17 08:59 11/02/17 09:36 1 TAB Lorazepam 1 mg/ Syringe 1 ml @ 0.5 mls/min UD PRN IV 10/30/17 06:00 11/29/17 05:59 Lorazepam (Ativan Inj) 1 mg Q5M PRN IV 10/30/17 06:00 11/29/17 05:59 11/01/17 08:47 1 MG Prochlorperazine Edisylate 5 mg/ Syringe 5 ml @ 5 mls/min Q6H PRN IV 10/30/17 06:45 11/29/17 06:44 Ipratropium [place] (Atrovent 0.02% 0.5MG/2.5ML Neb) 0.5 mg Q4H PRN INH 10/30/17 06:45 11/29/17 06:44 Levalbuterol (Xopenex 1.25MG/ 0.5ML Neb) 1.25 mg Q4H PRN INH 10/30/17 06:45 11/29/17 06:44 Ampicillin Sodium/ Sulbactam Sodium (Consult) 1 ea DAILY PRN N/A 10/30/17 06:43 11/29/17 06:42 Levetiracetam (Keppra Tab) 500 mg BID PO 10/31/17 09:00 11/30/17 08:59 11/02/17 09:35 500 MG Ampicillin Sodium/ Sulbactam Sodium 3000 mg/Sodium Chloride 108 ml @ 216 mls/hr Q6H IV 10/30/17 12:00 11/06/17 11:59 11/02/17 13:32 216 MLS/HR Lorazepam (Ativan Inj) 1 mg Q4H PRN IV 10/31/17 07:45 11/30/17 07:44 10/31/17 18:33 1 MG Divalproex Sodium (Depakote Delay Rel Tab) 250 mg TID PO 10/31/17 21:00 11/29/17 08:59 11/02/17 13:32 250 MG Objective Vital Signs Date Time Temp Pulse Resp B/P (MAP) Pulse Ox O2 Delivery O2 Flow Rate FiO2 11/02/17 16:00 Room Air 11/02/17 15:25 36.8 77 20 107/70 (82) 94 Room Air 11/02/17 12:00 Room Air 11/02/17 11:40 36.4 79 20 153/88 (109) 95 Room Air 11/02/17 11:39 36.5 81 18 100/67 (78) 94 Room Air 11/02/17 08:53 36.7 84 18 98/66 (77) 97 11/02/17 08:00 Room Air 11/02/17 04:00 Room Air 11/02/17 03:39 36.5 83 20 98/64 (75) 95 Room Air 11/02/17 00:00 Room Air 11/01/17 23:58 36.7 76 20 93/63 (73) 99 Room Air 11/01/17 20:00 Room Air 11/01/17 19:13 36.8 79 18 91/56 (68) 96 Room Air Physical Exam General Appearance: no apparent distress Respiratory/Chest: lungs clear, normal breath sounds, no respiratory distress, no accessory muscle use Cardiovascular: regular rate, rhythm, no edema, no murmur Abdomen: normal bowel sounds, non tender, soft Extremities: normal inspection, no pedal edema, + pertinent finding ( handcuffed to the bed) Neurologic/Psychiatric: no motor/sensory deficits, alert, oriented x 3 Laboratory Results Last 24 Hours Test 11/02/17 07:27 11/02/17 09:18 White Blood Count 12.23 K/uL Red Blood Count 3.37 M/uL Hemoglobin 10.3 g/dL Hematocrit 30.9 % Mean Corpuscular Volume 91.7 fL Mean Corpuscular Hemoglobin 30.6 pg Mean Corpuscular Hemoglobin Concent 33.3 g/dl Platelet Count 355 K/uL Mean Platelet Volume 10.2 fL Neutrophils (%) (Auto) 66.4 % Lymphocytes (%) (Auto) 20.9 % Monocytes (%) (Auto) 8.7 % Eosinophils (%) (Auto) 3.0 % Basophils (%) (Auto) 0.5 % Neutrophils # (Auto) 8.11 K/uL Lymphocytes # (Auto) 2.56 K/uL Monocytes # (Auto) 1.07 K/uL Eosinophils # (Auto) 0.37 K/uL Basophils # (Auto) 0.06 K/uL RDW Standard Deviation 46.9 fL RDW Coefficient of Variation 14.3 % Immature Granulocyte % (Auto) 0.5 % Immature Granulocyte # (Auto) 0.06 K/uL Prothrombin Time 10.7 SECONDS Prothromb Time International Ratio 1.0 Sodium Level 138 mmol/L Potassium Level mmol/L 3.8 mmol/L Chloride Level 106 mmol/L Carbon Dioxide Level 24 mmol/L Anion Gap 8.0 mmol/L Blood Urea Nitrogen 9 mg/dl Creatinine 1.03 mg/dl Est Creatinine Clear Calc Drug Dose 107.8 ml/min Estimated GFR () 100.5 Estimated GFR (Non- 86.7 BUN/Creatinine Ratio 8.5 Random Glucose 80 mg/dl Calcium Level 8.5 mg/dl Assessment and Plan Seizure 11/02 appreciate neurology input will be on Depakote and Lonnie outpatient neurology f/u in 3 weeks for further management 11/01 possible Seizure activity at residential patient was there for about 6 hours has a fall, and a hematoma/laceration noted on his scalp was changed from Keppra to Depakote at [place] now on both as per neurology here repeat Head CT with no acute findings CAD WITH SEVERE ISCHEMIC CARDIOMYOPATHY : Hx STEMI /Cardiogenic shock with severe cardiomyopathy EF 15 recent tx to [facility] on 10/21 due to Cardiogenic shock /MEREDITH /respiratory failure cont out pt cardiac meds ASPIRATION PNEUMONIA : On Unasyn POLYSUBSTANCE ABUSE : on [place] violation urine tox screen + for Marijuana /BDZ pt will be discharged back to residential to compete sentence CONFUSION /PSYCHOSIS : not sure about the etiology CT head with out contrast shows no acute intracranial pathology possible encephalopathy vs Psychosis pt was on antipsychotic drug -Seroquel in past -admitted with Over dose no active Sz noted in EEG Psych consult requested Hypothyroidism continue Synthroid FULL CODE DVT PROPHYLAXIS scd and gaby DISPOSITION pt is currently incarcerated for violation of parole return back to [facility] when medically stable
[2017-11-02] MEDS: ATORVASTATIN 40 MG TAB PO SCH (21:38)
[2017-11-03 03:20] VITALS: BP 114/75; PULSE 85; TEMP 36.7; O2SAT 99
[2017-11-03] MEDS: AMPICILLIN/SULBACTAM SOD INJ 3,000 MG in SODIUM CHLORIDE 0.9% 100ML 100 ML IV SCH (05:18)
[2017-11-03 05:37] LABS: HYDROXYETHYLFLURAZEPAM CONF NEGATIVE NG/ML (CUTOFF=50); HYDROXYMIDAZOLAM >2000 NG/ML (CUTOFF=50); HYDROXYTRIAZOLAM CONF NEGATIVE NG/ML (CUTOFF=50); TEMAZEPAM CONF NEGATIVE NG/ML (CUTOFF=50)
[2017-11-03] MEDS ORDERED: LEVOTHYROXINE 150 MCG TAB PO SCH (06:00)
[2017-11-03 06:52] LABS: BASO % 0.4 %; BASO ABS # 0.04 K/uL (0-0.2); COMPLETE YES; HEMATOCRIT 30.4 % (42-52); IG% 0.4 %; LYMPH % 26.3 %; MEAN CELL VOLUME 91.8 fL (80-100); MEAN CORPUSCULAR HEMOGLOBIN 29.9 pg (25-34); MEAN CORPUSCULAR HGB CONC 32.6 g/dl (32-36); MONO % 10.5 %; NEUT % 59.4 %; PLATELET COUNT 372 K/uL (130-400); RED BLOOD COUNT 3.31 M/uL (4.7-6.1); WHITE BLOOD COUNT 9.49 K/uL (4.8-10.8)
[2017-11-03 07:17] LABS: PROTHROMBIN TIME (PATIENT) 10.8 SECONDS (9.0-12.0)
[2017-11-03 07:26] LABS: BUN/CREATININE RATIO 6.1 (10-20); CALCIUM 8.4 mg/dl (8.5-10.1); CREATININE 0.95 mg/dl (0.60-1.40); POTASSIUM 3.5 mmol/L (3.5-5.1)
[2017-11-03 08:03] VITALS: BP 96/62; PULSE 82; TEMP 36.7; O2SAT 97
[2017-11-03] MEDS: ATORVASTATIN 40 MG TAB PO SCH (08:05)
[2017-11-03] MEDS: DIVALPROEX SODIUM 250 MG DELAY REL TAB PO SCH (08:06)
[2017-11-03] MEDS: SACUBITRIL-VALSARTAN 24-26 MG TAB PO SCH (08:06)
[2017-11-03] MEDS: ESCITALOPRAM OXALATE 10 MG TAB PO SCH (08:07)
[2017-11-03] MEDS: LEVETIRACETAM 500 MG TAB PO SCH (08:07)
--- NOTE | 2017-11-03 08:37 | Progress Note ---
Subjective Date of Service: Nov 03, 2017. Subjective Pt evaluation today including: conversation w/ patient, physical exam, lab review, review of studies, review of inpatient medication list Saw/examined the patient in room 215 He's doing well today, no problems/issues to note Eager to get out of the hospital, back to half-way Problem List Medical Problems: (1) Abrasion Status: Acute (2) Acute [place] Status: Acute (3) Acute renal failure Status: Acute (4) Allergic reaction Status: Acute (5) Altered mental status Status: Acute (6) Altered mental status Status: Acute (7) Altered mental status Status: Acute (8) Change in mental status Status: Acute (9) Cholecystitis Status: Acute (10) Closed head injury Status: Acute (11) Dehydration Status: Acute (12) Drug overdose Status: Acute (13) Renal failure Status: Acute (14) Rhabdomyolysis Status: Acute (15) Right knee injury Status: Acute (16) Scalp hematoma Status: Acute (17) Supratherapeutic INR Status: Acute (18) Syncope Status: Acute (19) Syncope Status: Acute Review of Systems Constitutional: No fever, No chills, No weakness Respiratory: No cough, No sputum, No wheezing, No shortness of breath ( intermittent), No dyspnea on exertion, No dyspnea at rest, No hemoptysis Cardiac: No chest pain Abdomen: No pain, No nausea, No vomiting, No diarrhea, No constipation, No GI bleeding Musculoskeletal: No joint pain Heme: No abnormal bleeding/bruising Medications Current Inpatient Medications Medications (Trade) Dose Ordered Sig/Hteresa Route Start Time Stop Time Status Last Admin Dose Admin Acetaminophen (Tylenol Tab) 650 mg Q4H PRN PO 10/30/17 05:30 11/29/17 05:29 Nitroglycerin (Nitrostat Tab) 0.4 mg UD PRN SL 10/30/17 05:30 11/29/17 05:29 Atorvastatin Calcium (Lipitor Tab) 80 mg HS PO 10/30/17 21:00 11/29/17 20:59 11/03/17 08:05 80 MG Escitalopram Oxalate (Lexapro Tab) 10 mg DAILY PO 10/30/17 09:00 11/29/17 08:59 11/03/17 08:07 10 MG Metoprolol Succinate (Toprol Xl Tab) 50 mg DAILY PO 10/30/17 09:00 11/29/17 08:59 11/01/17 08:48 50 MG Sacubitril/ Valsartan (Entresto 24-26 Mg) 1 tab BID PO 10/30/17 09:00 11/29/17 08:59 11/03/17 08:06 1 TAB Lorazepam 1 mg/ Syringe 1 ml @ 0.5 mls/min UD PRN IV 10/30/17 06:00 11/29/17 05:59 Lorazepam (Ativan Inj) 1 mg Q5M PRN IV 10/30/17 06:00 11/29/17 05:59 11/01/17 08:47 1 MG Prochlorperazine Edisylate 5 mg/ Syringe 5 ml @ 5 mls/min Q6H PRN IV 10/30/17 06:45 11/29/17 06:44 Ipratropium [place] (Atrovent 0.02% 0.5MG/2.5ML Neb) 0.5 mg Q4H PRN INH 10/30/17 06:45 11/29/17 06:44 Levalbuterol (Xopenex 1.25MG/ 0.5ML Neb) 1.25 mg Q4H PRN INH 10/30/17 06:45 11/29/17 06:44 Ampicillin Sodium/ Sulbactam Sodium (Consult) 1 ea DAILY PRN N/A 10/30/17 06:43 11/29/17 06:42 Levetiracetam (Keppra Tab) 500 mg BID PO 10/31/17 09:00 11/30/17 08:59 11/03/17 08:07 500 MG Ampicillin Sodium/ Sulbactam Sodium 3000 mg/Sodium Chloride 108 ml @ 216 mls/hr Q6H IV 10/30/17 12:00 11/06/17 11:59 11/02/17 23:24 216 MLS/HR Lorazepam (Ativan Inj) 1 mg Q4H PRN IV 10/31/17 07:45 11/30/17 07:44 10/31/17 18:33 1 MG Divalproex Sodium (Depakote Delay Rel Tab) 250 mg TID PO 10/31/17 21:00 11/29/17 08:59 11/03/17 08:06 250 MG Levothyroxine Sodium (Synthroid Tab) 150 mcg DAILYBB PO 11/03/17 06:00 12/03/17 05:59 11/03/17 05:52 150 MCG Aspirin (Ecotrin Tab) 81 mg QAM PO 11/03/17 09:00 18 08:59 11/03/17 08:05 81 MG Furosemide (Lasix Tab) 40 mg QAM PO 11/03/17 09:00 12/03/17 08:59 11/03/17 08:08 40 MG Objective Vital Signs Date Time Temp Pulse Resp B/P (MAP) Pulse Ox O2 Delivery O2 Flow Rate FiO2 11/03/17 08:03 36.7 82 18 96/62 (73) 97 Room Air 11/03/17 04:00 Room Air 11/03/17 03:20 36.7 85 18 114/75 (88) 99 Room Air 11/03/17 00:00 Room Air 11/02/17 23:00 36.9 80 16 112/76 (88) 98 Room Air 11/02/17 20:05 Room Air 11/02/17 20:04 37.1 81 20 99/58 (72) 95 Room Air 11/02/17 16:00 Room Air 11/02/17 15:25 36.8 77 20 107/70 (82) 94 Room Air 11/02/17 12:00 Room Air 11/02/17 11:40 36.4 79 20 153/88 (109) 95 Room Air 11/02/17 11:39 36.5 81 18 100/67 (78) 94 Room Air 11/02/17 08:53 36.7 84 18 98/66 (77) 97 Physical Exam General Appearance: no apparent distress Respiratory/Chest: chest non-tender, lungs clear, normal breath sounds, no respiratory distress, no accessory muscle use Cardiovascular: regular rate, rhythm, no edema, no murmur Extremities: normal inspection, no pedal edema Laboratory Results Last 24 Hours Test 11/02/17 09:18 11/03/17 06:18 Potassium Level 3.8 mmol/L 3.5 mmol/L White Blood Count 9.49 K/uL Red Blood Count 3.31 M/uL Hemoglobin 9.9 g/dL Hematocrit 30.4 % Mean Corpuscular Volume 91.8 fL Mean Corpuscular Hemoglobin 29.9 pg Mean Corpuscular Hemoglobin Concent 32.6 g/dl Platelet Count 372 K/uL Mean Platelet Volume 10.0 fL Neutrophils (%) (Auto) 59.4 % Lymphocytes (%) (Auto) 26.3 % Monocytes (%) (Auto) 10.5 % Eosinophils (%) (Auto) 3.0 % Basophils (%) (Auto) 0.4 % Neutrophils # (Auto) 5.63 K/uL Lymphocytes # (Auto) 2.50 K/uL Monocytes # (Auto) 1.00 K/uL Eosinophils # (Auto) 0.28 K/uL Basophils # (Auto) 0.04 K/uL RDW Standard Deviation 47.6 fL RDW Coefficient of Variation 14.7 % Immature Granulocyte % (Auto) 0.4 % Immature Granulocyte # (Auto) 0.04 K/uL Prothrombin Time 10.8 SECONDS Prothromb Time International Ratio 1.0 Sodium Level 138 mmol/L Chloride Level 106 mmol/L Carbon Dioxide Level 25 mmol/L Anion Gap 7.0 mmol/L Blood Urea Nitrogen 6 mg/dl Creatinine 0.95 mg/dl Est Creatinine Clear Calc Drug Dose 116.8 ml/min Estimated GFR () 110.8 Estimated GFR (Non- 95.6 BUN/Creatinine Ratio 6.1 Random Glucose 85 mg/dl Calcium Level 8.4 mg/dl Assessment and Plan Seizure 11/03 will d/c back to [facility] today will continue Depakote and Keppra outpatient neurology f/u in 3 weeks for further management and medication adjustments 11/02 appreciate neurology input will be on Depakote and Keppra outpatient neurology f/u in 3 weeks for further management 11/01 possible Seizure activity at half-way patient was there for about 6 hours has a fall, and a hematoma/laceration noted on his scalp was changed from Keppra to Depakote at [place] now on both as per neurology here repeat Head CT with no acute findings CAD WITH SEVERE ISCHEMIC CARDIOMYOPATHY : Hx STEMI /Cardiogenic shock with severe cardiomyopathy EF 15 recent tx to [facility] on 10/21 due to Cardiogenic shock /MEREDITH /respiratory failure cont out pt cardiac meds ASPIRATION PNEUMONIA : On Unasyn will switch to Augmentin to total 7 days POLYSUBSTANCE ABUSE : on [place] violation urine tox screen + for Marijuana /BDZ pt will be discharged back to half-way to compete sentence CONFUSION /PSYCHOSIS : not sure about the etiology CT head with out contrast shows no acute intracranial pathology possible encephalopathy vs Psychosis pt was on antipsychotic drug -Seroquel in past -admitted with Over dose no active Sz noted in EEG Psych consult requested Hypothyroidism continue Synthroid FULL CODE DVT PROPHYLAXIS scd and gaby DISPOSITION pt is currently incarcerated for violation of parole return back to Skilled Nursing when medically stable
[2017-11-03] MEDS ORDERED: AMOX875T PO (08:40)
--- NOTE | 2017-11-03 08:46 | Discharge Instructions ---
Discharge Instructions Date of Service Nov 03, 2017. Admission Reason for Admission: Encephalopathy Discharge Discharge Diagnosis / Problem: Seizure Disorder Discharge Goals Goal(s): Decrease discomfort, Improve function, Diagnostic testing, Therapeutic intervention Activity Recommendations Activity Limitations: resume your previous activity . Instructions / Follow-Up Instructions / Follow-Up You will be on Augmentin (antibiotic) for three more days You will be on Depakote and Keppra for seizures - please follow-up with neurology in 3 weeks Current Hospital Diet Patient's current hospital diet: AHA Diet (Heart Healthy) Discharge Diet Recommended Diet: AHA Diet (Heart Healthy) Pending Studies Studies pending at discharge: no Medical Emergencies . Who to Call and When: Medical Emergencies: If at any time you feel your situation is an emergency, please call 911 immediately. . Non-Emergent Contact Non-Emergency issues call your: Primary Care Provider, Neurologist . . "Provider Documentation" section prepared by Juan Byrd. . VTE Core Measure Inpt VTE Proph given/why not?: SCD's
--- NOTE | 2017-11-03 08:50 | Discharge Summary ---
Discharge Summary Date of Service Nov 03, 2017. Discharge Summary Admission Date: Oct 30, 2017 at 04:40 Discharge Date: Nov 03, 2017 Discharge Disposition: Home Principal Diagnosis: Seizure Disorder Aspiration Pneumonia Ischemic Cardiomyopathy; recent Cardiogenic Shock Hypothyroidism Medication Reconciliation New Medications: Amoxicillin & Pot Clavulanate (Augmentin 875-125 mg) 1 Tab Tab 1 TAB PO BID for 3 Days, #6 TAB Continued Medications: Acetaminophen (Tylenol) 500 Mg Tab 1000 MG PO Q8, TAB Albuterol Sulf (Albuterol Sulfate) 2.5 Mg/3 Ml Nebu 3 ML INH TID PRN for SOB/Wheezing Aspirin (Aspirin Ec) 81 Mg Tab 81 MG PO QAM Atorvastatin (Lipitor) 80 Mg Tab 80 MG PO HS, TAB Divalproex Sodium (Divalproex Sodium Dr) 250 Mg Tabec 250 MG PO BID Escitalopram (Lexapro) 10 Mg Tab 10 MG PO DAILY, TAB Fluticasone Propionate (Flovent Hfa) 120 Puffs/55827 Mcg Aero 2 PUFFS INH BID Furosemide (Lasix) 40 Mg Tab 40 MG PO DAILY, TAB Levetiracetam (Keppra Xr) 500 Mg Tab 500 MG PO BID, TAB Levothyroxine Sodium (Levothyroxine Sodium) 150 Mcg Tab 150 MCG PO DAILY Lorazepam (Ativan) 1 Mg Tab 1 MG PO HS, TAB Metoprolol Succ (Toprol Xl) (Toprol-Xl) 50 Mg Tabcr 50 MG PO DAILY, TAB Polyethylene Glycol 3350 (Miralax) 1 Pow Pow 17 GM PO DAILY Sacubitril-Valsartan (Entresto 24-26 mg) 1 Tab Tab 1 TAB PO BID Tramadol (Ultram) 50 Mg Tab 1 TAB PO Q6 PRN for Pain Warfarin Sod (Jantoven) 5 Mg Tab 5 MG PO DAILY, TAB Discontinued Medications: Carvedilol (Coreg) 12.5 Mg Tab 1 TAB PO BID Admission Information HPI (per Admitting provider): DATE OF ADMISSION: 10/30/2017 PRIMARY CARE DOCTOR: Feliciano Holguin MD CHIEF COMPLAINT: Hit my head, seizures. HISTORY OF PRESENT ILLNESS: Patient is currently a [facility] inmate. History obtained from patient, [facility] nurse, records. Patient is an unreliable historian. Medical history significant for seizure disorder, polysubstance abuse, chronic systolic heart disease (EF 15-20% as per records) sp ICD, ischemic cardiomyopathy, CAD, history PAF/LV thrombus on anticoagulation, chronic anemia (baseline hemoglobin 11), chronic renal insufficiency (baseline creatinine 1.5 to 1.7), hypothyroidism, hx past tobacco/ETOH abuse as per records. Recent confinement on last October 21, 2017 [facility] for cardiogenic shock, renal failure (serum creatinine 6). Patient brought in for confusion and lethargy, noted to be hypotensive, Subsequently intubated and transferred to [facility]. Patient discharged from [facility] to [facility] yesterday. Patient had broken his parole for illicit drug use as per records prior to recent confinement. As per outpatient Cardiology records, patient has a history of cardiogenic shock status post ECMO at [facility] 01/2017. Had postextubation seizures and maintained Keppra XR at home. Keppra XR replaced with Depakote following discharge from [facility] yesterday. As per corrections nurse, two witnessed seizures/convulsions in [facility] yesterday. Not classic grand mal as per RN, some confusion noted after. Odd behavior and inappropriate responses to queries regarding his medical history. RN not sure about patient baseline mentation. Patient was walking back to his cell last night accompanied by guard rail installer when he made strange noises, subsequently fell down and hit his head. No obvious seizures, no loss of consciousness. Painful swelling noted on the right head post fall. No change in mentation after head trauma. Patient denies chest pain or shortness of breath or syncope. Complaining of headache. Patient brought to the Emergency Room. MEDICAL HISTORY: As above. SURGERIES: ICD CURRENT MEDICATIONS: aspirin, Tylenol, albuterol, Lipitor, Lexapro, valproic acid, Lasix, levothyroxine, MiraLax, Toprol-XL, Entresto. ALLERGIES: LISINOPRIL, AMLODIPINE, AND TIZANIDINE. FAMILY HISTORY: Could not be obtained. PERSONAL AND SOCIAL HISTORY: Past tobacco abuse/ETOH abuse as per records. Currently incarcerated. REVIEW OF SYSTEMS: Could not be reliably obtained. PHYSICAL EXAMINATION: VITAL SIGNS: Blood pressure was noted to be 113/77, NH 90 RR 18 T 37, O2 sats 96% on room air. GENERAL: Noted to be comfortable, coherent but disoriented. Inappropriate response to some questions. SKIN: Pallor , warm . HEENT: Tender swelling right posterior scalp. Pale palpebral conjunctivae, no ptosis, dry buccal mucosa. CHEST: Decreased effort. No tenderness. HEART: Diminished S1 and S2. Regular rate and rhythm. ABDOMEN: Soft and nontender. EXTREMITIES: No edema, no LE tenderness. No gross deformities. NEUROLOGIC: Coherent but disoriented. Gait and stance not assessed. LABORATORY DATA: Hemoglobin was noted to be 11.7, and platelets 317. Sodium was noted to be 137 potassium 3.7, chloride 105, CO2 of 27, BUN 12, creatinine 1.5, and glucose 99. TSH was noted to be 18. trop 0 INR 1.9 Chest x-ray as per my interpretation atelectasis, ICD CT of the head initial read large right parietal scalp hematoma. CT spine initial read, degenerative changes. EKG as per my interpretation rate 85, normal sinus rhythm, T-wave flattening in lateral leads ASSESSMENT: 1. Recurrent seizures history of seizure disorder Currently on Valproic acid post recent [facility] confinement for cardiogenic shock. Unclear why home Keppra XR was discontinued upon discharge from [facility]. 2. Encephalopathy Inappropriate responses to some queries likely chronic possibly resulting from years of polysubstance abuse/probable anoxic/ cerebrovascular insult given recent history of cardiogenic shock requiring intubation/hx TBI as per records 3. Scalp hematoma secondary to witnessed mechanical fall Hemoglobin at baseline 4. Chronic systolic heart failure secondary to ischemic cardiomyopathy sp ICD, patient euvolemic 5. hx CAD PER RECORDS 6. PAF/hx LV thrombus on Coumadin, patient NSR, INR slightly subtherapeutic 7. HTN, stable 8. CRI. Creatinine possibly at baseline. 9. Past tobacco/ETOH abuse as per records PLAN: PCU. Seizure precautions. Follow valproic acid level. EEG. Neurology consult RE recurrent seizures. Obtain records of recent confinement from [facility]. PO Vitamin K 1 dose for scalp hematoma in the setting of mild coagulopathy secondary to Coumadin intake. Follow H&H. Hold ASA, Coumadin until hemoglobin stable DVT prophylaxis, SCDs while INR less than 2 wh Coumadin on hold Full code. Case discussed with Ms. Alpa Sebastian, [facility] commercial property administrator. Patient family may not be contacted for additional information or consent for procedures (blood transfusion, etc.) Blood transfusion would have to be deemed emergent by attending physician if necessary as patient unable to consent with sound mentation. ADDENDUM : Seizure-like activity lasting a few minutes with this by staff upon patient arrival at the telemetry room. Arm flailing, convulsive motions, upward rolling of eyeballs followed by some episode of confusion- not classic grand mal as per RN account. Cough symptoms noted - aspiration suspected as per RN account. Depakote level within normal limits. Unasyn for possible aspiration pneumonitis. Case discussed with Dr. Delvalle (neurologist on-call). She recommends Keppra 1 g twice a day loading followed by oral Keppra 500 mg twice a day starting tomorrow. Hospital Course Seizure 11/03 will d/c back to [facility] today will continue Depakote and Keppra outpatient neurology f/u in 3 weeks for further management and medication adjustments 11/02 appreciate neurology input will be on Depakote and Keppra outpatient neurology f/u in 3 weeks for further management 11/01 possible Seizure activity at [facility] patient was there for about 6 hours has a fall, and a hematoma/laceration noted on his scalp was changed from Keppra to Depakote at [place] now on both as per neurology here repeat Head CT with no acute findings CAD WITH SEVERE ISCHEMIC CARDIOMYOPATHY : Hx STEMI /Cardiogenic shock with severe cardiomyopathy EF 15 recent tx to [facility] on 10/21 due to Cardiogenic shock /MEREDITH /respiratory failure cont out pt cardiac meds ASPIRATION PNEUMONIA : On Unasyn will switch to Augmentin to total 7 days POLYSUBSTANCE ABUSE : on [place] violation urine tox screen + for Marijuana /BDZ pt will be discharged back to [facility] to compete sentence CONFUSION /PSYCHOSIS : not sure about the etiology CT head with out contrast shows no acute intracranial pathology possible encephalopathy vs Psychosis pt was on antipsychotic drug -Seroquel in past -admitted with Over dose no active Sz noted in EEG Psych consult requested Hypothyroidism continue Synthroid FULL CODE DVT PROPHYLAXIS scd and gaby DISPOSITION pt is currently incarcerated for violation of parole return back to [facility] when medically stable Total time spent on discharge = 45 minutes This includes examination of the patient, discharge planning, medication reconciliation, and communication with other providers. Discharge Instructions You will be on Augmentin (antibiotic) for three more days You will be on Depakote and Keppra for seizures - please follow-up with neurology in 3 weeks
[2017-11-03] MEDS ORDERED: FUROSEMIDE 40 MG TAB PO SCH (09:00)
[2017-11-03] MEDS ORDERED: ASPIRIN 81 MG ECTAB PO SCH (09:00)
[2017-11-03] MEDS: METOPROLOL SUCC 50MG EXT REL TAB PO SCH (09:00)
[2017-11-03 09:34] VITALS: BP 96/62; PULSE 82; TEMP 36.7; O2SAT 97
== END 2017-11-03 10:29 | disposition home or self-care (01) | DRG 100 ==
LOC: EDBD 01:53 → C.EDB 01:57 → C.2T 04:40 → ENRESERV 04:50
PROVIDERS: ADMIT Internal Medicine; ATTEND Family Medicine
DX: G40.909 Epilepsy, unspecified, not intractable, without status epilepticus (principal); J69.0 Pneumonitis due to inhalation of food and vomit; I50.22 Chronic systolic (congestive) heart failure; G93.40 Encephalopathy, unspecified; M19.90 Unspecified osteoarthritis, unspecified site; S00.03XA Contusion of scalp, initial encounter; I25.5 Ischemic cardiomyopathy; I48.0 Paroxysmal atrial fibrillation; E03.9 Hypothyroidism, unspecified; I10 Essential (primary) hypertension; Z87.891 Personal history of nicotine dependence; Y92.149 Unspecified place in prison as the place of occurrence of the external cause; Y93.01 Activity, walking, marching and hiking; W18.00XA Striking against unspecified object with subsequent fall, initial encounter